=== PATIENT | male | born 1935 | race Caucasian/White ===

== ENCOUNTER → 2016-11-03 | Outpatient (CLI) | payer BC ==
[~2016-11-03] MED LIST: ACET-1256 PO; ALLO300T2 PO; ASPI81TA82 PO; COLC0.6T54 PO; METFTAB2 PO; METO25TA56 PO; MULT-506 PO; NITR0.4S UT; OMEP20TA PO; SIMV40TA4 PO; TELM80TA PO
[2016-11-03 10:12] LABS: ALT/SGPT 28 U/L (12-78); AST/SGOT 18 U/L (15-37)
== END | disposition home or self-care (01) ==
LOC: C.LAB1850 08:28
PROVIDERS: ATTEND Physician Assistant
DX: E78.5 Hyperlipidemia, unspecified (principal)

== ENCOUNTER → 2017-04-28 | Outpatient (CLI) | payer BC ==
[2017-04-28 12:26] LABS: CHOLESTEROL/HDL RATIO 1.8
== END | disposition home or self-care (01) ==
LOC: C.LAB1850 10:16
PROVIDERS: ATTEND Physician Assistant
DX: E78.5 Hyperlipidemia, unspecified (principal)

== ENCOUNTER → 2017-05-25 | Outpatient (CLI) | payer BC ==
[2017-05-25 14:39] LABS: BASO % 0.5 %; BASO ABS # 0.04 K/uL (0-0.2); COMPLETE YES; EOS % 2.8 %; IG% 0.2 %; LYMPH % 23.3 %; LYMPH ABS # 1.97 K/uL (1.2-3.4); MEAN CELL VOLUME 96.2 fL (80-100); MEAN CORPUSCULAR HEMOGLOBIN 32.2 pg (25-34); MEAN CORPUSCULAR HGB CONC 33.4 g/dl (32-36); MEAN PLATELET VOLUME 11.4 fL (7.4-10.4); MONO % 7.7 %; NEUT % 65.5 %; PLATELET COUNT 220 K/uL (130-400); RED BLOOD COUNT 3.95 M/uL (4.7-6.1); WHITE BLOOD COUNT 8.47 K/uL (4.8-10.8)
[2017-05-25 14:42] LABS: URINE APPEARANCE CLEAR (CLEAR); URINE BILIRUBIN NEG (NEG); URINE COLOR YELLOW; URINE EPITHELIAL CELL AUTO 0-5 /lpf (0-5); URINE NITRITE NEG (NEG); URINE PH 5.5 (4.5-7.5); URINE SPECIFIC GRAVITY 1.016 (1.000-1.030); UROBILINOGEN NEG (NEG)
[2017-05-25 14:43] LABS: MANUAL MICROSCOPIC REQUIRED? NO; REVIEW REQ? NO
[2017-05-25 14:49] LABS: BLOOD UREA NITROGEN 51 mg/dl (7-18); BUN/CREATININE RATIO 27.8 (10-20); CALCIUM 9.2 mg/dl (8.5-10.1); CARBON DIOXIDE 28 mmol/L (21-32); CHLORIDE 104 mmol/L (98-107); CREATININE 1.82 mg/dl (0.60-1.40); GLUCOSE 137 mg/dl (70-99); POTASSIUM 5.1 mmol/L (3.5-5.1); SODIUM 138 mmol/L (136-145)
[2017-05-25 14:59] LABS: CREATININE, URINE 78.2 mg/dl; URINE PROTIEN/CREAT RATIO 1.4 (0-0.2); URINE TOTAL PROTEIN 110.2 mg/dl (0-11.9)
== END | disposition home or self-care (01) ==
LOC: C.LAB1850 13:19
PROVIDERS: ATTEND Internal Medicine Nephrology
DX: N18.3 Chronic kidney disease, stage 3 (moderate) (principal); R80.9 Proteinuria, unspecified

== ENCOUNTER → 2017-11-22 | Outpatient (CLI) | payer OTHER ==
[2017-11-22 16:40] LABS: HEMATOCRIT 38.2 % (42-52); MEAN CELL VOLUME 97.7 fL (80-100); MEAN CORPUSCULAR HEMOGLOBIN 33.2 pg (25-34); MEAN PLATELET VOLUME 11.3 fL (7.4-10.4); PLATELET COUNT 206 K/uL (130-400); RED CELL DISTRIBUTION WIDTH CV 14.1 % (11.5-14.5); RED CELL DISTRIBUTION WIDTH SD 49.8 fL (36.4-46.3); WHITE BLOOD COUNT 6.53 K/uL (4.8-10.8)
[2017-11-22 16:58] LABS: ALBUMIN 3.5 gm/dl (3.4-5.0); BLOOD UREA NITROGEN 47 mg/dl (7-18); CALCIUM 9.4 mg/dl (8.5-10.1); CARBON DIOXIDE 26 mmol/L (21-32); CREATININE 1.91 mg/dl (0.60-1.40); GLUCOSE 192 mg/dl (70-99); PHOSPHORUS 2.8 mg/dl (2.5-4.9); POTASSIUM 4.9 mmol/L (3.5-5.1); SODIUM 137 mmol/L (136-145)
== END | disposition home or self-care (01) ==
LOC: C.LAB1850 15:41
PROVIDERS: ATTEND Internal Medicine Nephrology
DX: I12.9 Hypertensive chronic kidney disease with stage 1 through stage 4 chronic kidney disease, or unspecified chronic kidney disease (principal); E11.9 Type 2 diabetes mellitus without complications; R80.9 Proteinuria, unspecified; N18.3 Chronic kidney disease, stage 3 (moderate)

== ENCOUNTER → 2017-11-25 | Outpatient (CLI) | payer OTHER | END | disposition home or self-care (01) | LOC: C.LAB1850 09:36 | PROVIDERS: ATTEND Internal Medicine Nephrology | DX: I12.9 Hypertensive chronic kidney disease with stage 1 through stage 4 chronic kidney disease, or unspecified chronic kidney disease (principal); E11.9 Type 2 diabetes mellitus without complications; R80.9 Proteinuria, unspecified; N18.3 Chronic kidney disease, stage 3 (moderate) ==

== ENCOUNTER 2018-12-12 06:32 | Inpatient (IN) ==
--- NOTE | 2018-11-23 15:04 | PAT Medication Instructions ---
Medication Instructions Date of Service November 23, 2018 Home Medications allopurinol 300 mg PO QAM amlodipine 10 mg PO QAM aspirin [Aspir-81] 81 mg PO QAM atorvastatin 40 mg PO QPM furosemide 20 mg PO QAM glipizide 5 mg PO QAM metformin 500 mg PO BID metoprolol tartrate 25 mg PO BID rofsgygs-mjv-DY-lycopen-lutein 1 tab PO DAILY omeprazole 20 mg PO QPM nitroglycerin [Nitrostat] 1 dose SUBLINGUAL UD PRN Continue as directed nitroglycerin [Nitrostat] 1 dose SUBLINGUAL UD PRN (if needed) STOP taking 2 weeks before surgery (or as soon as possible if surgery is within 2 weeks) Centrum Silver jtcfcjhu-dos-ZK-lycopen-lutein 1 tab PO DAILY DO NOT take the morning of surgery furosemide 20 mg PO QAM glipizide 5 mg PO QAM metformin 500 mg PO BID Take morning of surgery With a small sip of water, OTHERWISE NOTHING TO EAT OR DRINK AFTER MIDNIGHT: allopurinol 300 mg PO QAM amlodipine 10 mg PO QAM aspirin [Aspir-81] 81 mg PO QAM metoprolol tartrate 25 mg PO BID Take evening before surgery atorvastatin 40 mg PO QPM metformin 500 mg PO BID metoprolol tartrate 25 mg PO BID omeprazole 20 mg PO QPM Other Notes If you have any questions please call us at [phone] or [phone] or [phone] or [phone]
--- NOTE | 2018-11-24 10:36 | Anesthesiology Consultation ---
Date of Service November 24, 2018 Assessment & Plan (1) Encounter for pre-operative examination: - Cardio: 10/16/18: DSE ordered for preoperative evaluation (done 11/06/18 and reviewed by cardio). "Patient is an acceptable cardiac risk to undergo surgery." Per patient, to continue ASA perioperatively per surgeon. - PCP: 12/03/18: elevated potassium 5.5 on preop labs 11/24/18. Per PCP, "I do not see the potassium being an issue with his upcoming surgery, although it should be monitored daily while he is in the hospital." Surgeon aware of recommendations. Repeat potassium done 11/29/18 by children's attendant was WNL. "He is an acceptable candidate for the proposed procedure." - Check BSG AM DOS Chart Review Chart Review: Acceptable Risk for Surgery and Patient seen in Pre Admission Testing Teaching & Discussion Pre-Anesthesia Teaching/Discussion Notes: Instructed NPO after midnight before surgery,except medications with 15 cc of water. Medication instructions provided according to the PAT guidelines. History Surgery Operation Date: 12/12/18 12:30 Proposed Procedures p Left Total Knee Replacement - Sawyer Gonzalez MD Height/Weight Height: 6 ft Weight: 104.3 kg Allergies Allergy/AdvReac Type Severity Reaction Status Date / Time codeine Allergy Unknown NAUSEA, Verified 11/22/18 14:01 FACIAL SWELLING Medications Home Medications Medication Instructions Recorded Confirmed Last Taken allopurinol 300 mg PO QAM 09/16/18 11/22/18 Unknown amlodipine 10 mg PO QAM 09/16/18 11/22/18 Unknown aspirin [Aspir-81] 81 mg PO QAM 09/16/18 11/22/18 Unknown atorvastatin 40 mg PO QPM 09/16/18 11/22/18 Unknown furosemide 20 mg PO QAM 09/16/18 11/22/18 Unknown glipizide 5 mg PO QAM 09/16/18 11/22/18 Unknown metformin 500 mg PO BID 09/16/18 11/22/18 Unknown metoprolol tartrate 25 mg PO BID 09/16/18 11/22/18 Unknown ruakpugq-smr-MD-lycopen-lutein 1 tab PO DAILY 09/16/18 11/22/18 Unknown [Centrum Silver] omeprazole 20 mg PO QPM 09/16/18 11/22/18 Unknown nitroglycerin [Nitrostat] 1 dose SUBLINGUAL UD PRN 11/22/18 11/22/18 Unknown Past Medical History Medical History Anemia CHRONIC Arthritis CAD (coronary artery disease) MARIO TO YESSICA (2009) CKD (chronic kidney disease) STAGE III (BASELINE CREATININE 1.7-1.9 PER CHART REVIEW); FOLLOWS WITH NEPHRO Diabetes mellitus, type 2 NIDDM GERD (gastroesophageal reflux disease) CONTROLLED Gout Hearing deficit BILATERAL AIDES Hyperlipidemia Hypertension Past Family History Family History Uncle Family hx of colon cancer Past Surgical History Surgical History History of cardiac cath S/P MARIO TO YESSICA (2009) History of colonoscopy History of endoscopic sinus surgery History of open reduction and internal fixation (ORIF) procedure RIGHT TIBIA History of tonsillectomy Hx of LASIK Past Anesthesia History No Hx of Anesthesia Complications and No Family Hx of Anesthesia Complications History of PONV No Motion Sickness Screening History of Motion Sickness: No Social History Smoking Status: Former smoker Do You Dip or Chew Tobacco: No Smoking End Date: QUIT 1967 Hx Alcohol Use: Yes Alcohol type: wine alcohol intake frequency: 0-2 drinks per day (1 DRINK/DAY) Hx Substance Use: No substance use type: does not use Exercise / Class Metabolic Activity III < 4 Walking/Shop/Light housework (USES CANE/WALKER PRN) Review of Systems Patient denies chest pain, shortness of breath, cough, wheezing, palpitations. Physical Exam Vital Signs VITALS BP 109/67 P 63 TEMP 98.5 SP02 95%RA RESP 18 PHYSICAL Mildly decreased cervical extension Full TMJ range of motion. TMD 3 finger breaths Mallampati Score 2 Dentition: intact, several crowns, temporary post on upper right side tooth (no further dental work planned until after surgery) Lungs: clear throughout to auscultation Cardiac: regular rate and rhythm, no murmurs noted Spine: normal Carotid arteries: negative bruit Extremities: no edema Testing Electrocardiogram Date: 11/24/18 SB with first degree AVB at 56bpm. Possible RVH. Chest X-Ray Date: 11/24/18 Mild cardiomegaly. Platelike atelectasis right base. Stress Test Date: 11/06/18 Type: DSE Negative DSE/stress EKG for ischemia at 94% MPHR. Moderate cLVH. Grade I DD. Mild LAD. No significant valvular disease. Laboratory Results 11/24/18 11:08 11/24/18 11:08 Blood Type A Positive 11/24/18 11:08 Antibody Screen NEGATIVE 11/24/18 11:08 PT 9.8 Seconds (9.0-12.0) 11/24/18 11:08 INR 1.0 (0.9-1.1) 11/24/18 11:08 APTT 26.9 Seconds (21.0-31.0) 11/24/18 11:08 09/04/18 HGBA1C 6.4% 11/29/18 (updated labs*) WBC 8.26 H/H 11.8/35.4 PLT 233 SODIUM 136 POTASSIUM 4.6 (normalized*) CHLORIDE 103 CO2 28 BUN 35 CREATININE 1.76 (GFR 35.2) GLUCOSE 154
--- NOTE | 2018-11-24 11:34 | XRay Report ---
XR chest Pre-admission PA/Lat CLINICAL HISTORY: pat preoperative evaluation COMPARISON STUDY: 02/26/2013 FINDINGS: Mild stable cardiomegaly. Minimal right basilar atelectasis. Lungs otherwise appear clear. IMPRESSION: Mild cardiomegaly. Platelike atelectasis right base. The above report was generated using voice recognition software. It may contain grammatical, syntax or spelling errors. Electronically signed by: Devyn Cheney M.D. 11/24/2018 11:33 AM
[2018-11-24 12:17] LABS: Basophils # (auto) 0.02 K/uL (0-0.2); Basophils % (auto) 0.3 %; Eosinophils # (auto) 0.15 K/uL (0-0.5); Eosinophils % (auto) 1.9 %; Hematocrit (blood only) 33.8 % (42-52); Hemoglobin 11.4 g/dL (14.0-18.0); Immature Granulocytes # (auto) 0.01 K/uL (0.00-0.02); Immature Granulocytes % (auto) 0.1 %; Lymphocytes # (auto) 1.77 K/uL (1.2-3.4); Lymphocytes % (auto) 22.3 %; Mean Corpuscular Hgb Conc 33.7 g/dL (32-36); Mean Corpuscular Volume 95.8 fL (80-100); Mean Platelet Volume 11.9 fL (7.4-10.4); Monocytes # (auto) 0.75 K/uL (0.11-0.59); Monocytes % (auto) 9.5 %; Neutrophils # (auto) 5.23 K/uL (1.4-6.5); Neutrophils % (auto) 65.9 %; Platelet Count 209 K/uL (130-400); RDW Standard Deviation 48.1 fL (36.4-46.3); Red Blood Count 3.53 M/uL (4.7-6.1); White Blood Count 7.93 K/uL (4.8-10.8)
[2018-11-24 12:26] LABS: Calcium 9.3 mg/dl (8.5-10.1); Creatinine Clr Calc Pharmacy 36.8 ml/min; Est GFR (African American) 36.5; Est GFR (Non-African American) 31.5; Potassium 5.5 mmol/L (3.5-5.1)
[2018-11-24 12:29] LABS: Partial Thromboplastin Time 26.9 Seconds (21.0-31.0); Prothrombin Time 9.8 Seconds (9.0-12.0)
--- NOTE | 2018-12-06 13:33 | History and Physical Report ---
DATE OF ADMISSION: 12/12/2018 CHIEF COMPLAINT: Left knee pain and discomfort. HISTORY OF PRESENT ILLNESS: This is an 83-year-old gentleman who presents for surgical treatment of his left knee. He has got a long history of left knee problems that have gradually gotten worse over the past several years. He describes global pain in his knee. The more he walks, the more it hurts. He uses a cane to get around due to the pain in his knee. He has nighttime discomfort. He cannot walk more than a couple of blocks due to the pain. He has had injection which provided him temporary relief only. He is having more and more difficulty maintaining any degree of lifestyle and he would like to have his left knee fixed. PAST MEDICAL HISTORY: 1. Coronary artery disease, status post stent placement by Dr. Lowery with a recent negative dobutamine stress test. 2. Diabetes x2 years. 3. Hypertension. 4. Unspecified kidney disease, followed by Dr. Murphy. 5. Mild obesity. PAST SURGICAL HISTORY: Previous surgeries include: 1. Cardiac stent placement. 2. Right knee ORIF. ALLERGIES: CODEINE. He apparently had some facial swelling with this. This was from dental work, so it may have been related to the dental surgery and not the medicine. CURRENT MEDICINES: Include: 1. Metoprolol. 2. Amlodipine. 3. Metformin. 4. Allopurinol. 5. Glipizide. 6. Aspirin. 7. Atorvastatin. 8. Omeprazole. 9. Centrum Silver. 10. Methylprednisolone. SOCIAL HISTORY: An 83-year-old gentleman. He does not smoke. Several drinks per week. FAMILY HISTORY: Noncontributory. REVIEW OF SYSTEMS: Significant for some underlying cardiac disease, status post stent placement. Denies any current chest pain or shortness of breath. No history of DVT or PE. He does have some underlying kidney disease followed by Dr. Murphy. PHYSICAL EXAMINATION: GENERAL: Reveals a pleasant elderly male. He looks to be in reasonably good health. HEENT: Benign. NECK: Supple. No lymphadenopathy. LUNGS: Clear to auscultation. HEART: Regular rate and rhythm. ABDOMEN: Soft, nontender, nondistended. EXTREMITIES: Grossly neurovascularly intact except as follows: Examination of left knee reveals patient walks with the use of a cane. He has got varus alignment to his left knee. He has a varus thrust with weightbearing. He is tender over the medial joint line. Range of motion about 10 degrees short of full extension and 120 degrees of flexion. There is no instability. No pain with hip motion. X-RAYS: X-rays of the left knee reviewed. Shows advanced left knee DJD. He has got complete loss of his medial joint space. He has got tibial femoral subluxation. He has got subchondral sclerosis. He does have some lateral compartment disease as well. ASSESSMENT: An 83-year-old gentleman with advanced left knee degenerative joint disease. He has failed conservative treatment and would like to have his left knee replaced. PLAN: We will plan on taking him to the operating room and do a left total knee replacement. The risks and benefits of this procedure were explained to the patient including but not limited to DVT, PE, , infection, neurological injury, vascular injury, bleeding problem, pain, limited range of motion, stiffness, failure to relieve symptoms, incomplete relief of symptoms, need for further surgery in future, fracture, leg length inequality, nerve palsy, etc. The patient understands and desires to proceed. Informed consent was obtained. The patient was seen by his wool spotter, Dr. Lowery and had a dobutamine stress test which was negative. He does have some underlying kidney disease, so we have to be careful with NSAIDs postoperatively. He knows to hold his metformin the morning of surgery and take the metoprolol and omeprazole. He is planning to be discharged to home using [facility] home health program.
[~2018-12-12 06:32] MED LIST changes: -ACET-1256 PO; +ACETAMINOPHEN 500 MG TAB PO SCH; -ALLO300T2 PO; -ASPI81TA82 PO; +BUPIVACAINE 0.5 % 5 MG/1 ML PF 10ML VIAL ONE; +BUPIVACAINE LIPOSOME/PF 266 MG, BUPIVACAINE/EPINEPHRINE 50 ML, SODIUM CHLORIDE 0.9% 30 ... INFIL SCH; +CEFAZOLIN 2000MG 2,000 MG/15 ML SYR IV SCH; -COLC0.6T54 PO; +FAMOTIDINE 20 MG TAB PO SCH; +GABAPENTIN 300 MG PO SCH; +LR 500ML BOLUS, THEN 15ML/HR IV SCH; +LR 60ML/HR IV SCH; -METFTAB2 PO; -METO25TA56 PO; +METOCLOPRAMIDE HCL 10 MG TABLET PO SCH; -MULT-506 PO; -NITR0.4S UT; -OMEP20TA PO; +ROPIVACAINE 0.5% 5 MG/ML 30 ML VIAL ONE; -SIMV40TA4 PO; -TELM80TA PO; +TRANEXAMIC ACID 1,000 MG **IV Intra-op IV SCH
[2018-12-12] MEDS ORDERED: MIDAZOLAM HCL 1 MG/ML 2ML VIAL ONE (06:36)
[2018-12-12] MEDS ORDERED: fentaNYL citrate 100 MCG/2 ML VIAL ONE (06:36)
--- NOTE | 2018-12-12 06:52 | History & Physical Bridge Note ---
Date of Service December 12, 2018 History & Physical Bridge Note I have examined the patient, reviewed the History & Physical and in the interval since the performance of the History & Physical I have noted the following changes of clinical significance: no changes noted
[2018-12-12] MEDS ORDERED: ePHEDrine sulfate 50 MG/ML AMP IV PRN (08:41)
[2018-12-12] MEDS ORDERED: PHENYLEPHRINE 100MCG/ML 5ML SYR IV PRN (08:41)
[2018-12-12] MEDS ORDERED: HYDROmorphone INJ 1 MG/ML SYRINGE IV PRN (08:41)
[2018-12-12] MEDS ORDERED: ONDANSETRON INJ 2 MG/ML 2 ML VIAL IV PRN ×2 (08:41→12:02)
[2018-12-12] MEDS ORDERED: ATROPINE SULFATE 0.1 MG/ML 10ML SYR IV PRN (08:41)
[2018-12-12] MEDS ORDERED: BUPIVACAINE 0.25% 30 ML VIAL ONE (08:45)
[2018-12-12] MEDS ORDERED: BACITRACIN INJ 50,000 UNIT VIAL ONE (08:45)
[2018-12-12] MEDS ORDERED: EPINEPHrine INJ 1 MG/ML AMP ONE (08:45)
[2018-12-12] MEDS ORDERED: BUPIVACAINE LIPOSOME 1.3% 266 MG/20 ML VIAL ONE (08:45)
[2018-12-12] MEDS ORDERED: SODIUM CHLORIDE 0.9% PF 50 ML VIAL ONE (08:45)
[2018-12-12] MEDS ORDERED: LIDOCAINE HCL 2% 2 ML VIAL/AMP(20MG/ML) INFIL ONE (09:40)
[2018-12-12] MEDS ORDERED: ONDANSETRON INJ 2 MG/ML 2 ML VIAL ONE (09:40)
[2018-12-12] MEDS ORDERED: ePHEDrine sulfate 50 MG/ML SYR ONE (09:40)
[2018-12-12] MEDS ORDERED: PROPOFOL IV EMULSION 10 MG/ML 20 ML VIAL IV ONE (09:40)
--- NOTE | 2018-12-12 10:43 | Post Operative Brief Note ---
Immediate Post Op Note v1 Date of Surgery December 12, 2018 Pre & Post Diagnosis Operation Date: 12/12/18 08:50 Pre-Op Diagnosis: Left Knee Advanced Degenerative Joint Disease Post-Op Diagnosis: Left Knee Advanced Degenerative Joint Disease Procedure Operation Date: 12/12/18 08:50 Actual Procedures p Left Total Knee Arthroplasty(Left) - Sawyer Gonzalez MD Surgeon Sawyer Gonzalez MD Collections Officer Maria D, PAC Estimated Blood Loss 50 Findings Consistent with Post-Op Diagnosis Fluids 800 cc Specimens Left Knee Drains Sevilla Catheter (A 16 Citizen [place] sevilla catheter was inserted by GALINDO French, without difficulty, clear yellow urine obtained, output to be monitored by Anesthesia.) Anesthesia Type Spinal MAC Complications none Disposition Accompanied Patient To Recovery: No Disposition: Recovery Room
--- NOTE | 2018-12-12 11:23 | XRay Report ---
XR knee LT 2V routine CLINICAL HISTORY: Surgical Post Op arthroplasty COMPARISON: None. DISCUSSION: Anatomic alignment post total left knee arthroplasty. Good contact between prosthetic and underlying bone. Expected soft tissue postoperative change. IMPRESSION: Anatomic alignment post total left knee arthroplasty. The above report was generated using voice recognition software. It may contain grammatical, syntax or spelling errors. Electronically signed by: Devyn Cheney M.D. 12/12/2018 11:21 AM
--- NOTE | 2018-12-12 11:49 | Anesthesiology Progress Note ---
Date of Service December 12, 2018 Anesthesia Post Procedure Vital Signs Vital Signs: Temp Pulse Pulse Resp BP Pulse Ox 12/12/18 11:20 37.4 C 64 18 116/55 L 97 12/12/18 11:10 65 19 120/62 100 12/12/18 11:00 62 19 112/56 L 100 12/12/18 10:50 37.3 C 70 17 112/62 98 12/12/18 07:07 37 C 64 18 140/73 95 Transfer of Care Handoff Completed per policy Notes Mental Status: alert / awake / arousable Patient Amnestic to Procedure: Yes Nausea / Vomiting: adequately controlled Pain: adequately controlled Airway Patency, RR, SpO2: stable & adequate BP & HR: stable & adequate Hydration State: stable & adequate Anesthetic Complications: no major complications apparent
[2018-12-12] MEDS ORDERED: GLUCOSE 40% GEL 15 GM TUBE PO PRN (12:02)
[2018-12-12] MEDS ORDERED: METOCLOPRAMIDE HCL INJ 5 MG/ML 2 ML VIAL IV PRN (12:02)
[2018-12-12] MEDS ORDERED: NO NSAIDS SCH (12:02)
[2018-12-12] MEDS ORDERED: NITROGLYCERIN SL 0.4 MG/TAB TAB SL PRN (12:02)
[2018-12-12] MEDS ORDERED: CARBOHYDRATES FOR HYPOGLYCEMIA PO PRN (12:02)
[2018-12-12] MEDS ORDERED: DEXTROSE 50% 50 ML SYRINGE IV PRN (12:02)
[2018-12-12] MEDS ORDERED: BISACODYL 10 MG SUPP PR PRN (12:02)
[2018-12-12] MEDS ORDERED: GLUCAGON FOR INJ 1 MG VIAL SQ PRN (12:02)
[2018-12-12] MEDS ORDERED: MAGNESIUM HYDROXIDE SUSP 30 ML UDC PO PRN (12:02)
[2018-12-12] MEDS ORDERED: GLUCOSE 10 TABS/TUBE PO PRN (12:02)
[2018-12-12] MEDS ORDERED: ALUMINUM/MAGNESIUM SUSP 30 ML UDC PO PRN (12:02)
[2018-12-12] MEDS ORDERED: NALOXONE HCL 0.4 MG/1 ML VIAL/CARP IV PRN (12:02)
--- NOTE | 2018-12-12 12:19 | Pharmacy Report ---
Glycemic Control Consultation - Date of Service December 12, 2018 - Scope Scope: Glycemic Pharmacist consulted by Dr Leonila Gonzalez on 12/12 for glycemic control and to write orders per [facility] inpatient glycemic control protocol - Objective Weight: 104.099 kg Accuchecks BSG (last 24hrs): 12/12/18 12/12/18 12/12/18 07:09 10:54 11:47 POC Glucose 134 H 122 H 126 H - Recent Pertinent Medications Outpatient Anti-diabetic Regimen: * Glipizide ER 5 mg qAM * Metformin ER 500 mg BID * A1c = 5.6 % - per patient, was done recently Risk Factors for Insulin Resistance: * Recent Surgery: POD 0 s/p L TKA * Diet - Assessment & Plan Assessment & Plan: ASSESSMENT: * 83 y/o male admitted s/p TKA. He has a history of type 2 diabetes, managed with 2 oral agents as an outpatient. He has lost ~20 lbs in preparation for surgery and reports a recent A1c of < 6%. Since he does not have any steroids on board and BSGs are well within range, will initiate Novolog only for now. I'm concerned that adding on basal may be too much in the setting of a new normal A1c and SCr increased a little today. PLAN FOR INPATIENT GLYCEMIC CONTROL: * Holding outpatient oral diabetes medications * Basal insulin - hold off for now, re-evaluate tomorrow * Bolus insulin * NovoLog per scale ACHS or Q6hrs while NPO * Goal Range: Low 110 mg/dL - High 150 mg/dL * Correction Factor: 25 mg/dL/unit * Nutritional / Prandial insulin per carb ratio of 1 unit per 9 grams CHO consumed Discharge Recommendations: * If A1c is truly near normal, this is well below goal for patient's age. He does not check his BSGs at home so I wonder if he has any lows and doesn't realize it? * Consider stopping glipizide on discharge - especially in the setting of elderly patient Thank you.
[2018-12-12] MEDS ORDERED: PHARMACY GLYCEMIC MGMT CONSULT PRN (12:29)
[2018-12-12] MEDS: SODIUM CHLORIDE 0.9% 1000ML 1,000 ML IV SCH ×2 (13:07→22:36)
[2018-12-12] MEDS: INSULIN ASPART 100 UNITS/ML 3 ML PEN SC SCH ×3 (13:10→20:51)
[2018-12-12] MEDS: ACETAMINOPHEN 500 MG TAB PO SCH ×2 (14:01→21:36)
--- NOTE | 2018-12-12 15:39 | Progress Note ---
DATE: 12/12/2018 SUBJECTIVE: An 83-year-old gentleman postop from a left knee replacement. He is doing pretty well. Really not having much pain. Just a little bit of tightness in the back of his knee. No chest pain or shortness of breath. Not feeling dizzy or lightheaded. OBJECTIVE: VITAL SIGNS: Temperature 36.9. Vital signs stable. GENERAL: Physical examination shows a pleasant elderly male. He is sitting up in his bedside chair, looks pretty comfortable. LUNGS: Clear to auscultation. HEART: Regular rate and rhythm. ABDOMEN: Soft, nontender, nondistended. EXTREMITIES: Grossly neurovascularly intact except as follows: Examination of the left lower extremity reveals the leg to be well aligned. Dressing is clean, dry, and intact. He can dorsiflex and plantarflex his foot appropriately. He is neurologically intact. X-RAYS: X-rays of the left knee from recovery room reviewed. It shows a cemented posterior stabilized total knee arthroplasty. Components are in good position. No signs of problems. ASSESSMENT: An 83-year-old gentleman postop from a left knee replacement, doing pretty well. Pain is controlled. He is neurologically intact. PLAN: 1. DVT prophylaxis including thigh-high TEDs, SCDs, and aspirin twice a day. 2. PT/OT. Weight bear as tolerated. Left total knee protocol. 3. Pain control, doing okay with current pain regimen. There is a QUESTIONABLE ALLERGY TO CODEINE. We will be given him using Dilaudid along with maybe some low-dose Toradol. 4. IV antibiotics x24 hours. 5. Disposition. He is planning to be discharged to home with some home health once adequately recovered.
[2018-12-12] MEDS ORDERED: TRANEXAMIC ACID 1,000 MG in 0.9 % SODIUM CHLORIDE 100 ML IV SCH (17:00)
[2018-12-12] MEDS: HYDROmorphone HCL 2 MG TAB PO PRN (17:25)
[2018-12-12] MEDS: FERROUS GLUCONATE 324 MG TAB PO SCH (17:26)
[2018-12-12] MEDS: ASCORBIC ACID 500 MG TAB PO SCH (17:26)
[2018-12-12] MEDS: HYDROmorphone INJ 0.5 MG/0.5 ML SYR IV PRN (20:42)
[2018-12-12] MEDS: DOCUSATE SODIUM 100 MG CAP PO SCH (20:48)
[2018-12-12] MEDS: METOPROLOL TARTRATE 25 MG TAB PO SCH (20:49)
[2018-12-12] MEDS: ASPIRIN 81 MG ECTAB PO SCH (20:49)
[2018-12-12] MEDS: SENNA 8.6 MG TAB PO SCH (20:49)
[2018-12-12] MEDS: ATORVASTATIN 40 MG TAB PO SCH (20:49)
[2018-12-12] MEDS: CEFAZOLIN 2000MG 2,000 MG/15 ML SYR IV SCH (20:50)
[2018-12-12] MEDS: PANTOprazole 40 MG TAB PO SCH (20:50)
[2018-12-13] MEDS: HYDROmorphone INJ 0.5 MG/0.5 ML SYR IV PRN ×3 (01:02→19:02)
--- NOTE | 2018-12-13 01:23 | Operative Report ---
DATE OF OPERATION: 12/12/2018 SURGEON: Sawyer Gonzalez MD CENTRAL OFFICE INSPECTOR: GALINDO Wiseman PREOPERATIVE DIAGNOSIS: Left knee degenerative joint disease. POSTOPERATIVE DIAGNOSIS: Left knee degenerative joint disease. PROCEDURE PERFORMED: Left cemented posterior stabilized total knee arthroplasty. COMPLICATIONS: None. ESTIMATED BLOOD LOSS: 50 mL. FLUID REPLACEMENT: 800 mL. TOURNIQUET TIME: 57 minutes at 300 mmHg. ANESTHESIA: Spinal with adductor canal block. DRAINS: None. SPECIMENS: Left knee sent for pathology. OPERATIVE INDICATIONS: The patient is an 83-year-old very active gentleman who has had a long history of left knee pain and discomfort. He describes it has gotten worse over time. It became less responsive to conservative care. He elected to proceed with a left total knee arthroplasty. OPERATIVE FINDINGS: Operative findings were advanced left knee DJD. Extensive grade 4 [id number] disease of the medial femoral condyle and medial tibial plateau. He had some spotty grade 4 changes in the lateral femoral condyle and pretty extensive grade 4 changes in the patellofemoral joint. He has a fixed varus deformity to his knee and a 10-degree flexion contracture. OPERATIVE IMPLANTS: Operative implants consisted of: 1. A Biomet Vanguard size 67.5 left posterior stabilized femoral component. 2. A Biomet size 75 tibial tray. 3. A 10 mm posterior stabilized polyethylene insert. 4. A 31 x 8 all poly patella. OPERATIVE PROCEDURE: The patient was taken to the operating room, identified, and placed in the operating table in the supine position. All contact areas were appropriately padded. IV antibiotics were provided by anesthesia team. A spinal anesthetic and adductor canal block had been provided in the holding area. Jerome catheter was placed in sterile fashion. A left thigh tourniquet was then placed and left lower extremity was then prepped and draped in the usual sterile fashion. The left leg was elevated and exsanguinated with Esmarch and tourniquet was placed at 300 mmHg. An anterior approach to the left knee was then performed through a longitudinal incision centered over the patella. Sharp dissection was carried through the subcutaneous tissues down to the level of the extensor mechanism. A medial parapatellar arthrotomy incision was made. Some subperiosteal dissection was carried out medially. The fat pad was resected from beneath the patellar tendon. The lateral patellofemoral ligament was released. The patella was everted and the knee was flexed. The osteophytes were taken off the distal femur. The ACL and PCL were then released from the distal femur and the tibia subluxated anteriorly. The external tibial alignment jig was then placed in the anterior face of the tibia and adjusted 16 mm medially. A proximal tibial cut was made to remove about a millimeter of bone from the most deficient aspect of the medial tibial plateau. Some osteophytes were taken off medial and posteromedially. Tibia was sized to a size 75. Attention was then drawn to the femur. The distal femur was entered with a sharp drill bit. The intramedullary canal was suctioned. A left 6-degree valgus cutting guide was placed. Distal femoral cutting block was pinned in place. Distal femoral cut was made to take an additional 3 mm of bone off the distal femur. Femur was then sized to a size 67.5. We did downsize this slightly. The AP cutting block was pinned parallel to the epicondylar axis, which was 5 degrees of external rotation. The anterior cut, anterior chamfer, posterior cut, posterior chamfer cuts were made. Box cutting guide was placed and adjusted slightly lateral and the box cut was made. The knee was flexed. The remnants of the medial and lateral menisci were excised. The osteophytes were taken off the posterior aspect of the femur. A trial femoral component was placed. Tibial tray was pinned in maximum external rotation and drill and stem punch were used to create a defect in the proximal tibia for the tibial tray. The knee was then trialed and the 10 mm insert fit most appropriately. Attention was then drawn to the patella. The patella was cleaned of all soft tissues. Patella thickness measured 23 mm in thickness, it was cut down to 14. It was sized to a size 31 patella. Lug holes were drilled for a 31 patella. Lateral osteophytes were removed. Patella button was placed. Knee was taken through range of motion and patella tracked nicely with no thumbs test. Attention was then drawn toward placement of permanent components. All trial components were removed. Bone plug was placed in the distal femur to limit blood loss. A double batch of Palacos G cement was mixed. A Biomet Vanguard size 67.5 left posterior stabilized femoral component, a Biomet size 75 tibial tray, a 10 mm posterior stabilized polyethylene insert, and a 31 x 8 all poly patella were then cemented in place. The knee was brought out into full extension until cement hardened. A final cement check was then performed. Pericapsular tissues were injected with a total of 100 mL of combination of 20 mL Exparel, 30 mL of normal saline, 50 mL of 0.25% Marcaine with epinephrine. The patient did receive 1 gram of tranexamic acid. The tourniquet was then let down for a final tourniquet time of 57 minutes. Hemostasis was assured using electrocautery. Extensor mechanism was then closed with a combination of #1 PDS suture and #1 Vicryl suture in [id number] fashion. Extensor mechanism was checked and found to be intact. The subcutaneous tissues were then closed with #2 Dexon suture in a buried interrupted fashion. The skin was closed with skin erickson. Leg was then cleaned, dried and a sterile dressing of Xeroform, 4 x 4's, sterile cast padding and Marcos bandage were applied. The patient was then transferred to the recovery room in stable condition. The patient tolerated the procedure well with no complications. All needle and sponge counts were correct at the end of the operation. I attest to the content of the Intraoperative Record and any orders documented therein. Any exception s are noted below.
[2018-12-13] MEDS: ACETAMINOPHEN 500 MG TAB PO SCH ×3 (06:06→21:00)
[2018-12-13] MEDS: CEFAZOLIN 2000MG 2,000 MG/15 ML SYR IV SCH (06:06)
[2018-12-13 06:11] LABS: Hematocrit (blood only) 30.6 % (42-52); Hemoglobin 10.2 g/dL (14.0-18.0); Mean Corpuscular Hgb Conc 33.3 g/dL (32-36); Mean Corpuscular Volume 95.6 fL (80-100); Mean Platelet Volume 10.8 fL (7.4-10.4); Platelet Count 190 K/uL (130-400); RDW Coefficient of Variation 14.5 % (11.5-14.5); White Blood Count 8.07 K/uL (4.8-10.8)
[2018-12-13 06:57] LABS: BUN Creatinine Ratio 23.8 (10-20); Calcium 8.5 mg/dl (8.5-10.1); Creatinine Clr Calc Pharmacy 45.6 ml/min; Est GFR (Non-African American) 41.4; Potassium 4.3 mmol/L (3.5-5.1)
[2018-12-13] MEDS: HYDROmorphone HCL 2 MG TAB PO PRN (08:32)
[2018-12-13] MEDS: ASCORBIC ACID 500 MG TAB PO SCH ×2 (08:33→18:05)
[2018-12-13] MEDS: FERROUS GLUCONATE 324 MG TAB PO SCH ×2 (08:33→18:05)
[2018-12-13] MEDS: ALLOPURINOL 300 MG TAB PO SCH (08:33)
[2018-12-13] MEDS: AMLODIPINE BESYLATE 5 MG TAB PO SCH (08:34)
[2018-12-13] MEDS: METOPROLOL TARTRATE 25 MG TAB PO SCH ×2 (08:34→20:30)
[2018-12-13] MEDS: DOCUSATE SODIUM 100 MG CAP PO SCH ×2 (08:34→20:30)
[2018-12-13] MEDS: FUROSEMIDE 20 MG TAB PO SCH (08:34)
[2018-12-13] MEDS: TAMSULOSIN HCL 0.4 MG CAP PO PRN (08:35)
[2018-12-13] MEDS: MULTIVITAMIN TAB PO SCH (08:35)
[2018-12-13] MEDS: ASPIRIN 81 MG ECTAB PO SCH ×2 (08:35→20:30)
[2018-12-13] MEDS: INSULIN ASPART 100 UNITS/ML 3 ML PEN SC SCH ×4 (08:36→20:32)
[2018-12-13] MEDS ORDERED: LANTUS PER UNIT CHARGE SQ ONE (09:00)
[2018-12-13] MEDS ORDERED: NON-FORMULARY MEDICATION (Glipizide 5 MG) PO SCH (09:00)
[2018-12-13] MEDS ORDERED: NON-FORMULARY MEDICATION (Multivit-Min-Fa-Lycopen-Lutein [Centrum Silver] 1 TAB) PO SCH (09:00)
--- NOTE | 2018-12-13 09:24 | Progress Note ---
DATE: 12/13/2018 SUBJECTIVE: An 83-year-old gentleman postop day 1 from a left knee replacement. He is doing pretty good. Had a little bit more pain last night. He is doing okay with the pain pills. No chest pain or shortness of breath. Not feeling dizzy or lightheaded. OBJECTIVE: VITAL SIGNS: Temperature 37.2. Vital signs stable. GENERAL: Physical examination shows a pleasant elderly male. He is sitting up in bed, looks reasonably comfortable. EXTREMITIES: Examination of the left leg reveals the dressing to be clean, dry, and intact. He can dorsiflex and plantarflex his foot appropriately. He is neurologically intact. LABORATORY DATA: Hemoglobin 10.2. Hematocrit 30.6. Electrolytes are stable. Creatinine just a little bit elevated at 1.53. He has got some chronic renal dysfunction. This is pretty stable for him. It is actually a little bit lower than his preoperative labs. ASSESSMENT: An 83-year-old gentleman postop day 1 from left knee replacement, doing pretty well. Pain has been reasonably well controlled. He is neurologically intact. PLAN: 1. DVT prophylaxis including thigh-high TEDs, SCDs, and aspirin twice a day. 2. PT/OT. Weight bear as tolerated. Left total knee protocol. 3. Pain control, doing pretty well with current pain regimen. We may need to adjust his meds a little bit to get a little bit better pain control. 4. Disposition. He is planning to be discharged to home with some home health once adequately recovered.
--- NOTE | 2018-12-13 09:46 | Anesthesiology Progress Note ---
Date of Service December 13, 2018 Anesthesia Post Procedure Vital Signs Vital Signs: Temp Pulse Pulse Pulse Resp BP BP 12/13/18 07:01 37.2 C 80 20 149/72 H 12/13/18 02:49 37.2 C 81 16 150/73 H 12/12/18 22:49 37.2 C 78 17 143/68 H 12/12/18 20:16 36.6 C 91 H 17 144/79 H 12/12/18 18:50 36.5 C 68 17 155/78 H 12/12/18 14:47 36.9 C 68 19 121/66 12/12/18 13:32 36.6 C 62 20 146/65 H 12/12/18 12:42 36.8 C 83 20 159/68 H 12/12/18 12:10 36.8 C 66 20 123/64 12/12/18 11:45 36.8 C 60 16 115/68 12/12/18 11:20 37.4 C 64 18 116/55 L 12/12/18 11:10 65 19 120/62 12/12/18 11:00 62 19 112/56 L 12/12/18 10:50 37.3 C 70 17 112/62 Pulse Ox 12/13/18 07:01 90 12/13/18 02:49 91 12/12/18 22:49 95 12/12/18 20:16 95 12/12/18 18:50 93 12/12/18 14:47 92 12/12/18 13:32 96 12/12/18 12:42 91 12/12/18 12:10 91 12/12/18 11:45 95 12/12/18 11:20 97 12/12/18 11:10 100 12/12/18 11:00 100 12/12/18 10:50 98 Pain Intensity Left Knee: Pain Intensity: 5 Notes Mental Status: alert / awake / arousable and participated in evaluation Patient Amnestic to Procedure: Yes Nausea / Vomiting: adequately controlled Pain: adequately controlled Airway Patency, RR, SpO2: stable & adequate BP & HR: stable & adequate Hydration State: stable & adequate Neuraxial Anesthesia: was administered and sensory block resolved Anesthetic Complications: no major complications apparent and Pt Satisfied with anesthetic care
--- NOTE | 2018-12-13 13:51 | Pharmacy Report ---
Glycemic Control Progress Note - Date of Service December 13, 2018 - Scope Glycemic Pharmacist consulted for glycemic control to write orders per [facility] inpatient glycemic control protocol. - Objective Accuchecks BSG(last 24 hours):: 12/12/18 12/12/18 12/13/18 17:24 20:15 05:43 Glucose 158 H POC Glucose 129 H 138 H 12/13/18 12/13/18 12/13/18 07:56 10:02 11:40 Glucose POC Glucose 164 H 145 H 123 H - Recent Pertinent Medications The patient is currently receiving: * Basal insulin: Lantus -- units every -- hours * Correctional Insulin: Novolog Correction per scale ACHS Goal Range: Low 110 mg/dL - High 150 mg/dL Correction Factor: 25 mg/dL/unit * Prandial insulin: Per carb ratio of 1 unit per 9 grams CHO consumed - Outpatient Anti-Diabetic Meds metformin 500 mg BID glipizide ER 5 mg daily - Assessment & Plan ASSESSMENT: * See progress note from 12/12/18 for more background info, in short: * Pt receiving SQ basal bolus insulin regimen for hyperglycemia secondary to baseline DM (outpatient regimen on hold) and POD 1 for L TKA. * Patient is currently receiving an average of 9 units of insulin per day * -- units of basal insulin * 9 units of prandial/correctional insulin * BSGs ranging 126 - 138 mg/dl over the past 24hrs * Changes needed to insulin regimen: * AM Fasting BSG = 164 mg/dl. This is above goal range for patient based on inpatient targets and co-morbidities. Give 15 units (0.15 units/kg) x 1. Ex pect that this is just since the patient is post-operative. With surgery ideally want blood sugars under 150 mg/dL post-surgery to prevent infection. * Post-prandial BSGs trended downwards. Loosen to between weight-based stress of 2 and 1. Patient concerned with receiving insulin as he does not take this at home. Will attempt for goal of around 150 mg/dL. * Total daily dose = ~20 units. * Resume metformin tomorrow if patient tolerating oral intake. Kidney function as resumed to normal but patient did not eat lunch today so will defer to tomorrow. PLAN FOR INPATIENT GLYCEMIC CONTROL: * Lantus 15 units SQ x 1 * LOOSENING correction factor to 35 mg/dl/unit * LOOSENING carb ratio to 1 unit per 12 grams CHO consumed * Continuing goal range of Low 110 mg/dL - High 140 mg/dL RECOMMENDATIONS FOR DISCHARGE: * Per patient his HbA1C is 5.6%. This is excellent if not too tight control in an 83 y/o. * Recommend discontinuing glipizide as the patient has renal insufficiency. Sulfonylureas are not the safest agents in the elderly with kidney dysfunction. * Can continue metformin and recommend increasing dose to 1 gm PO BID when glipizide d/c'ed. * Please note that the plan above was derived based on current level of insulin resistance and hospital stress. These recommendations are appropriate for inpatient admission only. Plan of care upon discharge will need to be reassessed to avoid potential outpatient hypo/hyperglycemia. Thank you.
[2018-12-13] MEDS: PANTOprazole 40 MG TAB PO SCH (20:30)
[2018-12-13] MEDS: SENNA 8.6 MG TAB PO SCH (20:30)
[2018-12-13] MEDS: ATORVASTATIN 40 MG TAB PO SCH (20:30)
[2018-12-14] MEDS: ACETAMINOPHEN 500 MG TAB PO SCH ×3 (05:20→21:19)
--- NOTE | 2018-12-14 07:56 | Progress Note ---
DATE: 12/14/2018 SUBJECTIVE: Mr. Gates is an 83-year-old gentleman who is postop day 2 from left total knee replacement. A bit more difficulty yesterday as far as getting up, he said, and out of bed with his left leg, he had some dizziness, he felt related to his pain medicine. He also had some difficulty with urination, the Jerome catheter replaced. No chest pain or shortness of breath. PHYSICAL EXAMINATION: GENERAL: He is alert, oriented, no distress. EXTREMITIES: His dressing is clean, dry and intact in the left knee. Neurovascularly intact, able to dorsiflex, plantarflex appropriately. ASSESSMENT: Postoperative day 2 from left total knee replacement. PLAN: 1. Continue DVT prophylaxis with ELEAZAR stockings, SCDs, and aspirin b.i.d. 2. Continue PT, OT weightbear as tolerated, left total knee protocol. 3. Continue current pain control. 4. He is looking into discharge possibly to a rehab facility now, so social work nurse will look into that further.
[2018-12-14] MEDS ORDERED: LANTUS PER UNIT CHARGE SQ ONE (08:45)
[2018-12-14] MEDS: ASPIRIN 81 MG ECTAB PO SCH ×2 (08:49→21:19)
[2018-12-14] MEDS: MULTIVITAMIN TAB PO SCH (08:49)
[2018-12-14] MEDS: DOCUSATE SODIUM 100 MG CAP PO SCH ×2 (08:49→21:19)
[2018-12-14] MEDS: FERROUS GLUCONATE 324 MG TAB PO SCH ×2 (08:49→17:56)
[2018-12-14] MEDS: METOPROLOL TARTRATE 25 MG TAB PO SCH ×2 (08:49→21:19)
[2018-12-14] MEDS: AMLODIPINE BESYLATE 5 MG TAB PO SCH (08:49)
[2018-12-14] MEDS: ALLOPURINOL 300 MG TAB PO SCH (08:49)
[2018-12-14] MEDS: FUROSEMIDE 20 MG TAB PO SCH (08:49)
[2018-12-14] MEDS: ASCORBIC ACID 500 MG TAB PO SCH ×2 (08:49→17:56)
[2018-12-14] MEDS: INSULIN ASPART 100 UNITS/ML 3 ML PEN SC SCH ×4 (08:53→21:56)
[2018-12-14] MEDS: HYDROmorphone HCL 2 MG TAB PO PRN ×3 (11:55→22:31)
--- NOTE | 2018-12-14 14:31 | Pharmacy Report ---
Pharmacy Glycemic Short Note 2 - Date of Service December 14, 2018 - Glycemic Short BSG Results (Last 24 hours): 12/13/18 12/13/18 12/14/18 17:25 20:25 08:05 POC Glucose 155 H 184 H 150 H 12/14/18 11:50 POC Glucose 175 H OUTPATIENT ANTIDIABETIC REGIMEN: * Glipizide ER 5 mg QAM * Metformin 500 mg BID ASSESSMENT: * 83 y/o M Type 2 Diabetic currently post op L TKA (POD 2). * Pt is maintained on oral antidiabetic agents as an outpatient * Oral agents are not recommended for inpatient use d/t drug interactions, changing PO intake, and difficulty titrating for acute hyper/hypoglycemia. ADA recommends re-initiating outpatient oral agents 1-2 days prior to discharge if/when appropriate if they were held on admission. * Oral anti-diabetic home meds currently on hold until creatinine is stable. Will check creatinine tomorrow and resume metformin if good. * Patient received total of 26 units of insulin yesterday; 15 units of which was basal Lantus. * Fasting BSG = 150 today and lunch BSG = 175; Novolog CF and CR was tightened with lunch today. Aim for BSGs around 150 for post-op wound healing. PLAN FOR INPATIENT GLYCEMIC CONTROL: * Hold outpatient oral diabetes medications * Basal insulin: continued * Lantus 15 units SQ x 1 today AM * Bolus insulin: increased * NovoLog per scale ACHS or Q6hrs while NPO * Goal Range: Low 110 mg/dL - High 140 mg/dL * Correction Factor: 30 mg/dL/unit * Nutritional / Prandial insulin per carb ratio of 1 unit per 10 grams CHO consumed RECOMMENDATIONS FOR DISCHARGE: * Per patient his HbA1C is 5.6%. This is excellent if not too tight control in an 83 y/o. * Recommend discontinuing glipizide as the patient has renal insufficiency. Sulfonylureas are not the safest agents in the elderly with kidney dysfunction. * Can continue metformin and recommend increasing dose to 1 gm PO BID when glipizide d/c'ed.
[2018-12-14] MEDS: ATORVASTATIN 40 MG TAB PO SCH (21:19)
[2018-12-14] MEDS: SENNA 8.6 MG TAB PO SCH (21:19)
[2018-12-14] MEDS: PANTOprazole 40 MG TAB PO SCH (21:20)
[2018-12-15] MEDS: ACETAMINOPHEN 500 MG TAB PO SCH ×3 (05:50→21:03)
[2018-12-15 06:26] LABS: Creatinine Clr Calc Pharmacy 39.4 ml/min; Est GFR (African American) 40.3; Est GFR (Non-African American) 34.7
--- NOTE | 2018-12-15 08:32 | Progress Note ---
DATE: 12/15/2018 SUBJECTIVE: An 83-year-old gentleman postop day 3 from a left total knee replacement. He is doing better this morning. Still having some pain, but seems to be getting better daily. No chest pain or shortness of breath. Not feeling dizzy or lightheaded. OBJECTIVE: VITAL SIGNS: Temperature 37.4. Vital signs stable. GENERAL: Physical examination shows a pleasant elderly male. He is sitting up in his bedside chair and shaving this morning. EXTREMITIES: Examination of the left leg reveals the dressing to be clean, dry and intact. Calf is soft and supple. He can dorsiflex and plantarflex his foot appropriately. He is neurologically intact. ASSESSMENT: An 83-year-old gentleman postop day 3 from a left knee replacement, doing reasonably well. Pain seems to be getting better. PLAN: 1. DVT prophylaxis including thigh-high TEDs, SCDs, and aspirin twice a day. 2. PT/OT. Weight bear as tolerated. Left total knee protocol. 3. Pain control, doing pretty well with current pain regimen. Pain seems to be improving. 4. Disposition: He is hoping to be discharged to rehab or snf facility. Pending approval.
[2018-12-15] MEDS: ASPIRIN 81 MG ECTAB PO SCH ×2 (08:51→21:04)
[2018-12-15] MEDS: ASCORBIC ACID 500 MG TAB PO SCH ×2 (08:51→17:43)
[2018-12-15] MEDS: FUROSEMIDE 20 MG TAB PO SCH (08:51)
[2018-12-15] MEDS: AMLODIPINE BESYLATE 5 MG TAB PO SCH (08:52)
[2018-12-15] MEDS: METOPROLOL TARTRATE 25 MG TAB PO SCH ×2 (08:52→21:04)
[2018-12-15] MEDS: ALLOPURINOL 300 MG TAB PO SCH (08:52)
[2018-12-15] MEDS: FERROUS GLUCONATE 324 MG TAB PO SCH ×2 (08:52→17:43)
[2018-12-15] MEDS: DOCUSATE SODIUM 100 MG CAP PO SCH ×2 (08:52→21:03)
[2018-12-15] MEDS: MULTIVITAMIN TAB PO SCH (08:52)
[2018-12-15] MEDS: INSULIN ASPART 100 UNITS/ML 3 ML PEN SC SCH ×4 (08:55→21:02)
[2018-12-15] MEDS: METFORMIN HCL ER 500 MG TABCR PO SCH ×2 (08:58→17:43)
[2018-12-15] MEDS: HYDROmorphone HCL 2 MG TAB PO PRN ×3 (08:59→21:29)
--- NOTE | 2018-12-15 10:07 | Pharmacy Report ---
Pharmacy Glycemic Short Note 2 - Date of Service December 15, 2018 - Glycemic Short BSG Results (Last 24 hours): 12/14/18 12/14/18 12/14/18 11:50 17:14 20:58 POC Glucose 175 H 177 H 136 H 12/15/18 08:02 POC Glucose 146 H OUTPATIENT ANTIDIABETIC REGIMEN: * Glipizide ER 5 mg QAM * Metformin ER 500 mg BID ASSESSMENT: 12/15 * Mr. Gates received 24 units of insulin yesterday (15 of this being basal) * Patient will most likely be discharged to rehab today so will resume metformin in anticipation of no further insulin to be on board * SCr is up a little today but this is baseline for the patient (GFR = 34). Metformin okay to be continued in GFR range of 30-45 but should not be started as a brand new med in a patient with this renal function. 12/14 * 83 y/o M Type 2 Diabetic currently post op L TKA (POD 2). * Pt is maintained on oral antidiabetic agents as an outpatient * Oral agents are not recommended for inpatient use d/t drug interactions, changing PO intake, and difficulty titrating for acute hyper/hypoglycemia. ADA recommends re-initiating outpatient oral agents 1-2 days prior to discharge if/when appropriate if they were held on admission. * Oral anti-diabetic home meds currently on hold until creatinine is stable. Will check creatinine tomorrow and resume metformin if good. * Patient received total of 26 units of insulin yesterday; 15 units of which was basal Lantus. * Fasting BSG = 150 today and lunch BSG = 175; Novolog CF and CR was tightened with lunch today. Aim for BSGs around 150 for post-op wound healing. PLAN FOR INPATIENT GLYCEMIC CONTROL: * Resume outpatient dose of metformin - GFR acceptable and near baseline * Basal insulin: no further basal since patient to be discharged and metformin being resumed * Bolus insulin: no change * NovoLog per scale ACHS or Q6hrs while NPO * Goal Range: Low 110 mg/dL - High 150 mg/dL * Correction Factor: 30 mg/dL/unit * Nutritional / Prandial insulin per carb ratio of 1 unit per 10 grams CHO consumed RECOMMENDATIONS FOR DISCHARGE: * Per patient his HbA1C is 5.6%. This is excellent if not too tight control in an 83 y/o. * Recommend discontinuing glipizide as the patient has renal insufficiency. Sulfonylureas are not the safest agents in the elderly with kidney dysfunction. * Can continue metformin and recommend increasing dose to 1 gm PO BID when glipizide d/c'ed but only if renal function would remain stable
[2018-12-15] MEDS: SENNA 8.6 MG TAB PO SCH (21:03)
[2018-12-15] MEDS: PANTOprazole 40 MG TAB PO SCH (21:04)
[2018-12-15] MEDS: ATORVASTATIN 40 MG TAB PO SCH (21:04)
[2018-12-16] MEDS: ACETAMINOPHEN 500 MG TAB PO SCH ×3 (05:32→21:04)
[2018-12-16] MEDS: FERROUS GLUCONATE 324 MG TAB PO SCH ×2 (07:42→18:26)
[2018-12-16] MEDS: ASCORBIC ACID 500 MG TAB PO SCH ×2 (07:42→18:26)
[2018-12-16] MEDS: METFORMIN HCL ER 500 MG TABCR PO SCH ×2 (07:42→18:25)
--- NOTE | 2018-12-16 08:04 | Progress Note ---
DATE: 12/16/2018 SUBJECTIVE: An 83-year-old gentleman postop day 4 from a left knee replacement. He is doing okay. Pain seems to be getting a little bit better daily. Still waiting for placement. No chest pain or shortness of breath. Not feeling dizzy or lightheaded. OBJECTIVE: VITAL SIGNS: Temperature 36.7. Vital signs stable. GENERAL: Physical examination shows a pleasant elderly male. He is sitting up in bed, looks pretty comfortable. EXTREMITIES: Examination of the left leg reveals the dressing to be clean, dry and intact. There is some bruising around the incision site. Small fracture blisters. Calf is soft and supple. He is neurologically intact. ASSESSMENT: An 83-year-old gentleman postop day 4 from a left knee replacement, doing okay. Pain seems to be getting a little bit better. Really just waiting for placement. PLAN: 1. DVT prophylaxis including thigh-high TEDs, SCDs, and aspirin twice a day. 2. PT/OT. Weight bear as tolerated. Left total knee protocol. 3. Pain control, doing pretty well with current pain regimen. 4. Disposition: Waiting for placement. The patient is medically okay for discharge once placement has been obtained.
[2018-12-16] MEDS: METOPROLOL TARTRATE 25 MG TAB PO SCH ×2 (08:05→21:03)
[2018-12-16] MEDS: DOCUSATE SODIUM 100 MG CAP PO SCH ×2 (08:05→21:03)
[2018-12-16] MEDS: ALLOPURINOL 300 MG TAB PO SCH (08:05)
[2018-12-16] MEDS: MULTIVITAMIN TAB PO SCH (08:05)
[2018-12-16] MEDS: AMLODIPINE BESYLATE 5 MG TAB PO SCH (08:05)
[2018-12-16] MEDS: FUROSEMIDE 20 MG TAB PO SCH (08:06)
[2018-12-16] MEDS: ASPIRIN 81 MG ECTAB PO SCH ×2 (08:06→21:02)
[2018-12-16] MEDS: INSULIN ASPART 100 UNITS/ML 3 ML PEN SC SCH ×4 (09:37→21:04)
[2018-12-16] MEDS: HYDROmorphone HCL 2 MG TAB PO PRN ×3 (10:11→21:02)
[2018-12-16] MEDS: TAMSULOSIN HCL 0.4 MG CAP PO PRN (13:40)
[2018-12-16] MEDS: SENNA 8.6 MG TAB PO SCH (21:02)
[2018-12-16] MEDS: ATORVASTATIN 40 MG TAB PO SCH (21:03)
[2018-12-16] MEDS: PANTOprazole 40 MG TAB PO SCH (21:04)
[2018-12-17] MEDS: HYDROmorphone HCL 2 MG TAB PO PRN ×4 (00:58→21:11)
[2018-12-17] MEDS: ACETAMINOPHEN 500 MG TAB PO SCH ×3 (06:02→21:06)
--- NOTE | 2018-12-17 08:47 | Progress Note ---
DATE: 12/17/2018 SUBJECTIVE: An 83-year-old gentleman now postop day 5 from a left knee replacement. He continues to make progress and get better daily. His pain is a little bit better. No chest pain or shortness of breath. Seems to be immobilized and a little bit better. OBJECTIVE: VITAL SIGNS: Temperature 37.4. Vital signs stable. GENERAL: Physical examination reveals a pleasant elderly male. He is lying in bed, looks quite comfortable. EXTREMITIES: Examination of left leg reveals the leg to be well aligned. Incision is clean, dry and intact. No significant drainage. Calf is soft and supple. NEUROLOGIC: He is neurologically intact. ASSESSMENT: An 83-year-old gentleman postop day 5 from a left knee replacement, doing reasonably well. He has had some voiding issues and had they had to straight cath him last evening. His pain is improving. We are really just waiting for placement. PLAN: 1. DVT prophylaxis including thigh-high TEDs, SCDs, and aspirin twice a day. 2. PT/OT. Weight bear as tolerated. Left total knee protocol. 3. Pain control, doing well with current pain regimen. 4. Urinary retention. We will straight cath him as needed. We are going to try and avoid placing a Jerome if at all possible. 5. Disposition: The patient is medically stable for transfer to a rehab or [facility] facility. We are awaiting placement.
[2018-12-17] MEDS: INSULIN ASPART 100 UNITS/ML 3 ML PEN SC SCH ×4 (08:59→21:12)
[2018-12-17] MEDS: METFORMIN HCL ER 500 MG TABCR PO SCH ×2 (09:10→17:44)
[2018-12-17] MEDS: ASCORBIC ACID 500 MG TAB PO SCH ×2 (09:11→17:44)
[2018-12-17] MEDS: DOCUSATE SODIUM 100 MG CAP PO SCH ×2 (09:11→21:01)
[2018-12-17] MEDS: ALLOPURINOL 300 MG TAB PO SCH (09:12)
[2018-12-17] MEDS: FUROSEMIDE 20 MG TAB PO SCH (09:12)
[2018-12-17] MEDS: FERROUS GLUCONATE 324 MG TAB PO SCH ×2 (09:12→17:44)
[2018-12-17] MEDS: ASPIRIN 81 MG ECTAB PO SCH ×2 (09:12→21:01)
[2018-12-17] MEDS: METOPROLOL TARTRATE 25 MG TAB PO SCH ×2 (09:13→21:02)
[2018-12-17] MEDS: AMLODIPINE BESYLATE 5 MG TAB PO SCH (09:13)
[2018-12-17] MEDS: MULTIVITAMIN TAB PO SCH (09:13)
[2018-12-17] MEDS: TAMSULOSIN HCL 0.4 MG CAP PO PRN (09:28)
--- NOTE | 2018-12-17 14:36 | Pharmacy Report ---
Pharmacy Glycemic Short Note 2 - Date of Service December 17, 2018 - Glycemic Short BSG Results (Last 24 hours): 12/16/18 12/16/18 12/17/18 17:09 20:59 08:24 POC Glucose 188 H 151 H 144 H 12/17/18 11:55 POC Glucose 140 H OUTPATIENT ANTIDIABETIC REGIMEN: * Glipizide ER 5 mg QAM * Metformin ER 500 mg BID ASSESSMENT: * Vik received a total of 15 units of insulin yesterday (all Novolog, no basal) with adequate glycemic control * Fasting BSG is at goal. No need for basal insulin at this time. * Post prandial BSGs are just slightly above goal therefore I will tighten Novolog carb ratio. PLAN FOR INPATIENT GLYCEMIC CONTROL: * Metformin 500 mg PO BID with meals * Basal insulin: none * Bolus insulin: - tighten carb coverage * NovoLog per scale ACHS or Q6hrs while NPO * Goal Range: Low 110 mg/dL - High 150 mg/dL * Correction Factor: 30 mg/dL/unit * Nutritional / Prandial insulin per carb ratio of 1 unit per 8 grams CHO consumed RECOMMENDATIONS FOR DISCHARGE: * Per patient his HbA1C is 5.6%. This is excellent if not too tight control in an 83 y/o. * Recommend discontinuing glipizide as the patient has renal insufficiency. Sulfonylureas are not the safest agents in the elderly with kidney dysfunction. * Can continue metformin and recommend increasing dose to 1 gm PO BID when glipizide d/c'ed but only if renal function would remain stable
[2018-12-17] MEDS: ATORVASTATIN 40 MG TAB PO SCH (21:02)
[2018-12-17] MEDS: SENNA 8.6 MG TAB PO SCH (21:02)
[2018-12-17] MEDS: PANTOprazole 40 MG TAB PO SCH (21:02)
[2018-12-18] MEDS: HYDROmorphone HCL 2 MG TAB PO PRN ×3 (02:54→17:53)
[2018-12-18] MEDS: ACETAMINOPHEN 500 MG TAB PO SCH ×2 (05:48→14:26)
--- NOTE | 2018-12-18 07:42 | Progress Note ---
DATE: 12/18/2018 SUBJECTIVE: An 83-year-old gentleman postop day 6 from a left total knee replacement. He is doing okay. Still have some voiding issues. Pain seems to be getting better. No chest pain or shortness of breath. Not feeling dizzy or lightheaded. OBJECTIVE: VITAL SIGNS: Temperature 37.0. Vital signs stable. GENERAL: Physical examination shows a pleasant elderly male. He is lying in bed, looks pretty comfortable. EXTREMITIES: Examination of the left leg reveals the incision to be clean, dry, and intact. He has got some bruising in his calf area. He can dorsiflex and plantarflex his foot appropriately. He is neurologically intact. ASSESSMENT: An 83-year-old gentleman postop day 6 from a left total knee replacement, doing okay medically and orthopedically. We are really just waiting for placement. He is having some bladder issues. Difficulty with urine retention. PLAN: 1. DVT prophylaxis including thigh-high TEDs, SCDs, and aspirin twice a day. 2. PT/OT. Weight bear as tolerated. Left total knee protocol. 3. Pain control, doing well on current pain medicines. Pain seems to be decreasing. We really need to decrease his pain meds. It may help his bladder function. 4. Urinary retention. He has had a couple straight catheterization. We will see how he does today. If not better, we may need a urology consult before discharge. 5. Disposition: [facility].
[2018-12-18] MEDS: FERROUS GLUCONATE 324 MG TAB PO SCH ×2 (08:35→16:46)
[2018-12-18] MEDS: METFORMIN HCL ER 500 MG TABCR PO SCH ×2 (08:36→16:46)
[2018-12-18] MEDS: DOCUSATE SODIUM 100 MG CAP PO SCH (08:36)
[2018-12-18] MEDS: ASCORBIC ACID 500 MG TAB PO SCH ×2 (08:36→16:46)
[2018-12-18] MEDS: ASPIRIN 81 MG ECTAB PO SCH (08:37)
[2018-12-18] MEDS: MULTIVITAMIN TAB PO SCH (08:37)
[2018-12-18] MEDS: METOPROLOL TARTRATE 25 MG TAB PO SCH (08:37)
[2018-12-18] MEDS: FUROSEMIDE 20 MG TAB PO SCH (08:37)
[2018-12-18] MEDS: ALLOPURINOL 300 MG TAB PO SCH (08:38)
[2018-12-18] MEDS: AMLODIPINE BESYLATE 5 MG TAB PO SCH (08:38)
[2018-12-18] MEDS: INSULIN ASPART 100 UNITS/ML 3 ML PEN SC SCH ×3 (08:44→17:55)
[2018-12-18] MEDS: TAMSULOSIN HCL 0.4 MG CAP PO PRN (10:56)
--- NOTE | 2018-12-20 14:48 | Discharge Summary ---
ADMITTING PHYSICIAN AND SURGEON: Dr. Sawyer Gonzalez. ADMITTING DIAGNOSIS: Left knee degenerative joint disease. SURGERY PERFORMED: Left total knee arthroplasty. SECONDARY DIAGNOSES: Coronary artery disease, diabetes, hypertension, unspecified kidney disease, mild obesity. CONSULTS: None obtained. HISTORY AND PHYSICAL EXAMINATION: Well documented in the patient's chart. HOSPITAL COURSE: The patient was admitted on 12/12/2018 and underwent total knee arthroplasty, tolerated the procedure well. There were no complications. He was transferred to the PACU postoperatively and later to the orthopedic floor for further care. He was given Ancef for antibiotic prophylaxis, ELEAZAR stockings, SCDs and aspirin for DVT prophylaxis. Hemoglobin, hematocrit and vital signs were monitored during his hospital stay and remained stable, did not require blood transfusions. There were no complications. He did have some urinary retention postoperatively. Did have the Jerome catheter replaced once and then was straight cathed several times as well. Postop day 6, he was tolerating a diabetic diet. Pain was controlled with oral pain medicine. He was participating in physical therapy. Postop day 6, he was transferred to a rehab facility, given printed discharge instructions including new prescriptions for extra strength Tylenol, aspirin, iron supplement and Dilaudid. Continue his home medications, continue physical therapy, weightbearing as tolerated, ELEAZAR stockings. Followup approximately 2 weeks postop, or sooner if there are any problems or concerns.
== END 2018-12-18 19:23 | DRG 470 ==
LOC: ASU 06:32 → 3E 10:48

== ENCOUNTER 2023-10-31 21:02 | Inpatient (IN) ==
--- NOTE | 2023-10-31 21:28 | Emergency Department Note ---
Impression & Plan Anemia, Near syncope, Complicated urinary tract infection, GI bleed ED Provider Note NAME: NAVYA BROWNING AGE: 87 SEX: M : 1935 ARRIVES VIA: Walk-In INFORMANT: Patient, ED PROVIDER(S): Librado Russell MD CHIEF COMPLAINT: Near syncope, bloody bowel movement MDM: Patient presented due to concern for near syncope in the setting of recent syncope today. IV was established and blood work was obtained. Patient did have CT of the abdomen pelvis that was performed. Patient has a white count of 19 with a hemoglobin of 10. Platelet count is unremarkable. Kidney function elevated at 3. Patient CT shows that the catheter is in place with some associated wall thickening concerning for UTI. Patient did receive Rocephin. I did speak with the on-call hospital service Dr. Gonzalez and the patient was admitted to the medicine service Discussion w/ other healthcare providers: Dr. Gonzalez inpatient medicine service Prior /Outside records reviewed: I reviewed a prior discharge summary from Dr. Carmona from June 03, 2023. The patient does have a known history of CHF nonsustained SVT syncope bradycardia CAD status post stent placement lower extremity edema CAD and CKD stage III. The patient patient presented due to concern for CHF that time. Differential diagnosis: Diverticulitis, AVM, coagulopathy, colitis, inflammatory bowel disease, malignancy, esophagitis, peptic ulcer disease, variceal bleed, gastritis, fissure, hemorrhoids, as well as other pathologies. Diagnostics, as interpreted by me: ECG: Sinus with first-degree block, rate of 67 prolonged DC wide QRS right bundle branch block pattern. Cardiac monitoring: An order was placed for continuous cardiac monitoring. The monitor shows a rate of 68 with sinus rhythm. Patient was placed on pulse oximetry Medical decision rules: None Imaging studies: I informally interpreted the patient's chest x-ray does not show obvious pneumonia or pneumothorax with formal report to follow. HPI: Patient presents due to concern for bloody bowel movement. The patient subsequently did have a syncopal event. Patient reportedly had presented earlier today with bradycardia and required atropine. The patient was subsequently discharged. Patient currently denies any chest pains or shortness of breath. Patient does complain of mid abdominal pain. The patient does have an indwelling Jerome catheter. Patient denies any fevers or chills. Patient had been straining a good deal on the commode during his prior syncopal event earlier today. Patient reportedly did not have a bowel movement at that time but when he presented to the emergency department did have a large volume output it was thought this was likely cause for syncope. Patient does feel lightheaded and dizzy. Patient reportedly had a bowel movement with a clot the size of his fist. PAST MEDICAL HISTORY: See Below PAST SURGICAL HISTORY: See Below SOCIAL HISTORY: See Below HOME MEDICATIONS: See Below ALLERGIES: See Below VITALS: See Below PHYSICAL EXAMINATION: GENERAL: NAD, non-toxic. EYE EXAM: Normal conjunctiva. PERRL, no anisocoria and EOM's grossly intact w/o pain. OROPHARYNX: Moist mucus membranes, grossly normal dentition. NECK: Trachea midline, no stridor. LUNGS: Clear to auscultation. Normal chest wall mechanics. HEART: NSR, no MRG. ABDOMEN: Abdomen soft, Left-sided abdominal pain, no masses, no rebound or guarding. BACK: No CVA TTP. SKIN: No rashes and no bruising. UPPER EXTREMITIES: Upper extremities are grossly normal. LOWER EXTREMITIES: Grossly normal, no edema. NEURO EXAM: A&O x3, cranial nerves II-XII grossly intact, normal speech, moves all 4 extremities. Past Med/Surg History Medical History Anemia normocytic anemia of chronic disease; stable Elevated TSH Elevated troponin Acute UTI (urinary tract infection) Pleural effusion, bilateral Pneumonia of both lower lobes Chest tightness Jerome catheter in place History of Holter monitoring due to recent syncopal episode on 04/24/23, admitted to [facility] Polyneuropathy Peyronie's disease Obesity UTI (urinary tract infection) Bradycardia hx of 1st degree AVB. pt had episode of HR in 30s in ambulance after vasovagal event for which he was given atropine; per cardio, rusty episode likely 2/2 vagal stimulation; outpt holter ordered Acute kidney injury Leukocytosis Syncope and collapse hx-recently admitted to [facility] following syncopal episode (04/24/23 - 04/27/23); dx likely vasovagal 2/2 volume depletion and BB. metoprolol was D/C Urinary retention 2/2 BPH and currently with Jerome in place MGUS (monoclonal gammopathy of unknown significance) Chronic kidney disease, stage 3 pt dx with acute on chronic kidney injury (pre-renal) during 04/2023 hospital admission; baseline creat noted to be 1.7-1.9; lasix was held during admission and resumed on discharge BPH (benign prostatic hyperplasia) currently with Jerome in place Dyslipidemia Hypertension Type 2 diabetes mellitus Arthritis CAD (coronary artery disease) MARIO TO RAMUS (2009) GERD (gastroesophageal reflux disease) CONTROLLED Gout Hearing deficit BILATERAL AIDES Hyperlipidemia Surgical History Hx of eye surgery laser surgery to remove "film" from eye following cataract sx. Hx of bilateral cataract extraction Status post total left knee replacement History of colonoscopy History of open reduction and internal fixation (ORIF) procedure RIGHT TIBIA History of tonsillectomy History of endoscopic sinus surgery History of cardiac cath S/P MARIO TO YESSICA (2009), [facility], x1 stent; f/u dr. lopez, [facility] Family History Uncle Family hx of colon cancer Social History Smoking Status: Former smoker Second Hand Exposure: No; Do You Dip or Chew Tobacco: No; Hx Alcohol Use: No Hx Substance Use: No Preferred Language: Pashto Communication Ability: Effective Visual Impairment: Limited Integration Project Manager Required: No Beliefs That Will Affect Care: None marital status: Current Living Situation: Spouse current occupational status: retired How many Children do You have: 7 Feels Safe at Home: Yes Diet: low salt caffeine: Yes (1-2 coffees daily) Do you think of yourself as: straight/heterosexual Gender Identity: Male Assistive Devices: Cane, Hearing Aid - Left and Walker Allergies Allergies Allergy/AdvReac Type Severity Reaction Status Date / Time codeine Allergy Intermediate FACIAL Verified 10/31/23 22:13 SWELLING, NAUSEA Home Meds Home Medications Medication Instructions Recorded Confirmed [id number] acid 0.4 1 tab PO QAM 09/16/18 10/31/23 mg-lycopene 300 mcg-lutein 250 mcg tablet (Centrum Silver) omeprazole 20 mg capsule,delayed 20 mg PO HS 09/16/18 10/31/23 release nitroglycerin 0.4 mg sublingual 0.4 mg sublingual Q5M PRN Chest 03/14/19 10/31/23 tablet (Nitrostat) Pain isosorbide mononitrate 30 mg 30 mg PO QAM 05/03/23 10/31/23 tablet,extended release 24 hr aspirin 81 mg tablet,delayed 81 mg PO DAILY 05/30/23 10/31/23 release semaglutide 0.25 mg or 0.5 mg (2 0.5 mg subcut WK 09/22/23 10/31/23 mg/3 mL) subcutaneous pen injector (Ozempic) atorvastatin 40 mg tablet 40 mg PO HS 10/31/23 10/31/23 Previous Rx's Medication Instructions Recorded amlodipine 5 mg tablet 5 mg PO DAILY #90 tabs 06/10/23 allopurinol 300 mg tablet 300 mg PO QAM #90 tabs 08/04/23 metoprolol succinate 25 mg 25 mg PO DAILY #90 tabs 08/16/23 tablet,extended release 24 hr furosemide 20 mg tablet 20 mg PO DAILY PRN edema #30 tabs 09/09/23 cefdinir 300 mg capsule 300 mg PO DAILY 6 days #6 caps 11/04/23 polyethylene glycol 3350 17 gram 17 g PO DAILY #0 ea 11/04/23 oral powder packet (Miralax) Results & Data (ED) Vital Signs Vital Signs - 24 hr 10/31/23 21:08 Temperature 36.9 C Temperature Source Temporal Artery Scan Pulse Rate 81 Pulse Rhythm Regular Pulse Strength Normal Respiratory Rate 20 Respiratory Effort / Characteristics Non-Labored Spontaneous Respiratory Depth Normal Blood Pressure 73/39 L Blood Pressure Mean 50 Pulse Oximetry 99 Oxygen Delivery Method Room Air Sepsis Recent Fever Within 48 Hours No Sepsis New/Unexplained Change in Mental Status N/A Sepsis Action Taken by Nursing No Action Required Home Medications Current Medication List: was personally reviewed by me Laboratory Data Attestation: I reviewed the patient's lab results. 11/04/23 06:01 11/04/23 06:01 Lab Results 10/31/23 Range/Units 21:37 WBC 19.12 H (4.8-10.8) K/ul RBC 3.28 L (4.70-6.10) M/uL Hgb 10.1 L (14.0-18.0) g/dl Hct 30.0 L (42.0-52.0) % MCV 91.5 (80.0-100.0) fL MCH 30.8 (25.0-34.0) pg MCHC 33.7 (32.0-36.0) g/dL RDW Std Deviation 51.8 H (36.4-46.3) fL RDW Coeff of Hernandez 15.6 H (11.5-14.5) % Plt Count 217 (130-400) K/uL MPV 11.2 (9.4-12.4) fL Immature Gran % (Auto) 0.4 % Neut % (Auto) 82.8 % Lymph % (Auto) 9.4 % [place] % (Auto) 6.8 % Eos % (Auto) 0.3 % Baso % (Auto) 0.3 % Neut # (Auto) 15.82 H (1.40-6.50) K/uL Lymph # (Auto) 1.80 (1.20-3.40) K/uL [place] # (Auto) 1.30 H (0.11-0.59) K/uL Eos # (Auto) 0.05 (0.00-0.50) K/uL Baso # (Auto) 0.05 (0.00-0.20) K/uL Immature Gran # (Auto) 0.08 (0.01-0.20) K/uL Peripher Smr Path Cons PT 10.2 (9.0-12.0) Seconds INR 0.9 (0.9-1.1) APTT 27 (21-31) Seconds PTT Ratio 1.0 Sodium 131 L (136-145) mmol/L Potassium 4.9 (3.5-5.1) mmol/L Chloride 102 (98-107) mmol/L Carbon Dioxide 19 L (21-32) mmol/L Anion Gap 10 (3-11) BUN 66 H (6-23) mg/dl Creatinine 3.02 H (0.6-1.4) mg/dl Est Cr Clr Drug Dosing Not Reportable Est GFR ( Amer) 20.5 ml/min Est GFR (Non-Af Amer) 17.7 ml/min BUN/Creatinine Ratio 21.9 H (10-20) Glucose 200 H (70-99(Fasting)) mg/dl Calcium 9.1 (8.6-10.3) mg/dl Magnesium 2.5 H (1.7-2.4) mg/dl Total Bilirubin 0.5 (0.2-1.0) mg/dl AST 20 (13-39) U/L ALT 14 (7-52) U/L Alkaline Phosphatase 106 H (34-104) U/L Troponin I High Sens 31.0 H (0-20) pg/ml Total Protein 6.6 (6.0-8.3) gm/dl Albumin 3.6 (3.4-5.0) gm/dl Globulin 3.0 (2.5-4.0) gm/dl Albumin/Globulin Ratio 1.2 (0.9-2) Blood Type A Positive Antibody Screen NEGATIVE Administered Medications Discontinued Medications Acetaminophen (Acetaminophen 325 Mg Tab) 650 mg PO Q4H PRN PRN Reason: Pain or Fever Stop: 12/01/23 01:29 Last Admin: 11/03/23 22:09 Dose: 650 mg Documented By: Admin: 11/02/23 19:41 Dose: 650 mg Documented By: [id number] Allopurinol (Allopurinol 100 Mg Tab) 200 mg PO QA LEONARDA Stop: 12/01/23 08:59 Last Admin: 11/04/23 08:22 Dose: 200 mg Documented By: Admin: 11/03/23 08:29 Dose: 200 mg Documented By: Admin: 11/02/23 08:27 Dose: 200 mg Documented By: Admin: 11/01/23 10:30 Dose: 200 mg Documented By: MILLIE Amlodipine Besylate (Amlodipine Besylate 5 Mg Tab) 5 mg PO DAILY LEONARDA Stop: 12/01/23 08:59 Last Admin: 11/01/23 09:27 Dose: Not Given Documented By: MILLIE Amlodipine Besylate (Amlodipine Besylate 5 Mg Tab) 5 mg PO QA LEONARDA Stop: 12/03/23 08:59 Last Admin: 11/04/23 08:22 Dose: 5 mg Documented By: Admin: 11/03/23 08:30 Dose: 5 mg Documented By: NASEEM Atorvastatin Calcium (Atorvastatin 40 Mg Tab) 40 mg PO LEONARDA Stop: 12/01/23 20:59 Last Admin: 11/03/23 20:32 Dose: 40 mg Documented By: Admin: 11/02/23 20:24 Dose: 40 mg Documented By: [id number] Admin: 11/01/23 20:40 Dose: 40 mg Documented By: CHANDRA Ceftriaxone Sodium (Ceftriaxone Sodium 2000mg/50ml D5w) Confirm Administered Dose 2,000 mg IV .STK-MED ONE Stop: 11/01/23 07:10 Last Admin: 11/01/23 07:20 Dose: Not Given Documented By: JERMAN Diclofenac Sodium (Diclofenac Sod 1% Gel 100 Gm Tube) 2 gm EXT QID LEONARDA; Protocol Stop: 12/02/23 20:59 Last Admin: 11/04/23 12:13 Dose: Not Given Documented By: Admin: 11/04/23 08:25 Dose: Not Given Documented By: Admin: 11/03/23 20:31 Dose: 2 gm Documented By: Admin: 11/03/23 17:48 Dose: 2 gm Documented By: Admin: 11/03/23 12:43 Dose: 2 gm Documented By: Admin: 11/03/23 08:30 Dose: 2 gm Documented By: Admin: 11/02/23 20:24 Dose: 2 gm Documented By: [id number] Ceftriaxone Sodium (Rocephin) 2,000 mg in 50 mls @ 100 mls/hr IV NOW STA Stop: 11/01/23 00:29 Last Admin: 11/01/23 01:27 Dose: Not Given Documented By: BEN Ceftriaxone Sodium 2,000 mg/ (Dextrose) 50 mls @ 100 mls/hr IV Q24H [facility]; Protocol Stop: 11/11/23 06:14 Last Infusion: 11/04/23 05:52 Dose: Infused Documented By: Admin: 11/04/23 05:22 Dose: 100 mls/hr Documented By: Infusion: 11/03/23 06:53 Dose: Infused Documented By: [id number] Admin: 11/03/23 06:12 Dose: 100 mls/hr Documented By: [id number] Infusion: 11/02/23 06:40 Dose: Infused Documented By: Admin: 11/02/23 06:11 Dose: 100 mls/hr Documented By: Infusion: 11/01/23 07:49 Dose: Infused Documented By: Admin: 11/01/23 07:19 Dose: 100 mls/hr Documented By: JERMAN Lactated Ringer's (Lr) 1,000 mls @ 125 mls/hr IV .Q8H [facility] Stop: 11/01/23 17:18 Last Infusion: 11/01/23 18:45 Dose: Infused Documented By: Admin: 11/01/23 10:29 Dose: 125 mls/hr Documented By: MILLIE Lactated Ringer's (Lr) 1,000 mls @ 80 mls/hr IV .[id number] [facility] Stop: 11/03/23 06:59 Last Infusion: 11/03/23 06:20 Dose: Infused Documented By: [id number] Admin: 11/02/23 18:39 Dose: 80 mls/hr Documented By: NASEEM Insulin Aspart (Insulin Aspart Per Unit Charge) 0 units SC ACHS [facility] Stop: 12/01/23 16:29 Last Admin: 11/04/23 12:54 Dose: 6 units Documented By: LORRAINE Co-signed By: SON Admin: 11/04/23 08:25 Dose: Not Given Documented By: Admin: 11/03/23 20:38 Dose: 1 units Documented By: ALIYAH Co-signed By: ROMMEL Admin: 11/03/23 17:46 Dose: 3 units Documented By: NASEEM Co-signed By: YUDI Admin: 11/03/23 12:32 Dose: 4 units Documented By: NASEEM Co-signed By: YUDI Admin: 11/03/23 08:29 Dose: 3 units Documented By: NASEEM Co-signed By: MEL Admin: 11/02/23 21:32 Dose: 2 units Documented By: [id number] Co-signed By: ROMMEL Admin: 11/02/23 17:42 Dose: 2 units Documented By: NASEEM Co-signed By: MEL Admin: 11/02/23 13:02 Dose: 4 units Documented By: NASEEM Co-signed By: YUDI Admin: 11/02/23 08:37 Dose: 4 units Documented By: NASEEM Co-signed By: YUDI Admin: 11/01/23 20:41 Dose: 2 units Documented By: CHANDRA Co-signed By: HARRY Admin: 11/01/23 17:24 Dose: 2 units Documented By: MILLIE Co-signed By: YUDI Insulin Glargine (Lantus Per Unit Charge) 9 units SQ BID [facility] Stop: 12/01/23 20:59 Last Admin: 11/04/23 08:27 Dose: 9 units Documented By: LORRAINE Co-signed By: USMAN Admin: 11/03/23 20:38 Dose: 9 units Documented By: ALIYAH Co-signed By: ROMMEL Admin: 11/03/23 08:28 Dose: 9 units Documented By: NASEEM Co-signed By: MEL Admin: 11/02/23 21:33 Dose: 9 units Documented By: [id number] Co-signed By: ROMMEL Admin: 11/02/23 08:37 Dose: 9 units Documented By: NASEEM Co-signed By: YUDI Admin: 11/01/23 20:41 Dose: 9 units Documented By: CHANDRA Co-signed By: HARRY Isosorbide Mononitrate (Isosorbide [place] Extended Rel 30 Mg Tabcr) [facility] Stop: 12/01/23 08:59 Last Admin: 11/01/23 09:27 Dose: Not Given Documented By: MILLIE Isosorbide Mononitrate (Isosorbide [place] Extended Rel 30 Mg Tabcr) 30 mg PO [facility] Stop: 12/03/23 08:59 Last Admin: 11/04/23 08:22 Dose: 30 mg Documented By: Admin: 11/03/23 08:30 Dose: 30 mg Documented By: NASEEM Metoprolol Succinate (Metoprolol Succ 25mg Ext Rel Tab) 25 mg PO DAILY [facility] Stop: 12/01/23 08:59 Last Admin: 11/01/23 09:27 Dose: Not Given Documented By: MILLIE Ondansetron HCl (Ondansetron Inj 2 Mg/Ml 2 Ml Vial) 4 mg IV Q6H PRN PRN Reason: Nausea And Vomiting Stop: 12/01/23 01:29 Last Admin: 11/01/23 14:08 Dose: 4 mg Documented By: MILLIE Pantoprazole Sodium (Pantoprazole 40 Mg Tab) 40 mg PO DAILY [facility] Stop: 12/01/23 08:59 Last Admin: 11/04/23 08:21 Dose: 40 mg Documented By: Admin: 11/03/23 08:30 Dose: 40 mg Documented By: Admin: 11/02/23 08:27 Dose: 40 mg Documented By: Admin: 11/01/23 10:30 Dose: 40 mg Documented By: MILLIE Polyethylene Glycol (Polyethylene (Miralax) 17 Gm Pack) 17 gm PO DAILY [facility] Stop: 12/01/23 08:59 Last Admin: 11/01/23 09:27 Dose: Not Given Documented By: MILLIE Polyethylene Glycol (Polyethylene (Miralax) 17 Gm Pack) 17 gm PO BID LEONARDA Stop: 12/01/23 20:59 Last Admin: 11/04/23 08:23 Dose: Not Given Documented By: Admin: 11/03/23 20:31 Dose: 17 gm Documented By: Admin: 11/03/23 08:30 Dose: 17 gm Documented By: Admin: 11/02/23 20:24 Dose: 17 gm Documented By: [id number] Admin: 11/02/23 08:27 Dose: 17 gm Documented By: Admin: 11/01/23 20:42 Dose: Not Given Documented By: CHANDRA Imaging Data Radiologist's Impression: Abdomen/Pelvis CT 10/31/23 22:15 Exam(s): CT ABDOMEN + PELVIS Without Contrast EXAM: CT Abdomen and Pelvis Without Intravenous Contrast CLINICAL HISTORY: Reason for exam: upper ab pain, rectl bleeding, syncope. TECHNIQUE: Axial computed tomography images of the abdomen and pelvis without intravenous contrast. CTDI is 27.35 mGy and DLP is 1389.03 mGy-cm. Automated exposure control was utilized for the study. A dose lowering technique was utilized adhering to the principles of ALARA. COMPARISON: No relevant prior studies available. FINDINGS: Lung bases: Unremarkable. No mass. No consolidation. ABDOMEN: Liver: Unremarkable. No focal hepatic lesion. Gallbladder and bile ducts: Unremarkable. No calcified stones. No ductal dilation. Pancreas: Unremarkable. No ductal dilation. Spleen: Unremarkable. No splenomegaly. Adrenals: Unremarkable. No mass. Kidneys and ureters: No hydronephrosis or nephrolithiasis. Left renal cyst measures 2.2 cm. Stomach and bowel: Unremarkable. No obstruction. No mucosal thickening. PELVIS: Appendix: No findings to suggest acute appendicitis. Bladder: Jerome catheter terminates in the urinary bladder, with wall thickening of the urinary bladder, concerning for UTI. Urinalysis recommended. No stones. Reproductive: Unremarkable as visualized. ABDOMEN and PELVIS: Intraperitoneal space: Unremarkable. No free air. No significant fluid collection. Bones/joints: Degenerative changes of the spine. No acute fracture. No dislocation. Grade 1 anterolisthesis of L5 on S1 measures 9 mm. Soft tissues: Small fat-containing bilateral inguinal hernias. Vasculature: Atherosclerotic changes of the aorta. No abdominal aortic aneurysm. Lymph nodes: Unremarkable. No enlarged lymph nodes. IMPRESSION: Jerome catheter terminates in the urinary bladder, with wall thickening of the urinary bladder, concerning for UTI. Urinalysis recommended. Grade 1 anterolisthesis of L5 on S1 measures 9 mm. Electronically signed by: Jaya Borges MD 10/31/23 23:55 PM Discharge Plan Visit Data Chief Complaint: Rectal Bleed Stated Complaint: RECTAL BLEEDING ED Provider: Librado Russell Discharge Problem: Anemia, Near syncope, Complicated urinary tract infection, GI bleed Patient Disposition: Admitted As Inpatient Discharge Instructions Interventions: ED Discharge Assessment Last Done: 11/01/23 07:44 Discharge Problem: Anemia Qualifiers: Anemia type: unspecified type Qualified Code(s): D64.9 - Anemia, unspecified GI bleed Qualifiers: GI bleed type/associated pathology: unspecified gastrointestinal hemorrhage type Qualified Code(s): K92.2 - Gastrointestinal hemorrhage, unspecified
[2023-10-31 21:52] LABS: Hemoglobin 10.1 g/dl (14.0-18.0); Mean Corpuscular Hemoglobin 30.8 pg (25.0-34.0); Mean Corpuscular Hgb Conc 33.7 g/dL (32.0-36.0); Mean Corpuscular Volume 91.5 fL (80.0-100.0); Mean Platelet Volume 11.2 fL (9.4-12.4); Platelet Count 217 K/uL (130-400); RDW Coefficient of Variation 15.6 % (11.5-14.5); RDW Standard Deviation 51.8 fL (36.4-46.3); Red Blood Count 3.28 M/uL (4.70-6.10); White Blood Count 19.12 K/ul (4.8-10.8)
[2023-10-31 22:11] LABS: Alanine Aminotransferase 14 U/L (7-52); Albumin Globulin Ratio 1.2 (0.9-2); Albumin Level 3.6 gm/dl (3.4-5.0); Alkaline Phosphatase 106 U/L (34-104); Anion Gap 10 (3-11); Aspartate Aminotransferase 20 U/L (13-39); BUN Creatinine Ratio 21.9 (10-20); Bilirubin,Total 0.5 mg/dl (0.2-1.0); Blood Urea Nitrogen 66 mg/dl (6-23); Calcium 9.1 mg/dl (8.6-10.3); Carbon Dioxide 19 mmol/L (21-32); Chloride 102 mmol/L (98-107); Est GFR (African American) 20.5 ml/min; Est GFR (Non-African American) 17.7 ml/min; Glucose 200 mg/dl (70-99(Fasting)); Potassium 4.9 mmol/L (3.5-5.1); Sodium 131 mmol/L (136-145); Total Protein 6.6 gm/dl (6.0-8.3)
[2023-10-31 22:20] LABS: INR 0.9 (0.9-1.1); Partial Thromboplastin Time 27 Seconds (21-31); Prothrombin Time 10.2 Seconds (9.0-12.0)
--- NOTE | 2023-10-31 23:56 | CT Scan Report ---
Exam(s): CT ABDOMEN + PELVIS Without Contrast EXAM: CT Abdomen and Pelvis Without Intravenous Contrast CLINICAL HISTORY: Reason for exam: upper ab pain, rectl bleeding, syncope. TECHNIQUE: Axial computed tomography images of the abdomen and pelvis without intravenous contrast. CTDI is 27.35 mGy and DLP is 1389.03 mGy-cm. Automated exposure control was utilized for the study. A dose lowering technique was utilized adhering to the principles of ALARA. COMPARISON: No relevant prior studies available. FINDINGS: Lung bases: Unremarkable. No mass. No consolidation. ABDOMEN: Liver: Unremarkable. No focal hepatic lesion. Gallbladder and bile ducts: Unremarkable. No calcified stones. No ductal dilation. Pancreas: Unremarkable. No ductal dilation. Spleen: Unremarkable. No splenomegaly. Adrenals: Unremarkable. No mass. Kidneys and ureters: No hydronephrosis or nephrolithiasis. Left renal cyst measures 2.2 cm. Stomach and bowel: Unremarkable. No obstruction. No mucosal thickening. PELVIS: Appendix: No findings to suggest acute appendicitis. Bladder: Jerome catheter terminates in the urinary bladder, with wall thickening of the urinary bladder, concerning for UTI. Urinalysis recommended. No stones. Reproductive: Unremarkable as visualized. ABDOMEN and PELVIS: Intraperitoneal space: Unremarkable. No free air. No significant fluid collection. Bones/joints: Degenerative changes of the spine. No acute fracture. No dislocation. Grade 1 anterolisthesis of L5 on S1 measures 9 mm. Soft tissues: Small fat-containing bilateral inguinal hernias. Vasculature: Atherosclerotic changes of the aorta. No abdominal aortic aneurysm. Lymph nodes: Unremarkable. No enlarged lymph nodes. IMPRESSION: Jerome catheter terminates in the urinary bladder, with wall thickening of the urinary bladder, concerning for UTI. Urinalysis recommended. Grade 1 anterolisthesis of L5 on S1 measures 9 mm. Electronically signed by: Jaya Borges MD 10/31/23 23:55 PM
--- NOTE | 2023-11-01 01:04 | History & Physical Report ---
Date of Service November 01, 2023 Assessment & Plan (1) Syncope: Plan: Patient with ongoing episodes of dizziness, near-syncope. Possible dehydration, acute GIB contributing -Telemetry monitoring -Check orthostatic vital signs (2) GIB (gastrointestinal bleeding): Plan: Patient reports passing a large blood clot this afternoon after straining. Possible hemorrhoid, diverticular bleed, AVM? No prior GIB. Colonoscopy 10 years ago with many polyps which were removed -Maintain two PIVs -Trend CBC, transfuse for ongoing bleed, symptomatic anemia or Hgb < 8 -Consider inpatient GI consult if bleeding continues -Should have GI followup for Colonoscopy (3) Leukocytosis: Plan: WBC=19.12 with neutrophil predominance as well as elevated monocytes. Patient denies fever, chills, sweats, malaise. He denies cough, SOB, urinary symptoms. He does have an indwelling Jerome catheter which was last changed on 10/18/23 (16 Coude tip catheter). CXR from earlier ER visit with no infiltrate. CT of the abdomen with bladder wall thickening. -Check blood cultures x 2 sets -Check urine culture -Will hold off on antibiotics for now -Check peripheral blood smear for cellular atypia -Repeat CBC in AM (4) CKD (chronic kidney disease): Plan: Patient has had progression of renal disease. BUN now 66, Cr=3.02 -Awaiting UA results -Avoid nephrotoxic agents -Renal dosing where needed -Repeat chemistry in AM (5) CAD (coronary artery disease): Plan: Chronic. Patient denies chest pain -Trend troponin -Continue Metoprolol 25mg po daily -Continue Atorvastatin 40mg po qHS History of Present Illness Chief Complaint: syncope Primary Care Provider: DO Vik Negron Kody is an 87yo male presenting with syncope. Patient has been in his usual state of health. Today he developed some pain and cramping in his lower abdomen. He was straining a good deal on the commode and had a syncopal event. He was seen in the ER with these complaints. He had a very large BM in the ER followed by a smaller one and felt somewhat better there fore was sent home. Patient ate a little bit when he returned home. He continued to have abdominal pain throughout the day. He was sitting on the commode and passed a large blood clot "the size of my fist" per his . He was dizzy and had multiple episodes of light-headedness and near-syncope throughout the day which prompted them to return to the ER. Patient with indwelling Jerome - reports decreased output today. His urine was dark almost brown in color prior to arrival and has since cleared up with IVF. In the ER patient is afebrile HD stable, NAD Allergies Allergy/AdvReac Type Severity Reaction Status Date / Time codeine Allergy Intermediate FACIAL Verified 10/31/23 22:13 SWELLING, NAUSEA Home Medications Medication Instructions Recorded Confirmed Type ocgqsknv-leb-fjytj acid 0.4 1 tab PO QAM 09/16/18 10/31/23 History mg-lycopene 300 mcg-lutein 250 mcg tablet (Centrum Silver) omeprazole 20 mg capsule,delayed 20 mg PO HS 09/16/18 10/31/23 History release nitroglycerin 0.4 mg sublingual 0.4 mg sublingual Q5M PRN Chest 03/14/19 10/31/23 History tablet (Nitrostat) Pain isosorbide mononitrate 30 mg 30 mg PO QAM 05/03/23 10/31/23 History tablet,extended release 24 hr aspirin 81 mg tablet,delayed 81 mg PO DAILY 05/30/23 10/31/23 History release amlodipine 5 mg tablet 5 mg PO DAILY #90 tabs 06/10/23 10/31/23 Rx allopurinol 300 mg tablet 300 mg PO QAM #90 tabs 08/04/23 10/31/23 Rx metoprolol succinate 25 mg 25 mg PO DAILY #90 tabs 08/16/23 10/31/23 Rx tablet,extended release 24 hr furosemide 20 mg tablet 20 mg PO DAILY PRN edema #30 tabs 09/09/23 10/31/23 Rx semaglutide 0.25 mg or 0.5 mg (2 0.5 mg subcut WK 09/22/23 10/31/23 History mg/3 mL) subcutaneous pen injector (Ozempic) atorvastatin 40 mg tablet 40 mg PO HS 10/31/23 10/31/23 History Past Med/Surg History Medical History Elevated TSH Elevated troponin Acute UTI (urinary tract infection) Pleural effusion, bilateral Pneumonia of both lower lobes Chest tightness Jerome catheter in place History of Holter monitoring due to recent syncopal episode on 04/24/23, admitted to [facility] Polyneuropathy Peyronie's disease Obesity UTI (urinary tract infection) Bradycardia hx of 1st degree AVB. pt had episode of HR in 30s in ambulance after vasovagal event for which he was given atropine; per cardio, rusty episode likely 2/2 vagal stimulation; outpt holter ordered Acute kidney injury Leukocytosis Syncope and collapse hx-recently admitted to [facility] following syncopal episode (04/24/23 - 04/27/23); dx likely vasovagal 2/2 volume depletion and BB. metoprolol was D/C Urinary retention 2/2 BPH and currently with Jerome in place MGUS (monoclonal gammopathy of unknown significance) Chronic kidney disease, stage 3 pt dx with acute on chronic kidney injury (pre-renal) during 04/2023 hospital admission; baseline creat noted to be 1.7-1.9; lasix was held during admission and resumed on discharge BPH (benign prostatic hyperplasia) currently with Jerome in place Dyslipidemia Hypertension Type 2 diabetes mellitus Anemia normocytic anemia of chronic disease; stable Arthritis CAD (coronary artery disease) MARIO TO YESSICA (2009) GERD (gastroesophageal reflux disease) CONTROLLED Gout Hearing deficit BILATERAL AIDES Hyperlipidemia Surgical History Hx of eye surgery laser surgery to remove "film" from eye following cataract sx. Hx of bilateral cataract extraction Status post total left knee replacement History of colonoscopy History of open reduction and internal fixation (ORIF) procedure RIGHT TIBIA History of tonsillectomy History of endoscopic sinus surgery History of cardiac cath S/P MARIO TO YESSICA (2009), [facility], x1 stent; f/u dr. lopez, [facility] [place] Family History Uncle Family hx of colon cancer Social History Smoking Status: Former smoker Second Hand Exposure: No; Do You Dip or Chew Tobacco: No; Hx Alcohol Use: No Hx Substance Use: No Preferred Language: Occitan Communication Ability: Effective Visual Impairment: Limited Civil Attorney Required: No Beliefs That Will Affect Care: None marital status: Current Living Situation: Spouse current occupational status: retired How many Children do You have: 7 Feels Safe at Home: Yes Diet: low salt caffeine: Yes (1-2 coffees daily) Do you think of yourself as: straight/heterosexual Gender Identity: Male Assistive Devices: Cane and Hearing Aid - Left Review of Systems Review of Systems: All systems reviewed & are unremarkable except as noted in HPI & below Physical Exam Physical Exam: General: patient resting comfortably, NAD, non-toxic in appearance, AA&O x 4 Skin: warm, dry, intact, no rashes or lesions HEENT: NC/AT, PERRL, EOMI, anicteric sclera, conjunctiva without injection, external ear normal to inspection and nontender, nares patent, moist mucus membranes, dentition intact, no oropharyngeal lesions, neck supple, trachea midline, no LAD, no thyromegaly, no JVD Heart: +S1/S2, regular, no m/r/g Lungs: equal air entry bilaterally, no rales/rhonchi/wheezes Abd: +BS, soft, ND, tender in upper abdomen L > R, no masses/organomegaly/ascites Jerome catheter in place with leg bag present, clear yellow urine in bag Ext: warm, 2+ pulses in UE/LE bilaterally, no clubbing/cyanosis or edema Neuro: nonfocal, patient AA&O x 4, speech intact, no facial droop, moving all extremities on command with equal strength 5/5 Results & Data Results & Data Vital Signs (Past 12 Hours) Vital Signs Temp Pulse Pulse Resp BP BP Pulse Ox 11/01/23 00:00 82 13 168/85 H 94 10/31/23 23:23 83 14 183/80 H 96 10/31/23 23:00 85 16 94 10/31/23 21:50 78 10/31/23 21:35 83 20 171/84 H 95 10/31/23 21:08 36.9 C 81 20 73/39 L 99 O2 Del Method 11/01/23 00:00 Room Air 10/31/23 23:23 Room Air 10/31/23 23:00 Room Air 10/31/23 21:50 10/31/23 21:35 Room Air 10/31/23 21:08 Room Air Laboratory Results Laboratory Results WBC 19.12 K/ul (4.8-10.8) H 10/31/23 21:37 RBC 3.28 M/uL (4.70-6.10) L 10/31/23 21:37 Hgb 10.1 g/dl (14.0-18.0) L 10/31/23 21:37 Hct 30.0 % (42.0-52.0) L 10/31/23 21:37 MCV 91.5 fL (80.0-100.0) 10/31/23 21: MCH 30.8 pg (25.0-34.0) 10/31/23 21: MCHC 33.7 g/dL (32.0-36.0) 10/31/23 21:37 RDW Std Deviation 51.8 fL (36.4-46.3) H 10/31/23 21: RDW Coeff of Hernandez 15.6 % (11.5-14.5) H 10/31/23 21:37 Plt Count 217 K/uL (130-400) 10/31/23 21: MPV 11.2 fL (9.4-12.4) 10/31/23 21:37 Immature Gran % (Auto) 0.4 % 10/31/23 21:37 Neut % (Auto) 82.8 % 10/31/23 21:37 Lymph % (Auto) 9.4 % 10/31/23 21:37 Fergus % (Auto) 6.8 % 10/31/23 21:37 Eos % (Auto) 0.3 % 10/31/23 21:37 Baso % (Auto) 0.3 % 10/31/23 21:37 Neut # (Auto) 15.82 K/uL (1.40-6.50) H 10/31/23 21:37 Lymph # (Auto) 1.80 K/uL (1.20-3.40) 10/31/23 21:37 Fergus # (Auto) 1.30 K/uL (0.11-0.59) H 10/31/23 21:37 Eos # (Auto) 0.05 K/uL (0.00-0.50) 10/31/23 21:37 Baso # (Auto) 0.05 K/uL (0.00-0.20) 10/31/23 21:37 Immature Gran # (Auto) 0.08 K/uL (0.01-0.20) 10/31/23 21:37 PT 10.2 Seconds (9.0-12.0) 10/31/23 21:37 INR 0.9 (0.9-1.1) 10/31/23 21:37 APTT 27 Seconds (21-31) 10/31/23 21:37 PTT Ratio 1.0 10/31/23 21:37 Sodium 131 mmol/L (136-145) L 10/31/23 21:37 Potassium 4.9 mmol/L (3.5-5.1) 10/31/23 21:37 Chloride 102 mmol/L (98-107) 10/31/23 21:37 Carbon Dioxide 19 mmol/L (21-32) L 10/31/23 21:37 Anion Gap 10 (3-11) 10/31/23 21:37 BUN 66 mg/dl (6-23) H 10/31/23 21:37 Creatinine 3.02 mg/dl (0.6-1.4) H 10/31/23 21:37 Est Cr Clr Drug Dosing Not Reportable 10/31/23 21:37 Est GFR ( Amer) 20.5 ml/min 10/31/23 21:37 Est GFR (Non-Af Amer) 17.7 ml/min 10/31/23 21:37 BUN/Creatinine Ratio 21.9 (10-20) H 10/31/23 21:37 Glucose 200 mg/dl (70-99(Fasting)) H 10/31/23 21:37 Calcium 9.1 mg/dl (8.6-10.3) 10/31/23 21:37 Magnesium 2.5 mg/dl (1.7-2.4) H 10/31/23 21:37 Total Bilirubin 0.5 mg/dl (0.2-1.0) 10/31/23 21:37 AST 20 U/L (13-39) 10/31/23 21:37 ALT 14 U/L (7-52) 10/31/23 21:37 Alkaline Phosphatase 106 U/L (34-104) H 10/31/23 21:37 Troponin I High Sens 31.0 pg/ml (0-20) H 10/31/23 21:37 Total Protein 6.6 gm/dl (6.0-8.3) 10/31/23 21:37 Albumin 3.6 gm/dl (3.4-5.0) 10/31/23 21:37 Globulin 3.0 gm/dl (2.5-4.0) 10/31/23 21:37 Albumin/Globulin Ratio 1.2 (0.9-2) 10/31/23 21:37 Blood Type A Positive 10/31/23 21:37 Antibody Screen NEGATIVE 10/31/23 21:37 Impressions Abdomen/Pelvis CT 10/31/23 22:15 Exam(s): CT ABDOMEN + PELVIS Without Contrast EXAM: CT Abdomen and Pelvis Without Intravenous Contrast CLINICAL HISTORY: Reason for exam: upper ab pain, rectl bleeding, syncope. TECHNIQUE: Axial computed tomography images of the abdomen and pelvis without intravenous contrast. CTDI is 27.35 mGy and DLP is 1389.03 mGy-cm. Automated exposure control was utilized for the study. A dose lowering technique was utilized adhering to the principles of ALARA. COMPARISON: No relevant prior studies available. FINDINGS: Lung bases: Unremarkable. No mass. No consolidation. ABDOMEN: Liver: Unremarkable. No focal hepatic lesion. Gallbladder and bile ducts: Unremarkable. No calcified stones. No ductal dilation. Pancreas: Unremarkable. No ductal dilation. Spleen: Unremarkable. No splenomegaly. Adrenals: Unremarkable. No mass. Kidneys and ureters: No hydronephrosis or nephrolithiasis. Left renal cyst measures 2.2 cm. Stomach and bowel: Unremarkable. No obstruction. No mucosal thickening. PELVIS: Appendix: No findings to suggest acute appendicitis. Bladder: Jerome catheter terminates in the urinary bladder, with wall thickening of the urinary bladder, concerning for UTI. Urinalysis recommended. No stones. Reproductive: Unremarkable as visualized. ABDOMEN and PELVIS: Intraperitoneal space: Unremarkable. No free air. No significant fluid collection. Bones/joints: Degenerative changes of the spine. No acute fracture. No dislocation. Grade 1 anterolisthesis of L5 on S1 measures 9 mm. Soft tissues: Small fat-containing bilateral inguinal hernias. Vasculature: Atherosclerotic changes of the aorta. No abdominal aortic aneurysm. Lymph nodes: Unremarkable. No enlarged lymph nodes. IMPRESSION: Jerome catheter terminates in the urinary bladder, with wall thickening of the urinary bladder, concerning for UTI. Urinalysis recommended. Grade 1 anterolisthesis of L5 on S1 measures 9 mm. Electronically signed by: Jaya Borges MD 10/31/23 23:55 PM ECG Additional Comments: EKG with SR at 67bpm, 1st degree AV block with AQ=138, CGN=119, SKm=705, RBBB, similar to prior study from June 01, 2023 PG Care Time/CCT Total # of Minutes Spent Total Time Spent with Patient: Total time spent is greater than 50% in coordination of care (as documented) at patient's floor/unit and/or counseling patient: Coding Level of Care Code 20735 INT INP/OBS CARE 3/75MIN Diagnoses Syncope R55 GIB (gastrointestinal bleeding) K92.2 Leukocytosis D72.829 CKD (chronic kidney disease) N18.9 CAD (coronary artery disease) I25.10
[2023-11-01] MEDS: cefTRIAXone SODIUM 2,000 MG/50 ML BAG IV STA (01:27)
[2023-11-01 02:01] LABS: Basophils # (auto) 0.05 K/uL (0.00-0.20); Basophils % (auto) 0.3 %; Eosinophils # (auto) 0.05 K/uL (0.00-0.50); Eosinophils % (auto) 0.3 %; Immature Granulocytes # (auto) 0.08 K/uL (0.01-0.20); Immature Granulocytes % (auto) 0.4 %; Lymphocytes % (auto) 9.4 %; Monocytes % (auto) 6.8 %; Neutrophils # (auto) 15.82 K/uL (1.40-6.50); Neutrophils % (auto) 82.8 %
[2023-11-01 02:05] LABS: Magnesium 2.5 mg/dl (1.7-2.4)
[2023-11-01 02:59] LABS: Appearance Urine Cloudy (Clear); Bacteria Urine Automated 4+ (Negative); Bilirubin Urine Negative (Negative); Blood Urine 3+ (Negative); Color Urine Orange; Epithelial Cell Urine Auto 0-5 /lpf (0-5); Glucose Urine UA 1+ (Negative); Ketones Urine Negative (Negative); Leukocyte Esterase Urine 3+ (Negative); Nitrite Urine Positive (Negative); RBC Urine Automated 0-4 /hpf (0-4); Specific Gravity Urine 1.012 (1.000-1.030); Urobilinogen Urine Negative (Negative); WBC Urine Automated >30 /hpf (0-5); pH Urine >= 9.0 (4.5-7.5)
[2023-11-01 03:02] LABS: Protein Urine 3+ (Negative)
[2023-11-01 04:04] LABS: Basophils # (auto) 0.04 K/uL (0.00-0.20); Basophils % (auto) 0.2 %; Eosinophils # (auto) 0.03 K/uL (0.00-0.50); Eosinophils % (auto) 0.2 %; Hematocrit (blood only) 30.2 % (42.0-52.0); Hemoglobin 10.1 g/dl (14.0-18.0); Immature Granulocytes # (auto) 0.09 K/uL (0.01-0.20); Immature Granulocytes % (auto) 0.6 %; Lymphocytes % (auto) 6.9 %; Mean Corpuscular Hemoglobin 30.2 pg (25.0-34.0); Mean Corpuscular Hgb Conc 33.4 g/dL (32.0-36.0); Mean Corpuscular Volume 90.4 fL (80.0-100.0); Mean Platelet Volume 11.2 fL (9.4-12.4); Monocytes # (auto) 0.99 K/uL (0.11-0.59); Monocytes % (auto) 6.2 %; Neutrophils # (auto) 13.78 K/uL (1.40-6.50); Neutrophils % (auto) 85.9 %; Platelet Count 204 K/uL (130-400); RDW Coefficient of Variation 15.7 % (11.5-14.5); RDW Standard Deviation 51.8 fL (36.4-46.3); Red Blood Count 3.34 M/uL (4.70-6.10); White Blood Count 16.03 K/ul (4.8-10.8)
[2023-11-01 04:14] LABS: BUN Creatinine Ratio 21.9 (10-20); Calcium 8.9 mg/dl (8.6-10.3); Creatinine Clr Calc Pharmacy 22.4 ml/min; Est GFR (African American) 22.7 ml/min; Est GFR (Non-African American) 19.6 ml/min; Potassium 4.7 mmol/L (3.5-5.1)
[2023-11-01 04:20] LABS: Troponin I High Sensitivity 31.4 pg/ml (0-20)
[2023-11-01] MEDS: cefTRIAXone SODIUM 2,000 MG in DEXTROSE 5 % MINI-B 50 ML IV SCH (07:19)
[2023-11-01] MEDS: cefTRIAXone SODIUM 2000MG/50ML D5W IV ONE (07:20)
[2023-11-01] MEDS: POLYETHYLENE (MIRALAX) 17 GM PACK PO SCH ×2 (09:27→20:42)
[2023-11-01] MEDS: ISOSORBIDE MONO EXTENDED REL 30 MG TABCR PO SCH (09:27)
[2023-11-01] MEDS: METOPROLOL SUCC 25MG EXT REL TAB PO SCH (09:27)
[2023-11-01] MEDS: amLODIPine BESYLATE 5 MG TAB PO SCH (09:27)
[2023-11-01 10:06] LABS: Hematocrit (blood only) 30.4 % (42.0-52.0); Hemoglobin 10.2 g/dl (14.0-18.0); Mean Corpuscular Hemoglobin 30.4 pg (25.0-34.0); Mean Corpuscular Hgb Conc 33.6 g/dL (32.0-36.0); Mean Corpuscular Volume 90.7 fL (80.0-100.0); Mean Platelet Volume 11.6 fL (9.4-12.4); Platelet Count 208 K/uL (130-400); RDW Coefficient of Variation 15.6 % (11.5-14.5); RDW Standard Deviation 51.7 fL (36.4-46.3); Red Blood Count 3.35 M/uL (4.70-6.10); White Blood Count 20.33 K/ul (4.8-10.8)
[2023-11-01] MEDS: LACTATED RINGER'S 1,000 ML IV SCH (10:29)
[2023-11-01] MEDS: allopurinoL 100 MG TAB PO SCH (10:30)
[2023-11-01] MEDS: PANTOprazole 40 MG TAB PO SCH (10:30)
[2023-11-01] MEDS ORDERED: DEXTROSE 50% 50 ML SYRINGE IV PRN (12:02)
[2023-11-01] MEDS ORDERED: GLUCOSE 40% GEL 15 GM TUBE PO PRN (12:02)
[2023-11-01] MEDS ORDERED: GLUCOSE 10 TAB/TUBE PO PRN (12:02)
[2023-11-01] MEDS ORDERED: CARBOHYDRATES FOR HYPOGLYCEMIA PO PRN (12:02)
[2023-11-01] MEDS ORDERED: GLUCAGON FOR INJ 1 MG VIAL SQ PRN (12:02)
--- NOTE | 2023-11-01 12:55 | Gastrointestinal Consultation ---
Date of Consultation November 01, 2023 Assessment & Plan (1) GIB (gastrointestinal bleeding): Plan Patient is a 87-year-old male admitted after passing bright red blood per rectum with passage of a large hard bowel movement with associated syncope. Differential diagnoses include: Hemorrhoids versus fissure versus diverticular bleed versus other. No mass seen on CT. At this time, he remains hemodynamically stable. Upon discussion with the and patient, he would like to avoid an invasive GI workup at this time given his generalized weakness and difficulty tolerating the bowel preparation at this time. Therefore, recommend supportive measures continue to trend H&H. If significant drop in H&H or persistent overt bleeding, could consider inpatient colonoscopy. Otherwise, patient would prefer to defer any invasive testing to an outpatient setting if clinically indicated. Thank you for allowing us to participate in the care of this patient. If you have any questions or concerns, please do not hesitate to contact us. Supervising Physician Co-Signing Physician Notes Agree with EDINSON Charlton as above Abd: Soft, NT, ND, +BS Continue current therapy and supportive care H/H stable BM with brown formed stool Tolerating PO intake. History of Present Illness Reason for Consultation: LGIB Requesting Physician: Dr. Gonzalez Attending Physician: Augie Galarza DO History of Present Illness Patient is a 87-year-old male with a history of chronic kidney disease, CHF, coronary artery disease status post stent placement 2009 and history of colon polyps admitted with syncope and bright red rectal bleeding after straining to have a bowel movement. The patient states he suffers with chronic constipation and was having a bowel movement every 3 days until recently starting smooth moves tea and is now having a bowel movement approximately every other day. States initial bowel movement was very large and hard and associated with passage of a blood clot. Upon arrival at the ER, he did pass another bloody bowel movement at approximately 530 this morning. No rectal bleeding since that time. He endorses mild bilateral lower quadrant abdominal pain. H&H has remained stable most recent hemoglobin 10.2. No anticoagulant use at home but he does take a low-dose aspirin. CTAP performed was unremarkable. Last colonoscopy was performed in 2009 per patient report. He did have removal of colon polyps at that time. No surveillance colonoscopy was performed at that time. Allergies Allergy/AdvReac Type Severity Reaction Status Date / Time codeine Allergy Intermediate FACIAL Verified 10/31/23 22:13 SWELLING, NAUSEA Home Medications Medication Instructions Recorded Confirmed Type bnzejvvu-grf-jqlyh acid 0.4 1 tab PO QAM 09/16/18 10/31/23 History mg-lycopene 300 mcg-lutein 250 mcg tablet (Centrum Silver) omeprazole 20 mg capsule,delayed 20 mg PO HS 09/16/18 10/31/23 History release nitroglycerin 0.4 mg sublingual 0.4 mg sublingual Q5M PRN Chest 03/14/19 10/31/23 History tablet (Nitrostat) Pain isosorbide mononitrate 30 mg 30 mg PO QAM 05/03/23 10/31/23 History tablet,extended release 24 hr aspirin 81 mg tablet,delayed 81 mg PO DAILY 05/30/23 10/31/23 History release amlodipine 5 mg tablet 5 mg PO DAILY #90 tabs 06/10/23 10/31/23 Rx allopurinol 300 mg tablet 300 mg PO QAM #90 tabs 08/04/23 10/31/23 Rx metoprolol succinate 25 mg 25 mg PO DAILY #90 tabs 08/16/23 10/31/23 Rx tablet,extended release 24 hr furosemide 20 mg tablet 20 mg PO DAILY PRN edema #30 tabs 09/09/23 10/31/23 Rx semaglutide 0.25 mg or 0.5 mg (2 0.5 mg subcut WK 09/22/23 10/31/23 History mg/3 mL) subcutaneous pen injector (Ozempic) atorvastatin 40 mg tablet 40 mg PO HS 10/31/23 10/31/23 History Patient History Medical History (Updated 11/02/23 @ 08:04 by Jero Mcgarry) Anemia normocytic anemia of chronic disease; stable Elevated TSH Elevated troponin Acute UTI (urinary tract infection) Pleural effusion, bilateral Pneumonia of both lower lobes Chest tightness Jerome catheter in place History of Holter monitoring due to recent syncopal episode on 04/24/23, admitted to [facility] Polyneuropathy Peyronie's disease Obesity UTI (urinary tract infection) Bradycardia hx of 1st degree AVB. pt had episode of HR in 30s in ambulance after vasovagal event for which he was given atropine; per cardio, rusty episode likely 2/2 vagal stimulation; outpt holter ordered Acute kidney injury Leukocytosis Syncope and collapse hx-recently admitted to [facility] following syncopal episode (04/24/23 - 04/27/23); dx likely vasovagal 2/2 volume depletion and BB. metoprolol was D/C Urinary retention 2/2 BPH and currently with Jerome in place MGUS (monoclonal gammopathy of unknown significance) Chronic kidney disease, stage 3 pt dx with acute on chronic kidney injury (pre-renal) during 04/2023 hospital admission; baseline creat noted to be 1.7-1.9; lasix was held during admission and resumed on discharge BPH (benign prostatic hyperplasia) currently with Jerome in place Dyslipidemia Hypertension Type 2 diabetes mellitus Arthritis CAD (coronary artery disease) MARIO TO YESSICA (2009) GERD (gastroesophageal reflux disease) CONTROLLED Gout Hearing deficit BILATERAL AIDES Hyperlipidemia Surgical History Hx of eye surgery laser surgery to remove "film" from eye following cataract sx. Hx of bilateral cataract extraction Status post total left knee replacement History of colonoscopy History of open reduction and internal fixation (ORIF) procedure RIGHT TIBIA History of tonsillectomy History of endoscopic sinus surgery History of cardiac cath S/P MARIO TO YESSICA (2009), [facility], x1 stent; f/u dr. lopez, [facility] [place] Family History Uncle Family hx of colon cancer Social History Smoking Status: Former smoker Second Hand Exposure: No; Do You Dip or Chew Tobacco: No; Hx Alcohol Use: No Hx Substance Use: No Preferred Language: [place] Communication Ability: Effective Visual Impairment: Limited Director Appointment Required: No Beliefs That Will Affect Care: None marital status: Current Living Situation: Spouse current occupational status: retired How many Children do You have: 7 Feels Safe at Home: Yes Diet: low salt caffeine: Yes (1-2 coffees daily) Do you think of yourself as: straight/heterosexual Gender Identity: Male Assistive Devices: Cane, Hearing Aid - Left and Walker Review of Systems Constitutional: + fatigue and + weakness Gastrointestinal: as per Subjective / HPI Physical Exam Constitutional: WD/WN, vitals as above Respiratory: normal respiratory effort, lungs clear to auscultation Cardiovascular: Rate/Rhythm: regular rate and regular rhythm Gastrointestinal (Abdomen): Inspection/Auscultation: normal bowel sounds Percussion/Palpation: abdomen soft; abdomen nontender, no guarding and abdomen not rigid Psychiatric: A+Ox3, euthymic affect Results & Data Vital Signs (Past 12 Hours) Vital Signs Temp Pulse Pulse Resp BP BP Pulse Ox 11/01/23 11:30 36.6 C 93 H 18 141/73 H 98 11/01/23 07:00 130/61 11/01/23 07:00 72 95 11/01/23 06:00 89 17 93 11/01/23 06:00 149/80 H 11/01/23 05:30 80 17 94 11/01/23 05:00 80 19 94 11/01/23 05:00 140/68 11/01/23 04:33 69 20 11/01/23 04:33 137/78 11/01/23 04:30 57 L 20 94 11/01/23 04:00 63 20 93 11/01/23 03:33 11/01/23 03:30 66 18 93 11/01/23 03:00 84 15 92 11/01/23 02:44 83 18 147/75 H 92 11/01/23 02:33 147/75 H 11/01/23 02:33 83 18 94 11/01/23 02:30 84 20 11/01/23 02:00 78 17 11/01/23 01:58 85 11/01/23 01:00 175/86 H 11/01/23 01:00 84 14 94 O2 Del Method 11/01/23 11:30 Room Air 11/01/23 07:00 11/01/23 07:00 11/01/23 06:00 11/01/23 06:00 11/01/23 05:30 11/01/23 05:00 11/01/23 05:00 11/01/23 04:33 11/01/23 04:33 11/01/23 04:30 11/01/23 04:00 11/01/23 03:33 Room Air 11/01/23 03:30 11/01/23 03:00 11/01/23 02:44 Room Air 11/01/23 02:33 11/01/23 02:33 11/01/23 02:30 11/01/23 02:00 11/01/23 01:58 11/01/23 01:00 11/01/23 01:00 Diagnostic Findings Laboratory Results WBC 20.33 K/ul (4.8-10.8) H 11/01/23 09:29 RBC 3.35 M/uL (4.70-6.10) L 11/01/23 09:29 Hgb 10.2 g/dl (14.0-18.0) L 11/01/23 09:29 Hct 30.4 % (42.0-52.0) L 11/01/23 09:29 MCV 90.7 fL (80.0-100.0) 11/01/23 09: MCH 30.4 pg (25.0-34.0) 11/01/23 09: MCHC 33.6 g/dL (32.0-36.0) 11/01/23 09:29 RDW Std Deviation 51.7 fL (36.4-46.3) H 11/01/23 09:29 RDW Coeff of Hernandez 15.6 % (11.5-14.5) H 11/01/23 09:29 Plt Count 208 K/uL (130-400) 11/01/23 09:29 MPV 11.6 fL (9.4-12.4) 11/01/23 09:29 Immature Gran % (Auto) 0.6 % 11/01/23 03:38 Neut % (Auto) 85.9 % 11/01/23 03:38 Lymph % (Auto) 6.9 % 11/01/23 03:38 Ward % (Auto) 6.2 % 11/01/23 03:38 Eos % (Auto) 0.2 % 11/01/23 03:38 Baso % (Auto) 0.2 % 11/01/23 03:38 Neut # (Auto) 13.78 K/uL (1.40-6.50) H 11/01/23 03:38 Lymph # (Auto) 1.10 K/uL (1.20-3.40) L 11/01/23 03:38 Ward # (Auto) 0.99 K/uL (0.11-0.59) H 11/01/23 03:38 Eos # (Auto) 0.03 K/uL (0.00-0.50) 11/01/23 03:38 Baso # (Auto) 0.04 K/uL (0.00-0.20) 11/01/23 03:38 Immature Gran # (Auto) 0.09 K/uL (0.01-0.20) 11/01/23 03:38 Peripher Smr Path Cons 10/31/23 21:37 PT 10.2 Seconds (9.0-12.0) 10/31/23 21:37 INR 0.9 (0.9-1.1) 10/31/23 21:37 APTT 27 Seconds (21-31) 10/31/23 21:37 PTT Ratio 1.0 10/31/23 21:37 Sodium 134 mmol/L (136-145) L 11/01/23 03:38 Potassium 4.7 mmol/L (3.5-5.1) 11/01/23 03:38 Chloride 106 mmol/L (98-107) 11/01/23 03:38 Carbon Dioxide 20 mmol/L (21-32) L 11/01/23 03:38 Anion Gap 8 (3-11) 11/01/23 03:38 BUN 61 mg/dl (6-23) H 11/01/23 03:38 Creatinine 2.78 mg/dl (0.6-1.4) H 11/01/23 03:38 Est Cr Clr Drug Dosing 22.4 ml/min 11/01/23 03:38 Est GFR ( Amer) 22.7 ml/min 11/01/23 03:38 Est GFR (Non-Af Amer) 19.6 ml/min 11/01/23 03:38 BUN/Creatinine Ratio 21.9 (10-20) H 11/01/23 03:38 Glucose 186 mg/dl (70-99(Fasting)) H 11/01/23 03:38 POC Glucose 183 mg/dl (70-99) H 11/01/23 11:59 Calcium 8.9 mg/dl (8.6-10.3) 11/01/23 03:38 Magnesium 2.5 mg/dl (1.7-2.4) H 10/31/23 21:37 Total Bilirubin 0.5 mg/dl (0.2-1.0) 10/31/23 21:37 AST 20 U/L (13-39) 10/31/23 21:37 ALT 14 U/L (7-52) 10/31/23 21:37 Alkaline Phosphatase 106 U/L (34-104) H 10/31/23 21:37 Total Creatine Kinase 103 U/L (30-223) 11/01/23 09:29 Troponin I High Sens 31.4 pg/ml (0-20) H 11/01/23 03:38 Total Protein 6.6 gm/dl (6.0-8.3) 10/31/23 21:37 Albumin 3.6 gm/dl (3.4-5.0) 10/31/23 21:37 Globulin 3.0 gm/dl (2.5-4.0) 10/31/23 21:37 Albumin/Globulin Ratio 1.2 (0.9-2) 10/31/23 21:37 Urine Color [place] 11/01/23 02:40 Urine Appearance Cloudy (Clear) A 11/01/23 02:40 Urine pH >= 9.0 (4.5-7.5) H 11/01/23 02:40 Ur Specific [place] 1.012 (1.000-1.030) 11/01/23 02:40 Urine Protein 3+ (Negative) H 11/01/23 02:40 Urine Glucose (UA) 1+ (Negative) H 11/01/23 02:40 Urine Ketones Negative (Negative) 11/01/23 02:40 Urine Blood 3+ (Negative) H 11/01/23 02:40 Urine Nitrite Positive (Negative) A 11/01/23 02:40 Urine Bilirubin Negative (Negative) 11/01/23 02:40 Urine Urobilinogen Negative (Negative) 11/01/23 02:40 Ur Leukocyte Esterase 3+ (Negative) H 11/01/23 02:40 Urine WBC (Auto) >30 /hpf (0-5) H 11/01/23 02:40 Urine RBC (Auto) 0-4 /hpf (0-4) 11/01/23 02:40 U Hyaline Cast (Auto) 1-5 /lpf (0-5) 11/01/23 02:40 U Epithel Cells (Auto) 0-5 /lpf (0-5) 11/01/23 02:40 Urine Bacteria (Auto) 4+ (Negative) H 11/01/23 02:40 Blood Type A Positive 10/31/23 21:37 Antibody Screen NEGATIVE 10/31/23 21:37 Impressions Abdomen/Pelvis CT 10/31/23 22:15 Exam(s): CT ABDOMEN + PELVIS Without Contrast EXAM: CT Abdomen and Pelvis Without Intravenous Contrast CLINICAL HISTORY: Reason for exam: upper ab pain, rectl bleeding, syncope. TECHNIQUE: Axial computed tomography images of the abdomen and pelvis without intravenous contrast. CTDI is 27.35 mGy and DLP is 1389.03 mGy-cm. Automated exposure control was utilized for the study. A dose lowering technique was utilized adhering to the principles of ALARA. COMPARISON: No relevant prior studies available. FINDINGS: Lung bases: Unremarkable. No mass. No consolidation. ABDOMEN: Liver: Unremarkable. No focal hepatic lesion. Gallbladder and bile ducts: Unremarkable. No calcified stones. No ductal dilation. Pancreas: Unremarkable. No ductal dilation. Spleen: Unremarkable. No splenomegaly. Adrenals: Unremarkable. No mass. Kidneys and ureters: No hydronephrosis or nephrolithiasis. Left renal cyst measures 2.2 cm. Stomach and bowel: Unremarkable. No obstruction. No mucosal thickening. PELVIS: Appendix: No findings to suggest acute appendicitis. Bladder: Jerome catheter terminates in the urinary bladder, with wall thickening of the urinary bladder, concerning for UTI. Urinalysis recommended. No stones. Reproductive: Unremarkable as visualized. ABDOMEN and PELVIS: Intraperitoneal space: Unremarkable. No free air. No significant fluid collection. Bones/joints: Degenerative changes of the spine. No acute fracture. No dislocation. Grade 1 anterolisthesis of L5 on S1 measures 9 mm. Soft tissues: Small fat-containing bilateral inguinal hernias. Vasculature: Atherosclerotic changes of the aorta. No abdominal aortic aneurysm. Lymph nodes: Unremarkable. No enlarged lymph nodes. IMPRESSION: Jerome catheter terminates in the urinary bladder, with wall thickening of the urinary bladder, concerning for UTI. Urinalysis recommended. Grade 1 anterolisthesis of L5 on S1 measures 9 mm. Electronically signed by: Jaya Borges MD 10/31/23 23:55 PM PG Care Time/CCT Total # of Minutes Spent Total Time Spent with Patient: Total time spent is greater than 50% in coordination of care (as documented) at patient's floor/unit and/or counseling patient: Coding Level of Care Code 23252 INT INP/OBS CARE Diagnoses GIB (gastrointestinal bleeding) K92.2
--- NOTE | 2023-11-01 13:05 | Electrocardiogram Report ---
Test Reason : Blood Pressure : / mmHG Vent. Rate : 087 BPM Atrial Rate : 087 BPM P-R Int : 284 ms QRS Dur : 168 ms QT Int : 404 ms P-R-T Axes : 003 098 -32 degrees QTc Int : 486 ms Sinus rhythm with 1st degree A-V block Right bundle branch block T wave abnormality, consider inferolateral ischemia Abnormal ECG When compared with ECG of 31-OCT-2023 13:24, No significant change was found Confirmed by Kevin Gonzalez ([id number]) on 11/01/2023 1:04:55 PM Referred By: REFERRED SELF Confirmed By:Kevin Gonzalez
--- NOTE | 2023-11-01 13:09 | Electrocardiogram Report ---
Test Reason : Blood Pressure : / mmHG Vent. Rate : 061 BPM Atrial Rate : 061 BPM P-R Int : 296 ms QRS Dur : 162 ms QT Int : 424 ms P-R-T Axes : 000 083 -15 degrees QTc Int : 426 ms Sinus rhythm with marked sinus arrhythmia with 1st degree A-V block Right bundle branch block T wave abnormality, consider inferolateral ischemia Abnormal ECG When compared with ECG of 01-NOV-2023 01:19, (unconfirmed) QT has shortened Confirmed by Kevin Gonzalez ([id number]) on 11/01/2023 1:08:25 PM Referred By: REFERRED SELF Confirmed By:Kevin Gonzalez
--- NOTE | 2023-11-01 13:50 | Hospitalist Progress Note ---
Date of Service November 01, 2023 Assessment & Plan (1) Leukocytosis: (2) Syncope: (3) GIB (gastrointestinal bleeding): (4) Constipation: (5) Anemia: (6) CKD (chronic kidney disease): (7) CAD (coronary artery disease): Plan Vik is an 87 y/o male patient with a H/o DM2, CAD s/p stent placement, CHF, HDL, HTN, NSVT, b/l Carotid a. Stenosis, Stage 4 CKD (3g protein excretion/day), Peripheral Edema, BPH, Obesity, Peyronie's Disease, 1st degree AV Block, MGUS, Anemia (ACD), Arthritis, GERD, Gout, Hearing Deficit (b/l aids), Former Smoker, Polyneuropathy who presents for rectal bleeding and syncope in the setting of chronic constipation. (1) Leukocytosis * UA positive for UTI * CT (+) for bladder wall thickening * H/o Coude Catheter use * Leukocytosis w/ neutrophilic predominance * urine/blood Cx results pending * Cont IV Ceftriaxone * CBC q6 hours (2) Syncope * Multiple recent episodes of dizziness, near syncope, and syncope * Patient has been stable on Metoprolol, Amlodipine * Address infection and chronic constipation to resolve syncope (3) GI Bleed * Patient currently hemodynamically stable -Informed consent obtained for transfusion if indicated -Transfuse for Hgb <7 * Patient h/o constipation is concerning for ruptured internal hemorrhoid * Ddx includes Ruptured Internal Hemorrhoids, Diverticular Bleed, AVM * CT unremarkable for bowel thickening, edema, and obstruction * Patient reports passage of clot yesterday after straining * Hold Anticoagulants/Antiplatelets * GI consulted, no inpatient interventions anticipated at this time (4) Constipation * H/o apparently poorly managed chronic constipation * Patient uses Smooth Move Tea at home w/ BMs q2-3 days * Recommend Miralax to reduce Valsalva/straining associated with syncope (5) Anemia * H/o ACD * Recent h/o lower GI bleed * Has not passed any more bloody BMs today * Continue to trend Hgb/Hct and follow clinically (6) CKD * Avoid nephrotoxic dyes/agents * Renal dosing PRN * Repeat chemistries QD (7) CAD * Mildly elevated Troponins on Admission to ED, cont to trend * Continue Metoprolol * Continue Atorvastatin Full Code Admission and Anticipated Discharge Date Admission Date: November 01, 2023 Supervising Physician Co-Signing Physician Notes I personally examined the patient and verified all ellington points of history and exam, discussed case, and agree with decision making with Regi MUSTAFA and Dr Roblero feeling weak. No further bleeding that he has noticed. Ongoing lower abdominal/suprapubic painfeels consistent with prior urinary tract infections. Chronic constipation. Vitals noted, in general he is awake and alert fatigued but no distress. HEENT normocephalic atraumatic mucous membranes moist. Breathing unlabored no accessory muscle use good effort. Skin shows no rashes no pallor or icterus. Abdomen has some degree of tenderness present no guarding or rebound. Syncope/urinary tract infection with sepsis present on admission/dehydrationceftriaxone, IV fluids, bowel regimen, will need to change Jerome catheter prior to cessation of antibiotics. PT/OT eval and treat. Subjective Overnight he has felt about the same, he still has a stomach ache and chills. Still feels weak, states he is usually able to get up and walk around on his own, but doesn't feel that he can currently do anai. Episode of gross hematochezia followed by syncope this morning @ 0630, code purple called. Able to tolerate PO fluid intake. He endorses some mild SOB, Nausea, Chills, Suprapubic Abdominal Pain. He denies Fever, Chest pain, Palpitations, Headache, Changes in vision, LE swelling or tenderness Review of Systems Review of Systems: Negative excepting HPI Physical Exam Physical Exam: GEN: AAO x4, Ill-appearing elderly male patient with chills HEENT: NC/AT, PERRLA, EOM grossly intact, Good Conjugate Gaze, Nares Patent, MMM NECK: Supple, No LAD, No Thyromegaly, Normal ROM RESP: CTAB (& percussion), No Wheezing, Rales, or Rhonchi. Normal Respiratory Effort CV: Irregular Rhythm, Regular Rate, Discreet S1/S2, Carotid pulses +2, Radial pulses +2 ABD: Distended, Suprapubic Tenderness, no Hepatosplenomegaly, no Ascites, no CVA tenderness EXT: Normal Tone & ROM, Strength 5/5 b/l, Sensation Intact, Cap Refill <2s, Pulses (radial, posterior tibial, dorsalis pedis) 2+ b/l, No Edema, No cyanosis NEURO: CN II-XII Grossly Intact, Sensation diminished in LE but equal b/l DERM: Skin Intact, No Rashes, No Lesions, No Erythema Results & Data Results & Data Vital Signs (Past 12 Hours) Vital Signs Temp Pulse Pulse Resp BP BP Pulse Ox 11/01/23 11:30 36.6 C 93 H 18 141/73 H 98 11/01/23 07:00 130/61 11/01/23 07:00 72 95 11/01/23 06:00 89 17 93 11/01/23 06:00 149/80 H 11/01/23 05:30 80 17 94 11/01/23 05:00 80 19 94 11/01/23 05:00 140/68 11/01/23 04:33 69 20 11/01/23 04:33 137/78 11/01/23 04:30 57 L 20 94 11/01/23 04:00 63 20 93 11/01/23 03:33 11/01/23 03:30 66 18 93 11/01/23 03:00 84 15 92 11/01/23 02:44 83 18 147/75 H 92 11/01/23 02:33 147/75 H 11/01/23 02:33 83 18 94 11/01/23 02:30 84 20 11/01/23 02:00 78 17 11/01/23 01:58 85 O2 Del Method 11/01/23 11:30 Room Air 11/01/23 07:00 11/01/23 07:00 11/01/23 06:00 11/01/23 06:00 11/01/23 05:30 11/01/23 05:00 11/01/23 05:00 11/01/23 04:33 11/01/23 04:33 11/01/23 04:30 11/01/23 04:00 11/01/23 03:33 Room Air 11/01/23 03:30 11/01/23 03:00 11/01/23 02:44 Room Air 11/01/23 02:33 11/01/23 02:33 11/01/23 02:30 11/01/23 02:00 11/01/23 01:58 Laboratory Results 11/01/23 11/01/23 11/01/23 11:59 09:29 08:24 WBC 20.33 H RBC 3.35 L Hgb 10.2 L Hct 30.4 L MCV 90.7 MCH 30.4 MCHC 33.6 RDW Std Deviation 51.7 H RDW Coeff of Hernandez 15.6 H Plt Count 208 MPV 11.6 Immature Gran % (Auto) Neut % (Auto) Lymph % (Auto) [place] % (Auto) Eos % (Auto) Baso % (Auto) Neut # (Auto) Lymph # (Auto) [place] # (Auto) Eos # (Auto) Baso # (Auto) Immature Gran # (Auto) Peripher Smr Path Cons PT INR APTT PTT Ratio Sodium Potassium Chloride Carbon Dioxide Anion Gap BUN Creatinine Est Cr Clr Drug Dosing Est GFR ( Amer) Est GFR (Non-Af Amer) BUN/Creatinine Ratio Glucose POC Glucose 183 H 176 H Calcium Magnesium Total Bilirubin AST ALT Alkaline Phosphatase Total Creatine Kinase 103 Troponin I High Sens Total Protein Albumin Globulin Albumin/Globulin Ratio Urine Color Urine Appearance Urine pH Ur Specific [place] Urine Protein Urine Glucose (UA) Urine Ketones Urine Blood Urine Nitrite Urine Bilirubin Urine Urobilinogen Ur Leukocyte Esterase Urine WBC (Auto) Urine RBC (Auto) U Hyaline Cast (Auto) U Epithel Cells (Auto) Urine Bacteria (Auto) Blood Type Antibody Screen 11/01/23 11/01/23 10/31/23 03:38 02:40 21:37 WBC 16.03 H 19.12 H RBC 3.34 L 3.28 L Hgb 10.1 L 10.1 L Hct 30.2 L 30.0 L MCV 90.4 91.5 MCH 30.2 30.8 MCHC 33.4 33.7 RDW Std Deviation 51.8 H 51.8 H RDW Coeff of Hernandez 15.7 H 15.6 H Plt Count 204 217 MPV 11.2 11.2 Immature Gran % (Auto) 0.6 0.4 Neut % (Auto) 85.9 82.8 Lymph % (Auto) 6.9 9.4 [place] % (Auto) 6.2 6.8 Eos % (Auto) 0.2 0.3 Baso % (Auto) 0.2 0.3 Neut # (Auto) 13.78 H 15.82 H Lymph # (Auto) 1.10 L 1.80 [place] # (Auto) 0.99 H 1.30 H Eos # (Auto) 0.03 0.05 Baso # (Auto) 0.04 0.05 Immature Gran # (Auto) 0.09 0.08 Peripher Smr Path Cons PT 10.2 INR 0.9 APTT 27 PTT Ratio 1.0 Sodium 134 L 131 L Potassium 4.7 4.9 Chloride 106 102 Carbon Dioxide 20 L 19 L Anion Gap 8 10 BUN 61 H 66 H Creatinine 2.78 H 3.02 H Est Cr Clr Drug Dosing 22.4 Not Reportable Est GFR ( Amer) 22.7 20.5 Est GFR (Non-Af Amer) 19.6 17.7 BUN/Creatinine Ratio 21.9 H 21.9 H Glucose 186 H 200 H POC Glucose Calcium 8.9 9.1 Magnesium 2.5 H Total Bilirubin 0.5 AST 20 ALT 14 Alkaline Phosphatase 106 H Total Creatine Kinase Troponin I High Sens 31.4 H 31.0 H Total Protein 6.6 Albumin 3.6 Globulin 3.0 Albumin/Globulin Ratio 1.2 Urine Color [place] Urine Appearance Cloudy A Urine pH >= 9.0 H Ur Specific [place] 1.012 Urine Protein 3+ H Urine Glucose (UA) 1+ H Urine Ketones Negative Urine Blood 3+ H Urine Nitrite Positive A Urine Bilirubin Negative Urine Urobilinogen Negative Ur Leukocyte Esterase 3+ H Urine WBC (Auto) >30 H Urine RBC (Auto) 0-4 U Hyaline Cast (Auto) 1-5 U Epithel Cells (Auto) 0-5 Urine Bacteria (Auto) 4+ H Blood Type A Positive Antibody Screen NEGATIVE Medications Administered Current Inpatient Medications Acetaminophen (Acetaminophen 325 Mg Tab) 650 mg PO Q4H PRN PRN Reason: Pain or Fever Stop: 12/01/23 01:29 Allopurinol (Allopurinol 100 Mg Tab) 200 mg PO QAM LEONARDA Stop: 12/01/23 08:59 Last Admin: 11/01/23 10:30 Dose: 200 mg Atorvastatin Calcium (Atorvastatin 40 Mg Tab) 40 mg PO HS LEONARDA Stop: 12/01/23 20:59 Dextrose (Dextrose 50% 50 Ml Syringe) 25 - 50 ml IV UD PRN; Protocol PRN Reason: Hypoglycemia Protocol Stop: 12/01/23 12:01 Glucagon (Glucagon For Inj 1 Mg Vial) 1 mg SQ UD PRN; Protocol PRN Reason: Hypoglycemia Protocol Stop: 12/01/23 12:01 Glucose (Glucose 10 Tab/Tube) 4 - 8 tab PO UD PRN; Protocol PRN Reason: Hypoglycemia Treatment Stop: 12/01/23 12:01 Glucose (Glucose 40% Gel 15 Gm Tube) 15 - 30 gm PO UD PRN; Protocol PRN Reason: Hypoglycemia Protocol Stop: 12/01/23 12:01 Ceftriaxone Sodium 2,000 mg/ (Dextrose) 50 mls @ 100 mls/hr IV Q24H LEONARDA; Protocol Stop: 11/11/23 06:14 Last Infusion: 11/01/23 07:49 Dose: Infused Lactated Ringer's (Lr) 1,000 mls @ 125 mls/hr IV .Q8H LEONARDA Stop: 11/01/23 17:18 Last Admin: 11/01/23 10:29 Dose: 125 mls/hr Insulin Aspart (Insulin Aspart Per Unit Charge) 0 units SC ACHS LEONARDA Stop: 12/01/23 16:29 Insulin Glargine (Lantus Per Unit Charge) 9 units SQ BID LEONARDA Stop: 12/01/23 20:59 Miscellaneous (Carbohydrates For Hypoglycemia ) 15 - 30 gm PO UD PRN PRN Reason: Hypoglycemia Protocol Stop: 12/01/23 12:01 Ondansetron HCl (Ondansetron Inj 2 Mg/Ml 2 Ml Vial) 4 mg IV Q6H PRN PRN Reason: Nausea And Vomiting Stop: 12/01/23 01:29 Pantoprazole Sodium (Pantoprazole 40 Mg Tab) 40 mg PO DAILY [facility] Stop: 12/01/23 08:59 Last Admin: 11/01/23 10:30 Dose: 40 mg Resident Activity Tracking Resident Involvement: Resident Care Provided Care Provided: Adult Hospital Medicine (5) Anemia Anemia type: due to chronic kidney disease Chronic kidney disease stage: st age 3 (moderate) Chronic kidney disease stage 3 subtype: stage 3a (GFR 45-59) Qualified Code(s): N18.31 - Chronic kidney disease, stage 3a; D63.1 - Anemia in chronic kidney disease
[2023-11-01] MEDS: ONDANSETRON INJ 2 MG/ML 2 ML VIAL IV PRN (14:08)
[2023-11-01] MEDS: INSULIN ASPART PER UNIT CHARGE SC SCH (17:24)
--- NOTE | 2023-11-01 19:25 | Billing Data ---
Date of Service November 01, 2023 Coding Level of Care Code 75827 SUB INP/OBS CARE MIN
[2023-11-01] MEDS: ATORVASTATIN 40 MG TAB PO SCH (20:40)
[2023-11-01] MEDS: LANTUS PER UNIT CHARGE SQ SCH (20:41)
[2023-11-02 04:52] LABS: BUN Creatinine Ratio 20.3 (10-20); Calcium 8.4 mg/dl (8.6-10.3); Creatinine Clr Calc Pharmacy 21.5 ml/min; Est GFR (African American) 21.6 ml/min; Est GFR (Non-African American) 18.6 ml/min; Magnesium 2.1 mg/dl (1.7-2.4); Phosphorus 3.5 mg/dl (2.5-4.9); Potassium 4.5 mmol/L (3.5-5.1)
[2023-11-02 05:38] LABS: Basophils # (auto) 0.04 K/uL (0.00-0.20); Basophils % (auto) 0.2 %; Eosinophils # (auto) 0.04 K/uL (0.00-0.50); Eosinophils % (auto) 0.2 %; Hematocrit (blood only) 26.8 % (42.0-52.0); Immature Granulocytes # (auto) 0.17 K/uL (0.01-0.20); Immature Granulocytes % (auto) 0.9 %; Lymphocytes # (auto) 1.22 K/uL (1.20-3.40); Lymphocytes % (auto) 6.4 %; Mean Corpuscular Hemoglobin 31.4 pg (25.0-34.0); Mean Corpuscular Hgb Conc 33.6 g/dL (32.0-36.0); Mean Corpuscular Volume 93.4 fL (80.0-100.0); Mean Platelet Volume 12.1 fL (9.4-12.4); Monocytes # (auto) 1.63 K/uL (0.11-0.59); Monocytes % (auto) 8.5 %; Neutrophils # (auto) 15.98 K/uL (1.40-6.50); Neutrophils % (auto) 83.8 %; Platelet Count 180 K/uL (130-400); RDW Coefficient of Variation 15.9 % (11.5-14.5); RDW Standard Deviation 53.5 fL (36.4-46.3); Red Blood Count 2.87 M/uL (4.70-6.10); White Blood Count 19.08 K/ul (4.8-10.8)
[2023-11-02 07:38] LABS: Estimated Average Glucose 183 mg/dl
--- NOTE | 2023-11-02 08:06 | Hospitalist Progress Note ---
Date of Service November 02, 2023 Assessment & Plan (1) Leukocytosis: (2) Syncope: (3) GIB (gastrointestinal bleeding): (4) Constipation: (5) Anemia: (6) Hyponatremia: (7) CKD (chronic kidney disease): (8) CAD (coronary artery disease): Plan Vik is an 87 y/o male patient with a H/o DM2, CAD s/p stent placement, CHF, HDL, HTN, NSVT, b/l Carotid a. Stenosis, Stage 4 CKD (3g protein excretion/day), Peripheral Edema, BPH, Obesity, Peyronie's Disease, 1st degree AV Block, MGUS, Anemia (ACD), Arthritis, GERD, Gout, Hearing Deficit (b/l aids), Former Smoker, Polyneuropathy who presents for rectal bleeding and syncope in the setting of chronic constipation. (1) Leukocytosis * UA positive for UTI * CT (+) for bladder wall thickening * H/o Coude Catheter use * Leukocytosis w/ neutrophilic predominance persists largely unchanged * Blood Cx (-) for growth * urine Cx: growing gram negative bacilli. Await sensitivities * Decreased Suprapubic tenderness today O/E * Cont IV Ceftriaxone while awaiting culture sensitivities (2) Syncope * Multiple recent episodes of dizziness, near syncope, and syncope * Patient has been stable on Metoprolol, Amlodipine * Address infection and chronic constipation to prevent further syncope (3) GIB * Patient currently hemodynamically stable * Patient h/o constipation is concerning for ruptured internal hemorrhoid * Ddx includes Ruptured Internal Hemorrhoids, Diverticular Bleed, AVM * CT unremarkable for bowel thickening, edema, and obstruction * Patient reports passage of clot yesterday after straining * Hold Anticoagulants/Antiplatelets (4) Constipation * H/o apparently poorly managed chronic constipation * Patient uses Smooth Move Tea at home w/ BMs q2-3 days * Recommend Miralax to reduce Valsalva/straining associated with syncope * Start Miralax 17g PO BID (5) Anemia * H/o ACD * Recent h/o lower GI bleed * Has not passed any more bloody BMs today * Hgb at 9.0 today, continue to follow clinically (6) Hyponatremia * Na today of 131, down from 134 yesterday * Probable this is dilution from rehydration * Replete and cont to trend (7) CKD * Avoid nephrotoxic dyes/agents * Renal dosing PRN * Repeat chemistries QD (8) CAD * Mildly elevated Troponins on Admission to ED, cont to trend * Continue Atorvastatin Hold Anticoagulation Full Code Admission and Anticipated Discharge Date Admission Date: November 01, 2023 Supervising Physician Co-Signing Physician Notes I personally examined the patient and verified all ellington points of history and exam, discussed case, and agree with decision making with Dr Roblero and Regi Mcgarry MS2 feeling better, knee hurts some, still a little lightheaded when standing. still some belly pain. vitals noted nad heent nc at mmm breathing unlabored no accessory muscles good effort skin no rashes no pallor or icterus syncope - dehydration, vagal post straining, acute blood loss anemia from most likely hemorrhoids - doing better, still a little lightheaded, additional 1L fluids knee pain - nonspecific - examines most as mild DJD flare - voltaren gel ckD4 - continue to follow UTI - w sepsis POA - ceftriaxone pendign full sensitivities. clinically much i mproved mild demand ischemia - no significant impact from this. Subjective AAOx4 today @ 0750, in no acute distress. No further bleeding that he's noticed. Able to sleep through the night, He's subjectively feeling much better than yesterday, feels that he's able to get up and walk around. Abdominal/suprapubic pain has subsided from a 6-7/10 yesterday to a 3/10 today. He notes some continued abdominal pain, especially RUQ pain that he describes as "gassy." He was able to eat last night: Asparagus, potatoes, 1-2 bites of ham, 2 tomatoes, and cucumber. No BMs last night, urine changed from brown to more yellow honey-colored/normal-looking. Declined Miralax yesterday, states he will take some today to try for a BMPO fluid intake was ~500 mL water overnight, mucous membranes moist. No labored breathing, normal respiratory effort. No scleral pallor, No LE edema. Is hoping to get up and walk around today and maybe do PT. He denies Fevers/chills, Dizziness, Vision changes, Chest pain, Palpitations, SOB, N/V, LE tenderness Review of Systems Review of Systems: ROS negative excepting HPI Physical Exam Physical Exam: GEN: AAO x4, Well-appearing Male in NAD HEENT: NC/AT, PERRLA, EOM grossly intact, Good Conjugate Gaze, Nares Patent, MMM NECK: Supple, No LAD, Normal ROM RESP: CTAB, No WRR, Normal Respiratory Effort CV: Irregular Rhythm, Regular Rate, Discreet S1/S2, Carotid pulses +2, Radial pulses +2 ABD: Distended, Mild Suprapubic Tenderness, Mild RUQ Tenderness, no Hepatosplenomegaly, no Ascites, no CVA tenderness EXT: Normal Tone & ROM, Strength 5/5 b/l, Sensation Intact, Cap Refill <2s, Pulses, No Edema, No cyanosis NEURO: CN II-XII Grossly Intact, Sensation diminished in LE but equal b/l DERM: Skin Intact, No Rashes, No Lesions, No Erythema Results & Data Results & Data Vital Signs (Past 12 Hours) Vital Signs Temp Pulse Pulse Resp BP Pulse Ox O2 Del Method 11/02/23 03:48 36.8 C 80 18 114/65 91 Room Air 11/01/23 23:52 36.9 C 94 H 18 127/72 91 Room Air 11/01/23 23:00 79 11/01/23 20:00 Room Air Laboratory Results 11/02/23 11/01/23 11/01/23 03:43 20:30 16:56 WBC 19.08 H RBC 2.87 L Hgb 9.0 L Hct 26.8 L MCV 93.4 MCH 31.4 MCHC 33.6 RDW Std Deviation 53.5 H RDW Coeff of Hernandez 15.9 H Plt Count 180 MPV 12.1 Immature Gran % (Auto) 0.9 Neut % (Auto) 83.8 Lymph % (Auto) 6.4 [place] % (Auto) 8.5 Eos % (Auto) 0.2 Baso % (Auto) 0.2 Neut # (Auto) 15.98 H Lymph # (Auto) 1.22 [place] # (Auto) 1.63 H Eos # (Auto) 0.04 Baso # (Auto) 0.04 Immature Gran # (Auto) 0.17 Peripher Smr Path Cons Sodium 131 L Potassium 4.5 Chloride 104 Carbon Dioxide 19 L Anion Gap 8 BUN 59 H Creatinine 2.90 H Est Cr Clr Drug Dosing 21.5 Est GFR ( Amer) 21.6 Est GFR (Non-Af Amer) 18.6 BUN/Creatinine Ratio 20.3 H Glucose 160 H POC Glucose 199 H 204 H Estimat Average Glucose 183 Hemoglobin A1c 8.0 H Calcium 8.4 L Phosphorus 3.5 Magnesium 2.1 Total Creatine Kinase 11/01/23 11/01/23 11/01/23 11:59 09:29 08:24 WBC 20.33 H RBC 3.35 L Hgb 10.2 L Hct 30.4 L MCV 90.7 MCH 30.4 MCHC 33.6 RDW Std Deviation 51.7 H RDW Coeff of Hernandez 15.6 H Plt Count 208 MPV 11.6 Immature Gran % (Auto) Neut % (Auto) Lymph % (Auto) [place] % (Auto) Eos % (Auto) Baso % (Auto) Neut # (Auto) Lymph # (Auto) [place] # (Auto) Eos # (Auto) Baso # (Auto) Immature Gran # (Auto) Peripher Smr Path Cons Sodium Potassium Chloride Carbon Dioxide Anion Gap BUN Creatinine Est Cr Clr Drug Dosing Est GFR ( Amer) Est GFR (Non-Af Amer) BUN/Creatinine Ratio Glucose POC Glucose 183 H 176 H Estimat Average Glucose Hemoglobin A1c Calcium Phosphorus Magnesium Total Creatine Kinase 103 10/31/23 21:37 WBC RBC Hgb Hct MCV MCH MCHC RDW Std Deviation RDW Coeff of Hernandez Plt Count MPV Immature Gran % (Auto) Neut % (Auto) Lymph % (Auto) [place] % (Auto) Eos % (Auto) Baso % (Auto) Neut # (Auto) Lymph # (Auto) [place] # (Auto) Eos # (Auto) Baso # (Auto) Immature Gran # (Auto) Peripher Smr Path Cons Sodium Potassium Chloride Carbon Dioxide Anion Gap BUN Creatinine Est Cr Clr Drug Dosing Est GFR ( Amer) Est GFR (Non-Af Amer) BUN/Creatinine Ratio Glucose POC Glucose Estimat Average Glucose Hemoglobin A1c Calcium Phosphorus Magnesium Total Creatine Kinase Medications Administered Current Inpatient Medications Acetaminophen (Acetaminophen 325 Mg Tab) 650 mg PO Q4H PRN PRN Reason: Pain or Fever Stop: 12/01/23 01:29 Allopurinol (Allopurinol 100 Mg Tab) 200 mg PO QAM LEONARDA Stop: 12/01/23 08:59 Last Admin: 11/01/23 10:30 Dose: 200 mg Atorvastatin Calcium (Atorvastatin 40 Mg Tab) 40 mg PO HS LEONARDA Stop: 12/01/23 20:59 Last Admin: 11/01/23 20:40 Dose: 40 mg Dextrose (Dextrose 50% 50 Ml Syringe) 25 - 50 ml IV UD PRN; Protocol PRN Reason: Hypoglycemia Protocol Stop: 12/01/23 12:01 Glucagon (Glucagon For Inj 1 Mg Vial) 1 mg SQ UD PRN; Protocol PRN Reason: Hypoglycemia Protocol Stop: 12/01/23 12:01 Glucose (Glucose 10 Tab/Tube) 4 - 8 tab PO UD PRN; Protocol PRN Reason: Hypoglycemia Treatment Stop: 12/01/23 12:01 Glucose (Glucose 40% Gel 15 Gm Tube) 15 - 30 gm PO UD PRN; Protocol PRN Reason: Hypoglycemia Protocol Stop: 12/01/23 12:01 Ceftriaxone Sodium 2,000 mg/ (Dextrose) 50 mls @ 100 mls/hr IV Q24H LEONARDA; Protocol Stop: 11/11/23 06:14 Last Infusion: 11/02/23 06:40 Dose: Infused Insulin Aspart (Insulin Aspart Per Unit Charge) 0 units SC ACHS LEONARDA Stop: 12/01/23 16:29 Last Admin: 11/01/23 20:41 Dose: 2 units Insulin Glargine (Lantus Per Unit Charge) 9 units SQ BID LEONARDA Stop: 12/01/23 20:59 Last Admin: 11/01/23 20:41 Dose: 9 units Miscellaneous (Carbohydrates For Hypoglycemia ) 15 - 30 gm PO UD PRN PRN Reason: Hypoglycemia Protocol Stop: 12/01/23 12:01 Ondansetron HCl (Ondansetron Inj 2 Mg/Ml 2 Ml Vial) 4 mg IV Q6H PRN PRN Reason: Nausea And Vomiting Stop: 12/01/23 01:29 Last Admin: 11/01/23 14:08 Dose: 4 mg Pantoprazole Sodium (Pantoprazole 40 Mg Tab) 40 mg PO DAILY [facility] Stop: 12/01/23 08:59 Last Admin: 11/01/23 10:30 Dose: 40 mg Polyethylene Glycol (Polyethylene (Miralax) 17 Gm Pack) 17 gm PO BID [facility] Stop: 12/01/23 20:59 Last Admin: 11/01/23 20:42 Dose: Not Given ECG Additional Comments: Telemetry notes continued sinus arrhythmia w/ 1st degree AV block, RI interval = 278, some PACs. Resident Activity Tracking Resident Involvement: Resident Care Provided Care Provided: Adult Hospital Medicine (5) Anemia Anemia type: due to chronic kidney disease Chronic kidney disease stage: stage 3 (moderate) Chronic kidney disease stage 3 subtype: stage 3a (GFR 45-59) Qualified Code(s): N18.31 - Chronic kidney disease, stage 3a; D63.1 - Anemia in chronic kidney disease
--- NOTE | 2023-11-02 11:27 | Gastroenterology Progress Note ---
Date of Service November 02, 2023 Assessment & Plan (1) GIB (gastrointestinal bleeding): Plan Patient is a 87-year-old male admitted after passing bright red blood per rectum with passage of a large hard bowel movement with associated syncope. Differential diagnoses include: Hemorrhoids versus fissure versus diverticular bleed versus other. No mass seen on CT. Patient is without any further rectal bleeding. Will sign off at this time. Please do not hesitate to contact us if n eeded. Admission and Anticipated Discharge Date Admission Date: November 01, 2023 Subjective Patient reports no further rectal bleeding. Denies any abdominal pain. H&H 9.0/26.8, possibly related to dilutional state. Review of Systems Constitutional: + fatigue Gastrointestinal: as per Subjective / HPI Physical Exam Constitutional: WD/WN, vitals as above Gastrointestinal (Abdomen): Inspection/Auscultation: normal bowel sounds and + significant pannus Percussion/Palpation: abdomen soft; abdomen nontender, no guarding and abdomen not rigid Results & Data Results & Data Vital Signs (Past 12 Hours) Vital Signs Temp Pulse Resp BP BP Pulse Ox O2 Del Method 11/02/23 11:22 37.2 C 81 20 156/69 H 95 Room Air 11/02/23 08:05 36.9 C 88 20 114/68 93 Room Air 11/02/23 03:48 36.8 C 80 18 114/65 91 Room Air 11/01/23 23:52 36.9 C 94 H 18 127/72 91 Room Air PG Care Time/CCT Total # of Minutes Spent Total Time Spent with Patient: Total time spent is greater than 50% in coordination of care (as documented) at patient's floor/unit and/or counseling patient: Coding Level of Care Code 84642 SUB INP/OBS CARE 3/50MIN Diagnoses GIB (gastrointestinal bleeding) K92.2
--- NOTE | 2023-11-02 18:20 | Billing Data ---
Date of Service November 02, 2023 Coding Level of Care Code 63232 SUB INP/OBS CARE MIN
--- NOTE | 2023-11-02 18:21 | Billing Data ---
Date of Service November 02, 2023 Coding Level of Care Code 02617 SUB INP/OBS CARE MIN
[2023-11-02] MEDS: LACTATED RINGER'S 1,000 ML IV SCH (18:39)
[2023-11-02] MEDS: ACETAMINOPHEN 325 MG TAB PO PRN (19:41)
[2023-11-02] MEDS: DICLOFENAC SOD 1% GEL 100 GM TUBE EXT SCH (20:24)
[2023-11-03 06:31] LABS: Phosphorus 3.7 mg/dl (2.5-4.9)
[2023-11-03 06:34] LABS: Basophils # (auto) 0.04 K/uL (0.00-0.20); Basophils % (auto) 0.2 %; Eosinophils # (auto) 0.21 K/uL (0.00-0.50); Eosinophils % (auto) 1.3 %; Hematocrit (blood only) 25.3 % (42.0-52.0); Hemoglobin 8.5 g/dl (14.0-18.0); Immature Granulocytes % (auto) 0.6 %; Lymphocytes # (auto) 1.36 K/uL (1.20-3.40); Lymphocytes % (auto) 8.2 %; Mean Corpuscular Hemoglobin 30.6 pg (25.0-34.0); Mean Corpuscular Hgb Conc 33.6 g/dL (32.0-36.0); Mean Platelet Volume 11.7 fL (9.4-12.4); Monocytes # (auto) 1.64 K/uL (0.11-0.59); Monocytes % (auto) 9.9 %; Neutrophils # (auto) 13.14 K/uL (1.40-6.50); Neutrophils % (auto) 79.8 %; Platelet Count 167 K/uL (130-400); RDW Coefficient of Variation 15.7 % (11.5-14.5); RDW Standard Deviation 52.2 fL (36.4-46.3); Red Blood Count 2.78 M/uL (4.70-6.10); White Blood Count 16.49 K/ul (4.8-10.8)
[2023-11-03] MEDS: ISOSORBIDE MONO EXTENDED REL 30 MG TABCR PO SCH (08:30)
[2023-11-03] MEDS: amLODIPine BESYLATE 5 MG TAB PO SCH (08:30)
--- NOTE | 2023-11-03 16:07 | Hospitalist Progress Note ---
Date of Service November 03, 2023 Assessment & Plan (1) Leukocytosis: (2) Syncope: (3) GIB (gastrointestinal bleeding): (4) Constipation: (5) Anemia: (6) Hyponatremia: (7) CKD (chronic kidney disease): (8) CAD (coronary artery disease): Plan Vik is an 87 y/o male patient with a H/o DM2, CAD s/p stent placement, CHF, HDL, HTN, NSVT, b/l Carotid a. Stenosis, Stage 4 CKD (3g protein excretion/day), Peripheral Edema, BPH, Obesity, Peyronie's Disease, 1st degree AV Block, MGUS, Anemia (ACD), Arthritis, GERD, Gout, Hearing Deficit (b/l aids), Former Smoker, Polyneuropathy who presents for rectal bleeding and syncope in the setting of chronic constipation. (1) LeukocytosisUTI with sepsis present on admission, improving, but still awaiting sensitivities * UA positive for UTI * CT (+) for bladder wall thickening * H/o Coude Catheter use * Leukocytosis w/ neutrophilic predominance persists largely unchanged * Blood Cx (-) for growth * urine Cx: growing gram negative bacilli. Await sensitivities * Decreased Suprapubic tenderness today O/E * Cont IV Ceftriaxone while awaiting culture sensitivities (2) Syncopeprobably a mix of septic physiology, dehydration, and vagal from constipation * Multiple recent episodes of dizziness, near syncope, and syncope * Patient has been stable on Metoprolol, Amlodipine * Address infection and chronic constipation to prevent further syncope (3) GIBmild acute blood loss anemia now stable, no unstable hemodynamics, almost certainly hemorrhoidal * Patient currently hemodynamically stable * Patient h/o constipation is concerning for ruptured internal hemorrhoid * Ddx includes Ruptured Internal Hemorrhoids, Diverticular Bleed, AVM * CT unremarkable for bowel thickening, edema, and obstruction * Patient reports passage of clot yesterday after straining * Hold Anticoagulants/Antiplatelets (4) Constipation as above/related to aboveMiraLAX * H/o apparently poorly managed chronic constipation * Patient uses Smooth Move Tea at home w/ BMs q2-3 days * Recommend Miralax to reduce Valsalva/straining associated with syncope * Start Miralax 17g PO BID (5) Anemia * H/o ACD * Recent h/o lower GI bleed * Has not passed any more bloody BMs today * Hgb at 9.0 today, continue to follow clinically (6) Hyponatremia * Na today of 131, down from 134 yesterday * Probable this is dilution from rehydration * Replete and cont to trend (7) CKD * Avoid nephrotoxic dyes/agents * Renal dosing PRN * Repeat chemistries QD (8) CAD * Mildly elevated Troponins on Admission to ED, cont to trend * Continue Atorvastatin Hold Anticoagulation Full Code Admission and Anticipated Discharge Date Admission Date: November 01, 2023 Supervising Physician Co-Signing Physician Notes syncope - dehydration, vagal post straining, acute blood loss anemia from most likely hemorrhoids - doing better, still a little lightheaded, additional 1L fluids knee pain - nonspecific - examines most as mild DJD flare - voltaren gel ckD4 - continue to follow UTI - w sepsis POA - ceftriaxone pending full sensitivities. clinically much improved mild demand ischemia - no significant impact from this. Subjective feels good overall. Belly pain improving. Has not had catheter changed yet. Walking around well and feels safe and steady on his feet. Still waiting on final urine culture results. Lab was contacted they are having to rerun sensitivities with concern on ESBL. Review of Systems Review of Systems: All systems reviewed & are unremarkable except as noted in HPI & below Physical Exam Physical Exam: General he is awake and alert pleasant no distress. HEENT normocephalic atraumatic mucous membranes moist. Breathing unlabored no accessory muscle use good effort. Skin shows no rashes no pallor or icterus. Neuro without focal deficits Results & Data Results & Data Vital Signs (Past 12 Hours) Vital Signs Temp Pulse Resp BP Pulse Ox O2 Del Method 11/03/23 15:52 98.1 F 87 17 130/67 95 Room Air 11/03/23 11:30 98.1 F 78 18 111/65 98 Room Air 11/03/23 08:12 98.1 F 75 20 162/73 H 92 Room Air PG Care Time/CCT Total # of Minutes Spent Total Time Spent with Patient: Total time spent is greater than 50% in coordination of care (as documented) at patient's floor/unit and/or counseling patient: Coding Level of Care Code 09466 SUB INP/OBS CARE 3/50MIN Diagnoses Leukocytosis D72.829 Syncope R55 GIB (gastrointestinal bleeding) K92.2 Constipation K59.00 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
[2023-11-04 06:51] LABS: Basophils # (auto) 0.06 K/uL (0.00-0.20); Basophils % (auto) 0.4 %; Eosinophils # (auto) 0.38 K/uL (0.00-0.50); Eosinophils % (auto) 2.8 %; Hematocrit (blood only) 24.1 % (42.0-52.0); Hemoglobin 8.1 g/dl (14.0-18.0); Immature Granulocytes % (auto) 0.7 %; Lymphocytes # (auto) 1.53 K/uL (1.20-3.40); Lymphocytes % (auto) 11.3 %; Mean Corpuscular Hemoglobin 30.9 pg (25.0-34.0); Mean Corpuscular Hgb Conc 33.6 g/dL (32.0-36.0); Mean Platelet Volume 11.6 fL (9.4-12.4); Monocytes % (auto) 10.3 %; Neutrophils # (auto) 10.06 K/uL (1.40-6.50); Neutrophils % (auto) 74.5 %; Platelet Count 182 K/uL (130-400); RDW Coefficient of Variation 15.9 % (11.5-14.5); RDW Standard Deviation 53.3 fL (36.4-46.3); Red Blood Count 2.62 M/uL (4.70-6.10); White Blood Count 13.53 K/ul (4.8-10.8)
[2023-11-04 07:10] LABS: BUN Creatinine Ratio 17.7 (10-20); Calcium 8.5 mg/dl (8.6-10.3); Creatinine Clr Calc Pharmacy 18.7 ml/min; Est GFR (African American) 17.8 ml/min; Est GFR (Non-African American) 15.4 ml/min; Potassium 4.4 mmol/L (3.5-5.1)
--- NOTE | 2023-11-04 07:25 | Hospitalist Progress Note ---
Date of Service November 04, 2023 Assessment & Plan (1) Leukocytosis: (2) Syncope: (3) GIB (gastrointestinal bleeding): (4) Constipation: (5) Anemia: (6) Hyponatremia: (7) CKD (chronic kidney disease): (8) CAD (coronary artery disease): Plan Vik is an 87 y/o male patient with a H/o DM2, CAD s/p stent placement, CHF, HDL, HTN, NSVT, b/l Carotid a. Stenosis, Stage 4 CKD (3g protein excretion/day), Peripheral Edema, BPH, Obesity, Peyronie's Disease, 1st degree AV Block, MGUS, Anemia (ACD), Arthritis, GERD, Gout, Hearing Deficit (b/l aids), Former Smoker, Polyneuropathy who presents for rectal bleeding and syncope in the setting of chronic constipation. (1) Leukocytosis * UA positive for UTI * CT (+) for bladder wall thickening * H/o Coude Catheter use * Leukocytosis w/ neutrophilic predominance persists largely unchanged * Blood Cx (-) for growth * urine Cx: growing gram negative bacilli. Await sensitivities * Decreased Suprapubic tenderness today O/E * Cont IV Ceftriaxone while awaiting culture sensitivities (2) Syncope * Multiple recent episodes of dizziness, near syncope, and syncope * Patient has been stable on Metoprolol, Amlodipine * Address infection and chronic constipation to prevent further syncope (3) GIB * Patient currently hemodynamically stable * Patient h/o constipation is concerning for ruptured internal hemorrhoid * Ddx includes Ruptured Internal Hemorrhoids, Diverticular Bleed, AVM * CT unremarkable for bowel thickening, edema, and obstruction * Patient reports passage of clot yesterday after straining * Hold Anticoagulants/Antiplatelets (4) Constipation * H/o apparently poorly managed chronic constipation * Patient uses Smooth Move Tea at home w/ BMs q2-3 days * Recommend Miralax to reduce Valsalva/straining associated with syncope * Start Miralax 17g PO BID (5) Anemia * H/o ACD * Recent h/o lower GI bleed * Has not passed any more bloody BMs today * Hgb at 9.0 today, continue to follow clinically (6) Hyponatremia * Na today of 131, down from 134 yesterday * Probable this is dilution from rehydration * Replete and cont to trend (7) CKD * Avoid nephrotoxic dyes/agents * Renal dosing PRN * Repeat chemistries QD (8) CAD * Mildly elevated Troponins on Admission to ED, cont to trend * Continue Atorvastatin Hold Anticoagulation Full Code Admission and Anticipated Discharge Date Admission Date: November 01, 2023 Review of Systems Review of Systems: As per HPI. Results & Data Results & Data Vital Signs (Past 12 Hours) Vital Signs Temp Pulse Pulse Resp BP Pulse Ox O2 Del Method 11/04/23 04:00 36.4 C L 74 16 116/68 91 Room Air 11/03/23 22:44 74 11/03/23 22:23 36.5 C 94 H 18 127/67 91 Room Air 11/03/23 19:54 36.8 C 94 H 16 100/61 94 Room Air (5) Anemia Anemia type: due to chronic kidney disease Chronic kidney disease stage: stage 3 (moderate) Chronic kidney disease stage 3 subtype: stage 3a (GFR 45-59) Qualified Code(s): N18.31 - Chronic kidney disease, stage 3a; D63.1 - Anemia in chronic kidney disease
--- NOTE | 2023-11-04 13:46 | Discharge Summary ---
Date of Service November 04, 2023 Admission HPI Per Admitting Provider Vik Gates is an 87yo male presenting with syncope. Patient has been in his usual state of health. Today he developed some pain and cramping in his lower abdomen. He was straining a good deal on the commode and had a syncopal event. He was seen in the ER with these complaints. He had a very large BM in the ER followed by a smaller one and felt somewhat better therefore was sent home. Patient ate a little bit when he returned home. He continued to have abdominal pain throughout the day. He was sitting on the commode and passed a large blood clot "the size of my fist" per his . He was dizzy and had multiple episodes of light-headedness and near-syncope throughout the day which prompted them to return to the ER. Patient with indwelling Jerome - reports decreased output today. His urine was dark almost brown in color prior to arrival and has since cleared up with IVF. In the ER patient is afebrile HD stable, NAD Admission Exam Per Admitting Provider General: patient resting comfortably, NAD, non-toxic in appearance, AA&O x 4 Skin: warm, dry, intact, no rashes or lesions HEENT: NC/AT, PERRL, EOMI, anicteric sclera, conjunctiva without injection, external ear normal to inspection and nontender, nares patent, moist mucus membranes, dentition intact, no oropharyngeal lesions, neck supple, trachea midline, no LAD, no thyromegaly, no JVD Heart: +S1/S2, regular, no m/r/g Lungs: equal air entry bilaterally, no rales/rhonchi/wheezes Abd: +BS, soft, ND, tender in upper abdomen L > R, no masses/organo megaly/ascites Jerome catheter in place with leg bag present, clear yellow urine in bag Ext: warm, 2+ pulses in UE/LE bilaterally, no clubbing/cyanosis or edema Neuro: nonfocal, patient AA&O x 4, speech intact, no facial droop, moving all extremities on command with equal strength 5/5 Principal Diagnosis Constipation, Lower GI bleed, UTI Discharge Exam Constitutional WD/WN, vitals as above Eyes PERRL, conjunctivae normal, anicteric sclerae Respiratory normal respiratory effort, lungs clear to auscultation Cardiovascular RRR, no murmur, no edema Gastrointestinal (Abdomen) BS+, mildly tender to palpation across upper abdomen, no rebound or guarding. Psychiatric A+Ox3, euthymic affect Discharge Data Allergies Allergy/AdvReac Type Severity Reaction Status Date / Time codeine Allergy Intermediate FACIAL Verified 10/31/23 22:13 SWELLING, NAUSEA Consultations 11/01/23 00:00 ED Decision to Admit Stat 11/01/23 09:19 Consult Gastroenterology Routine Ordered Studies 10/31/23 22:15 CT abd pelvis wo con Stat IMPRESSION: Jerome catheter terminates in the urinary bladder, with wall thickening of the urinary bladder, concerning for UTI. Urinalysis recommended. Grade 1 anterolisthesis of L5 on S1 measures 9 mm. Hospital Course (1) Leukocytosis: (2) Syncope: (3) GIB (gastrointestinal bleeding): (4) Constipation: (5) Anemia: (6) Hyponatremia: (7) CKD (chronic kidney disease): Toshia Chery is an 87 y/o male patient with a H/o DM2, CAD s/p stent placement, CHF, HDL, HTN, NSVT, b/l Carotid a. Stenosis, Stage 4 CKD (3g protein excretion/day), Peripheral Edema, BPH, Obesity, Peyronie's Disease, 1st degree AV Block, MGUS, Anemia (ACD), Arthritis, GERD, Gout, Hearing Deficit (b/l aids), Former Smoker, Polyneuropathy who presents for rectal bleeding and syncope in the setting of chronic constipation as well as leukocytosis in setting of UTI. Leukocytosis * UA positive for UTI * CT (+) for bladder wall thickening * H/o Coude Catheter use * Leukocytosis w/ neutrophilic predominance trending down with antibiotic treatment of UTI * Blood Cx (-) for growth * urine Cx: grew Proteus mirabilis only resistant to quinolones. * Had been on IV Ceftriaxone while inpatient with improvement. * Catheter replaced after sensitivities came back. * Switched to cefdinir 300mg daily (renally dosed) for 6 more days (10 days total) on discharge Syncope * Multiple recent episodes of dizziness, near syncope, and syncope * Patient has been stable on Metoprolol, Amlodipine while inpatient. * Multifactorial in setting of constipation, anemia, infection. * Addressing infection as above as well as constipation with Miralax as below. GIB * Patient currently hemodynamically stable * Patient h/o constipation is concerning for ruptured internal hemorrhoid * Ddx includes Ruptured Internal Hemorrhoids, Diverticular Bleed, AVM * CT unremarkable for bowel thickening, edema, and obstruction * Had stopping of bleeding during stay, minor recurrence with BM with frequent BM on Miralax. * Holding Aspirin until November 06 due to minimal blood on BM. Could resume at home if no further bloody BM. Constipation * H/o apparently poorly managed chronic constipation * Patient uses Smooth Move Tea at home w/ BMs q2-3 days * Recommend Miralax to reduce Valsalva/straining associated with syncope * Patient had 3-4 episodes of loose stools on Miralax BID, can lower down to 1-2 caps per day outpatient. Anemia * H/o ACD * Recent h/o lower GI bleed * Has not passed any more bloody BMs today * Hgb stable 8.1-8.5 on discharge. CKD * Creatinine 3.39, CrClr 18.7 on discharge, not a huge jump from values over inpatient stay however would still trend with BMP on Tuesday. * Slight bump may be due to 3-4 BM overnight. Total Time Total Time Spent Total Time Spent (In Minutes): Please see attending attestation. Discharge Plan Discharge Items Patient Disposition: Home - Home Health Services Reason For Visit: SYNCOPE,LGIB Discharge Diagnosis: LGIB, UTI Activity: Per Instructions section Non-emergency contact: Primary Care Provider Call non-emergency contact if: you have any medication questions and your symptoms worsen Follow-up/Referrals: Umberto Bassett, [Primary Care Provider] - (Please schedule hospital discharge follow up appointment within 1-2 weeks) Diet: Regular Ambulatory Orders: Basic Metabolic Panel (Routine) Timeframe: 3 Days Location: Determined by Patient Ordered By: Ghassan Coates Attending Provider Instructions: You came to the hospital due to passing out. You were found to have evidence for a gastrointestinal bleed as well as constipation. We made sure your hemoglobin stayed stable and that your gastrointestinal bleeding stopped. We gave you Miralax for the constipation as well. You were also found to have an elevated white blood cell count and subsequently a urinary tract infection. We gave you IV antibiotics to help with this and your white blood cell level came down accordingly. We will continue you on an antibiotic for another 6 days for a total of 10 days (you received 4 days of antibiotics while in the hospital). Please continue to hold your aspirin until Tuesday. You may restart on Tuesday if you do not have any more blood in your bowel movements. Please continue to take Miralax to help prevent constipation. Please take 1-2 caps of Miralax per day. Please get your blood drawn for checking your kidney function and electrolytes on Tuesday. An order will be printed out for you to take to the lab. We will give you an antibiotic called cefdinir to take daily for 6 more days to treat the urinary tract infection. Please follow up with your primary care physician within the next 7-14 days. Pending Studies at Discharge: No Stand-Alone Forms: My [facility] [employer] Smoking Cessation Medications and DC Order Prescriptions: New polyethylene glycol 3350 [Miralax] 17 gram Powder In Packet 17 g PO DAILY Qty: 0 0RF cefdinir 300 mg capsule 300 mg PO DAILY 6 Days Qty: 6 0RF Continued allopurinol 300 mg tablet 300 mg PO QAM Qty: 90 3RF furosemide 20 mg tablet 20 mg PO DAILY PRN (Reason: edema) Qty: 30 1RF metoprolol succinate 25 mg tablet extended release 24 hr 25 mg PO DAILY Qty: 90 3RF Ozempic 0.25 mg or 0.5 mg (2 mg/3 mL) pen injector 0.5 mg subcut WK Rx Instructions: [place] amlodipine 5 mg tablet 5 mg PO DAILY Qty: 90 3RF omeprazole 20 mg Capsule,Delayed Release(Dr/Ec) 20 mg PO HS Centrum Silver 0.4-300-250 mg-mcg-mcg Tablet 1 tab PO QAM nitroglycerin [Nitrostat] 0.4 mg tablet, sublingual 0.4 mg sublingual Q5M PRN (Reason: Chest Pain) Patient Comments: DISSOLVE ONE TABLET UNDER THE TONGUE EVERY 5 MINUTES FOR UP TO 3 DOSES NEEDED FOR CHEST PAIN. isosorbide mononitrate 30 mg tablet extended release 24 hr 30 mg PO QAM atorvastatin 40 mg tablet 40 mg PO HS Held aspirin 81 mg Tablet,Delayed Release (Dr/Ec) 81 mg PO DAILY Hold Instructions: Resume on 11/07/23. Resume Tuesday if no more blood per rectum. Discharge Orders: Discharge Order (Routine); Ordered 11/04/23 Ordered By: Ghassan Arreguin/Other Patient Handouts: Managing Type 2 Diabetes Admission Data Admit Date/Time: 11/01/23 01:03 Attending Provider: Augie Galarza Admit Provider: Jemima Gonzalez Primary Care Provider: Umberto Bassett Other Providers: Jemima Gonzalez; Christopher Castle Other Interventions: Discharge Summary Assessment (RN) Last Done: 11/04/23 12:46 Supervising Physician Co-Signing Physician Notes I personally examined the patient and verified all ellington points of history and exam, discussed case, and agree with decision making with Dr Chang Feeling good. Had several bowel movements with no lightheadedness. A mild degree of bleeding, but nothing that has him concerned, he has still been able to be upright and feeling good. Overall would very much like to go home. Vitals noted, in general he is awake and alert pleasant no distress. HEENT normocephalic atraumatic mucous membranes moist. Breathing unlabored no accessory muscle use good effort. Labs and diagnostics noted. syncope - dehydration, vagal post straining, acute blood loss anemia from most likely hemorrhoids - doing better, safe/stable for home, he can d/w PCP re ?utility of scope vs watchful waiting. bowel regiment to protect against future constipation / pressure on hemorrhoids knee pain - nonspecific - examines most as mild DJD flare - voltaren gel utilized while here ckD4 - continue to follow as an outpatient, his creatinine did bump a little bit today, although it really only affects about a 3 mill per minute change in estimated GFR, given that is not anything nephrotoxic and he has been getting volume repleteI suspect its either baseline "wobble" or possibly related to a little bit of volume loss from his bowel movements. That said, he feels good, he is not lightheaded, his urine has remained much more clearoverall it appears much safer to send him home with outpatient labs and to keep him in the hospital environment risking iatrogenic cyst and deconditioning. P.o. fluid intake, basic metabolic panel early next week. UTI - w sepsis POA - ceftriaxone was given pending full sensitivities. now safe for home on cefdinir. catheter changed today. clinically much improved mild demand ischemia - no significant impact from this. Resident Activity Tracking Resident Involvement: Resident Care Provided Care Provided: Adult Hospital Medicine
--- NOTE | 2023-11-04 15:52 | Billing Data ---
Date of Service November 04, 2023 Coding Level of Care Code 10608 IN/OBS DISCH 30 MIN/LESS
== END 2023-11-04 16:40 | disposition home or self-care (01) | DRG 872 ==
LOC: ED 21:02 → EDINP 11-01 01:03 → SUATTDRO 11-01 01:03 → 4W 11-01 07:44
DX: I13.0 Hypertensive heart and chronic kidney disease with heart failure and stage 1 through stage 4 chronic kidney disease, or unspecified chronic kidney disease; N39.0 Urinary tract infection, site not specified; Z79.82 Long term (current) use of aspirin; D62 Acute posthemorrhagic anemia; N18.4 Chronic kidney disease, stage 4 (severe); A41.9 Sepsis, unspecified organism; K64.8 Other hemorrhoids; Z79.899 Other long term (current) drug therapy; I24.89 Other forms of acute ischemic heart disease; I44.0 Atrioventricular block, first degree; Z88.5 Allergy status to narcotic agent; K62.5 Hemorrhage of anus and rectum; E87.1 Hypo-osmolality and hyponatremia; Z87.891 Personal history of nicotine dependence

== ENCOUNTER 2023-12-19 15:26 | Observation (INO) ==
[2023-12-19 17:04] LABS: Basophils # (auto) 0.06 K/uL (0.00-0.20); Basophils % (auto) 0.6 %; Eosinophils # (auto) 0.38 K/uL (0.00-0.50); Eosinophils % (auto) 3.9 %; Hematocrit (blood only) 33.5 % (42.0-52.0); Hemoglobin 11.2 g/dl (14.0-18.0); Immature Granulocytes # (auto) 0.03 K/uL (0.01-0.20); Immature Granulocytes % (auto) 0.3 %; Lymphocytes # (auto) 1.87 K/uL (1.20-3.40); Mean Corpuscular Hemoglobin 30.8 pg (25.0-34.0); Mean Corpuscular Hgb Conc 33.4 g/dL (32.0-36.0); Mean Platelet Volume 12.2 fL (9.4-12.4); Monocytes # (auto) 0.81 K/uL (0.11-0.59); Monocytes % (auto) 8.2 %; Neutrophils # (auto) 6.68 K/uL (1.40-6.50); Platelet Count 244 K/uL (130-400); RDW Coefficient of Variation 14.6 % (11.5-14.5); RDW Standard Deviation 48.7 fL (36.4-46.3); Red Blood Count 3.64 M/uL (4.70-6.10); White Blood Count 9.83 K/ul (4.8-10.8)
[2023-12-19 17:13] LABS: Albumin Globulin Ratio 1.1 (0.9-2); Albumin Level 3.9 gm/dl (3.4-5.0); BUN Creatinine Ratio 24.3 (10-20); Bilirubin,Total 0.3 mg/dl (0.2-1.0); Calcium 9.4 mg/dl (8.6-10.3); Creatinine Clr Calc Pharmacy 18.4 ml/min; Est GFR (African American) 20.1 ml/min; Est GFR (Non-African American) 17.4 ml/min; Globulin 3.6 gm/dl (2.5-4.0); Magnesium 2.3 mg/dl (1.7-2.4); Phosphorus 4.4 mg/dl (2.5-4.9); Potassium 5.5 mmol/L (3.5-5.1); Total Protein 7.5 gm/dl (6.0-8.3)
--- NOTE | 2023-12-19 17:28 | Emergency Department Note ---
Impression & Plan Acute hyperkalemia, CKD (chronic kidney disease) ED Provider Note HISTORY OF PRESENT ILLNESS: Patient is an 88-year-old male presenting with hyperkalemia and worsening creatinine. Patient reports that he had a follow-up with his primary care provider today and had laboratory workup obtained that showed his potassium was elevated and his creatinine is getting worse. He has a history of CKD. He has a Jerome catheter in place and reports he is still making good amounts of urine. He denies any chest pain or shortness of breath. Denies any lightheadedness or dizziness. Denies any fevers. He was instructed to present to the emergency department due to concern for possible need for dialysis. ROS: as above PHYSICAL EXAM: Constitutional: Patient appears in no acute distress. HENT: Head: Normocephalic and atraumatic. Eyes: EOMI, PERRL Mouth/Throat: Mucous membranes moist. Neck: Trachea midline. Neck supple. Cardiovascular: RRR, No murmurs, rubs or gallops. Intact distal pulses. Pulmonary/Chest: No respiratory distress. Breath sounds clear and equal bilaterally. No wheezes or rales. Abdominal: Abdomen soft, no tenderness, rebound or guarding. Jerome catheter in place with a leg bag on the right leg. Musculoskeletal: No edema, tenderness or deformity noted. Skin: Warm and dry. No rash, erythema, pallor or cyanosis Psychiatric: Appropriate mood and affect for situation. Neurological: Alert and keenly responsive. CN II-XII grossly intact, moving all extremities equally and fully. MDM: - Vitals signs showed hypertension. - History obtained via patient. History as above. - Chronic conditions affecting care: CKD; anemia; CHF; CAD - Differential diagnoses include, but are not limited to: obstructive uropathy; dehydration; electrolyte abnormality; dysrhythmia; UTI - Order placed for continuous cardiac monitoring. At this time, monitor showed rate of 60 bpm with normal sinus rhythm, per my interpretation. - External medical records reviewed. Nursing urology office visit note dated 12/15/2023 was reviewed. Patient was seen in their clinic for a catheter exchange. - EKG interpreted by myself showed normal sinus rhythm. Rate 74 bpm. QT 428. No acute ischemic changes. Noted to have a right bundle branch block which has been seen on previous EKGs. - Laboratory workup interpreted by myself showed normal WBC; anemia (Hgb 11.2); hyperkalemia (K 5.5); CKD (Cr 3.05) - VBG shows acidosis (pH 7.26) - Patient given 10 units IV insulin, 50 cc dextrose and 1g IV calcium for hyperkalemia. - Discussion was had with heel caser about patient's case and need for admission - Hospitalist consulted for admission - Patient admitted to [facility] for further evaluation and management. ASSESSMENT AND PLAN: Diagnosis: Acute hyperkalemia; CKD Plan: Admit Past Med/Surg History Problem List (Updated 12/19/23 @ 20:23 by Lidia Mireles MD) CKD (chronic kidney disease) (Acute) Acute hyperkalemia (Acute) Low blood pressure GI bleed (Acute) Complicated urinary tract infection (Acute) Near syncope (Acute) Hyponatremia (Acute) Anemia (Acute) normocytic anemia of chronic disease; stable Constipation (Acute) GIB (gastrointestinal bleeding) Stage 4 chronic kidney disease Antiplatelet or antithrombotic long-term use Elevated TSH Bilateral carotid artery disease Chronic kidney disease Venous insufficiency of both lower extremities Peripheral edema (Acute) PRITCHARD (dyspnea on exertion) (Acute) CHF (congestive heart failure) (Acute) Stenosis of right internal carotid artery Nonsustained supraventricular tachycardia Urinary retention 2/2 BPH and currently with Jerome in place Proteinuria (Acute) History of coronary artery stent placement (Acute 2009) MARIO Ramus Intermedius Former smoker (Acute) 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, right First degree AV block Fatigue Acute hip pain Tearing of muscle Back pain Edema PRITCHARD (dyspnea on exertion) Vitamin D deficiency Hydronephrosis, left CAD (coronary artery disease) MARIO TO RAMUS (2009) Chronic kidney disease, stage 3 (Chronic) pt dx with acute on chronic kidney injury (pre-renal) during 04/2023 hospital admission; baseline creat noted to be 1.7-1.9; lasix was held during admission and resumed on discharge Medical History Anemia Elevated TSH Elevated troponin Acute UTI (urinary tract infection) Pleural effusion, bilateral Pneumonia of both lower lobes Chest tightness Jerome catheter in place History of Holter monitoring Polyneuropathy Peyronie's disease Obesity UTI (urinary tract infection) Bradycardia Acute kidney injury Leukocytosis Syncope and collapse Urinary retention MGUS (monoclonal gammopathy of unknown significance) Chronic kidney disease, stage 3 BPH (benign prostatic hyperplasia) Dyslipidemia Hypertension Type 2 diabetes mellitus Arthritis CAD (coronary artery disease) GERD (gastroesophageal reflux disease) Gout Hearing deficit Hyperlipidemia Surgical History Hx of eye surgery Hx of bilateral cataract extraction Status post total left knee replacement History of colonoscopy History of open reduction and internal fixation (ORIF) procedure History of tonsillectomy History of endoscopic sinus surgery History of cardiac cath Family History Uncle Family hx of colon cancer Social History Smoking Status: Unknown if ever smoked Second Hand Exposure: No; Do You Dip or Chew Tobacco: No; Hx Alcohol Use: No Hx Substance Use: No Preferred Language: Sami Communication Ability: Effective Visual Impairment: Limited Civil Draftsman Required: No Beliefs That Will Affect Care: None marital status: Current Living Situation: Spouse current occupational status: retired How many Children do You have: 7 Feels Safe at Home: Yes Diet: low salt caffeine: Yes (1-2 coffees daily) Do you think of yourself as: straight/heterosexual Gender Identity: Male Assistive Devices: Cane, Hearing Aid - Left and Walker Allergies Allergies Allergy/AdvReac Type Severity Reaction Status Date / Time codeine Allergy Intermediate FACIAL Verified 12/19/23 18:52 SWELLING, NAUSEA Home Meds Home Medications Medication Instructions Recorded Confirmed [id number] acid 0.4 1 tab PO QAM 09/16/18 12/19/23 mg-lycopene 300 mcg-lutein 250 mcg tablet (Centrum Silver) omeprazole 20 mg capsule,delayed 20 mg PO HS 09/16/18 12/19/23 release nitroglycerin 0.4 mg sublingual 0.4 mg sublingual Q5M PRN Chest 03/14/19 12/19/23 tablet (Nitrostat) Pain aspirin 81 mg tablet,delayed 81 mg PO DAILY 05/30/23 12/19/23 release semaglutide 0.25 mg or 0.5 mg (2 0.5 mg subcut WK 09/22/23 12/19/23 mg/3 mL) subcutaneous pen injector (Ozempic) atorvastatin 40 mg tablet 40 mg PO HS 10/31/23 12/19/23 Previous Rx's Medication Instructions Recorded allopurinol 300 mg tablet 300 mg PO QAM #90 tabs 08/04/23 metoprolol succinate 25 mg 25 mg PO DAILY #90 tabs 08/16/23 tablet,extended release 24 hr furosemide 20 mg tablet 20 mg PO DAILY PRN edema #30 tabs 09/09/23 polyethylene glycol 3350 17 gram 17 g PO DAILY #0 ea 11/04/23 oral powder packet (Miralax) Results & Data (ED) Vital Signs Vital Signs - 24 hr 12/19/23 15:29 12/19/23 16:58 12/19/23 17:41 Temperature 36.7 C Temperature Source Temporal Artery Scan Pulse Rate 86 70 Pulse Rate [Right Finger] 68 Respiratory Rate 19 12 Respiratory Effort / Characteristics Non-Labored Spontaneous Non-Labored Respiratory Depth Normal Normal Blood Pressure 137/69 Blood Pressure [Right Arm] 170/83 H Blood Pressure Mean 91 Blood Pressure Mean [Right Arm] 112 Pulse Oximetry 98 97 Oxygen Delivery Method Room Air Room Air Sepsis Recent Fever Within 48 Hours No Sepsis New/Unexplained Change in Mental Status N/A Sepsis Action Taken by Nursing No Action Required 12/19/23 20:00 Temperature Temperature Source Pulse Rate Pulse Rate [Right Finger] 67 Respiratory Rate 17 Respiratory Effort / Characteristics Respiratory Depth Normal Blood Pressure Blood Pressure [Right Arm] 165/84 H Blood Pressure Mean Blood Pressure Mean [Right Arm] 111 Pulse Oximetry 97 Oxygen Delivery Method Room Air Sepsis Recent Fever Within 48 Hours Sepsis New/Unexplained Change in Mental Status Sepsis Action Taken by Nursing Laboratory Data 12/19/23 16:12 12/19/23 16:12 Lab Results 12/19/23 12/19/23 12/19/23 Range/Units 16:12 17:36 18:08 WBC 9.83 (4.8-10.8) K/ul RBC 3.64 L (4.70-6.10) M/uL Hgb 11.2 L (14.0-18.0) g/dl Hct 33.5 L (42.0-52.0) % MCV 92.0 (80.0-100.0) fL MCH 30.8 (25.0-34.0) pg MCHC 33.4 (32.0-36.0) g/dL RDW Std Deviation 48.7 H (36.4-46.3) fL RDW Coeff of Hernandez 14.6 H (11.5-14.5) % Plt Count 244 (130-400) K/uL MPV 12.2 (9.4-12.4) fL Immature Gran % (Auto) 0.3 % Neut % (Auto) 68.0 % Lymph % (Auto) 19.0 % Leon % (Auto) 8.2 % Eos % (Auto) 3.9 % Baso % (Auto) 0.6 % Neut # (Auto) 6.68 H (1.40-6.50) K/uL Lymph # (Auto) 1.87 (1.20-3.40) K/uL Leon # (Auto) 0.81 H (0.11-0.59) K/uL Eos # (Auto) 0.38 (0.00-0.50) K/uL Baso # (Auto) 0.06 (0.00-0.20) K/uL Immature Gran # (Auto) 0.03 (0.01-0.20) K/uL VBG pH 7.28 L (7.36-7.41) VBG pCO2 49 (38-50) mmHg VBG pO2 33 mmHg VBG HCO3 23 mmol/L VBG O2 Saturation < 60.0 % VBG Base Excess -4.1 mEq/L Sodium 134 L (136-145) mmol/L Potassium 5.5 H (3.5-5.1) mmol/L Chloride 103 (98-107) mmol/L Carbon Dioxide 20 L (21-32) mmol/L Anion Gap 11 (3-11) BUN 74 H (6-23) mg/dl Creatinine 3.05 H (0.6-1.4) mg/dl Est Cr Clr Drug Dosing 18.4 ml/min Est GFR ( Amer) 20.1 ml/min Est GFR (Non-Af Amer) 17.4 ml/min BUN/Creatinine Ratio 24.3 H (10-20) Glucose 154 H (70-99(Fasting)) mg/dl POC Glucose 208 H (70-99) mg/dl Calcium 9.4 (8.6-10.3) mg/dl Phosphorus 4.4 (2.5-4.9) mg/dl Magnesium 2.3 (1.7-2.4) mg/dl Total Bilirubin 0.3 (0.2-1.0) mg/dl AST 23 (13-39) U/L ALT 12 (7-52) U/L Alkaline Phosphatase 91 (34-104) U/L Total Protein 7.5 (6.0-8.3) gm/dl Albumin 3.9 (3.4-5.0) gm/dl Globulin 3.6 (2.5-4.0) gm/dl Albumin/Globulin Ratio 1.1 (0.9-2) Administered Medications Discontinued Medications Dextrose (Dextrose 50% 50 Ml Syringe) 50 ml IV NOW STA Stop: 12/19/23 17:26 Last Admin: 12/19/23 17:48 Dose: 50 ml Documented By: ALLAN Calcium Gluconate () 1,000 mg in 60 mls @ 240 mls/hr IV NOW STA Stop: 12/19/23 17:39 Last Infusion: 12/19/23 18:01 Dose: Infused Documented By: Admin: 12/19/23 17:46 Dose: 240 mls/hr Documented By: ALLAN Insulin Human Regular 10 units (/ Syringe) 9.9 mls @ 3 mls/sec IV ONE STA Stop: 12/19/23 17:26 Last Admin: 12/19/23 17:46 Dose: 3 mls/sec Documented By: ALLAN Co-signed By: GRETCHEN Insulin Human Regular (Novolin-R Insulin Per Unit Charge) Confirm Administered Dose 1 units .ROUTE .STK-MED ONE Stop: 12/19/23 17:44 Last Admin: 12/19/23 17:48 Dose: Not Given Documented By: ALLAN Discharge Plan Visit Data Chief Complaint: Referred by Doctor Stated Complaint: KIDNEYS ED Provider: Lidia Mireles Discharge Problem: Acute hyperkalemia, CKD (chronic kidney disease) Forms Stand Alone Forms: My [facility] All[facility]ade Prescriptions Prescriptions: No Action allopurinol 300 mg tablet 300 mg PO QAM Qty: 90 3RF furosemide 20 mg tablet 20 mg PO DAILY PRN (Reason: edema) Qty: 30 1RF metoprolol succinate 25 mg tablet extended release 24 hr 25 mg PO DAILY Qty: 90 3RF Ozempic 0.25 mg or 0.5 mg (2 mg/3 mL) pen injector 0.5 mg subcut WK Rx Instructions: SATURDAYS omeprazole 20 mg Capsule,Delayed Release(Dr/Ec) 20 mg PO HS Centrum Silver 0.4-300-250 mg-mcg-mcg Tablet 1 tab PO QAM nitroglycerin [Nitrostat] 0.4 mg tablet, sublingual 0.4 mg sublingual Q5M PRN (Reason: Chest Pain) Patient Comments: DISSOLVE ONE TABLET UNDER THE TONGUE EVERY 5 MINUTES FOR UP TO 3 DOSES NEEDED FOR CHEST PAIN. aspirin 81 mg Tablet,Delayed Release (Dr/Ec) 81 mg PO DAILY Hold Instructions: Resume on 11/07/23. Resume Tuesday if no more blood per rectum. atorvastatin 40 mg tablet 40 mg PO HS polyethylene glycol 3350 [Miralax] 17 gram Powder In Packet 17 g PO DAILY Qty: 0 0RF Referrals Referrals: Umberto Bassett, [Primary Care Provider] -
[2023-12-19] MEDS: INSULIN HUMAN REGULAR PER UNIT 10 UNITS in SYRINGE 9.9 ML IV STA (17:46)
[2023-12-19] MEDS: CALCIUM GLUCONATE 1,000 MG/60 ML BAG IV STA (17:46)
[2023-12-19] MEDS: DEXTROSE 50% 50 ML SYRINGE IV STA (17:48)
[2023-12-19] MEDS: NovoLIN-R INSULIN PER UNIT CHARGE ONE (17:48)
[2023-12-19 17:53] LABS: Base Excess VBG -4.1 mEq/L; HCO3 VBG 23 mmol/L; Oxygen Saturation VBG < 60.0 %; PCO2 VBG 49 mmHg (38-50); PO2 VBG 33 mmHg; pH VBG 7.28 (7.36-7.41)
--- NOTE | 2023-12-19 20:35 | History & Physical Report ---
"Date of Service December 19, 2023 Assessment & Plan (1) CKD (chronic kidney disease): (2) Acute hyperkalemia: (3) Anemia: (4) CAD (coronary artery disease): (5) First degree AV block: (6) CHF (congestive heart failure): Plan Hyperkalemia | CKD Stage G4/A3 -K of 5.5, Cr 3.05, eGFR 17.4 -S/P insulin/dextrose x1, calcium gluconate in ED -Etiology of hyperkalemia uncertain at this time- had recent course of amoxicillin and also recent changes with d/c amlodipine, Imdur however none of these should significantly impact potassium -Will repeat BMP q6h to monitor potassium, will monitor on telemetry and order daily EKG. Initial EKG without acute changes from prior studies. -VBG with pH 7.28, pCO2 49, HCO3 23 -LR @ 80 mL/hr x1 bag ordered, has history of CHF with last EF 60-65% (04/2023) will be cautious with fluid status and further IV hydration -Has chronic indwelling sevilla, UA shows protein and trace blood -Follows with Dr. Murphy/nephrology, if hyperkalemia fails to improve would consider consult Hypertension -Recent changes to antihypertensives include stopping Imdur and amlodipine -Continue home metoprolol succinate. Hypertensive to 200/100 in ED, gave one additional dose of home Toprol. Diabetes Mellitus, Type 2 -Hold home medications -Will add sliding scale insulin Admit to telemetry VTE Prophylaxis: Heparin Diet: low potassium, carb consistent Code Status: Full Code History of Present Illness Primary Care Provider: Umberto Bassett DO Vik Gates is a 88 year-old male with past medical history of CKD, CHF, CAD, anemia who presents to the ED for concern of abnormal labs. He states he was sent to ED from PCP due to hyperkalemia and elevated creatinine on outpatient labs. He states he has been feeling well, denies chest pain, dizziness/lightheadedness, shortness of breath, and has been eating and drinking well at home. He has been mindful of his diet- knows he eats half a banana with his breakfast, half an avocado with lunch and also eats mixed nuts daily but has not changed his diet significantly. He notes he has had recent medication changes with discontinuation of his amlodipine and isosorbide mononitrate in the past few weeks. He also notes that he completed a 10 day course of amoxicillin two days ago for a dental abscess which he states has since resolved. ED Course: -EKG -Dextrose/insulin x1, calcium gluconate Allergies Allergy/AdvReac Type Severity Reaction Status Date / Time codeine Allergy Intermediate FACIAL Verified 12/19/23 18:52 SWELLING, NAUSEA Home Medications Medication Instructions Recorded Confirmed Type zlnudwct-svz-lzdqs acid 0.4 1 tab PO QAM 09/16/18 12/19/23 History mg-lycopene 300 mcg-lutein 250 mcg tablet (Centrum Silver) omeprazole 20 mg capsule,delayed 20 mg PO HS 09/16/18 12/19/23 History release nitroglycerin 0.4 mg sublingual 0.4 mg sublingual Q5M PRN Chest 03/14/19 12/19/23 History tablet (Nitrostat) Pain aspirin 81 mg tablet,delayed 81 mg PO DAILY 05/30/23 12/19/23 History release allopurinol 300 mg tablet 300 mg PO QAM #90 tabs 08/04/23 12/19/23 Rx metoprolol succinate 25 mg 25 mg PO DAILY #90 tabs 08/16/23 12/19/23 Rx tablet,extended release 24 hr furosemide 20 mg tablet 20 mg PO DAILY PRN edema #30 tabs 09/09/23 12/19/23 Rx semaglutide 0.25 mg or 0.5 mg (2 0.5 mg subcut WK 09/22/23 12/19/23 History mg/3 mL) subcutaneous pen injector (Ozempic) atorvastatin 40 mg tablet 40 mg PO HS 10/31/23 12/19/23 History polyethylene glycol 3350 17 gram 17 g PO DAILY #0 ea 11/04/23 12/19/23 Rx oral powder packet (Miralax) Past Med/Surg History Problem List (Updated 12/19/23 @ 20:23 by Lidia Mireles MD) CKD (chronic kidney disease) (Acute) Acute hyperkalemia (Acute) Low blood pressure GI bleed (Acute) Complicated urinary tract infection (Acute) Near syncope (Acute) Hyponatremia (Acute) Anemia (Acute) normocytic anemia of chronic disease; stable Constipation (Acute) GIB (gastrointestinal bleeding) Stage 4 chronic kidney disease Antiplatelet or antithrombotic long-term use Elevated TSH Bilateral carotid artery disease Chronic kidney disease Venous insufficiency of both lower extremities Peripheral edema (Acute) PRITCHARD (dyspnea on exertion) (Acute) CHF (congestive heart failure) (Acute) Stenosis of right internal carotid artery Nonsustained supraventricular tachycardia Urinary retention 2/2 BPH and currently with Sevilla in place Proteinuria (Acute) History of coronary artery stent placement (Acute 2009) MARIO Ramus Intermedius Former smoker (Acute) 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, right First degree AV block Fatigue Acute hip pain Tearing of muscle Back pain Edema PRITCHARD (dyspnea on exertion) Vitamin D deficiency Hydronephrosis, left CAD (coronary artery disease) MARIO TO RAMUS (2009) Chronic kidney disease, stage 3 (Chronic) pt dx with acute on chronic kidney injury (pre-renal) during 04/2023 hospital admission; baseline creat noted to be 1.7-1.9; lasix was held during admission and resumed on discharge Medical History Anemia Elevated TSH Elevated troponin Acute UTI (urinary tract infection) Pleural effusion, bilateral Pneumonia of both lower lobes Chest tightness Sevilla catheter in place History of Holter monitoring Polyneuropathy Peyronie's disease Obesity UTI (urinary tract infection) Bradycardia Acute kidney injury Leukocytosis Syncope and collapse Urinary retention MGUS (monoclonal gammopathy of unknown significance) Chronic kidney disease, stage 3 BPH (benign prostatic hyperplasia) Dyslipidemia Hypertension Type 2 diabetes mellitus Arthritis CAD (coronary artery disease) GERD (gastroesophageal reflux disease) Gout Hearing deficit Hyperlipidemia Surgical History Hx of eye surgery Hx of bilateral cataract extraction Status post total left knee replacement History of colonoscopy History of open reduction and internal fixation (ORIF) procedure History of tonsillectomy History of endoscopic sinus surgery History of cardiac cath Family History Uncle Family hx of colon cancer Social History Smoking Status: Former smoker Second Hand Exposure: No; Do You Dip or Chew Tobacco: No; Hx Alcohol Use: No Hx Substance Use: No Preferred Language: Chinese Communication Ability: Effective Visual Impairment: Limited Irrigating Pump Operator Required: No Beliefs That Will Affect Care: None marital status: Current Living Situation: Spouse current occupational status: retired How many Children do You have: 7 Other Information That Helps Us Care for You: No Feels Safe at Home: Yes Safety Concerns: Feels Safe At This Time Diet: low salt caffeine: Yes (1-2 coffees daily) Do you think of yourself as: straight/heterosexual Gender Identity: Male Assistive Devices: Cane Review of Systems Review of Systems: As per above Physical Exam Constitutional: WD/WN, vitals as above Eyes: + anicteric sclerae; no conjunctival abn ormality ENMT: Ears: no external ear abnormality Nose: no external nose abnormality Moist mucous membranes Respiratory: normal respiratory effort, lungs clear to auscultation Cardiovascular: Rate/Rhythm: regular rate and regular rhythm Extremities: no edema Gastrointestinal (Abdomen): Inspection/Auscultation: abdomen not distended Percussion/Palpation: abdomen soft; abdomen nontender and no guarding Musculoskeletal: Moves all limbs independently Skin: no rashes, warm and dry Neurologic: no focal motor deficits Psychiatric: A+Ox3, euthymic affect Genitourinary: sevilla catheter in place Results & Data Results & Data Vital Signs (Past 12 Hours) Vital Signs Temp Pulse Pulse Resp BP BP Pulse Ox 12/19/23 20:00 67 17 165/84 H 97 12/19/23 17:41 70 12/19/23 16:58 68 12 170/83 H 97 12/19/23 15:29 36.7 C 86 19 137/69 98 O2 Del Method 12/19/23 20:00 Room Air 12/19/23 17:41 12/19/23 16:58 Room Air 12/19/23 15:29 Room Air Supervising Physician Co-Signing Physician Notes Attending addendum: I have physically seen this patient, have supervised the medical residents activities, and agree with the H&P unless as otherwise noted. Assessment and Plan: Hyperkalemia/CKD- No significant ectopy on monitor Potassium 5.5 on admission Creatinine 3.05, with base 3.06 Given the usual protocol calcium gluconate 1 g IV, D50 followed by 10 units of regular insulin IV Follow serial BMP and magnesium levels as noted LR x 80 mL/h for 1 L Follows outpatient with nephrology Dr. Murphy Diabetes mellitus- Hold semaglutide Placed on Accu-Cheks with NovoLog SSI Hypertension- Recently had outpatient Imdur and amlodipine discontinued Continue metoprolol succinate 25 mg p.o. every morning, with additional dose this evening Resident Activity Tracking Resident Involvement: Resident Care Provided Care Provided: Adult [facility] Medicine (3) Anemia Anemia type: unspecified type Qualified Code(s): D64.9 - Anemia, unspecified (6) CHF (congestive heart failure) Heart failure chronicity: chronic Heart failure type: diastolic Qualified Code(s): I50.32 - Chronic diastolic (congestive) heart failure"
[2023-12-19 21:05] LABS: Appearance Urine Clear (Clear); Bacteria Urine Automated None Seen (None Seen); Bilirubin Urine Negative (Negative); Blood Urine Trace (Negative); Cast Urine Automated 0-2 /lpf (0-2); Color Urine Yellow; Epithelial Cell Urine Auto 0-2 /hpf (0-2); Glucose Urine UA Negative (Negative); Ketones Urine Negative (Negative); Leukocyte Esterase Urine Negative (Negative); Nitrite Urine Negative (Negative); Protein Urine 2+ (Negative); RBC Urine Automated 0-2 /hpf (0-2); Specific Gravity Urine 1.007 (1.000-1.030); Urobilinogen Urine Negative (Negative); WBC Urine Automated 0-5 /hpf (0-5)
[2023-12-19] MEDS: METOPROLOL SUCC 25MG EXT REL TAB PO STA (22:51)
[2023-12-19] MEDS ORDERED: GLUCOSE 40% GEL 15 GM TUBE PO PRN (23:40)
[2023-12-19] MEDS ORDERED: ONDANSETRON INJ 2 MG/ML 2 ML VIAL IV PRN (23:40)
[2023-12-19] MEDS ORDERED: CARBOHYDRATES FOR HYPOGLYCEMIA PO PRN (23:40)
[2023-12-19] MEDS ORDERED: ACETAMINOPHEN 325 MG TAB PO PRN (23:40)
[2023-12-19] MEDS ORDERED: GLUCOSE 10 TAB/TUBE PO PRN (23:40)
[2023-12-19] MEDS ORDERED: GLUCAGON FOR INJ 1 MG VIAL SQ PRN (23:40)
[2023-12-19] MEDS ORDERED: DEXTROSE 50% 50 ML SYRINGE IV PRN (23:40)
[2023-12-20] MEDS: LACTATED RINGER'S 1,000 ML IV SCH (00:51)
[2023-12-20 05:07] LABS: Basophils # (auto) 0.06 K/uL (0.00-0.20); Basophils % (auto) 0.6 %; Eosinophils # (auto) 0.28 K/uL (0.00-0.50); Hematocrit (blood only) 28.1 % (42.0-52.0); Hemoglobin 9.5 g/dl (14.0-18.0); Immature Granulocytes # (auto) 0.04 K/uL (0.01-0.20); Immature Granulocytes % (auto) 0.4 %; Lymphocytes # (auto) 1.72 K/uL (1.20-3.40); Lymphocytes % (auto) 18.4 %; Mean Corpuscular Hemoglobin 30.7 pg (25.0-34.0); Mean Corpuscular Hgb Conc 33.8 g/dL (32.0-36.0); Mean Corpuscular Volume 90.9 fL (80.0-100.0); Mean Platelet Volume 11.5 fL (9.4-12.4); Monocytes # (auto) 0.85 K/uL (0.11-0.59); Monocytes % (auto) 9.1 %; Neutrophils # (auto) 6.38 K/uL (1.40-6.50); Neutrophils % (auto) 68.5 %; Platelet Count 210 K/uL (130-400); RDW Coefficient of Variation 14.6 % (11.5-14.5); RDW Standard Deviation 48.3 fL (36.4-46.3); Red Blood Count 3.09 M/uL (4.70-6.10); White Blood Count 9.33 K/ul (4.8-10.8)
[2023-12-20 05:25] LABS: Albumin Level 3.2 gm/dl (3.4-5.0); BUN Creatinine Ratio 25.5 (10-20); Creatinine Clr Calc Pharmacy 21.2 ml/min; Est GFR (African American) 21.1 ml/min; Est GFR (Non-African American) 18.2 ml/min; Magnesium 2.1 mg/dl (1.7-2.4); Phosphorus 4.5 mg/dl (2.5-4.9); Potassium 4.7 mmol/L (3.5-5.1)
[2023-12-20 06:46] LABS: Estimated Average Glucose 186 mg/dl; Hemoglobin A1C 8.1 % (4.5-5.6)
[2023-12-20] MEDS: METOPROLOL SUCC 25MG EXT REL TAB PO SCH (08:47)
[2023-12-20] MEDS: allopurinoL 300 MG TAB PO SCH (08:47)
[2023-12-20] MEDS: HEPARIN SOD 5,000 UNIT/0.5 ML VIAL SQ SCH (08:47)
[2023-12-20] MEDS: POLYETHYLENE (MIRALAX) 17 GM PACK PO PRN (08:52)
[2023-12-20] MEDS: INSULIN ASPART PER UNIT CHARGE SC SCH (08:52)
--- NOTE | 2023-12-20 09:07 | Electrocardiogram Report ---
Test Reason : Blood Pressure : / mmHG Vent. Rate : 074 BPM Atrial Rate : 074 BPM P-R Int : 270 ms QRS Dur : 162 ms QT Int : 428 ms P-R-T Axes : 063 105 -30 degrees QTc Int : 475 ms Sinus rhythm with 1st degree A-V block Right bundle branch block T wave abnormality, consider inferolateral ischemia Abnormal ECG When compared with ECG of 01-NOV-2023 06:41, No significant change was found Confirmed by Anup Shah ([id number]) on 12/20/2023 9:07:06 AM Referred By: Vik Murphy Confirmed By:Ramone Shah
--- OUTSIDE RECORDS SUMMARY | 2023-12-20 09:10 | External Medical Summary | Continuity of Care Document ---
Author Name Unknown Organization [facility] [address] [place] [phone] Care Team Providers Care Extension Course Counselor Name Role Phone Umberto Bassett Leonila Primary Care Physician [phone] [facility] [id number] Date(s): 12/14/23 - 12/14/23 [facility] [address] [facility] [address] [address] [place] [phone] Encounter Diagnosis Hyperkalemia(Discharge Diagnosis) - 12/14/23 Anemia(Discharge Diagnosis) - 12/14/23 Hyperkalemia(Final) - Anemia, unspecified(Final) - Discharge Disposition: Home or Self Care Attending Physician: DO Alvarez Allison B Allergies, Adverse Reactions, Alerts Substance Reaction Severity Status codeine Swelling Active Assessment and Plan Extracted from: Title:Hyperkalemia Author:MD Zaira, Adedoyieugene Date:12/14/23 1.Hyperkalemia Acute;uncomplicated;not at goal -Ordered repeat BMP stat. Appreciate results. -Instructed pt to present to the ER if K remains elevated/not downtrending. -If downtrending but not at goal, will order repeat BMP to trend x2 days. 2.Anemia Chronic;uncomplicated;not at goal -Likely due to CKD. 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 -No acute management indicated. Immunizations Given and Recorded Vaccine Date Status Refusal Reason RSV vaccine preF3, recombinant 06/23/23 Recorded SARS-CoV-2 (COVID-19) mRNA-vacc - [id number] 06/20/23 Recorded influenza virus vaccine, inactivated 05/17/22 Denilson rded influenza virus vaccine, inactivated 07/30/19 Give n influenza virus vaccine, inactivated 05/26/18 Give n influenza virus vaccine, inactivated 07/13/17 Give n influenza virus vaccine, inactivated 04/16/16 Give n influenza virus vaccine, inactivated 05/06/14 Give n influenza virus vaccine, inactivated 06/02/12 Give n zoster vaccine, inactivated 06/07/19 Given zoster vaccine, inactivated 04/05/19 Given pneumococcal 13-valent vaccine 04/16/16 Given zoster vaccine live 08/13/11 Given pneumococcal 23-valent vaccine 10/26/05 Recorded tetanus/diphtheria/pertuss, acel (Tdap) 10/26/05 R ecorded 1[facility] Start: 08/10/22 13:55:00 EST, 1 tab, PO, Daily, Disp# 30 tab, Refills: 11, Pharmacy: [id number] Start Date: 08/10/22 Status: Ordered aspirin 81 mg oral tablet Start: 10/30/12 9:52:00, 1 tab, PO, Daily Start Date: 10/30/12 Status: Ordered atorvastatin 40 mg oral tablet Start: 07/14/16 14:13:00, 1 tab, PO, Daily Start Date: 07/14/16 Status: Ordered metoprolol succinate 25 mg oral tablet, extended release Start: 07/11/23 14:41:00 EST, 1 tab, PO, Daily Start Date: 07/11/23 Status: Ordered multivitamin Start: 07/11/23 14:41:00 EST, 1 tab, PO, Daily Start Date: 07/11/23 Status: Ordered omeprazole 20 mg oral delayed release capsule Start: 08/09/23 16:12:00 EST, 1 cap, PO, Daily, Disp# 90 cap, Refills: 3, Pharmacy: [id number] Start Date: 08/09/23 Status: Ordered Ozempic (0.25 mg or 0.5 mg dose) 2 mg/3 mL subQ pen Start: 12/05/23 10:10:00 EDT, 0.5 mg, subQ, q7days, Disp# 3 mL, Refills: 3, Pharmacy: [id number] Start Date: 12/05/23 Stop Date: 01/04/24 Status: Ordered Tylenol Arthritis Caplet Start: 02/26/13 9:06:00, See Instructions, prn PO Start Date: 02/26/13 Status: Ordered Mental Status 12/14/23 Barriers to Learning one year None evide nt Mandatory Health Literacy Documentation Yes Health Literacy Communication Barriers N ever Primary Language Belarusian Problem List Condition Confirmation Course Effective Dates Status H ealth Status Informant Acid reflux Confirmed Active Actinic keratosis Confirmed Active Arthritis 1 Confirmed Active Basal cell carcinoma Confirmed Active Bilateral carotid artery stenosis Confirmed Active BPH Confirmed Active CAD Confirmed Active Colon polyps Confirmed Active GERD Confirmed Active Gout Confirmed Active High cholesterol Confirmed Active History of left knee replacement Confirmed Active HTN (hypertension) Confirmed Active HYPERTENSION Confirmed Active Keratosis Confirmed Active Knee pain 2 Confirmed Active NIDDM Confirmed Active Obesity Confirmed Active Osteoarthritis Confirmed Active Peyronie disease Confirmed Active Polyneuropathy Confirmed Active Colonic polyp Confirmed Active Prediabetes Confirmed Active ROSACEA Confirmed Active SCC (squamous cell carcinoma) Confirmed Active Stent 3 Confirmed Active Urinary tract infection in male Confirmed Active Weight disorder Confirmed Active 1knees 2right 3x1 Diagnosis Diagnosis Type Effective Dates Health Status Cl inical Service Informant Anemia Discharge Diagnosis 12/14/23 Non-Specified Hyperkalemia Discharge Diagnosis 12/14/23 Non-Specified Procedures Procedure Date Related Diagnosis Body Site Status Mohs micrographic surgery 09/13/23 Completed Shave biopsy and cauterization of skin 09/13/23 Completed Shave biopsy 07/07/23 Completed Shave biopsy 1 12/16/22 Completed Stress echocardiography usin g dobutamine 2 11/17/22 Completed Mohs micrographic surgery 10/20/22 Completed Shave biopsy 3 09/16/22 Completed Shave biopsy 4 09/16/22 Completed Mohs' micrographic surgery 07/28/21 Completed Shave biopsy and cauterizati on of skin 5 07/17/21 Completed X-Ray of Cervical Spine 2 or 3V 6 10/11/19 Completed Shave biopsy and cauterizati on of skin 7 06/13/19 Completed Loosening of total knee replacement 8 12/12/18 Completed Total knee replacement 9 12/2018 Completed Shave biopsy and cauterisati on of skin 10 09/15/18 Completed Shave biopsy and cauterizati on of skin 11 10/28/17 Completed Shave biopsy and cauterization of skin 07/14/17 Completed Shave biopsy and cauterization of skin 07/22/15 Completed Colonoscopy 12 06/10/14 Completed stent x1 01/2010 Completed ORIF - Open reduction and in ternal fixation of fracture 13 1995 Complete d Colonoscopy Completed colonoscopy-WNL in 1999 C ompleted Extraction of tooth needed Completed tibial fx repair Complete d Tonsillectomy and adenoidectomy Completed 11. right tragus 2. right forhead 2Negative for ischemia. 3right tragus ear 4left cheek 5right posterior ear 6No acute fracture or subluxation identified. 7mid parietal scalp 8Sawyer Gonzalez MD- left cemented posterior stabilized total knee arthroplasty 9Left knee 10Left occipital scalp 11with ED&C 12Dr Nino tubular adenomas removed; hyperplastic polyp removed 13right knee Results Laboratory List Name Date Basic Metabolic Panel (BASIC METAB PANEL ) 12/14/23 Complete Blood Count w Differential (CBC ,DIFFH) 12/14/23 Most recent to oldest [Reference Range]: 1 eGFR CKD-EPI [>60 mL/min/1.73 m2] 17 mL/ min/1.73 m2 1 *LOW* (12/14/23 11:36 AM) Estimated CrCl 18.48 mL/min (12/14/23 12:13 PM) MPV [9.0-12.2 fL] 11.5 fL (12/14/23 11:36 AM) Immature Gran% 0.1 % (12/14/23 11:36 AM) Neut% 70.6 % (12/14/23 11:36 AM) Lymph% 19.3 % (12/14/23 11:36 AM) [place]% 4.5 % (12/14/23 11:36 AM) Baso% 0.3 % (12/14/23 11:36 AM) Eos% 5.2 % (12/14/23 11:36 AM) Immat Gran, Abs [0-0.4 K/uL] 0.01 K/uL 2 (12/14/23 11:36 AM) Neut, Abs [2.0-7.7 K/uL] 6.42 K/uL (12/14/23 11:36 AM) Lymph, Abs [1.0-3.4 K/uL] 1.76 K/uL (12/14/23 11:36 AM) [place], Abs [0-1.0 K/uL] 0.41 K/uL (12/14/23 11:36 AM) Baso, Abs [0-0.1 K/uL] 0.03 K/uL (12/14/23 11:36 AM) Eos, Abs [0-0.5 K/uL] 0.47 K/uL (12/14/23 11:36 AM) Type of Diff: AUTO *Unknown* (12/14/23) RDW [11.5-14.2 %] 14.9 % *HI* (12/14/23:36 AM) Anion Gap [5-14 mmol/L] 10 mmol/L (12/14/23 11:36 AM) BUN [7-20 mg/dL] 65 mg/dL *HI* (12/14/23: AM) Ca [8.4-10.2 mg/dL] 9.4 mg/dL (12/14/23:36 AM) Cl- [96-107 mmol/L] 104 mmol/L (12/14/23:36 AM) HCO3 [22-30 mmol/L] 21 mmol/L *LOW* (12/14/23 11:36 AM) Cret [0.70-1.30 mg/dL] 3.38 mg/dL *HI* (12/14/23:36 AM) Glu [74-106 mg/dL] 211 mg/dL *HI* (12/14/23 11:36 AM) Hct [39-48 %] 30.1 % *LOW* (12/14/23:36 AM) Hgb [13.0-17.0 g/dL] 10.0 g/dL *LOW* (12/14/23:36 AM) K [3.5-5.1 mmol/L] 5.3 mmol/L *HI* (12/14/23 11:36 AM) MCH [28-33 pg] 30.6 pg (12/14/23:36 AM) MCHC [32-36 g/dL] 33.2 g/dL (12/14/23 11:36 AM) MCV [81-96 fL] 92.0 fL (12/14/23 11:36 AM) Na [137-145 mmol/L] 135 mmol/L *LOW* (12/14/23 11:36 AM) Plts [150-350 K/uL] 238 K/uL (12/14/23 11:36 AM) RBC [4.40-5.60 M/uL] 3.27 M/uL *LOW* (12/14/23 11:36 AM) WBC [4.0-10.4 K/uL] 9.10 K/uL (12/14/23 11:36 AM) 1Result Comment: Testing Performed By: Dept of Pathology [facility] [place], [address] [place] [address] 2Result Comment: Testing Performed By: Dept of Pathology [facility] [place], [address] [place] [address] Vital Signs Most recent to oldest [Reference Range]: 1 Heart Rate 90 bpm (12/14/23 10:50 AM) Blood Pressure 120/82mmHg (12/14/23 10:50 AM) Cuff Pulse Pressure 38 mmHg (12/14/23 10:50 AM) Social History Social History Type Response Tobacco 1 Smoking Status Never smoked cigaret lj Sex Male 1started smoking in 1948 and quit in 1967 FCM Outpt Note * MD Zaira, Dre: PERFORM DO Alvarez Allison B: MODIFY Event Display: [facility]CM Outpt Note Authored Date: Chief Complaint f/u - lab work/ kidneys History of Present Illness [id number] year-oldmanwho presents todayfor follow- upafter presenting two days ago. -Presented then with complaint of dizziness and dehydrated. -Vitals revealed hypotension of 72/56. Lab workup revealed K of 6 and Cr of 3.21. -Despite these results, patient refused to present to the emergency room. -Repeat labs were ordered but he insisted on presenting for follow-up before having labs drawn. -Today, he "feels great." According to his , who is with him, he ambulates without difficulty with his cane. -He denies fever, chills, dizziness, nausea, vomiting, abdominal discomfort. His homeblood pressureshave been much better, similar to today's recorded BP (120/82). -He confirms that he stopped taking his prescribed isosorbide mononitrate. Review of Systems See HPI. Physical Exam Vitals & Measurements HR:90(Monitored) BP:120/82 SpO2:98% General:no acute distress, speaking in full sentences Resp: good inspiratory effort, no labored breathing HEENT: conjunctivae appear clear, no audiblecongestion, no swelling noted face or lips Skin: skin appears dry, normal coloration, no rash visible on exposed skin areas Neuro: alertand oriented x3, no focal deficits appreciated Psych: euthymic affect, pleasantand interactive, logical thought process Assessment/Plan 1.Hyperkalemia Acute;uncomplicated;not at goal -Ordered repeat BMP stat. Appreciate results. -Instructed pt to present to the ER if K remains elevated/not downtrending. -If downtrending but not at goal, will order repeat BMP to trend x2 days. 2.Anemia Chronic;uncomplicated;not at goal -Likely due to CKD. 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 -No acute management indicated. Attestation Patient's case reviewed in detail with Dr. Meneses, agree with detail of history and physical as documented above. Plan reviewed in detail with providing resident physician. Agree with plan. Blood work today. Need to get records to her Cash Management Specialist and Embedded Software Developer. Warning signs discussed. Follow up in the office as scheduled with PCP in 2 weeks. Problem List/Past Medical History Ongoing Acid reflux Actinic keratosis Arthritis Basal cell carcinoma Bilateral carotid artery stenosis BPH CAD Colon polyps Colonic polyp GERD Gout High cholesterol History of left knee replacement HTN (hypertension) HYPERTENSION Keratosis Knee pain NIDDM Obesity Osteoarthritis Peyronie disease Polyneuropathy Prediabetes ROSACEA SCC (squamous cell carcinoma) Stent Urinary tract infection in male Weight disorder Procedure/Surgical History Shave biopsy and cauterization of skin| Service Date: 09/13/2023[facility] micrographic surgery| Service Date: 09/13/2023Shave biopsy| Service Date: 07/07/2023Shave biopsy| Service Date: 12/16/2022Stress echocardiography using dobutamine| Service Date: 11/17/2022[facility] micrographic surgery| Service Date: 10/20/2022Shave biopsy| Service Date: 09/16/2022Shave biopsy| Service Date: 09/16/2022[facility] micrographic surgery| Service Date: 07/28/2021have biopsy and cauterization ofskin| Service Date: 07/17/2021X-Ray of Cervical Spine 2 or 3V| Service Date: 10/11/2019Shave b iopsy and cauterization of skin| Service Date: 06/13/2019Loosening of total knee replacement| Service Date: 12/12/2018Total knee replacement| Service Date: 12/2018Shave biopsy and cauterisation of skin| Service Date: 09/15/2018Shave biopsy and cauterization of skin| Service Date: 018Shave biopsy and cauterization of skin| Service Date: 07/14/2017Shave biopsy and cauterization of skin| Service Date: 07/22/2015Colonoscopy| Service Date: 06/10/2014stent x1| Service Date: 01/2010ORIF - Open reduction and internal fixation of fracture| Service Date: 1995colonoscopy- WNL in 1999Tonsillectomy and adenoidectomytibial fx repairColonoscopyExtraction of tooth needed Medications acetaminophen(Tylenol Arthritis Caplet), See Instructions allopurinol(allopurinol 300 mg oral tablet), 300 mg= 1 tab, PO, Daily, 11 refills aspirin(aspirin 81 mg oral tablet), 81 mg= 1 tab, PO, Daily atorvastatin(atorvastatin 40 mg oral tablet), 40 mg= 1 tab, PO, Daily isosorbide mononitrate(isosorbide mononitrate 30 mg oral tablet, extended release), See Instructions metoprolol(metoprolol succinate 25 mg oral tablet, extended release), 25 mg= 1 tab, PO, Daily multivitamin, 1 tab, PO, Daily omeprazole(omeprazole 20 mg oral delayed release capsule), 1 cap, PO, Daily semaglutide(Ozempic (0.25 mg or 0.5 mg dose) 2 mg/3 mL subQ pen), 0.5 mg, subQ, q7days Allergies codeineSwelling Social History Smoking Status Never smoked cigarettes Substance Abuse - Denies Substance Abuse Tobacco - Comments: started smoking in 1948 and quit in 1967 Family History CAD (coronary artery disease).: Father. Cancer: Unknown. Heart attack: Father. Heart disease: Unknown. Liver cancer..: Mother. Health Status Family Member(s) Immunizations Vaccine Date Status RSV vaccine preF3, recombinant 06/23/2023 Recorded SARS-CoV-2 (COVID-19) mRNA-vacc - [id number] 06/20/2023 Recorded Comments : lucina influenza virus vaccine, inactivated 05/17/2022 Recorded influenza virus vaccine, inactivated 07/30/2019 Given zoster vaccine, inactivated 06/07/2019 Given zoster vaccine, inactivated 04/05/2019 Given influenza virus vaccine, inactivated 05/26/2018 Given influenza virus vaccine, inactivated 07/13/2017 Given influenza virus vaccine, inactivated 04/16/2016 Given pneumococcal 13-valent vaccine 04/16/2016 Given influenza virus vaccine, inactivated 05/06/2014 Given influenza virus vaccine, inactivated 06/02/2012 Given zoster vaccine live 08/13/2011 Given pneumococcal 23-valent vaccine 10/26/2005 Recorded tetanus/diphtheria/pertuss, acel (Tdap) 10/26/2005 Recorded Recommendations Health Maintenance Pending(in the next year) OverDue Medicare Annual Wellness Visit due03/28/20and every 1year Adult Influenza Vaccine due02/04/23and every 1year Due Adult COVID-19 Vaccination due12/14/23Unknown Frequency Adult Social Determinants of Health Screening due12/14/23Unknown Frequency Adult Tdap/Td Vaccine due12/14/23Unknown Frequency Falls Plan of Care due12/14/23Unknown Frequency Due In Future Diabetic Eye Exam not due until07/19/24and every 366day Diabetes Management A1c not due until08/10/24and every 366day Body Mass Index not due until11/11/24and every 366day Satisfied(in the past 1 year) Satisfied Body Mass Index on11/11/23.Satisfied by JAKOB Mitchell Paula Electronic Signature on File Electronically Reviewed/Signed by: Dre Meneses MD Author Signature Dt/Tm:12/14/2023 04:31 PM Resident Department of Family Medicine Electronically Reviewed/Signed by: DO Praneeth Henry Signature Dt/Tm: 12/14/2023 06:07 PM Department of Family Medicine AO Patient Care team information Care Team Personnel Name: DO Bassett Franklin J Position: Physician - Family Med Member Role: Primary Care Provider Address: Address: [facility] [address] Name: DO Clayton Kristen M Position: Physician - Family Med Member Role: Lifetime Relationship Address: Address: [address] [facility] [place] [address] [place] Name: GAY Tello Lynn Position: Physician House Repairer Exempt - Vasc Surg Member Role: Lifetime Relationship Address: Address: [address] [facility] [address] [place] [address] Care Team Related Persons Name: CATERINA FARRELL Address: home [address] [facility], [place] [phone] Name: CATERINA FARRELL Address: U Address: home [address] [facility], [place] [phone] Name: CATERINA GARCIA Address: home [address] [facility], [place] [phone]
[2023-12-20 10:51] LABS: Albumin Level 3.4 gm/dl (3.4-5.0); BUN Creatinine Ratio 25.5 (10-20); Creatinine Clr Calc Pharmacy 21.3 ml/min; Est GFR (African American) 21.1 ml/min; Est GFR (Non-African American) 18.2 ml/min; Phosphorus 4.8 mg/dl (2.5-4.9)
--- NOTE | 2023-12-20 12:01 | Electrocardiogram Report ---
Test Reason : Blood Pressure : / mmHG Vent. Rate : 062 BPM Atrial Rate : 062 BPM P-R Int : 320 ms QRS Dur : 174 ms QT Int : 426 ms P-R-T Axes : 018 086 -28 degrees QTc Int : 432 ms Sinus rhythm with 1st degree A-V block with Blocked Premature atrial complexes Right bundle branch block T wave abnormality, consider inferolateral ischemia Abnormal ECG When compared with ECG of 19-DEC-2023 15:49, Premature atrial complexes are now Present Confirmed by Anup Shah ([id number]) on 12/20/2023 12:00:48 PM Referred By: Vik Murphy Confirmed By:Ramone Shah
--- NOTE | 2023-12-20 12:48 | Discharge Summary ---
"Date of Service December 20, 2023 Admission HPI Per Admitting Provider Vik Gates is a 88 year-old male with past medical history of CKD, CHF, CAD, anemia who presents to the ED for concern of abnormal labs. He states he was sent to ED from PCP due to hyperkalemia and elevated creatinine on outpatient labs. He states he has been feeling well, denies chest pain, dizziness/lightheadedness, shortness of breath, and has been eating and drinking well at home. He has been mindful of his diet- knows he eats half a banana with his breakfast, half an avocado with lunch and also eats mixed nuts daily but has not changed his diet significantly. He notes he has had recent medication changes with discontinuation of his amlodipine and isosorbide mononitrate in the past few weeks. He also notes that he completed a 10 day course of amoxicillin two days ago for a dental abscess which he states has since resolved. ED Course: -EKG -Dextrose/insulin x1, calcium gluconate Principal Diagnosis hyperkalemia Discharge Exam The patient is awake, alert and oriented 3, well developed and well nourished, normocephalic and atraumatic, lying in bed and in no acute distress. HEENT--PERRL, EOMI, mucous membranes and oropharynx mildly dry Neck--supple. No JVD. No bruits. Thyroid normal, trachea midline, no adenopathy. Heart--normal S1 and S2. No murmurs, rubs or gallops. Lungs--clear bilaterally, no respiratory distress, no accessory muscle use. Abdomen--normal bowel sounds and soft. Extremities--no cyanosis or clubbing. No edema. Dermatologic--normal skin turgor, normal color, no abnormal lymph nodes, no rash. Neurologic--cranial nerves II through XII grossly intact. Rheumatologic--normal range of motion. Psychiatric--normal affect. Discharge Data Allergies Allergy/AdvReac Type Severity Reaction Status Date / Time codeine Allergy Intermediate FACIAL Verified 12/19/23 18:52 SWELLING, NAUSEA Consultations 12/19/23 20:13 ED Decision to Admit Stat Hospital Course (1) CKD (chronic kidney disease): (2) Acute hyperkalemia: (3) Anemia: (4) CAD (coronary artery disease): (5) First degree AV block: (6) CHF (congestive heart failure): Plan Hyperkalemia | CKD Stage G4/A3 Now resolved following insulin and destrose -Etiology of hyperkalemia could be CKD, followed by Dr Pierce -Will repeat BMP q6h to monitor potassium, will monitor on telemetry and order daily EKG. Initial EKG without acute changes from prior studies. -VBG with pH 7.28, pCO2 49, HCO3 23 -LR @ 80 mL/hr x1 bag ordered, has history of CHF with last EF 60-65% (04/2023) will be cautious with fluid status and further IV hydration -Has chronic indwelling sevilla, UA shows protein and trace blood -Follows with Dr. Murphy/nephrology, Hypertension -Recent changes to antihypertensives include stopping Imdur and amlodipine -Continue home metoprolol succinate. Hypertensive to 200/100 in ED, gave one additional dose of home Toprol. Diabetes Mellitus, Type 2 -Hold home medications -Will add sliding scale insulin Admit to telemetry VTE Prophylaxis: Heparin Diet: low potassium, carb consistent Code Status: Full Code Total Time Total Time Spent Total Time Spent (In Minutes): 35 Discharge Plan Discharge Items Patient Disposition: Home - Self-Care Reason For Visit: HYPERKALEMIA Discharge Diagnosis: Hyperkalemia Activity: Resume your previous activity Non-emergency contact: Primary Care Provider, Terrazzo Polisher and Commander Internal Affairs Call non-emergency contact if: you have any medication questions Follow-up/Referrals: Umberto Bassett, [Primary Care Provider] - (PLEASE CALL YOUR PRIMARY CARE PROVIDER TO SCHEDULE A HOSPITAL DISCHARGE FOLLOW-UP APPOINTMENT WITHIN 7-10 DAYS) Diet: Regular Ambulatory Orders: Basic Metabolic Panel (Routine) Timeframe: 2 Days Location: Determined by Patient Ordered By: eMlba Coates Attending Provider Instructions: please follow up with your regular Terrazzo Polisher and char puller. Monitor your blood pressure daily and send the numbers to your molder punch Pending Studies at Discharge: No Stand-Alone Forms: My [employer], Smoking Cessation Medications and DC Order Prescriptions: Continued allopurinol 300 mg tablet 300 mg PO QAM Qty: 90 3RF furosemide 20 mg tablet 20 mg PO DAILY PRN (Reason: edema) Qty: 30 1RF metoprolol succinate 25 mg tablet extended release 24 hr 25 mg PO DAILY Qty: 90 3RF Ozempic 0.25 mg or 0.5 mg (2 mg/3 mL) pen injector 0.5 mg subcut WK Rx Instructions: SATURDAYS omeprazole 20 mg Capsule,Delayed Release(Dr/Ec) 20 mg PO HS Centrum Silver 0.4-300-250 mg-mcg-mcg Tablet 1 tab PO QAM nitroglycerin [Nitrostat] 0.4 mg tablet, sublingual 0.4 mg sublingual Q5M PRN (Reason: Chest Pain) Patient Comments: DISSOLVE ONE TABLET UNDER THE TONGUE EVERY 5 MINUTES FOR UP TO 3 DOSES NEEDED FOR CHEST PAIN. aspirin 81 mg Tablet,Delayed Release (Dr/Ec) 81 mg PO DAILY Hold Instructions: Resume on 11/07/23. Resume Tuesday if no more blood per rectum. atorvastatin 40 mg tablet 40 mg PO HS polyethylene glycol 3350 [Miralax] 17 gram Powder In Packet 17 g PO DAILY Qty: 0 0RF Discharge Orders: Discharge Order (Routine); Ordered 12/20/23 Ordered By: Melba Arreguin/Other Patient Handouts: Managing Type 2 Diabetes Admission Data Admit Date/Time: 12/19/23 21:40 Attending Provider: Melba Avery Admit Provider: Fabienne Roblero Primary Care Provider: Umberto Bassett Other Providers: Declan Sutton Other Interventions: Discharge Summary Assessment (RN) Last Done: 12/20/23 10:36 Coding Level of Care Code 27822 INP/OBS DISCH >30 MIN Diagnoses CKD (chronic kidney disease) N18.9 Acute hyperkalemia E87.5 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
--- NOTE | 2023-12-20 19:31 | Billing Data ---
Date of Service December 20, 2023 Coding Level of Care Code 55625 INT INP/OBS CARE
[2023-12-20] MEDS ORDERED: ATORVASTATIN 40 MG TAB PO SCH (21:00)
[2023-12-20] MEDS ORDERED: PANTOprazole 40 MG TAB PO SCH (21:00)
== END 2023-12-20 11:05 | disposition home or self-care (01) ==
LOC: ED 15:26 → 2W 15:26 → SUATTDRO 21:40 → 2W 23:23

== ENCOUNTER 2024-04-04 13:40 | Inpatient (IN) ==
--- NOTE | 2024-04-04 14:01 | Emergency Department Note ---
Impression & Plan Syncope, Stage 4 chronic kidney disease, Acute hypotension, Chronic indwelling Sevilla catheter, Bilateral carotid artery disease ED Provider Note NAME: NAVYA BROWNING AGE: 88 SEX: M : 1935 ARRIVES VIA: Walk-In INFORMANT: Patient ED PROVIDER(S): Justin Anthony MD CHIEF COMPLAINT: Syncope, Code purple outpatient lab PLAN: Disposition: Admit MEDICAL DECISION MAKING: The patient is a pleasant 88-year-old gentleman with a past medical history of CKD, diastolic and right-sided heart failure, CAD, hypertension, hyperlipidemia, severe bilateral carotid artery disease who presents to the emergency department from outpatient lab following a code purple for syncope and hypotension in the setting of having blood work performed for elevated potassium and creatinine from his baseline on preoperative testing last week. The patient also reports that he was instructed to take 2 doses of Brilinta this afternoon and a third dose tonight in preparation for his scheduled TCAR procedure tomorrow. He adds that he had a minimal breakfast this morning and had otherwise nothing to eat or drink as they were expecting to go out to lunch as a family following his lab work. Along with this he reports that they had inadvertently went to the outpatient lab and reports having to walk a distance that is more than he typically can manage and he was outside in the heat. However they were redirected to have his lab drawn at the hospital due to the order being a STAT order. He then came to the hospital outpatient lab to do this and was starting to feel nauseated. This worsened as the patient had his labs drawn and the patient became hypotensive and unresponsive. A code purple was called and the patient was brought immediately to the emergency department. Patient denies any preceding chest pain or back pain. On arrival the patient is ill-appearing/nauseated, alert and oriented, nauseated with blood pressure in the 70s/40s, pulse in the 70s with O2 saturation 95% on room air with normal respiratory effort. As we were discussing his symptoms and recent history his symptoms rapidly improved and his nausea had resolved and his blood pressure changed from hypotensive to hypertensive in the 200s/100s and then gradually improving to the 160s/70s as IV fluid hydration was initiated. No focal neurologic deficits. Abdomen is benign. EKG without overt acute ischemia. CXR negative for acute cardiopulmonary process per my personal preliminary review/interpretation. WBC and platelets within normal limits. H/H similar to prior. Chemistry with bicarbonate of 20 and normal anion gap. Creatinine is 3.03 with BUN of 75, similar to recent values in the setting of CKD. Potassium has improved and is 4.6. Electrolytes otherwise unremarkable. LFTs unremarkable. Initial high- sensitivity troponin 39, mildly elevated nonspecific. Lipase is normal. UA obtained after catheter exchange and demonstrates WBCs however no bacteria and negative nitrites in the setting of chronic indwelling catheter. CT of the head was negative for acute abnormalities. Case was discussed with JADE Maier hospitalist, who will evaluate the patient for admission. Further management per admitting team. Triage Nursing notes reviewed and agree them. Prior/external medical records reviewed Vital Signs: reviewed Differential diagnosis: Vasovagal event, dehydration, infection, hypoglycemia, electrolyte abnormalities, cardiac sources, intracerebral event, pulmonary embolism, seizure, toxicologic, neurologic, as well as other pathologies. ER treatment provided: See below. Diagnostics interpreted by me: ECG: Sinus rhythm first-degree block, 73 bpm, right bundle branch block, no overt ST elevation or depression, QTc 471, QRS 162. Cardiac Monitoring: An order for continuous cardiac monitoring was placed and demonstrated Sinus rhythm first-degree block, 73 bpm, no ectopy. Laboratory studies: See below Imaging studies: See below Consultation(s): Case was discussed with ELIEZER Maier hospitalist, who will evaluate the patient for admission. HPI: The patient is a pleasant 88-year-old gentleman with a past medical history of CKD, diastolic and right-sided heart failure, CAD, hypertension, hyperlipidemia, severe bilateral carotid artery disease who presents to the emergency department from outpatient lab following a code purple for syncope and hypotension in the setting of having blood work performed for elevated potassium and creatinine from his baseline on preoperative testing last week. The patient also reports that he was instructed to take 2 doses of Brilinta this afternoon and a third dose tonight in preparation for his scheduled TCAR procedure tomorrow. He adds that he had a minimal breakfast this morning and had otherwise nothing to eat or drink as they were expecting to go out to lunch as a family following his lab work. Along with this he reports that they had inadvertently went to the outpatient lab and reports having to walk a distance that is more than he typically can manage and he was outside in the heat. However they were redirected to have his lab drawn at the hospital due to the order being a STAT order. He then came to the hospital outpatient lab to do this and was starting to feel nauseated. This worsened as the patient had his labs drawn and the patient became hypotensive and unresponsive. A code purple was called and the patient was brought immediately to the emergency department. Patient denies any preceding chest pain or back pain. ROS: See above HPI for pertinent positives & negatives. A total of 10 systems reviewed and were otherwise negative. VITALS:See Below PHYSICAL EXAMINATION: GENERAL: Awake, alert, ill-appearing, in no distress HENT: Normocephalic, atraumatic. Oropharynx with dry mucous membranes and otherwise unremarkable. EYES: Normal conjunctiva. Sclera non-icteric. EOMI. No nystamgus. PEARRL. NECK: Supple. No nuchal rigidity. FROM. No JVD. RESPIRATORY: Clear to auscultation. CARDIAC: Regular rate, normal rhythm. Extremities warm and well perfused. Pulses equal. ABDOMEN: Soft, non-distended. No tenderness to palpation. No rebound or guarding. No masses. : Chronic sevilla catheter. MUSCULOSKELETAL: Chest examination reveals no tenderness. The back is symmetrical on inspection without obvious abnormality. There is no CVA tenderness to palpation. No joint edema. LOWER EXTREMITIES: Calves are equal size bilaterally and non-tender. Scant BLE edema. No discoloration. NEURO: No sensory or motor deficits noted. CN II-XII grossly intact. Speech is fluent. 5/5 strength and SILT x 4 extremities. Intact finger to nose. SKIN: No rash or jaundice noted. Justin Anthony MD Past Med/Surg History Problem List (Updated 04/05/24 @ 22:12 by Justin Anthony MD) Chronic indwelling Sevilla catheter (Acute) Acute hypotension (Acute) Syncope (Acute) Encounter for pre-operative examination CKD (chronic kidney disease) (Acute) Acute hyperkalemia (Acute) 12/19/23 Low blood pressure 12/01/23 GI bleed (Acute) 11/06/23 Complicated urinary tract infection (Acute) 11/06/23 Near syncope (Acute) 11/06/23 Hyponatremia (Acute) 11/02/23 Constipation (Acute) GIB (gastrointestinal bleeding) Stage 4 chronic kidney disease (Acute) Antiplatelet or antithrombotic long-term use Bilateral carotid artery disease (Acute) Chronic kidney disease Venous insufficiency of both lower extremities Peripheral edema (Acute) 05/31/23 PRITCHARD (dyspnea on exertion) (Acute) 05/31/23 CHF (congestive heart failure) (Acute) Stenosis of right internal carotid artery Nonsustained supraventricular tachycardia Elevated TSH 04/25/23 Hydronephrosis, left Urinary retention 2/2 BPH and currently with Sevilla in place Vitamin D deficiency PRITCHARD (dyspnea on exertion) 11/10/22 Edema 11/10/22 Back pain Tearing of muscle Acute hip pain 05/26/21 Fatigue 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, 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 Chronic kidney disease, stage 3 (Chronic) pt dx with acute on chronic kidney injury (pre-renal) during 04/2023 hospital admission; baseline creat noted to be 1.7-1.9; lasix was held during admission and resumed on discharge Former smoker (Acute) History of coronary artery stent placement (Acute 2009) MARIO Ramus Intermedius Proteinuria (Acute) Anemia (Acute) normocytic anemia of chronic disease; stable CAD (coronary artery disease) MARIO TO RAMUS (2009) Medical History Bilateral carotid artery disease Venous insufficiency of both lower extremities Peripheral edema Hx of hypotension Hx of constipation History of GI bleed (10/2023) History of pneumonia (2021) Hx of pleural effusion Hx of gout Hx of chest pain Hx: UTI (urinary tract infection) has indwelling sevilla cath, changed every 3 weeks CKD (chronic kidney disease) stage 4, follows with Dr. Murphy Sevilla catheter in place has changed every [address] [facility] urology, recently noticed slight amount of blood in urine, will have changed prior to surgery History of Holter monitoring due to recent syncopal episode on 04/24/23, admitted to [facility] Polyneuropathy Peyronie's disease Obesity Bradycardia hx of 1st degree AVB. pt had episode of HR in 30s in ambulance after vasovagal event for which he was given atropine; per cardio, rusty episode likely 2/2 vagal stimulation Leukocytosis Syncope and collapse hx-admitted to [facility] following syncopal episode (04/24/23 - 04/27/23); dx likely vasovagal 2/2 volume depletion and BB. metoprolol was D/C MGUS (monoclonal gammopathy of unknown significance) BPH (benign prostatic hyperplasia) currently with Sevilla in place Dyslipidemia Hypertension Type 2 diabetes mellitus Arthritis GERD (gastroesophageal reflux disease) Hearing deficit bilateral aids Hyperlipidemia Surgical History Hx of heart artery stent (2009) S/P MARIO TO RAMUS (2009), [facility], x1 stent; f/u eliezer nunez Hx of cystoscopy Hx of tonsillectomy (1938) Hx of eye surgery laser surgery to remove "film" from eye following cataract sx. 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) History of colonoscopy History of open reduction and internal fixation (ORIF) procedure right tibial plateau - lateral fracture History of tonsillectomy History of endoscopic sinus surgery History of cardiac cath (2009) S/P MARIO TO RAMUS (2009), [facility], x1 stent; f/u eliezer nunez Family History Uncle Family hx of colon cancer Social History Smoking Status: Never smoker Tobacco Type: Cigarettes Second Hand Exposure: No; Do You Dip or Chew Tobacco: No; Hx Alcohol Use: No Hx Substance Use: No Preferred Language: Slovenian Communication Ability: Effective Visual Impairment: Limited Hearing Ability: Normal Senior Game Designer Required: No Beliefs That Will Affect Care: None marital status: Current Living Situation: Spouse current occupational status: retired How many Children do You have: 7 Other Information That Helps Us Care for You: No Feels Safe at Home: Yes Safety Concerns: Feels Safe At This Time Diet: low salt and other Diet Comment: low potassium diet conscious. restricted banana and avocado and nuts. caffeine: Yes (1-2 coffees daily) Physical Activity Frequency: Does not Exercise Seatbelt Use: always Do you think of yourself as: straight/heterosexual Gender Identity: Male Assistive Devices: Cane and Walker Allergies Allergies Allergy/AdvReac Type Severity Reaction Status Date / Time codeine Allergy Intermediate FACIAL Verified 04/04/24 16:03 SWELLING, NAUSEA Home Meds Home Medications Medication Instructions Recorded Confirmed [id number] acid 0.4 1 tab PO QAM 09/16/18 04/04/24 mg-lycopene 300 mcg-lutein 250 mcg tablet (Centrum Silver) omeprazole 20 mg capsule,delayed 20 mg PO HS 09/16/18 04/04/24 release nitroglycerin 0.4 mg sublingual 0.4 mg sublingual Q5M PRN Chest 03/14/19 04/04/24 tablet (Nitrostat) Pain aspirin 81 mg tablet,delayed 81 mg PO QAM 05/30/23 04/04/24 release semaglutide 0.25 mg or 0.5 mg (2 0.5 mg subcut WK 09/22/23 04/04/24 mg/3 mL) subcutaneous pen injector (Ozempic) atorvastatin 40 mg tablet 40 mg PO HS 10/31/23 04/04/24 metoprolol succinate 25 mg 25 mg PO QAM 04/02/24 04/04/24 tablet,extended release 24 hr polyethylene glycol 3350 17 gram 17 g PO QAM 04/02/24 04/04/24 oral powder packet (Miralax) clopidogrel 75 mg tablet 75 mg PO QAM 04/04/24 04/04/24 ticagrelor 90 mg tablet (Brilinta) 90 mg PO BID 04/04/24 04/04/24 Previous Rx's Medication Instructions Recorded allopurinol 300 mg tablet 300 mg PO QAM #90 tabs 08/04/23 furosemide 20 mg tablet 20 mg PO Q OTHER DAY edema #30 tabs 01/05/24 Results & Data (ED) Vital Signs Vital Signs - 24 hr 04/04/24 14:02 04/04/24 14:05 04/04/24 14:05 Temperature 36.8 C Temperature Source Skin Pulse Rate 75 Pulse Rate [Apical] 59 L Pulse Rate from SpO2 Sensor Respiratory Rate 16 18 Blood Pressure 78/46 L Blood Pressure [Left Arm] 88/64 L Blood Pressure Mean 56 Blood Pressure Mean [Left Arm] 72 Pulse Oximetry 95 95 99 Oxygen Delivery Method Room Air Room Air Room Air Sepsis Recent Fever Within 48 Hours No Sepsis New/Unexplained Change in Mental Status No Sepsis Action Taken by Nursing No Action Required 04/04/24 14:05 04/04/24 14:15 04/04/24 14:30 Temperature Temperature Source Pulse Rate Pulse Rate [Apical] 72 70 68 Pulse Rate from SpO2 Sensor Respiratory Rate 18 18 16 Blood Pressure Blood Pressure [Left Arm] 199/84 H 160/77 H 185/87 H Blood Pressure Mean Blood Pressure Mean [Left Arm] 122 104 119 Pulse Oximetry 94 97 96 Oxygen Delivery Method Room Air Room Air Room Air Sepsis Recent Fever Within 48 Hours Sepsis New/Unexplained Change in Mental Status Sepsis Action Taken by Nursing 04/04/24 14:45 04/04/24 15:00 04/04/24 15:00 Temperature Temperature Source Pulse Rate Pulse Rate [Apical] 76 Pulse Rate from SpO2 Sensor Respiratory Rate 18 Blood Pressure 187/93 H 187/93 H Blood Pressure [Left Arm] 181/82 H Blood Pressure Mean 144 144 Blood Pressure Mean [Left Arm] 115 Pulse Oximetry 96 Oxygen Delivery Method Room Air Sepsis Recent Fever Within 48 Hours Sepsis New/Unexplained Change in Mental Status Sepsis Action Taken by Nursing 04/04/24 15:00 04/04/24 15:09 04/04/24 15:12 Temperature Temperature Source Pulse Rate 76 81 80 Pulse Rate [Apical] Pulse Rate from SpO2 Sensor 76 79 Respiratory Rate 19 21 Blood Pressure Blood Pressure [Left Arm] Blood Pressure Mean Blood Pressure Mean [Left Arm] Pulse Oximetry 98 97 Oxygen Delivery Method Sepsis Recent Fever Within 48 Hours Sepsis New/Unexplained Change in Mental Status Sepsis Action Taken by Nursing 04/04/24 15:35 04/04/24 15:35 04/04/24 15:36 Temperature Temperature Source Pulse Rate 77 Pulse Rate [Apical] Pulse Rate from SpO2 Sensor 77 Respiratory Rate 16 Blood Pressure 185/97 H 185/97 H Blood Pressure [Left Arm] Blood Pressure Mean 153 153 Blood Pressure Mean [Left Arm] Pulse Oximetry 98 Oxygen Delivery Method Room Air Sepsis Recent Fever Within 48 Hours Sepsis New/Unexplained Change in Mental Status Sepsis Action Taken by Nursing Laboratory Data Attestation: I reviewed the patient's lab results. 04/05/24 06:46 04/05/24 06:46 Lab Results 04/04/24 04/04/24 04/04/24 Range/Units 13:40 13:42 14:21 WBC 10.16 (4.8-10.8) K/ul RBC 3.47 L (4.70-6.10) M/uL Hgb 10.2 L (14.0-18.0) g/dl POC Hgb 9.9 L (14.0-18.0) g/dl Hct 31.5 L (42.0-52.0) % POC Hct 29 L (42-52) % MCV 90.8 (80.0-100.0) fL MCH 29.4 (25.0-34.0) pg MCHC 32.4 (32.0-36.0) g/dL RDW Std Deviation 49.3 H (36.4-46.3) fL RDW Coeff of Hernandez 14.9 H (11.5-14.5) % Plt Count 238 (130-400) K/uL MPV 12.1 (9.4-12.4) fL Immature Gran % (Auto) 0.5 % Neut % (Auto) 62.9 % Lymph % (Auto) 24.2 % [place] % (Auto) 9.4 % Eos % (Auto) 2.5 % Baso % (Auto) 0.5 % Neut # (Auto) 6.40 (1.40-6.50) K/uL Lymph # (Auto) 2.46 (1.20-3.40) K/uL [place] # (Auto) 0.95 H (0.11-0.59) K/uL Eos # (Auto) 0.25 (0.00-0.50) K/uL Baso # (Auto) 0.05 (0.00-0.20) K/uL Immature Gran # (Auto) 0.05 (0.01-0.20) K/uL POC Sodium 137 (135-144) mmol/L Sodium 135 L (136-145) mmol/L POC Potassium 4.7 (3.3-5.0) mmol/L Potassium 4.6 (3.5-5.1) mmol/L POC Chloride 107 (101-112) mmol/L Chloride 105 (98-107) mmol/L Carbon Dioxide 20 L (21-32) mmol/L POC Total CO2 20 L (24-31) mmol/L Anion Gap 10 (3-11) POC Anion Gap 15.0 L (16-25) mmol/L POC BUN 73 H (7-18) mg/dl BUN 75 H (6-23) mg/dl Creatinine 3.03 H (0.6-1.4) mg/dl POC Creatinine 3.2 H (0.6-1.3) mg/dl Est Cr Clr Drug Dosing 20.8 ml/min Est GFR ( Amer) 20.3 ml/min Est GFR (Non-Af Amer) 17.5 ml/min BUN/Creatinine Ratio 24.8 H (10-20) Glucose 150 H (70-99(Fasting)) mg/dl POC Glucose (other) 143 H (70-99) mg/dl Calcium 9.4 (8.6-10.3) mg/dl POC Ioniz Calcium Sanam 1.23 (1.12-1.32) mmol/l Phosphorus 4.4 (2.5-4.9) mg/dl Magnesium 2.1 (1.7-2.4) mg/dl Total Bilirubin 0.4 (0.2-1.0) mg/dl Direct Bilirubin 0.1 (0-0.2) mg/dl AST 19 (13-39) U/L ALT 14 (7-52) U/L Alkaline Phosphatase 90 (34-104) U/L Troponin I High Sens 39.1 H (0-20) pg/ml Total Protein 7.2 (6.0-8.3) gm/dl Albumin 3.9 (3.4-5.0) gm/dl Globulin 3.3 (2.5-4.0) gm/dl Albumin/Globulin Ratio 1.2 (0.9-2) Lipase 64 (11-82) U/L Urine Color Urine Appearance (Clear) Urine pH (4.5-7.5) Ur Specific [place] (1.000-1.030) Urine Protein (Negative) Urine Glucose (UA) (Negative) Urine Ketones (Negative) Urine Blood (Negative) Urine Nitrite (Negative) Urine Bilirubin (Negative) Urine Urobilinogen (Negative) Ur Leukocyte Esterase (Negative) Urine WBC (Auto) (0-5) /hpf Urine RBC (Auto) (0-2) /hpf U Hyaline Cast (Auto) (0-2) /lpf U Epithel Cells (Auto) (0-2) /hpf Urine Bacteria (Auto) (None Seen) Adenovirus (PCR) Not Detected (NotDetected) B. pertussis DNA (PCR) Not Detected (NotDetected) B.parapertussis DNA PCR Not Detected (NotDetected) C. pneumoniae DNA (PCR) Not Detected (NotDetected) Coronavirus OC43 (PCR) Not Detected (NotDetected) Coronavirus HKU1 (PCR) Not Detected (NotDetected) Coronavirus 229E (PCR) Not Detected (NotDetected) SARS-CoV-2 (PCR) Not Detected (NotDetected) Coronavirus NL63 (PCR) Not Detected (NotDetected) Human Metapneumovir PCR Not Detected (NotDetected) Influenza Type A (PCR) Not Detected (NotDetected) Influenza Type B (PCR) Not Detected (NotDetected) M. pneumoniae (PCR) Not Detected (NotDetected) Parainfluenza 1 (PCR) Not Detected (NotDetected) Parainfluenza 2 (PCR) Not Detected (NotDetected) Parainfluenza 3 (PCR) Not Detected (NotDetected) Parainfluenza 4 (PCR) Not Detected (NotDetected) RSV (PCR) Not Detected (NotDetected) Entero/Rhino (PCR) Not Detected (NotDetected) 04/04/24 04/04/24 Range/Units 15:34 15:45 WBC (4.8-10.8) K/ul RBC (4.70-6.10) M/uL Hgb (14.0-18.0) g/dl POC Hgb (14.0-18.0) g/dl Hct (42.0-52.0) % POC Hct (42-52) % MCV (80.0-100.0) fL MCH (25.0-34.0) pg MCHC (32.0-36.0) g/dL RDW Std Deviation (36.4-46.3) fL RDW Coeff of Hernandez (11.5-14.5) % Plt Count (130-400) K/uL MPV (9.4-12.4) fL Immature Gran % (Auto) % Neut % (Auto) % Lymph % (Auto) % [place] % (Auto) % Eos % (Auto) % Baso % (Auto) % Neut # (Auto) (1.40-6.50) K/uL Lymph # (Auto) (1.20-3.40) K/uL [place] # (Auto) (0.11-0.59) K/uL Eos # (Auto) (0.00-0.50) K/uL Baso # (Auto) (0.00-0.20) K/uL Immature Gran # (Auto) (0.01-0.20) K/uL POC Sodium (135-144) mmol/L Sodium (136-145) mmol/L POC Potassium (3.3-5.0) mmol/L Potassium (3.5-5.1) mmol/L POC Chloride (101-112) mmol/L Chloride (98-107) mmol/L Carbon Dioxide (21-32) mmol/L POC Total CO2 (24-31) mmol/L Anion Gap (3-11) POC Anion Gap (16-25) mmol/L POC BUN (7-18) mg/dl BUN (6-23) mg/dl Creatinine (0.6-1.4) mg/dl POC Creatinine (0.6-1.3) mg/dl Est Cr Clr Drug Dosing ml/min Est GFR ( Amer) ml/min Est GFR (Non-Af Amer) ml/min BUN/Creatinine Ratio (10-20) Glucose (70-99(Fasting)) mg/dl POC Glucose (other) (70-99) mg/dl Calcium (8.6-10.3) mg/dl POC Ioniz Calcium Sanam (1.12-1.32) mmol/l Phosphorus (2.5-4.9) mg/dl Magnesium (1.7-2.4) mg/dl Total Bilirubin (0.2-1.0) mg/dl Direct Bilirubin (0-0.2) mg/dl AST (13-39) U/L ALT (7-52) U/L Alkaline Phosphatase (34-104) U/L Troponin I High Sens 34.0 H (0-20) pg/ml Total Protein (6.0-8.3) gm/dl Albumin (3.4-5.0) gm/dl Globulin (2.5-4.0) gm/dl Albumin/Globulin Ratio (0.9-2) Lipase (11-82) U/L Urine Color Yellow Urine Appearance Clear (Clear) Urine pH 7.0 (4.5-7.5) Ur Specific [place] 1.009 (1.000-1.030) Urine Protein 2+ H (Negative) Urine Glucose (UA) Trace H (Negative) Urine Ketones Negative (Negative) Urine Blood 2+ H (Negative) Urine Nitrite Negative (Negative) Urine Bilirubin Negative (Negative) Urine Urobilinogen Negative (Negative) Ur Leukocyte Esterase 2+ H (Negative) Urine WBC (Auto) 21-50 H (0-5) /hpf Urine RBC (Auto) >20 H (0-2) /hpf U Hyaline Cast (Auto) 3-5 H (0-2) /lpf U Epithel Cells (Auto) 0-2 (0-2) /hpf Urine Bacteria (Auto) None Seen (None Seen) Adenovirus (PCR) (NotDetected) B. pertussis DNA (PCR) (NotDetected) B.parapertussis DNA PCR (NotDetected) C. pneumoniae DNA (PCR) (NotDetected) Coronavirus OC43 (PCR) (NotDetected) Coronavirus HKU1 (PCR) (NotDetected) Coronavirus 229E (PCR) (NotDetected) SARS-CoV-2 (PCR) (NotDetected) Coronavirus NL63 (PCR) (NotDetected) Human Metapneumovir PCR (NotDetected) Influenza Type A (PCR) (NotDetected) Influenza Type B (PCR) (NotDetected) M. pneumoniae (PCR) (NotDetected) Parainfluenza 1 (PCR) (NotDetected) Parainfluenza 2 (PCR) (NotDetected) Parainfluenza 3 (PCR) (NotDetected) Parainfluenza 4 (PCR) (NotDetected) RSV (PCR) (NotDetected) Entero/Rhino (PCR) (NotDetected) Administered Medications Allopurinol (Allopurinol 300 Mg Tab) [facility] [place] Stop: 05/05/24 08:59 Last Admin: 04/05/24 09:49 Dose: 300 mg Documented By: RRR Aspirin (Aspirin 81 Mg Ectab) 81 [facility] [place] Stop: 05/05/24 08:59 Last Admin: 04/05/24 09:49 Dose: 81 mg Documented By: RRR Atorvastatin Calcium (Atorvastatin 40 Mg Tab) 40 mg PO [facility] Stop: 05/04/24 20:59 Last Admin: 04/05/24 20:36 Dose: 40 mg Documented By: Admin: 04/04/24 23:16 Dose: 40 mg Documented By: IDA Insulin Aspart (Insulin Aspart Per Unit Charge) 0 units SC ACHS [facility]; Protocol Stop: 05/04/24 17:44 Last Admin: 04/05/24 20:35 Dose: Not Given Documented By: ROSE MARY Admin: 04/05/24 18:29 Dose: 5 units Documented By: AILYN Co-signed By: PADMA Admin: 04/05/24 13:08 Dose: 10 units Documented By: AILYN Co-signed By: GIUSEPPE Admin: 04/05/24 10:05 Dose: 4 units Documented By: AILYN Co-signed By: GIUSEPPE Admin: 04/04/24 20:47 Dose: 3 units Documented By: ESTRELLA Co-signed By: JOHNNIE Admin: 04/04/24 20:22 Dose: Not Given Documented By: ESTRELLA Co-signed By: JOHNNIE Insulin Glargine (Lantus Per Unit Charge) 0 units SC TODAY@1700 [facility]; Protocol Stop: 05/05/24 16:59 Last Admin: 04/05/24 17:47 Dose: Not Given Documented By: AILYN Metoprolol Succinate (Metoprolol Succ 25mg Ext Rel Tab) [facility] [place] Stop: 05/05/24 08:59 Last Admin: 04/05/24 09:49 Dose: 25 mg Documented By: AILYN Multivitamins/Minerals (Cerovite Adv Formula Tab) 1 tab PO [facility] Stop: 05/05/24 08:59 Last Admin: 04/05/24 09:57 Dose: Not Given Documented By: AILYN Pantoprazole Sodium (Pantoprazole 40 Mg Tab) 40 mg PO [facility] Stop: 05/04/24 20:59 Last Admin: 04/05/24 20:37 Dose: 40 mg Documented By: Admin: 04/04/24 20:46 Dose: 40 mg Documented By: ESTRELLA Polyethylene Glycol (Polyethylene (Miralax) 17 Gm Pack) 17 gm [facility] [place] Stop: 05/05/24 08:59 Last Admin: 04/05/24 09:49 Dose: 17 gm Documented By: AILYN Ticagrelor (Ticagrelor 90 Mg Tab) 90 mg PO BID [facility] Stop: 05/04/24 20:59 Last Admin: 04/05/24 20:36 Dose: 90 mg Documented By: ROSE MARY Admin: 04/05/24 09:49 Dose: 90 mg Documented By: Admin: 04/04/24 20:46 Dose: 90 mg Documented By: EMB Discontinued Medications Furosemide (Furosemide 20 Mg Tab) 20 mg PO ONE ONE Stop: 04/05/24 14:34 Last Admin: 04/05/24 16:04 Dose: 20 mg Documented By: RRR Hydralazine HCl (Hydralazine 10 Mg Tab) 10 mg PO ONCE ONE Stop: 04/04/24 22:59 Last Admin: 04/04/24 23:16 Dose: 10 mg Documented By: IDA Sodium Chloride (Nss) 1,000 mls @ 999 mls/hr IV .Q1H1M ONE Stop: 04/04/24 15:01 Last Infusion: 04/04/24 15:38 Dose: Infused Documented By: Admin: 04/04/24 14:27 Dose: 999 mls/hr Documented By: DS Sodium Chloride (Nss) 500 mls @ 125 mls/hr IV .Q4H LEONARDA Stop: 04/05/24 18:44 Last Infusion: 04/05/24 20:05 Dose: Infused Documented By: Admin: 04/05/24 16:05 Dose: 125 mls/hr Documented By: RRR Nitroglycerin (Nitroglycerin 2% Ointment 30gm Tube) Confirm Administered Dose 18 inch EXT .STK-MED ONE Stop: 04/04/24 16:38 Last Admin: 04/04/24 17:50 Dose: 0.5 inch Documented By: RLB Ondansetron HCl (Ondansetron Inj 2 Mg/Ml 2 Ml Vial) Confirm Administered Dose 4 mg .ROUTE .STK-MED ONE Stop: 04/04/24 14:03 Last Admin: 04/04/24 14:10 Dose: 4 mg Documented By: TYREE Imaging Data Radiologist's Impression: Chest X-Ray 04/04/24 13:57 XR chest 1V portable HISTORY: syncope COMPARISON: Chest 10/31/2023. FINDINGS: No pneumothorax. No pleural effusions. Left basilar linear densities favor subsegmental atelectasis or scarring. This is similar to the prior study. No new focal lung consolidations to suggest pneumonia. No evidence for pulmonary edema. The heart remains enlarged. There are calcifications within the aortic knob. IMPRESSION: No significant change compared to the prior study. No acute process. Stable mild cardiomegaly. ACT 112: Negative or not required by law. Electronically signed by: Álvaro Rai M.D. 04/04/2024 3:[address] 04/04/24 14:[address] DOSE: 1100.35 mGy.cm HISTORY: syncope TECHNIQUE: Multiaxial CT images of the head were performed without the use of intravenous contrast. Automated exposure control was utilized for this study. A dose lowering technique was utilized adhering to the principles of ALARA. Comparison: Head CT 04/24/2023. Findings: The paranasal sinuses and mastoid air cells are clear. The calvarium and skull base are intact. There is no mass, hematoma, midline shift, acute infarct. White matter hypodensity is nonspecific but suggestive of microvascular ischemic change. The ventricles and sulci demonstrate mild age-related involutional changes. Impression: No significant change compared to the prior study. No acute intracranial abnormality. ACT 112: Negative or not required by law. Electronically signed by: Álvaro Rai M.D. 04/04/2024 3:34 PM Discharge Plan Visit Data Chief Complaint: Syncope Stated Complaint: SYNCOPE ED Provider: Justin Anthony Discharge Problem: Syncope, Stage 4 chronic kidney disease, Acute hypotension, Chronic indwelling Sevilla catheter, Bilateral carotid artery disease Patient Disposition: Admitted As Inpatient Discharge Instructions Interventions: ED Discharge Assessment Last Done: 04/04/24 22:04 Discharge Problem: Syncope Qualifiers: Syncope type: vasovagal syncope Qualified Code(s): R55 - Syncope and collapse Bilateral carotid artery disease Qualifiers: Carotid artery disease type: unspecified Qualified Code(s): I77.9 - Disorder of arteries and arterioles, unspecified
[2024-04-04] MEDS: ONDANSETRON INJ 2 MG/ML 2 ML VIAL ONE (14:10)
[2024-04-04 14:19] LABS: Basophils # (auto) 0.05 K/uL (0.00-0.20); Basophils % (auto) 0.5 %; Eosinophils # (auto) 0.25 K/uL (0.00-0.50); Eosinophils % (auto) 2.5 %; Hematocrit (blood only) 31.5 % (42.0-52.0); Hemoglobin 10.2 g/dl (14.0-18.0); Immature Granulocytes # (auto) 0.05 K/uL (0.01-0.20); Immature Granulocytes % (auto) 0.5 %; Lymphocytes # (auto) 2.46 K/uL (1.20-3.40); Lymphocytes % (auto) 24.2 %; Mean Corpuscular Hemoglobin 29.4 pg (25.0-34.0); Mean Corpuscular Hgb Conc 32.4 g/dL (32.0-36.0); Mean Corpuscular Volume 90.8 fL (80.0-100.0); Mean Platelet Volume 12.1 fL (9.4-12.4); Monocytes # (auto) 0.95 K/uL (0.11-0.59); Monocytes % (auto) 9.4 %; Neutrophils % (auto) 62.9 %; Platelet Count 238 K/uL (130-400); RDW Coefficient of Variation 14.9 % (11.5-14.5); RDW Standard Deviation 49.3 fL (36.4-46.3); Red Blood Count 3.47 M/uL (4.70-6.10); White Blood Count 10.16 K/ul (4.8-10.8)
[2024-04-04] MEDS: SODIUM CHLORIDE 0.9% 1,000 ML IV ONE (14:27)
[2024-04-04 14:28] LABS: Albumin Globulin Ratio 1.2 (0.9-2); Albumin Level 3.9 gm/dl (3.4-5.0); BUN Creatinine Ratio 24.8 (10-20); Bilirubin,Total 0.4 mg/dl (0.2-1.0); Calcium 9.4 mg/dl (8.6-10.3); Creatinine Clr Calc Pharmacy 20.8 ml/min; Est GFR (African American) 20.3 ml/min; Est GFR (Non-African American) 17.5 ml/min; Globulin 3.3 gm/dl (2.5-4.0); Magnesium 2.1 mg/dl (1.7-2.4); Phosphorus 4.4 mg/dl (2.5-4.9); Potassium 4.6 mmol/L (3.5-5.1); Total Protein 7.2 gm/dl (6.0-8.3)
[2024-04-04 14:33] LABS: iSTAT Creatinine 3.2 mg/dl (0.6-1.3); iSTAT Hemoglobin 9.9 g/dl (14.0-18.0); iSTAT Ionized Calcium 1.23 mmol/l (1.12-1.32); iSTAT Potassium 4.7 mmol/L (3.3-5.0)
[2024-04-04 14:35] LABS: Troponin I High Sensitivity 39.1 pg/ml (0-20)
[2024-04-04 15:00] LABS: Bilirubin Direct 0.1 mg/dl (0-0.2)
--- NOTE | 2024-04-04 15:14 | XRay Report ---
XR chest 1V portable HISTORY: syncope COMPARISON: Chest 10/31/2023. FINDINGS: No pneumothorax. No pleural effusions. Left basilar linear densities favor subsegmental ate lectasis or scarring. This is similar to the prior study. No new focal lung consolidations to suggest pneumonia. No evidence for pulmonary edema. The heart remains enlarged. There are calcifications wit hin the aortic knob. IMPRESSION: No significant change compared to the prior study. No acute process. Stable mild cardiomegaly. ACT 112: Negative or not required by law. Electronically signed by: Álvaro Rai M.D. 04/04/2024 3:13 PM
--- NOTE | 2024-04-04 15:35 | CT Scan Report ---
HEAD CT NONCONTRAST CT DOSE: 1100.35 mGy.cm HISTORY: syncope TECHNIQUE: Multiaxial CT images of the head were performed without the use of intravenous contrast. A utomated exposure control was utilized for this study. A dose lowering technique was utilized adheri ng to the principles of ALARA. Comparison: Head CT 04/24/2023. Findings: The paranasal sinuses and mastoid air cells are clear. The calvarium and skull base are int act. There is no mass, hematoma, midline shift, acute infarct. White matter hypodensity is nonspecifi c but suggestive of microvascular ischemic change. The ventricles and sulci demonstrate mild age-rela bruna involutional changes. Impression: No significant change compared to the prior study. No acute intracranial abnormality. ACT 112: Negative or not required by law. Electronically signed by: Álvaro Rai M.D. 04/04/2024 3:34 PM
[2024-04-04 15:49] LABS: Appearance Urine Clear (Clear); Bacteria Urine Automated None Seen (None Seen); Bilirubin Urine Negative (Negative); Blood Urine 2+ (Negative); Color Urine Yellow; Epithelial Cell Urine Auto 0-2 /hpf (0-2); Glucose Urine UA Trace (Negative); Ketones Urine Negative (Negative); Leukocyte Esterase Urine 2+ (Negative); Nitrite Urine Negative (Negative); Protein Urine 2+ (Negative); RBC Urine Automated >20 /hpf (0-2); Specific Gravity Urine 1.009 (1.000-1.030); Urobilinogen Urine Negative (Negative); WBC Urine Automated 21-50 /hpf (0-5)
[2024-04-04 16:06] LABS: Adenovirus PCR Not Detected (NotDetected); Bordetella parapertussis PCR Not Detected (NotDetected); Bordetella pertussis PCR Not Detected (NotDetected); Chlamydia pneumoniae PCR Not Detected (NotDetected); Coronavirus 229E PCR Not Detected (NotDetected); Coronavirus CoV-2 (COVID19)PCR Not Detected (NotDetected); Coronavirus HKU1 PCR Not Detected (NotDetected); Coronavirus NL63 PCR Not Detected (NotDetected); Coronavirus OC43PCR Not Detected (NotDetected); Human Metapneumovirus PCR Not Detected (NotDetected); Influenza A PCR Not Detected (NotDetected); Influenza B PCR Not Detected (NotDetected); Mycoplasma pneumoniae PCR Not Detected (NotDetected); Parainfluenza Virus 1 PCR Not Detected (NotDetected); Parainfluenza Virus 2 PCR Not Detected (NotDetected); Parainfluenza Virus 3 PCR Not Detected (NotDetected); Parainfluenza Virus 4 PCR Not Detected (NotDetected); Respiratory Syncytial VirusPCR Not Detected (NotDetected); Rhinovirus/Enterovirus PCR Not Detected (NotDetected)
--- NOTE | 2024-04-04 16:07 | History & Physical Report ---
Date of Service April 04, 2024 Assessment & Plan (1) Syncope: Plan: Syncope Occurred during his blood draw. Patient was briefly called as a CODE BLUE, reportedly did have a low blood pressure and weak pulse and was quickly responsive after being laid back without CPR consistent with vasovagal syncope Patient report he was nauseous after taking a loading dose of Brilinta today, had 1 episode of vomiting but currently does not have any nausea, vomiting and has had no diarrhea or constipation. No abdominal pain. Has felt dehydrated today due to his nausea, this was prior to walking multiple times outside in the heat prior to his blood draw High sensitive troponin 39.1, patient with baseline troponin elevation around 3133 with impaired clearance with CKD. Repeat troponin downtrending EKG: Right bundle branch block with repolarization abnormalities, appears similar to 12/20/2023 Suspect vasovagal with volume depletion. Low suspicion for cardiogenic or neurogenic Patient has been hypertensive, suspect this may be reactive due to volume contraction combined with bilateral carotid stenosis. Mucous membranes are dry. Will give additional fluids and recheck. He has had labile hypertension/hypotension in the past with syncopal events and would not uptitrate home medications unless necessary although he is at increased risk of stroke given his bilateral stenoses. Will rehydrate, recheck and treat to goal 180. LORNA/ARB limited by renal dysfunction. Amlodipine versus nitrate trial if needed. Discussed with nursing staff CAD Unstable angina in 2009, PCI with MARIO to proximal ramus at that time. Last DSE 12/2022 without evidence of ischemia at 94% max heart rate, EKG changes following stress secondary to baseline ST changes. No preceding angina previous 2 weeks Chronic minimal peripheral edema, generally well-controlled and thought to be due to venous insufficiency rather than acute CHF. Troponin with chronic minimal elevation with impaired renal function, initial troponin 39 and 2-hour repeat is downtrending at 34. EKG without acute ischemic changes,RBBB (2) CKD (chronic kidney disease): Plan: History of CKD Patient potassium 5.3, recheck normalized Low-salt, low potassium diet Baseline approximately 3, creatinine approximately 3 on admission Trend daily (3) Bilateral carotid artery disease: Plan: Bilateral carotid artery stenosis MRA 02/2024: High-grade stenosis at the origin of the internal carotid arteries bilaterally, patent vertebral arteries Following with [facility] vascular surgery Dr. Royal. Recommended left carotid first, TCAR approach. Discussed with vascular surgery. Recommended to continue Brilinta 90 mg twice daily. Plavix discontinued. Patient's TCAR is being rescheduled, he will not have his procedure 04/05. (4) Hx: UTI (urinary tract infection): Plan: UA contaminated appearing, chronically indwelling Sevilla. No bacteria or nitrites - No symptoms. Abx deferred - Follow WBC count and UCX Plan DVT prophylaxis: Patient took an additional dose of Plavix in 2 Brilinta this morning. Will hold on additional pharmacal prophylaxis until 04/05. SCDs Diet: Heart healthy Disposition: Medical telemetry for syncope CODE STATUS: Full code History of Present Illness Primary Care Provider: Umberto Bassett DO Vik Gates is an 88yo M with a past medical history of CKD, hyperkalemia, CAD, hypertension, NSVT, CHF presents after an episode of syncope while getting his blood drawn. Patient was getting his blood drawn at the hospital for evaluation of hyperkalemia. Vik is seen at the bedside with his daughter present. He reports 'this all began getting ready for a TCAR with Dr. Royal.' Had a platelet test sent down to [facility] and started taking plaavix for bilateral carotid stenosis. Recieved a call this morning that the plaavix was not effective based on his plt study, so was to be switched to Brilinta. Was to take 180mg this morning of Brilinta, then continue 90mg BID moving forward. Pt is trying to determine what he actually took this morning, thinks he may have taken 90mg of brilinta + plaavix 75mg this morning but is checking pill counts to make sure. He was getting ready for surgery and had an outpatient blood draw with elevated potassium, so presented to the lab today for a redraw to check his levels. He reports he went to the wrong lab, and was walking a lot more than normal and was very tired and 'not quite right' from walking much more than he normally would. Faint, but denies chest pain or chest pressure. While getting his blood drawn felt presyncopal, and was called as a CODE PURPLE. Pt was a CODE BLUE while in the outpatient lab; however on review he did not recieve CPR, was awake, and had a low BP with a weak pulse throughout. After being layed back he felt improved and was able to speak and carry a conversation. No pulselessness was reported/documented. Pt reprots prior to drawing blood from walking around a lot felt lightheaded and dizziness. Had [facility] to the [facility] for a STAT draw due to his potassium. Mosca lightheaded prior to his blood draw, but when his blood was being drawn felt much more lightheaded, dizzy, and with tunnel vision. He remembers looking at the blood draw, and then remembers everyone being around him all of a sudden. No chest pain or chest pressure at any point. No dyspnea or diaphoresis at any point. Had a few 'fainting spells' in the past which led to his carotid evaluation per pt. 1x in the shower, and 1x on the toilet. Medical History: Reviewed Medications: Reviewed Surgical History: Reviewed Family history: Reviewed Allergies: Reviewed Social History: No tobacco use, no ETOH use in the last year. Code Status: Full Allergies Allergy/AdvReac Type Severity Reaction Status Date / Time codeine Allergy Intermediate FACIAL Verified 04/04/24 16:03 SWELLING, NAUSEA Home Medications Medication Instructions Recorded Confirmed Type [id number] acid 0.4 1 tab PO QAM 09/16/18 04/04/24 History mg-lycopene 300 mcg-lutein 250 mcg tablet (Centrum Silver) omeprazole 20 mg capsule,delayed 20 mg PO HS 09/16/18 04/04/24 History release nitroglycerin 0.4 mg sublingual 0.4 mg sublingual Q5M PRN Chest 03/14/19 04/04/24 History tablet (Nitrostat) Pain aspirin 81 mg tablet,delayed 81 mg PO QAM 05/30/23 04/04/24 History release allopurinol 300 mg tablet 300 mg PO QAM #90 tabs 08/04/23 04/04/24 Rx semaglutide 0.25 mg or 0.5 mg (2 0.5 mg subcut WK 09/22/23 04/04/24 History mg/3 mL) subcutaneous pen injector (Ozempic) atorvastatin 40 mg tablet 40 mg PO HS 10/31/23 04/04/24 History furosemide 20 mg tablet 20 mg PO Q OTHER DAY edema #30 tabs 01/05/24 04/04/24 Rx metoprolol succinate 25 mg 25 mg PO QAM 04/02/24 04/04/24 History tablet,extended release 24 hr polyethylene glycol 3350 17 gram 17 g PO QAM 04/02/24 04/04/24 History oral powder packet (Miralax) clopidogrel 75 mg tablet 75 mg PO QAM 04/04/24 04/04/24 History ticagrelor 90 mg tablet (Brilinta) 90 mg PO BID 04/04/24 04/04/24 History Past Med/Surg History Problem List Encounter for pre-operative examination CKD (chronic kidney disease) (Acute) Acute hyperkalemia (Acute) 12/19/23 Low blood pressure 12/01/23 GI bleed (Acute) 11/06/23 Complicated urinary tract infection (Acute) 11/06/23 Near syncope (Acute) 11/06/23 Hyponatremia (Acute) 11/02/23 Constipation (Acute) GIB (gastrointestinal bleeding) Stage 4 chronic kidney disease Antiplatelet or antithrombotic long-term use Bilateral carotid artery disease Chronic kidney disease Venous insufficiency of both lower extremities Peripheral edema (Acute) 05/31/23 PRITCHARD (dyspnea on exertion) (Acute) 05/31/23 CHF (congestive heart failure) (Acute) Stenosis of right internal carotid artery Nonsustained supraventricular tachycardia Elevated TSH 04/25/23 Hydronephrosis, left Urinary retention 2/2 BPH and currently with Sevilla in place Vitamin D deficiency PRITCHARD (dyspnea on exertion) 11/10/22 Edema 11/10/22 Back pain Tearing of muscle Acute hip pain 05/26/21 Fatigue 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, 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 Chronic kidney disease, stage 3 (Chronic) pt dx with acute on chronic kidney injury (pre-renal) during 04/2023 hospital admission; baseline creat noted to be 1.7-1.9; lasix was held during admission and resumed on discharge Former smoker (Acute) History of coronary artery stent placement (Acute 2009) MARIO Ramus Intermedius Proteinuria (Acute) Anemia (Acute) normocytic anemia of chronic disease; stable CAD (coronary artery disease) MARIO TO RAMUS (2009) Medical History Arthritis Bilateral carotid artery disease BPH (benign prostatic hyperplasia) currently with Sevilla in place Bradycardia hx of 1st degree AVB. pt had episode of HR in 30s in ambulance after vasovagal event for which he was given atropine; per cardio, rusty episode likely 2/2 vagal stimulation CKD (chronic kidney disease) stage 4, follows with Dr. Murphy Dyslipidemia Sevilla catheter in place has changed every 3 weeks at [facility], recently noticed slight amount of blood in urine, will have changed prior to surgery GERD (gastroesophageal reflux disease) Hearing deficit bilateral aids History of GI bleed (10/2023) History of Holter monitoring due to recent syncopal episode on 04/24/23, admitted to [facility] History of pneumonia (2021) Hx of chest pain Hx of constipation Hx of gout Hx of hypotension Hx of pleural effusion Hx: UTI (urinary tract infection) has indwelling sevilla cath, changed every 3 weeks Hyperlipidemia Hypertension Leukocytosis MGUS (monoclonal gammopathy of unknown significance) Obesity Peripheral edema Peyronie's disease Polyneuropathy Syncope and collapse hx-admitted to [facility] following syncopal episode (04/24/23 - 04/27/23); dx likely vasovagal 2/2 volume depletion and BB. metoprolol was D/C Type 2 diabetes mellitus Venous insufficiency of both lower extremities Surgical History History of cardiac cath (2009) S/P MARIO TO RAMUS (2009), [facility], x1 stent; f/u dr. lopez, [facility] History of colonoscopy History of endoscopic sinus surgery History of open reduction and internal fixation (ORIF) procedure right tibial plateau - lateral fracture History of tonsillectomy Hx of bilateral cataract extraction Hx of cystoscopy Hx of eye surgery laser surgery to remove "film" from eye following cataract sx. Hx of heart artery stent (2009) S/P MARIO TO RAMUS (2009), [facility], x1 stent; f/u beatrice nunez Hx of tonsillectomy (1938) Status post total left knee replacement (12/12/18) Family History Uncle Family hx of colon cancer Social History Smoking Status: Unknown if ever smoked Tobacco Type: Cigarettes Second Hand Exposure: No; Do You Dip or Chew Tobacco: No; Hx Alcohol Use: No Hx Substance Use: No Preferred Language: Dominican Communication Ability: Effective Visual Impairment: Limited Hearing Ability: Normal Surfacing Machine Operator Required: No Beliefs That Will Affect Care: None marital status: Current Living Situation: Spouse current occupational status: retired How many Children do You have: 7 Feels Safe at Home: Yes Diet: low salt and other Diet Comment: low potassium diet conscious. restricted banana and avocado and nuts. caffeine: Yes (1-2 coffees daily) Physical Activity Frequency: Does not Exercise Seatbelt Use: always Do you think of yourself as: straight/heterosexual Gender Identity: Male Assistive Devices: Cane, Glasses and Hearing Aid - Bilateral Physical Exam Physical Exam: General: A&Ox3. NAD. Cooperative. HEENT: Atraumatic, normocephalic. +bilateral carotid bruits Pulm: CTAB A&P. -wheezes, -rales, -rhonchi. Symmetrical chest rise. No increased work of breathing. No respiratory distress. Cardiac: RRR, -mrg. Radial pulses intact and symmetrical. Abdominal: Nontender, nondistended, soft. BS present. Ext: trace ankle edema bilat Results & Data Results & Data Vital Signs (Past 12 Hours) Vital Signs Temp Pulse Pulse Resp BP BP Pulse Ox 04/04/24 15:36 77 16 98 04/04/24 15:35 185/97 H 04/04/24 15:35 185/97 H 04/04/24 15:12 80 04/04/24 15:09 81 21 97 04/04/24 15:00 76 19 98 04/04/24 15:00 187/93 H 04/04/24 15:00 187/93 H 04/04/24 14:45 76 18 181/82 H 96 04/04/24 14:30 68 16 185/87 H 96 04/04/24 14:15 70 18 160/77 H 97 04/04/24 14:05 72 18 199/84 H 94 04/04/24 14:05 99 04/04/24 14:05 36.8 C 75 18 78/46 L 95 04/04/24 14:02 59 L 16 88/64 L 95 O2 Del Method 04/04/24 15:36 Room Air 04/04/24 15:35 04/04/24 15:35 04/04/24 15:12 04/04/24 15:09 04/04/24 15:00 04/04/24 15:00 04/04/24 15:00 04/04/24 14:45 Room Air 04/04/24 14:30 Room Air 04/04/24 14:15 Room Air 04/04/24 14:05 Room Air 04/04/24 14:05 Room Air 04/04/24 14:05 Room Air 04/04/24 14:02 Room Air PG Care Time/CCT Total # of Minutes Spent Total Time Spent with Patient: Total time spent is greater than 50% in coordination of care (as documented) at patient's floor/unit and/or counseling patient: Coding Level of Care Code 47689 INT INP/OBS CARE 3MIN Diagnoses Syncope R55 CKD (chronic kidney disease) N18.9 Bilateral carotid artery disease I77.9 Hx: UTI (urinary tract infection) Z87.440
[2024-04-04] MEDS ORDERED: CARBOHYDRATES FOR HYPOGLYCEMIA PO PRN (16:55)
[2024-04-04] MEDS ORDERED: GLUCOSE 10 TAB/TUBE PO PRN (16:55)
[2024-04-04] MEDS ORDERED: GLUCOSE 40% GEL 15 GM TUBE PO PRN (16:55)
[2024-04-04] MEDS ORDERED: DEXTROSE 50% 50 ML SYRINGE IV PRN (16:55)
[2024-04-04] MEDS ORDERED: PHARMACY GLYCEMIC MGMT CONSULT PRN (16:55)
[2024-04-04] MEDS ORDERED: GLUCAGON FOR INJ 1 MG VIAL SQ PRN (16:55)
[2024-04-04] MEDS: NITROGLYCERIN 2% OINTMENT 30GM TUBE EXT ONE (17:50)
[2024-04-04] MEDS ORDERED: ACETAMINOPHEN 325 MG TAB PO PRN (18:07)
[2024-04-04] MEDS ORDERED: NITROGLYCERIN SL 0.4 MG/TAB TAB SL PRN (18:07)
[2024-04-04] MEDS: INSULIN ASPART PER UNIT CHARGE SC SCH (20:22)
[2024-04-04] MEDS: PANTOprazole 40 MG TAB PO SCH (20:46)
[2024-04-04] MEDS: TICAGRELOR 90 MG TAB PO SCH (20:46)
[2024-04-04] MEDS: hydrALAZINE 10 MG TAB PO ONE (23:16)
[2024-04-04] MEDS: ATORVASTATIN 40 MG TAB PO SCH (23:16)
[2024-04-05 07:20] LABS: Basophils # (auto) 0.04 K/uL (0.00-0.20); Basophils % (auto) 0.5 %; Eosinophils # (auto) 0.18 K/uL (0.00-0.50); Eosinophils % (auto) 2.1 %; Hemoglobin 8.6 g/dl (14.0-18.0); Immature Granulocytes # (auto) 0.03 K/uL (0.01-0.20); Immature Granulocytes % (auto) 0.3 %; Lymphocytes # (auto) 1.52 K/uL (1.20-3.40); Lymphocytes % (auto) 17.7 %; Mean Corpuscular Hgb Conc 33.1 g/dL (32.0-36.0); Mean Corpuscular Volume 90.6 fL (80.0-100.0); Monocytes # (auto) 0.79 K/uL (0.11-0.59); Monocytes % (auto) 9.2 %; Neutrophils # (auto) 6.05 K/uL (1.40-6.50); Neutrophils % (auto) 70.2 %; Platelet Count 189 K/uL (130-400); RDW Coefficient of Variation 14.8 % (11.5-14.5); RDW Standard Deviation 48.7 fL (36.4-46.3); Red Blood Count 2.87 M/uL (4.70-6.10); White Blood Count 8.61 K/ul (4.8-10.8)
--- NOTE | 2024-04-05 07:37 | Pharmacy Report ---
Pharmacy Glycemic Short Note 2 - Date of Service April 05, 2024 - Glycemic Short BSG Results (Last 24 hours): 04/04/24 04/04/24 04/04/24 13:40 14:21 20:31 Glucose 150 H POC Glucose 153 H POC Glucose (other) 143 H OUTPATIENT ANTIDIABETIC REGIMEN: * Ozempic 0.5mg SQ Weekly (last dose 03/31/24) * A1c 8.1% 12/20/23 ASSESSMENT: * 88yo M, PMH of CKD, hyperkalemia, CAD, hypertension, NSVT, CHF, T2DM, presents yesterday after an episode of syncope while getting his blood drawn at the hospital for evaluation of hyperkalemia. * Type 2 DM on Ozempic only at home, will hold Ozempic for admission and utilize SQ basal bolus insulin regimen which is the recommended regimen for inpatient glycemic control. * Will initiate weight based insulin dosing for insulin [place] patient and titrate based on BSG trends. PLAN FOR INPATIENT GLYCEMIC CONTROL: * Hold outpatient diabetes medication * Basal insulin * None at this time, Ozempic on board, may need if blood sugars trend up * Bolus insulin * NovoLog per scale ACHS or Q6hrs while NPO * Goal Range: Low 110 mg/dL - High 140 mg/dL * Correction Factor: 45 mg/dL/unit * Nutritional / Prandial insulin per carb ratio of 1 unit per 15 grams CHO consumed
[2024-04-05 07:54] LABS: BUN Creatinine Ratio 21.1 (10-20); Calcium 8.6 mg/dl (8.6-10.3); Creatinine Clr Calc Pharmacy 16.6 ml/min; Est GFR (African American) 17.8 ml/min; Est GFR (Non-African American) 15.4 ml/min; Potassium 5.3 mmol/L (3.5-5.1)
[2024-04-05] MEDS: METOPROLOL SUCC 25MG EXT REL TAB PO SCH (09:49)
[2024-04-05] MEDS: ASPIRIN 81 MG ECTAB PO SCH (09:49)
[2024-04-05] MEDS: allopurinoL 300 MG TAB PO SCH (09:49)
[2024-04-05] MEDS: CEROVITE ADV FORMULA TAB PO SCH (09:49)
[2024-04-05] MEDS: POLYETHYLENE (MIRALAX) 17 GM PACK PO SCH (09:49)
--- NOTE | 2024-04-05 14:38 | Hospitalist Progress Note ---
Date of Service April 05, 2024 Assessment & Plan (1) Syncope: Plan: Syncope Occurred during his blood draw. Patient was briefly called as a CODE BLUE, reportedly did have a low blood pressure and weak pulse and was quickly responsive after being laid back without CPR consistent with vasovagal syncope Patient report he was nauseous after taking a loading dose of Brilinta on the day of admission, had 1 episode of vomiting but currently does not have any nausea, vomiting and has had no diarrhea or constipation. No abdominal pain. Has felt dehydrated today due to his nausea, this was prior to walking multiple times outside in the heat prior to his blood draw High sensitive troponin 39.1 and a repeat was down to 34., patient with baseline troponin elevation around 3133 with impaired clearance with CKD. No ACS EKG: Right bundle branch block with repolarization abnormalities, appears similar to 12/20/2023 -Telemetry with sinus rhythm with first-degree AV block, otherwise no arrhythmias Suspect vasovagal syncope which she has a history of and also with orthostasis from volume depletion given low blood pressures during his code purple. Low suspicion for cardiogenic or neurogenic Giving 500 mL of normal saline today along with Lasix for hyperkalemia -Check orthostatics in the morning Continue to monitor on telemetry No indication for new echocardiogram as he has no murmur on examination and had a recent echocardiogram within the last year CAD Unstable angina in 2009, PCI with MARIO to proximal ramus at that time. Last DSE 12/2022 without evidence of ischemia at 94% max heart rate, EKG changes following stress secondary to baseline ST changes. No preceding angina previous 2 weeks Chronic minimal peripheral edema, generally well-controlled and thought to be due to venous insufficiency rather than acute CHF. Troponin with chronic minimal elevation with impaired renal function, initial troponin 39 and 2-hour repeat is downtrending at 34. EKG without acute ischemic changes,RBBB -Continue home Brilinta and aspirin, atorvastatin, low-dose metoprolol (2) CKD (chronic kidney disease): Plan: History of CKD here with acute kidney injury secondary to hypotension and mild ATN Making urine, creatinine up further today to 3.37 Patient potassium 5.3 prior to admission, recheck normalized but now back up to 5.3 -He does take Lasix every other day and did not take it since 2 days prior -Discussed with nephrology-give 500 mL of normal saline +20 mg p.o. Lasix to bring potassium down but to prevent dehydration Continue low-salt, low potassium diet Follow BMP in the morning (3) Bilateral carotid artery disease: Plan: Bilateral carotid artery stenosis MRA 02/2024: High-grade stenosis at the origin of the internal carotid arteries bilaterally, patent vertebral arteries Following with [facility] vascular surgery Dr. Royal. Recommended left carotid first, TCAR approach. Discussed with vascular surgery. Recommended to continue Brilinta 90 mg twice daily. 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 Patient's TCAR is being rescheduled, he will not have his procedure 04/05. -Reschedule procedure as an outpatient (4) Hx: UTI (urinary tract infection): Plan: UA contaminated appearing, chronically indwelling Jerome. No bacteria or nitrites -No fevers, no leukocytosis and patient understands that he does not need antibiotics Plan DVT prophylaxis: SCDs Disposition: Continued stay on medical telemetry, but hopeful for discharge tomorrow if potassium and creatinine improved CODE STATUS: Full code Admission and Anticipated Discharge Date Admission Date: April 04, 2024 Subjective Patient feels well, no lightheadedness with standing despite positive orthostatics. No chest pains or shortness of breath. He is disappointed to hear that he cannot go home today due to potassium and creatinine issues. I discussed his care with his primary front end alignment specialist, Dr. Murphy. Patient denies any urinary symptoms or fevers and was told not to be treated with antibiotics unless develops a fever or signs of infection otherwise Telemetry with sinus rhythm, first-degree AV block, IVCD, rates in the 60s to 70s, some PVCs Physical Exam Constitutional: WD/WN, vitals as above Respiratory: normal respiratory effort, lungs clear to auscultation Cardiovascular: RRR, no murmur, no edema Gastrointestinal (Abdomen): normal bowel sounds, soft, nontender, no hepatosplenomegaly Psychiatric: A+Ox3, euthymic affect Results & Data Results & Data Vital Signs (Past 12 Hours) Vital Signs Temp Pulse Pulse Resp BP Pulse Ox O2 Del Method 04/05/24 11:23 36.6 C 79 18 116/69 96 Room Air 04/05/24 08:00 68 04/05/24 07:56 36.6 C 73 20 182/79 H 94 Room Air 04/05/24 07:34 Room Air 04/05/24 03:15 36.5 C 72 18 154/73 H 95 Room Air Laboratory Results CBC, BMP, troponin reviewed PG Care Time/CCT Total # of Minutes Spent Total Time Spent with Patient: Total time spent is greater than 50% in coordination of care (as documented) at patient's floor/unit and/or counseling patient: Coding Level of Care Code 70820 SUB INP/OBS CARE 2/35MIN Diagnoses Syncope R55 CKD (chronic kidney disease) N18.9 Bilateral carotid artery disease I77.9 Hx: UTI (urinary tract infection) Z87.440
[2024-04-05] MEDS: FUROSEMIDE 20 MG TAB PO ONE (16:04)
[2024-04-05] MEDS: SODIUM CHLORIDE 0.9% 500 ML IV SCH (16:05)
[2024-04-05] MEDS: LANTUS PER UNIT CHARGE SC SCH (17:47)
--- NOTE | 2024-04-05 21:45 | Electrocardiogram Report ---
Test Reason : Blood Pressure : */* mmHG Vent. Rate : 73 BPM Atrial Rate : 73 BPM P-R Int : 292 ms QRS Dur : 162 ms QT Int : 428 ms P-R-T Axes : 57 94 -33 degrees QTcB Int : 471 ms Sinus rhythm with 1st degree A-V block Right bundle branch block T wave abnormality, consider inferolateral ischemia Abnormal ECG When compared with ECG of 20-Dec-2023 06:07, Premature atrial complexes are no longer Present Confirmed by Rickey Henson ([id number]) on 04/05/2024 9:44:30 PM Referred By: REFERRED SELF Confirmed By: Rickey Henson
[2024-04-06 07:32] LABS: Basophils # (auto) 0.04 K/uL (0.00-0.20); Basophils % (auto) 0.5 %; Eosinophils % (auto) 2.4 %; Hematocrit (blood only) 27.3 % (42.0-52.0); Immature Granulocytes # (auto) 0.03 K/uL (0.01-0.20); Immature Granulocytes % (auto) 0.4 %; Lymphocytes # (auto) 1.65 K/uL (1.20-3.40); Lymphocytes % (auto) 20.1 %; Mean Platelet Volume 11.6 fL (9.4-12.4); Monocytes # (auto) 0.62 K/uL (0.11-0.59); Monocytes % (auto) 7.6 %; Neutrophils # (auto) 5.65 K/uL (1.40-6.50); Platelet Count 189 K/uL (130-400); RDW Standard Deviation 49.9 fL (36.4-46.3); White Blood Count 8.19 K/ul (4.8-10.8)
[2024-04-06 07:51] LABS: BUN Creatinine Ratio 20.6 (10-20); Calcium 8.6 mg/dl (8.6-10.3); Creatinine Clr Calc Pharmacy 17.9 ml/min; Est GFR (African American) 17.1 ml/min; Est GFR (Non-African American) 14.8 ml/min; Potassium 4.9 mmol/L (3.5-5.1)
--- NOTE | 2024-04-06 08:40 | Pharmacy Report ---
Pharmacy Glycemic Short Note 2 - Date of Service April 06, 2024 - Glycemic Short BSG Results (Last 24 hours): 04/05/24 04/05/24 04/05/24 12:07 17:02 20:32 Glucose POC Glucose 241 H 92 123 H 04/06/24 04/06/24 07:11 08:19 Glucose 146 H POC Glucose 136 H OUTPATIENT ANTIDIABETIC REGIMEN: * Ozempic 0.5mg SQ Weekly (last dose 03/31/24) * A1c 8.1% 12/20/23 ASSESSMENT: 04/06/24: * Vik received 19 units of short acting insulin yesterday with BSGs mostly at goal. * Hyperglycemia with lunch yesterday. Breakfast Novolog coverage was administered about two hours prior to lunch BSG check, therefore not seeing full effect of insulin at that time. * Fasting BSG of 136 mg/dL this morning. Will continue to hold basal insulin. Will initiate if fasting BSG is 150 mg/dL or more. 04/05/24: * 88yo M, PMH of CKD, hyperkalemia, CAD, hypertension, NSVT, CHF, T2DM, presents yesterday after an episode of syncope while getting his blood drawn at the hospital for evaluation of hyperkalemia. * Type 2 DM on Ozempic only at home, will hold Ozempic for admission and utilize SQ basal bolus insulin regimen which is the recommended regimen for inpatient glycemic control. * Will initiate weight based insulin dosing for insulin [place] patient and titrate based on BSG trends. PLAN FOR INPATIENT GLYCEMIC CONTROL: * Hold outpatient diabetes medication * Basal insulin * None at this time, Ozempic on board, may need if blood sugars trend up * Bolus insulin * NovoLog per scale ACHS or Q6hrs while NPO * Goal Range: Low 110 mg/dL - High 140 mg/dL * Correction Factor: 35 mg/dL/unit * Nutritional / Prandial insulin per carb ratio of 1 unit per 7 grams CHO consumed
[2024-04-06] MEDS: SODIUM CHLORIDE 0.9% 500 ML IV SCH (10:09)
[2024-04-06 15:42] LABS: BUN Creatinine Ratio 20.3 (10-20); Calcium 8.6 mg/dl (8.6-10.3); Creatinine Clr Calc Pharmacy 17.8 ml/min; Est GFR (African American) 17.1 ml/min; Est GFR (Non-African American) 14.7 ml/min; Potassium 4.6 mmol/L (3.5-5.1)
--- NOTE | 2024-04-06 17:23 | Hospitalist Progress Note ---
Date of Service April 06, 2024 Assessment & Plan (1) Syncope: Plan: Occurred during his blood draw. Patient was briefly called as a CODE BLUE, reportedly did have a low blood pressure into the 70s systolic and weak pulse and was quickly responsive after being laid back without CPR consistent with vasovagal syncope Patient report he was nauseous after taking a loading dose of Brilinta on the day of admission, had 1 episode of vomiting but currently does not have any nausea, vomiting and has had no diarrhea or constipation. No abdominal pain. Has felt dehydrated today due to his nausea, this was prior to walking multiple times outside in the heat prior to his blood draw troponin 39.1 and a repeat was down to 34., patient with baseline troponin elevation around 3133 with impaired clearance with CKD. 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 He had poor p.o. intake and was sweating from being in the heat that day. Low suspicion for cardiogenic or neurogenic cause Received IV fluids and remains orthostatic but blood pressures dropped to the 120s systolic with standing with only minimal lightheadedness on 04/06, however he was able to ambulate around the halls twice Continue to check daily orthostatics Continue to monitor on telemetry No indication for new echocardiogram as he has no murmur on examination and had a recent echocardiogram within the last year (2) CKD (chronic kidney disease): Plan: History of CKD here with acute kidney injury secondary to hypotension and mild ATN Making urine, but creatinine up even further today to 3.5 and stable on repeat check in the afternoon after 500 mL further of normal saline Potassium 5.3 prior to admission, now normalized after IV fluids and one-time dose of p.o. Lasix Hopefully his renal function is stabilizing and will start to improve by tomorrow Continue to stay overnight and follow BMP in the morning (3) Bilateral carotid artery disease: Plan: Bilateral carotid artery stenosis-MRA 02/2024: High-grade stenosis at the origin of the internal carotid arteries bilaterally, patent vertebral arteries Following with [facility] vascular surgery Dr. Royal. Recommended left carotid first, TCAR approach. Admitting hospitalist discussed with vascular surgery. Recommended to continue Brilinta 90 mg twice daily. 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 Patient's TCAR is being rescheduled, he will not have his procedure 04/05. Reschedule procedure as an outpatient (4) Hx: UTI (urinary tract infection): Plan: UA contaminated appearing, chronically indwelling Jerome. No bacteria or nitrites. Urine culture growing the same Proteus that he typically grows and this is likely a colonizer given indwelling Jerome catheter No fevers, no leukocytosis and patient understands that he does not need antibiotics Plan CAD-with a history of unstable angina in 2009, PCI with MARIO to proximal ramus at that time. Last DSE 12/2022 without evidence of ischemia at 94% max heart rate, EKG changes following stress secondary to baseline ST changes He has chronic minimal peripheral edema, generally well-controlled and thought to be due to venous insufficiency rather than acute CHF. Troponin with chronic minimal elevation with impaired renal function, initial troponin 39 and 2-hour repeat is downtrending at 34. EKG without acute ischemic changes,RBBB Continue home Brilinta and aspirin, atorvastatin, low-dose metoprolol DVT prophylaxis: SCDs Disposition: Continued stay on medical telemetry, but hopeful for discharge tomorrow if renal function improves CODE STATUS: Full code Admission and Anticipated Discharge Date Admission Date: April 04, 2024 Subjective Patient felt a little lightheaded with his orthostatic vital signs today but otherwise feels well. He took 2 laps around the hallways today. He is struggling to move his bowels. He is eating and drinking, making urine. Telemetry with first-degree AV block, PVCs sinus rhythm, rates in the 60s to 70s Physical Exam Constitutional: WD/WN, vitals as above Respiratory: normal respiratory effort, lungs clear to auscultation Cardiovascular: RRR, no murmur, no edema Gastrointestinal (Abdomen): normal bowel sounds, soft, nontender, no hep atosplenomegaly Psychiatric: A+Ox3, euthymic affect Results & Data Results & Data Vital Signs (Past 12 Hours) Vital Signs Temp Pulse Pulse Resp BP Pulse Ox O2 Del Method 04/06/24 15:46 36.4 C L 75 18 185/93 H 98 Room Air 04/06/24 15:34 78 04/06/24 12:19 36.4 C L 74 18 167/84 H 95 Room Air 04/06/24 10:00 88 18 167/90 H 96 Room Air 04/06/24 08:24 36.4 C L 76 18 212/94 H 98 Room Air 04/06/24 08:00 Room Air 04/06/24 07:00 66 Laboratory Results CBC, BMP x 2 reviewed PG Care Time/CCT Total # of Minutes Spent Total Time Spent with Patient: Total time spent is greater than 50% in coordination of care (as documented) at patient's floor/unit and/or counseling patient: Coding Level of Care Code 11211 SUB INP/OBS CARE 2/35MIN Diagnoses Syncope R55 CKD (chronic kidney disease) N18.9 Bilateral carotid artery disease I77.9 Hx: UTI (urinary tract infection) Z87.440
[2024-04-06] MEDS: POLYETHYLENE (MIRALAX) 17 GM PACK PO SCH (18:30)
[2024-04-07 06:27] LABS: Basophils # (auto) 0.05 K/uL (0.00-0.20); Basophils % (auto) 0.5 %; Eosinophils # (auto) 0.31 K/uL (0.00-0.50); Eosinophils % (auto) 3.4 %; Hematocrit (blood only) 26.8 % (42.0-52.0); Hemoglobin 8.9 g/dl (14.0-18.0); Immature Granulocytes # (auto) 0.02 K/uL (0.01-0.20); Immature Granulocytes % (auto) 0.2 %; Lymphocytes # (auto) 1.67 K/uL (1.20-3.40); Lymphocytes % (auto) 18.1 %; Mean Corpuscular Hemoglobin 30.5 pg (25.0-34.0); Mean Corpuscular Hgb Conc 33.2 g/dL (32.0-36.0); Mean Corpuscular Volume 91.8 fL (80.0-100.0); Mean Platelet Volume 12.1 fL (9.4-12.4); Monocytes # (auto) 0.69 K/uL (0.11-0.59); Monocytes % (auto) 7.5 %; Neutrophils # (auto) 6.48 K/uL (1.40-6.50); Neutrophils % (auto) 70.3 %; Platelet Count 200 K/uL (130-400); RDW Coefficient of Variation 14.8 % (11.5-14.5); RDW Standard Deviation 49.1 fL (36.4-46.3); Red Blood Count 2.92 M/uL (4.70-6.10); White Blood Count 9.22 K/ul (4.8-10.8)
[2024-04-07 06:39] LABS: BUN Creatinine Ratio 21.2 (10-20); Calcium 8.7 mg/dl (8.6-10.3); Creatinine Clr Calc Pharmacy 17.5 ml/min; Est GFR (African American) 16.8 ml/min; Est GFR (Non-African American) 14.5 ml/min
[2024-04-07] MEDS: LANTUS PER UNIT CHARGE SC SCH (08:59)
[2024-04-07] MEDS ORDERED: STAT IV/IM STA (09:19)
[2024-04-07] MEDS: SODIUM ZIRCONIUM CYCLOSILICATE 10 GM PACKET PO SCH (10:07)
[2024-04-07] MEDS: SODIUM BICARBONATE 8.4% 150 MEQ in DEXTROSE 5% 1,000 ML IV SCH (10:07)
--- NOTE | 2024-04-07 14:13 | Hospitalist Progress Note ---
Date of Service April 07, 2024 Assessment & Plan (1) Syncope: Plan: Occurred during his blood draw. Patient was briefly called as a CODE BLUE, reportedly did have a low blood pressure into the 70s systolic and weak pulse and was quickly responsive after being laid back without CPR consistent with vasovagal syncope Patient report he was nauseous after taking a loading dose of Brilinta on the day of admission, had 1 episode of vomiting but currently does not have any nausea, vomiting and has had no diarrhea or constipation. No abdominal pain. Has felt dehydrated today due to his nausea, this was prior to walking multiple times outside in the heat prior to his blood draw troponin 39.1 and a repeat was down to 34., patient with baseline troponin elevation around 3133 with impaired clearance with CKD. 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 He had poor p.o. intake and was sweating from being in the heat that day. Low suspicion for cardiogenic or neurogenic cause Received IV fluids and remains orthostatic but blood pressures dropped to the 120s systolic with standing -now asymptomatic Continue to check daily orthostatics Continue to monitor on telemetry No indication for new echocardiogram as he has no murmur on examination and had a recent echocardiogram within the last year (2) CKD (chronic kidney disease): Plan: History of CKD here with acute kidney injury secondary to hypotension and mild ATN. With ongoing mild hyperkalemia and now developing worsening metabolic ac idosis Non-oliguric, but creatinine continues to be elevated baove baseline at 3.54 Hydrated with 500mL NS daily last 2 days--> today will give 500mL over 5 hours of naHCO3 isotonic IVFs to help with hyerkalemia and acidosis Start Lokelma daily Educated on low K+ diet Hopefully his renal function is stabilizing and will start to improve by tomorrow Continue to stay overnight and follow BMP in the morning (3) Bilateral carotid artery disease: Plan: Bilateral carotid artery stenosis-MRA 02/2024: High-grade stenosis at the origin of the internal carotid arteries bilaterally, patent vertebral arteries Following with [facility] vascular surgery Dr. Royal. Recommended left carotid first, TCAR approach. Admitting hospitalist discussed with vascular surgery. Recommended to continue Brilinta 90 mg twice daily. 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 Patient's TCAR is being rescheduled, he will not have his procedure 04/05. Reschedule procedure as an outpatient (4) Hx: UTI (urinary tract infection): Plan: UA contaminated appearing, chronically indwelling Jerome. No bacteria or nitrites. Urine culture growing the same Proteus that he typically grows and this is likely a colonizer given indwelling Jerome catheter No fevers, no leukocytosis and patient understands that he does not need antibiotics Plan CAD-with a history of unstable angina in 2009, PCI with MARIO to proximal ramus at that time. Last DSE 12/2022 without evidence of ischemia at 94% max heart rate, EKG changes following stress secondary to baseline ST changes He has chronic minimal peripheral edema, generally well-controlled and thought to be due to venous insufficiency rather than acute CHF. Holding home lasix Troponin with chronic minimal elevation with impaired renal function, initial troponin 39 and 2-hour repeat is downtrending at 34. EKG without acute ischemic changes,RBBB Continue home Brilinta and aspirin, atorvastatin, low-dose metoprolol DVT prophylaxis: SCDs Disposition: Continued stay on medical telemetry, but hopeful for discharge tomorrow if renal function improves. Discussed care with at bedside on 04/07 CODE STATUS: Full code Admission and Anticipated Discharge Date Admission Date: April 06, 2024 Subjective Pt feels well today, no complaints. No pain, no CP, no SOB, moved his bowels, is making plenty of urine. He ambulated several laps around the halls and denies lightheadedness. He is frustrated that his kidney function is not yet improving. Tele with 1st degree AVB, rates 70-80s Physical Exam Constitutional: WD/WN, vitals as above Respiratory: normal respiratory effort, lungs clear to auscultation Cardiovascular: Rate/Rhythm: regular rate and regular rhythm Extremities: + edema (trace edema legs bilat) Gastrointestinal (Abdomen): normal bowel sounds, soft, nontender, no hepatosplenomegaly Psychiatric: A+Ox3, euthymic affect Results & Data Results & Data Vital Signs (Past 12 Hours) Vital Signs Temp Pulse Pulse Resp BP Pulse Ox O2 Del Method 04/07/24 13:34 78 04/07/24 11:26 36.4 C L 84 16 149/50 H 94 Room Air 04/07/24 08:00 Room Air 04/07/24 07:41 36.6 C 70 16 181/78 H 95 Room Air 04/07/24 06:49 77 04/07/24 03:51 36.4 C L 78 20 146/75 H 95 Room Air Laboratory Results CBC, BMP reviewed PG Care Time/CCT Total # of Minutes Spent Total Time Spent with Patient: Total time spent is greater than 50% in coordination of care (as documented) at patient's floor/unit and/or counseling patient: Coding Level of Care Code 01035 SUB INP/OBS CARE 235MIN Diagnoses Syncope R55 CKD (chronic kidney disease) N18.9 Bilateral carotid artery disease I77.9 Hx: UTI (urinary tract infection) Z87.440
[2024-04-08 03:13] VITALS: O2SAT 94
[2024-04-08 07:37] LABS: BUN Creatinine Ratio 22.7 (10-20); Calcium 8.7 mg/dl (8.6-10.3); Creatinine Clr Calc Pharmacy 19.2 ml/min; Est GFR (African American) 18.6 ml/min; Potassium 4.6 mmol/L (3.5-5.1)
[2024-04-08 07:52] VITALS: BP 164/72; RESP 18; TEMP 98.1
[2024-04-08 11:02] VITALS: PULSE 86
--- NOTE | 2024-04-08 11:07 | Discharge Summary ---
Discharge Summary Date of Service April 08, 2024 Principal Dx & Hospital Course #1 = Principal Diagnosis (1) Syncope: Occurred during his blood draw. Patient was briefly called as a CODE BLUE, reportedly did have a low blood pressure into the 70s systolic and weak pulse and was quickly responsive after being laid back without CPR consistent with vasovagal syncope Patient report he was nauseous after taking a loading dose of Brilinta on the day of admission, had 1 episode of vomiting but currently does not have any nausea, vomiting and has had no diarrhea or constipation. No abdominal pain. Has felt dehydrated today due to his nausea, this was prior to walking multiple times outside in the heat prior to his blood draw troponin 39.1 and a repeat was down to 34., patient with baseline troponin elevation around 3133 with impaired clearance with CKD. 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 He had poor p.o. intake and was sweating from being in the heat that day. Low suspicion for cardiogenic or neurogenic cause Received IV fluids and orthostasis has now resolved, BPs normal to elevated, but do nt want to bring down his BP too much No indication for new echocardiogram as he has no murmur on examination and had a recent echocardiogram within the last year Advised to remain off lasix on a scheduled basis and only take for more significant leg swelling (2) CKD (chronic kidney disease): History of CKD here with acute kidney injury secondary to hypotension and mild ATN. 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 Royal. Recommended left carotid first, TCAR approach. Admitting hospitalist discussed with vascular surgery. Recommended to continue Brilinta 90 mg twice daily. 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 Patient's TCAR is being rescheduled, he will not have his procedure 04/05. Reschedule procedure as an outpatient (4) Hx: UTI (urinary tract infection): UA contaminated appearing, chronically indwelling Jerome. No bacteria or nitrites. Urine culture growing the same Proteus that he typically grows and this is likely a colonizer given indwelling Jerome catheter No fevers, no leukocytosis and patient understands that he does not need antibiotics Plan CAD-with a history of unstable angina in 2009, PCI with MARIO to proximal ramus at that time. Last DSE 12/2022 without evidence of ischemia at 94% max heart rate, EKG changes following stress secondary to baseline ST changes He has chronic minimal peripheral edema, generally well-controlled and thought to be due to venous insufficiency rather than acute CHF. Holding home lasix Troponin with chronic minimal elevation with impaired renal function, initial troponin 39 and 2-hour repeat is downtrending at 34. EKG without acute ischemic changes,RBBB Continue home Brilinta and aspirin, atorvastatin, low-dose metoprolol DVT prophylaxis: SCDs Disposition: dc to home CODE STATUS: Full code Notes For Next Care Provider Continue Lokelma x 7-10 days after discharge, hold lasix except prn leg swelling , and repeat BMP in 3 days with results to Nephrology and PCP as outpt Needs to reschedule TCAR w/ Vascular Surgery Medication Changes From Visit Added Lokelma Made lasix prn rather than scheduled every other day Admission HPI Per Admitting Provider Vik Gates is an 88yo M with a past medical history of CKD, hyperkalemia, CAD, hypertension, NSVT, CHF presents after an episode of syncope while getting his blood drawn. Patient was getting his blood drawn at the hospital for evaluation of hyperkalemia. Vik is seen at the bedside with his daughter present. He reports 'this all began getting ready for a TCAR with Dr. Royal.' Had a platelet test sent down to [facility] and started taking plaavix for bilateral carotid stenosis. Recieved a call this morning that the plaavix was not effective based on his plt study, so was to be switched to Brilinta. Was to take 180mg this morning of Brilinta, then continue 90mg BID moving forward. Pt is trying to determine what he actually took this morning, thinks he may have taken 90mg of brilinta + plaavix 75mg this morning but is checking pill counts to make sure. He was getting ready for surgery and had an outpatient blood draw with elevated potassium, so presented to the lab today for a redraw to check his levels. He reports he went to the wrong lab, and was walking a lot more than normal and was very tired and 'not quite right' from walking much more than he normally would. Faint, but denies chest pain or chest pressure. While getting his blood drawn felt presyncopal, and was called as a CODE PURPLE. Pt was a CODE BLUE while in the outpatient lab; however on review he did not recieve CPR, was awake, and had a low BP with a weak pulse throughout. After being layed back he felt improved and was able to speak and carry a conversation. No pulselessness was reported/documented. Pt reprots prior to drawing blood from walking around a lot felt lightheaded and dizziness. Had walked from the [facility] building to the [facility] for a STAT draw due to his potassium. Mcalister lightheaded prior to his blood draw, but when his blood was being drawn felt much more lightheaded, dizzy, and with tunnel vision. He remembers looking at the blood draw, and then remembers everyone being around him all of a sudden. No chest pain or chest pressure at any point. No dyspnea or diaphoresis at any point. Had a few 'fainting spells' in the past which led to his carotid evaluation per pt. 1x in the shower, and 1x on the toilet. Medical History: Reviewed Medications: Reviewed Surgical History: Reviewed Family history: Reviewed Allergies: Reviewed Social History: No tobacco use, no ETOH use in the last year. Code Status: Full Discharge Exam Constitutional WD/WN, vitals as above Respiratory normal respiratory effort, lungs clear to auscultation Cardiovascular RRR, no murmur, no edema Rate/Rhythm: regular rate and regular rhythm Extremities: + edema (trace edema legs bilat) Gastrointestinal (Abdomen) normal bowel sounds, soft, nontender, no hepatosplenomegaly Psychiatric A+Ox3, euthymic affect Discharge Plan Discharge Items Patient Disposition: Home - Self-Care Reason For Visit: SYNCOPE, JOYCELYN Discharge Diagnosis: Syncope Orthostatic hypotension Acute kidney injury Hyperkalemia Condition on Discharge: Good Activity: As commented below Lifting: Gradually increase as tolerated Bathing: No limitations Exercise/Sports: Gradually increase as tolerated Weightbearing: Full weightbearing Non-emergency contact: Primary Care Provider and Metalizing Machine Operator Call non-emergency contact if: you have any medication questions and your symptoms worsen Follow-up/Referrals: Vik Murphy MD [Physician] - (Follow up in 1-2 weeks as previously scheduled) Umberto Bassett DO [Primary Care Provider] - (Follow up within 1-2 weeks as already scheduled) Diet: Low Potassium (2gm) Ambulatory Orders: Basic Metabolic Panel (Routine) Timeframe: 3 Days Location: Determined by Patient Ordered By: Nydia Coates Attending Provider Instructions: You were admitted after passing out from low blood pressure and dehydration. This caused your kidney function to temporarily worsen, but this is improving. Because of your kidney disease, your potassium has been high and this is improved now with taking Lokelma and eating a low potassium diet. Please continue this on discharge. You should HOLD off on taking your lasix unless you start having more significant leg swelling. Please get blood work in 3-4 days to recheck your kidney function and Dr. Murphy can review these results with you. Pending Studies at Discharge: No Stand-Alone Forms: My [facility] [address] Medications and DC Order Prescriptions: New Lokelma 10 gram Powder In Packet 10 g PO DAILY@1100 Qty: 11 0RF Continued allopurinol 300 mg tablet 300 mg PO QAM Qty: 90 3RF Ozempic 0.25 mg or 0.5 mg (2 mg/3 mL) pen injector 0.5 mg subcut WK Rx Instructions: SATURDAYS omeprazole 20 mg Capsule,Delayed Release(Dr/Ec) 20 mg PO HS Centrum Silver 0.4-300-250 mg-mcg-mcg Tablet 1 tab PO QAM nitroglycerin [Nitrostat] 0.4 mg tablet, sublingual 0.4 mg sublingual Q5M PRN (Reason: Chest Pain) Patient Comments: DISSOLVE ONE TABLET UNDER THE TONGUE EVERY 5 MINUTES FOR UP TO 3 DOSES NEEDED FOR CHEST PAIN. aspirin 81 mg Tablet,Delayed Release (Dr/Ec) 81 mg PO QAM Hold Instructions: Resume on 11/07/23. Resume Tuesday if no more blood per rectum. polyethylene glycol 3350 [Miralax] 17 gram powder in packet 17 g PO QAM metoprolol succinate 25 mg tablet extended release 24 hr 25 mg PO QAM atorvastatin 40 mg tablet 40 mg PO HS Brilinta 90 mg Tablet 90 mg PO BID Rx Instructions: PER PT "TOOK 180 MG TODAY, 04/04/24, LOADING DOSE". THEN WILL CONTINUE AT 90 MG BID. Changed furosemide 20 mg tablet 20 mg PO DAILY PRN (Reason: leg swelling) Qty: 30 1RF Discontinued clopidogrel 75 mg tablet 75 mg PO QAM Rx Instructions: TO BE DISCONTINUES OF NOW 04/04/24. Discharge Orders: Discharge Order (Routine); Ordered 04/08/24 Ordered By: Nydia Anaya Admission Data Admit Date/Time: 04/06/24 17:22 Attending Provider: Nydia Anaya Admit Provider: Odilon Live Primary Care Provider: Umberto Bassett Other Providers: Odilon Live Other Interventions: Discharge Summary Assessment (RN) Last Done: 04/08/24 11:01 Hospital Stay Data Consultations 04/04/24 15:22 ED Decision to Admit Stat Diagnostic Imagining Performed 04/04/24 14:21 CT head/brain wo con Stat Pending Results Patient Have Any Pending Studies at Discharge: No Discharge Instructions Given to Patient (Per Discharging Provider) You were admitted after passing out from low blood pressure and dehydration. This caused your kidney function to temporarily worsen, but this is improving. Because of your kidney disease, your potassium has been high and this is improved now with taking Lokelma and eating a low potassium diet. Please continue this on discharge. You should HOLD off on taking your lasix unless you start having more significant leg swelling. Please get blood work in 3-4 days to recheck your kidney function and Dr. Murphy can review these results with you. Total Time Total Time Spent Total Time Spent (In Minutes): 45 min Coding Level of Care Code 88235 INP/OBS DISCH >30 MIN Diagnoses Syncope R55 CKD (chronic kidney disease) N18.9 Bilateral carotid artery disease I77.9 Hx: UTI (urinary tract infection) Z87.440
== END 2024-04-08 12:15 | disposition home or self-care (01) | DRG 640 ==
LOC: ED 13:40 → SUATTDRO 16:54 → INTOOBSV 16:54 → EDINP 16:54 → 2W 22:04

== ENCOUNTER 2024-06-05 06:07 | Inpatient (IN) ==
--- NOTE | 2024-04-02 10:24 | Communication Note ---
Date of Service: April 02, 2024 - Discussed that patient took Ozempic 03/31, he advised patient is acceptable to proceed-to anesthesiologist am DOS determination on if rapid induction or stomach ultrasound will be needed.
--- NOTE | 2024-04-02 10:58 | Anesthesiology Consultation ---
Date of Service April 02, 2024 Assessment & Plan (1) Encounter for pre-operative examination: Plan - patient acceptable to proceed pending repeat BMP DOS, will add signed cardiology office note if completed prior to surgery. - Discussed that patient took Ozempic 03/[address] Vogel, he advised patient is acceptable to proceed-to anesthesiologist am DOS determination on if rapid induction or stomach ultrasound will be needed. - check BSG and BMP STAT am DOS. - elevated creatinine and mild hyperkalemia discussed with Dr. Vogel who advised patient can proceed, to repeat BMP DOS. - Per associate pathologist on 04/02/24: No known infectious disease contacts, current infectious disease symptoms in past 10 days or COVID positive test result in the past 30 days. Chart Review Chart Review: Pending: Refer to Additional Notes / Consult section and Patient NOT seen in Pre Admission Testing History Surgery Operation Date: 04/05/24 13:05 Proposed Procedures p Left Transcarotid Artery Revascularization - Pasquale Royal MD Height/Weight Height: 5 ft 11.5 in Weight: 98.883 kg Allergies Allergy/AdvReac Type Severity Reaction Status Date / Time codeine Allergy Intermediate FACIAL Verified 04/02/24 10:15 SWELLING, NAUSEA Medications Home Medications Medication Instructions Recorded Confirmed Last Taken [id number] acid 0.4 1 tab PO QAM 09/16/18 04/02/24 12/19/23 mg-lycopene 300 mcg-lutein 250 mcg tablet (Centrum Silver) omeprazole 20 mg capsule,delayed 20 mg PO HS 09/16/18 04/02/24 12/18/23 release nitroglycerin 0.4 mg sublingual 0.4 mg sublingual Q5M PRN Chest 03/14/19 04/02/24 Unknown tablet (Nitrostat) Pain aspirin 81 mg tablet,delayed 81 mg PO QAM 05/30/23 04/02/24 12/19/23 release allopurinol 300 mg tablet 300 mg PO QAM #90 tabs 08/04/23 04/02/24 12/19/23 semaglutide 0.25 mg or 0.5 mg (2 0.5 mg subcut WK 09/22/23 04/02/24 03/31/24 mg/3 mL) subcutaneous pen injector (Ozempic) atorvastatin 40 mg tablet 40 mg PO HS 03/04/02/24 12/18/23 furosemide 20 mg tablet 20 mg PO Q OTHER DAY edema #30 tabs 01/05/24 04/02/24 Unknown metoprolol succinate 25 mg 25 mg PO QAM 04/02/24 04/02/24 Unknown tablet,extended release 24 hr polyethylene glycol 3350 17 gram 17 g PO QAM 04/02/24 04/02/24 Unknown oral powder packet (Miralax) Past Medical History Medical History Arthritis Bilateral carotid artery disease BPH (benign prostatic hyperplasia) currently with Sev[place] in place Bradycardia hx of 1st degree AVB. pt had episode of HR in 30s in ambulance after vasovagal event for which he was given atropine; per cardio, rusty episode likely 2/2 vagal stimulation CKD (chronic kidney disease) stage 4, follows with Dr. Murphy Dyslipidemia Sevilla catheter in place has changed every 3 weeks at [facility], recently noticed slight amount of blood in urine, will have changed prior to surgery GERD (gastroesophageal reflux disease) Hearing deficit bilateral aids History of GI bleed (10/2023) History of Holter monitoring due to recent syncopal episode on 04/24/23, admitted to [facility] History of pneumonia (2021) Hx of chest pain Hx of constipation Hx of gout Hx of hypotension Hx of pleural effusion Hx: UTI (urinary tract infection) has indwelling sevilla cath, changed every 3 weeks Hyperlipidemia Hypertension Leukocytosis MGUS (monoclonal gammopathy of unknown significance) Obesity Peripheral edema Peyronie's disease Polyneuropathy Syncope and collapse hx-admitted to [facility] following syncopal episode (04/24/23 - 04/27/23); dx likely vasovagal 2/2 volume depletion and BB. metoprolol was D/C Type 2 diabetes mellitus Venous insufficiency of both lower extremities Past Family History Family History Uncle Family hx of colon cancer Past Surgical History Surgical History History of cardiac cath (2009) S/P [facility] (2009), [facility], x1 stent; [place] [facility] [place] of [place]oscopy History of endoscopic sinus surgery History of open reduction and internal fixation (ORIF) procedure right tibial plateau - lateral fracture History of tonsillectomy Hx of bilateral cataract extraction Hx of cystoscopy Hx of eye surgery laser surgery to remove "film" from eye following cataract sx. Hx of heart artery stent (2009) S/P [facility] (2009), [facility], x1 stent; f/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) Social History Smoking Status: Former smoker Do You Dip or Chew Tobacco: No Smoking End Date: quit in 1966 Hx Alcohol Use: No Alcohol type: wine alcohol intake frequency: holidays/special occasions only Hx Substance Use: No substance use type: does not use Lab Results Anesthesia Preop Results Results Anesthesia Widget: WBC 10.13 K/ul (4.8-10.8) 03/28/24 Hgb 10.4 g/dl (14.0-18.0) L 03/28/24 Hct 31.9 % (42.0-52.0) L 03/28/24 Plt 232 K/uL (130-400) 03/28/24 Na 137 mmol/L (136-145) 03/28/24 K 5.3 mmol/L (3.5-5.1) H 03/28/24 Cl 105 mmol/L (98-107) 03/28/24 CO2 24 mmol/L (21-32) 03/28/24 BUN 80 mg/dl (6-23) H 03/28/24 Creat 3.19 mg/dl (0.6-1.4) H 03/28/24 Glucose Level 155 mg/dl (70-99(Fasting)) H 03/28/24 PT 10.3 Seconds (9.0-12.0) 03/28/24 PTT 26 Seconds (21-31) 03/28/24 INR 0.9 (0.9-1.1) 03/28/24 Blood Type A Positive 03/28/24 Antibody Screen NEGATIVE 03/28/24 Testing Electrocardiogram Date: 12/20/23 Sinus rhythm with 1st degree AV block with blocked PACs, rate 62 bpm RBBB T wave abnormality, consider inferolateral ischemia PACs are now present vs 12/19/23 EKG Chest X-Ray Date: 10/31/23 *1view* Cardiomegaly with no active disease in the chest. Echocardiogram Date: 04/26/23 EF 60-65% Normal LV wall motion Moderate cLVH Grade I diastolic dysfunction Mildly dilated RV No obvious valvular disease Stress Test Date: 12/20/22 Negative for ischemia MPHR 94% Other Testing Neck MRA 02/17/24 1. High-grade stenosis at the origin of the internal carotid arteries which is likely secondary to atherosclerosis. 2. Patent vertebral arteries. Abdomen pelvis CT 10/31/23 Sevilla catheter terminates in the urinary bladder, with wall thickening of the urinary bladder, concerning for UTI. Urinalysis recommended. Grade 1 anterolisthesis of L5 on S1 measures 9 mm. Cardiac event monitor 05/29/23 Sinus rhythm with rates 61-174 bpm, average 85 bpm Baseline first degree AV block. CO interval approximately 280 milliseconds. Baseline intraventricular conduction delay Occasional premature supraventricular ectopic beats, accounted for 3% of all beats. Rare supraventricular ectopic couplets Several episodes of non sustained supraventricular tachycardia of 3-8 beat duration. Fastest rate 174 bpm Rare premature ventricular ectopic beats. These accounted for 1% of all beats. Carotid doppler 05/19/23 > 70% stenosis right ICA > 50% left CCA/ICA bulb < 50% stenosis left ICA Chest CTA 04/24/23 1. Accounting for limitations with mild respiratory artifact, there is no evidence for pulmonary embolism. 2. Prominent cardiomegaly. No pericardial effusion. 3. Dependent basilar subsegmental presumed atelectasis involving both lungs. No lobar consolidation. No pleural effusion or pneumothorax.
[~2024-06-05 06:07] MED LIST changes: -ACETAMINOPHEN 500 MG TAB PO SCH; -BUPIVACAINE 0.5 % 5 MG/1 ML PF 10ML VIAL ONE; -BUPIVACAINE LIPOSOME/PF 266 MG, BUPIVACAINE/EPINEPHRINE 50 ML, SODIUM CHLORIDE 0.9% 30 ... INFIL SCH; +CEFAZOLIN 2,000 MG/15 ML SYR IV SCH; -CEFAZOLIN 2000MG 2,000 MG/15 ML SYR IV SCH; -FAMOTIDINE 20 MG TAB PO SCH; -GABAPENTIN 300 MG PO SCH; +LACTATED RINGER'S 1,000 ML BAG IV SCH; -LR 500ML BOLUS, THEN 15ML/HR IV SCH; -LR 60ML/HR IV SCH; -METOCLOPRAMIDE HCL 10 MG TABLET PO SCH; -ROPIVACAINE 0.5% 5 MG/ML 30 ML VIAL ONE; -TRANEXAMIC ACID 1,000 MG **IV Intra-op IV SCH
--- OUTSIDE RECORDS SUMMARY | 2024-06-05 06:53 | External Medical Summary | Continuity of Care Document ---
Author Name Unknown Organization [facility] [address] Address [address] [place], [place] [id number] Care Team Providers Care Precipitator Operator Name Role Phone Umberto Bassett Leonila Primary Care Physician [phone] Encounter [facility] [id number] Date(s): 05/16/24 - 05/16/24 [facility] [address], [address] [place] [address] [phone] Encounter Diagnosis Bilateral carotid artery stenosis(Discharge Diagnosis) - 05/16/24 Discharge Disposition: Home or Self Care Attending Physician: MD Royal Eugene J Allergies, Adverse Reactions, Alerts Substance Criticality Severity Reaction Reaction Severity Status codeine Swelling Active Assessment and Plan Extracted from: Title:Clinical Document Author:MD Daryl, Jazmyne bernal Date:05/16/24 VASCULAR SURGERY OUTPATIENT NOTE Name: NAVYA BROWNING Patient Number: [id number] : 1935 Date of Service: 05/16/2024 Chief Complaint: Carotid artery stenosis HPI: Mr. Browning is a pleasant 88 year old male with a PMH of HTH, CKD III, CAD, GERD. He was found to have bilateral carotid artery stenosis of >70% on the right and >80% on the left. He has been asymptomatic and denies amaurosis fugax, word finding problems, unilateral sensory or motor deficits, or other sighs or symptoms of TIA or Stroke. He is on Aspirin and Brilinta and has taken this daily. He is right hand dominate We had previously discussed performing a TCAR on the left for his high grade stenosis. Patient was agreeable to this. The procedure was delayed for hyperkalemia and hypotension. Patient has since followed with his volunteer services director for his CKD and his PCP for his blood pressure. These have been improved since his last visit. Current Home Meds: (Last Updated 05/16 11:16) acetaminophen (Tylenol Arthritis Caplet) prn PO allopurinol (allopurinol 300 mg oral tablet) 300 mg PO Daily aspirin (aspirin 81 mg oral tablet) 81 mg PO Daily atorvastatin (atorvastatin 40 mg oral tablet) 40 mg PO Daily furosemide (furosemide 20 mg oral tablet) 20 mg PO q48h prn as needed for swelling metoprolol (metoprolol succinate 25 mg oral tablet, extended release) 25 mg PO Daily multivitamin 1 tab PO Daily omeprazole (omeprazole 20 mg oral delayed release capsule) 1 cap PO Daily polyethylene glycol 3350 (MiraLax oral powder for reconstitution) 17 g PO Daily semaglutide (Ozempic (0.25 mg or 0.5 mg dose) 2 mg/3 mL subQ pen) 0.5 mg subQ q7days tetanus/diphth/pertuss (Tdap) adult/adol (tetanus/diphth/pertuss (Tdap) adult/adol 5 units-2.5 units-18.5 mcg/0.5 mL intramuscular suspension) 0.5 mL IM ONCE ticagrelor (Brilinta (ticagrelor) 90 mg oral tablet) 90 mg PO bid Allergies and Sensitivities: codeine(Swelling) Past Medical History: Problems: Bilateral carotid artery stenosis SCC (squamous cell carcinoma) Urinary tract infection in male Prediabetes History of left knee replacement Basal cell carcinoma Weight disorder Colonic polyp Keratosis Polyneuropathy Arthritis High cholesterol HTN (hypertension) CAD GERD ROSACEA Acid reflux HYPERTENSION Actinic keratosis Knee pain Colon polyps Peyronie disease Gout Stent Obesity Osteoarthritis BPH NIDDM OBJECTIVE Vitals: Last Updated 05/16/24 11:12 Date Temp BP Location Pulse RR SpO2 Pain 05/16/24 0 05/16/24 154/90 85 98 04/17/24 124/78 74 18 95 Vital Signs are the last 3 documented. No Orthostatic Data Available Height and Weight: Last Updated 11/11/23 09:21 Date BMI Wt(kg) Wt(lb) Method Ht(cm) (ft-in) Method 11/11/23 31.61 103 227 Standing Scale 180.5 5-11 Standing 08/10/23 31.09 101.3 223 Standing Scale 180.5 5-11 Standing 06/17/23 88.85 104.6 230 Standing Scale 108.5 3-6 Standing Heights and Weights are the last 3 documented. Physical Exam General: no acute distress, resting comfortably in bed HEENT:normocephalic,atraumatic Cardiovascular: regular rate Pulmonary: breathing comfortably on room air, equal chest rise bilaterally Abdomen: soft, nondistended Extremity:WWP, no deficit Neuro: CNII-CNXII intact, no focal deficits appreciated Skin: warm and well perfused, no rashes or jaundice appreciated 30 Day Labs: 04/25/24 1018 Enhanced Lab PDF Enhanced Lab PDF WBC UA-Quest 6-10 RBC UA-Quest NONE SEEN Squam Epi UA-Quest NONE SEEN Bacteria UA-Quest MANY Trip Phos Cryst UA-Quest MODERATE Amorph Sed UA-Quest MODERATE Hyaline Cast UA-Quest NONE SEEN 04/25/24 1016 Triglycerides-QST 268 H Chol/HDLC Ratio-QST 2.9 HDL Chol-QST 39 L LDL Chol-QST 44 Cholesterol-QST 115 Non HDL Chol-QST 76 eGFR-QST 20 L Glucose-Qst 168 H Na-Quest 133 L Cl-Quest 101 Creatinine-Quest 2.88 H BUN/Creat Ratio-Quest 26 H Ca-Quest 9.1 BUN-Quest 76 H K-Quest 5.2 CO2-Quest 21 TSH (QST) 8.22 H Vit D25 OH, IA-Quest 43 Enhanced Lab PDF Enhanced Lab PDF Imaging: Review of the patients MRA showed significant high grade stenosis of both the patients internal carotid arteries ASSESSMENT: _ PLAN: _ 1 ) Bilateral carotid artery stenosis, asymptomatic Mr. Browning is a pleasant 88 year old right hand dominate male with high grade stenosis of the bilateral carotid arteries. His stenosis is severe and meets criteria for intervention to prevent stroke. We discussed intervention including CEA and TCAR in detail. We went over the procedure, risks, and benefits of both procedures. Patient elected to go ahead with a TCAR approach. He is aware that this procedure requires contrast, and we will attempt to limit contrast use to less than 12cc. Patient is agreeable to go ahead with the procedure. He was given the opportunity to ask questions and they were answered in detail to his satisfaction. He will continue taking aspirin and brillinta daily. We will go ahead and schedule the procedure for a mutually acceptable time. I saw and evaluated the patient. Discussed with the resident and agree with the resident's findings and plan as documented in the resident's note. I have personally spent___15__ minutes performing tuwt-bb-ezrd and wsu-jcsu-ow-face activities on this date of service. Activities Include: _x_ review of the medical record _x_ obtaining a history _x_ physical exam/evaluation __ review labs __ review radiology reports _x_ counseling/educating patient/family/caregiver __ discussion/referral to other healthcare professional _x_ documenting care in the medical record __ independent interpretation of results __ communication of results to patient/family/caregiver __ coordination of care Immunizations Given and Recorded Vaccine Date Status Refusal Reason RSV vaccine preF3, recombinant 06/23/23 Recorded SARS-CoV-2 (COVID-19) mRNA-vacc - [id number] 06/20/23 Recorded SARS-CoV-2 mRNA (Pfizer 12+) bivalent 06/17/22 Rec orded influenza virus vaccine, inactivated 05/17/22 Denilson rded influenza virus vaccine, inactivated 05/08/20 Denilson rded influenza virus vaccine, inactivated 07/30/19 Give n influenza virus vaccine, inactivated 05/26/18 Give n influenza virus vaccine, inactivated 07/13/17 Give n influenza virus vaccine, inactivated 04/16/16 Give n influenza virus vaccine, inactivated 05/06/14 Give n influenza virus vaccine, inactivated 06/02/12 Give n SARS-CoV-2 mRNA (eassjywwttm-puch-pac) 11/18/21 Re corded SARS-CoV-2 (COVID-19) mRNA BNT-162b2 vax 04/29/21 Recorded SARS-CoV-2 (COVID-19) mRNA BNT-162b2 vax 10/09/20 Recorded SARS-CoV-2 (COVID-19) mRNA BNT-162b2 vax 09/18/20 Recorded zoster vaccine, inactivated 06/07/19 Given zoster vaccine, inactivated 04/05/19 Given pneumococcal 13-valent vaccine 04/16/16 Given zoster vaccine live 08/13/11 Given pneumococcal 23-valent vaccine 10/26/05 Recorded tetanus/diphtheria/pertuss, acel (Tdap) 10/26/05 R ecorded 1Result Comment: lucina Fontaine allopurinol 300 mg oral tablet Start: 08/10/22 1:55:00 PM EST, 1 tab, PO, Daily, Disp# 30 tab, Refills: 11, Pharmacy: [id number] Start Date: 08/10/22 Status: Ordered aspirin 81 mg oral tablet Start: 10/30/12 9:52:00 AM EDT, 1 tab, PO, Daily Start Date: 10/30/12 Status: Ordered atorvastatin 40 mg oral tablet Start: 07/14/16 2:13:00 PM EST, 1 tab, PO, Daily Start Date: 07/14/16 Status: Ordered Brilinta (ticagrelor) 90 mg oral tablet Start: 05/03/24 9:50:00 AM EDT, 1 tab, PO, bid, Disp# 180 tab, Refills: 0, Pharmacy: [facility]/pharmacy #[id number] Start Date: 05/03/24 Status: Ordered furosemide 20 mg oral tablet Start: 01/16/24 1:51:00 PM EDT, 1 tab, PO, q48h, prn as needed for swelling Start Date: 01/16/24 Status: Ordered metoprolol succinate 25 mg oral tablet, extended release Start: 07/11/23 2:41:00 PM EST, 1 tab, PO, Daily Start Date: 07/11/23 Status: Ordered MiraLax oral powder for reconstitution Start: 01/16/24 1:51:00 PM EDT, 17 g =, PO, Daily Start Date: 01/16/24 Status: Ordered multivitamin Start: 07/11/23 2:41:00 PM EST, 1 tab, PO, Daily Start Date: 07/11/23 Status: Ordered omeprazole 20 mg oral delayed release capsule Start: 08/09/23 4:12:00 PM EST, 1 cap, PO, Daily, Disp# 90 cap, Refills: 3, Pharmacy: [id number] Start Date: 08/09/23 Status: Ordered Ozempic (0.25 mg or 0.5 mg dose) 2 mg/3 mL subQ pen Start: 03/26/24 11:35:00 AM EDT, 0.5 mg, subQ, q7days, Disp# 3 mL, Refills: 3, Pharmacy: [id number] Start Date: 03/26/24 Stop Date: 04/25/24 Status: Ordered tetanus/diphth/pertuss (Tdap) adult/adol 5 units-2.5 units-18.5 mcg/0.5 mL intramuscular suspension Start: 04/17/24 3:26:00 PM EDT, 0.5 mL, IM, ONCE, Disp# 0.5 mL, Pharmacy: [id number] Start Date: 04/17/24 Status: Ordered Tylenol Arthritis Caplet Start: 02/26/13 9:06:00 AM EDT, See Instructions, prn PO Start Date: 02/26/13 Status: Ordered Mental Status 05/16/24 Barriers to Learning one year None evide nt Mandatory Health Literacy Documentation Yes Health Literacy Communication Barriers N ever Primary Language [place] Problem List Condition Confirmation Course Effective Dates [...] Dates Health Status Cl inical Service Informant Bilateral carotid artery stenosis Discharge Diagnosis 05/16/24 Procedures Procedure Date Related Diagnosis Body Site [...] adenomas removed; hyperplastic polyp removed 13right knee Vital Signs Most recent to oldest [Reference Range]: 1 Heart Rate 85 bpm (05/16/24 11:09 AM) Blood Pressure 154/90mmHg (05/16/24 11:09 AM) Social History Social History Type Response Tobacco 1 Smoking Status Never smoked cigaret lj Sex Male Sex Representation Male (finding) 1started smoking in 1948 and quit in 1967 Vascular surgery Outpatient Note * MD Genny, Pasquale J: MODIFY MD Genny, Pasquale Keen: MODIFY Event Display: Vascular Surgery Outpt Note Authored Date: VASCULAR SURGERY OUTPATIENT NOTE Name: NAVYA BROWNING Patient Number: [id number] : 1935 Date of Service: 05/16/2024 Chief Complaint: Carotid artery stenosis HPI: Mr. Browning is a pleasant 88 year old male with a PMH of HTH, CKD III, CAD, GERD. He was found to have bilateral carotid artery stenosis of >70% on the right and >80% on the left. He has been asymptomatic and denies amaurosis fugax, word finding problems, unilateral sensory or motor deficits, or other sighs or symptoms of TIA or Stroke. He is on Aspirin and Brilinta and has taken this daily.He is right hand dominate We had previously discussed performing a TCAR on the left for his high grade stenosis. Patient was agreeable to this. The procedure was delayed for hyperkalemia and hypotension. Patient has since followed with his volunteer services director for his CKD and his PCP for his blood pressure. These have been improvedsince his last visit. Current Home Meds: (Last Updated 05/16 11:16) acetaminophen (Tylenol Arthritis Caplet) prn PO allopurinol (allopurinol 300 mg oral tablet) 300 mg PO Daily aspirin (aspirin 81 mg oral tablet) 81 mg PO Daily atorvastatin (atorvastatin 40 mg oral tablet) 40 mg PO Daily furosemide (furosemide 20 mg oral tablet) 20 mg PO q48h prn as needed for swelling metoprolol (metoprolol succinate 25 mg oral tablet, extended release) 25 mg PO Daily multivitamin 1 tab PO Daily omeprazole (omeprazole 20 mg oral delayed release capsule) 1 cap PO Daily polyethylene glycol 3350 (MiraLax oral powder for reconstitution) 17 g PO Daily semaglutide (Ozempic (0.25 mg or 0.5 mg dose) 2 mg/3 mL subQ pen) 0.5 mg subQ q7days tetanus/diphth/pertuss (Tdap) adult/adol (tetanus/diphth/pertuss (Tdap) adult/adol 5 units-2.5 units-18.5 mcg/0.5 mL intramuscular suspension) 0.5 mL IM ONCE ticagrelor (Brilinta (ticagrelor) 90 mg oral tablet) 90 mg PO bid Allergies and Sensitivities: codeine(Swelling) Past Medical History: Problems: Bilateral carotid artery stenosis SCC (squamous cell carcinoma) Urinary tract infection in male Prediabetes History of left knee replacement Basal cell carcinoma Weight disorder Colonic polyp Keratosis Polyneuropathy Arthritis High cholesterol HTN (hypertension) CAD GERD ROSACEA Acid reflux HYPERTENSION Actinic keratosis Knee pain Colon polyps Peyronie disease Gout Stent Obesity Osteoarthritis BPH NIDDM OBJECTIVE Vitals: Last Updated 05/16/24 11:12 Date Temp BP Location Pulse RR SpO2 Pain 05/16/24 0 05/16/24 154/90 85 98 04/17/24 124/78 74 18 95 Vital Signs are the last 3 documented. No Orthostatic Data Available Height and Weight: Last Updated 11/11/23 09:21 Date BMI Wt(kg) Wt(lb) Method Ht(cm) (ft-in) Method 11/11/23 31.61 103 227 Standing Scale 180.5 5-11 Standing 08/10/23 31.09 101.3 223 Standing Scale 180.5 5-11 Standing 06/17/23 88.85 104.6 230 Standing Scale 108.5 3-6 Standing Heights and Weights are the last 3 documented. Physical Exam General: no acute distress, resting comfortably in bed HEENT:normocephalic,atraumatic Cardiovascular: regular rate Pulmonary: breathing comfortably on room air, equal chest rise bilaterally Abdomen: soft, nondistended Extremity:WWP, no deficit Neuro: CNII-CNXII intact, no focal deficits appreciated Skin: warm and well perfused, no rashes or jaundice appreciated 30 Day Labs: 04/25/24 1018 Enhanced Lab PDF Enhanced Lab PDF WBC UA-Quest 6-10 RBC UA-Quest NONE SEEN Squam Epi UA-Quest NONE SEEN Bacteria UA-Quest MANY Trip Phos Cryst UA-Quest MODERATE Amorph Sed UA-Quest MODERATE Hyaline Cast UA-Quest NONE SEEN 04/25/24 1016 Triglycerides-QST 268 H Chol/HDLC Ratio-QST 2.9 HDL Chol-QST 39 L LDL Chol-QST 44 Cholesterol-QST 115 Non HDL Chol-QST 76 eGFR-QST 20 L Glucose-Qst 168 H Na-Quest 133 L Cl-Quest 101 Creatinine-Quest 2.88 H BUN/Creat Ratio-Quest 26 H Ca-Quest 9.1 BUN-Quest 76 H K-Quest 5.2 CO2-Quest 21 TSH (QST) 8.22 H Vit D25 [place], IA-Quest 43 Enhanced Lab PDF Enhanced Lab PDF Imaging: Review of the patients MRA showed significant high grade stenosis of both the patients internal carotid arteries ASSESSMENT: _ PLAN: _ 1 ) Bilateral carotid artery stenosis, asymptomatic Mr. Browning is a pleasant 88 year old right hand dominate male with high grade stenosis of the bilateral carotid arteries. His stenosis is severe and meets criteria for intervention to prevent stroke.We discussed intervention including CEA and TCAR in detail. We went over the procedure, risks, and benefits of both procedures. Patient elected to go ahead with a TCAR approach. He is aware that thisprocedure requires contrast, and we will attempt to limit contrast use to less than 12cc. Patient is agreeable to go ahead with the procedure. He was given the opportunity to ask questions and they were answered in detail to his satisfaction. He will continue taking aspirin and brillinta daily. We will go ahead and schedule the procedure for a mutually acceptable time. I saw and evaluated the patient. Discussed with the resident and agree with the resident's findingsand plan as documented in the resident's note. I have personally spent___15__ minutes performing hztc-lt-zjik and ejp-bdwd-vh-face activities onthis date of service. Activities Include: _x_ review of the medical record _x_ obtaining a history _x_ physical exam/evaluation __ review labs __ review radiology reports _x_ counseling/educating patient/family/caregiver __ discussion/referral to other healthcare professional _x_ documenting care in the medical record __ independent interpretation of results __ communication of results to patient/family/caregiver __ coordination of care Electronic Signature on File CC: Umberto Bassett DO [facility] [place] [address] Electronically Reviewed/Signed by: Marcel Brito MD Author Signature Dt/Tm:05/16/2024 11:42 AM Resident Division of General Surgery Electronically Reviewed/Signed by: Pasquale Royal MD Cosigner Signature Dt/Tm: 05/16/2024 11:51 AM Marketing Co Op [facility] [place] [place] [address] Patient Care team information Care Team Personnel Name: MD Medrano Jonathan D Position: Physician - Family Med Member Role: Lifetime Relationship Address: [address] [place] [address] [place] Name: DO Bassett Franklin J Position: Physician - Family Med Member Role: Primary Care Provider Address: [address] [facility] [address] [place] [address] [place] Name: DO Clayton Kristen M Position: Physician - Family Med Member Role: Lifetime Relationship Address: [address] [facility] [address] [place] [address] [place] Name: GAY Tello Lynn Position: Physician Casino Host Exempt - Vasc Surg Member Role: Lifetime Relationship Address: [address] [facility] [address] [place] [address] [place] Care Team Related Persons Name: CATERINA FARRELL Name: CATERINA FARRELL Name: CATERINA GARCIA
--- OUTSIDE RECORDS SUMMARY | 2024-06-05 06:53 | External Medical Summary | Continuity of Care Document ---
Author Name Unknown Organization [place] [address] Address [address] [place], [place] [id number] Care Team Providers Care Product Handler Name Role Phone Umberto Bassett Primary Care Physician [phone] [id number]08/[facility] [address], [address] [place] [address] [phone] Discharge Disposition: Home or Self Care Attending Physician: GAY Tello Lynn Allergies, Adverse Reactions, Alerts Substance Criticality Severity Reaction Reaction Severity Status codeine Swelling Active Immunizations Given and Recorded Vaccine Date Status Refusal Reason RSV vaccine preF3, recombinant 06/23/23 Recorded SARS-CoV-2 (COVID-19) mRNA-vacc - [id number] 06/20/23 Recorded SARS-CoV-2 mRNA (Pfizer 12+) [...] vaccine, inactivated 06/02/12 Give n SARS-CoV-2 mRNA (lwwzervdmot-nqma-fix) 11/18/21 Re corded SARS-CoV-2 (COVID-19) mRNA BNT-162b2 vax 04/29/21 Recorded SARS-CoV-2 (COVID-19) mRNA BNT-162b2 vax 3/4/21 Recorded SARS-CoV-2 (COVID-19) mRNA BNT-162b2 vax 09/18/20 Recorded zoster vaccine, inactivated 06/07/19 Given zoster vaccine, inactivated 04/05/19 Given pneumococcal 13-valent vaccine 04/16/16 Given zoster vaccine live 08/13/11 Given pneumococcal 23-valent vaccine 10/26/05 Recorded tetanus/diphtheria/pertuss, acel (Tdap) 10/26/05 R ecorded 1Result Comment: lucina [facility] allopurinol 300 mg oral tablet Start: 08/10/22 1:55:00 PM EST, 1 tab, PO, Daily, Disp# 30 tab, Refills: 11, Pharmacy: [facility][id number] Start Date: 08/10/22 Status: [...] bid, Disp# 180 tab, Refills: 0, Pharmacy: [facility]/pharmacy #[id number] Start Date: 05/03/24 Status: Ordered furosemide 20 mg oral tablet Start: 01/16/24 1:51:00 PM EDT, 1 tab, PO, q48h Start Date: 01/16/24 Status: Ordered metoprolol succinate [...] Daily, Disp# 90 cap, Refills: 3, Pharmacy: [facility][id number] Start Date: 08/09/23 Status: Ordered Ozempic (0.25 mg or 0.5 mg dose) 2 mg/3 mL subQ pen Start: 03/26/24 11:35:00 AM EDT, 0.5 mg, subQ, q7days, Disp# 3 mL, Refills: 3, Pharmacy: [facility][id number] Start Date: 03/26/24 Stop Date: 04/25/24 Status: Ordered tetanus/diphth/pertuss (Tdap) adult/adol 5 units-2.5 units-18.5 mcg/0.5 mL intramuscular suspension Start: 04/17/24 3:26:00 PM EDT, 0.5 mL, IM, ONCE, Disp# 0.5 mL, Pharmacy: [facility][id number] Start Date: 04/17/24 Status: Ordered Tylenol Arthritis Caplet Start: 02/26/13 9:06:00 AM EDT, See Instructions, prn PO Start Date: 02/26/13 Status: Ordered Veltassa 8.4 g oral powder for reconstitution Start: 04/10/24 12:25:00 PM EDT Start Date: 04/10/24 Status: Ordered Problem List Condition Confirmation Course Effective Dates [...] Weight disorder Confirmed Active 1knees 2right 3x1 Procedures Procedure Date Related Diagnosis Body Site [...] removed; hyperplastic polyp removed 13right knee Results Radiology Reports * Exam Date Time Procedure Performing Provider Status 05/08/24 11:57 AM VL Carotid Duplex Bilateral Stanley Anderson; Final Notes: (VL Carotid Duplex Bilateral) Reason For Exam: lizy VL Carotid Duplex Bilateral [facility] FINAL REPORT Name: NAVYA BROWNING : 1935 Visit: [id number] Date: 08 May 2024 TYPE OF TEST: Cerebrovascular Duplex REASON FOR TEST Known carotid stenosis INTERPRETATION/FINDINGS Duplex imaging performed of the bilateral extracranial arteries: Technically difficult study/limited visualization due to significant acoustic shadowing from extensive calcified plaque in the bilateral carotid bulbs and proximal internal and external carotid arteries. 1. At least 70-79% stenosis in the right internal carotid artery; lumen visualization is limited due to significant ascoustic shadowing. 2. 80-99% stenosis in the left internal carotid artery with post-stenotic turbulence in the proximal internal and external carotid arteries. 3. >50% stenosis in the proximal right external carotid artery. 4. No significant stenosis in the left external carotid artery. 5. Antegrade flow in the bilateral vertebral arteries. 6. Normal flow in the bilateral proximal subclavian arteries. Plaque Morphology: 1. Complex, heavily calcified plaque in the bilateral distal common carotid, carotid bulb and proximal internal and external carotid arteries. Compared to the previous study performed 01/12/2024, there is no significant change. IMPRESSION/COMMENTS I have personally reviewed the data relevant to the interpretation of this study. TECHNOLOGIST: Tiki SCHOFIELD, [facility], T PHYSICIAN: Pasquale Royal M.D. Signed: 05/08/2024 11:58 AM Final Dictated by:MD Royal Eugene J Dictated DT/TM:05/08/2024 11:58 Signed by:MD Royal Eugene J Signed (Electronic Signature):05/08/2024 11:58 Transcribed by:GRANT Social History Social History Type Response Tobacco 1 Smoking Status Never smoked cigaret lj Sex Male Sex Representation Male (finding) 1started smoking in 1948 and quit in 1967 Patient Care team information Care Team Personnel Name: MD Medrano Jonathan D Position: Physician - Family Med Member Role: Lifetime Relationship Address: [facility] [place] [address] [place] Name: DO Bassett Franklin J Position: Physician - Family Med Member Role: Primary Care Provider Address: [address] [place] [address] [place] Name: DO Clayton Kristen M Position: Physician - Family Med Member Role: Lifetime Relationship Address: [address] [place] [address] [place] Name: GAY Tello Lynn Position: Physician Gut Cleaner Exempt - Vasc Surg Member Role: Lifetime Relationship Address: [address] [place] [address] [place] Care Team Related Persons Name: CATERINA FARRELL Name: CATERINA FARRELL Name: CATERINA GARCIA
[2024-06-05 06:56] LABS: BUN Creatinine Ratio 24.1 (10-20); Calcium 9.5 mg/dl (8.6-10.3); Creatinine Clr Calc Pharmacy 20.8 ml/min; Potassium 5.4 mmol/L (3.5-5.1)
[2024-06-05] MEDS: LACTATED RINGER'S 1,000 ML BAG IV SCH (07:02)
[2024-06-05] MEDS ORDERED: ALBUMIN HUMAN 5% 12.5 GM/250 ML VIAL IV ONE (07:13)
[2024-06-05] MEDS ORDERED: PHENYLEPHRINE HCL 25 MG/250 ML NSS IV ONE ×2 (07:23→10:47)
[2024-06-05] MEDS ORDERED: fentaNYL citrate PF 100 MCG/2 ML VIAL ONE (07:26)
[2024-06-05] MEDS ORDERED: ATROPINE SULFATE 0.1 MG/ML 10ML SYR IV PRN (07:32)
[2024-06-05] MEDS ORDERED: fentaNYL citrate PF 100 MCG/2 ML VIAL IV PRN (07:32)
[2024-06-05] MEDS ORDERED: ePHEDrine sulfate 50 MG/ML AMP IV PRN (07:32)
[2024-06-05] MEDS ORDERED: ONDANSETRON INJ 2 MG/ML 2 ML VIAL IV PRN ×2 (07:32→10:55)
--- NOTE | 2024-06-05 07:36 | History & Physical Report ---
Date of Service June 05, 2024 History of Present Illness Primary Care Provider: Umberto Bassett DO Name: NAVYA GATES Patient Number: [id number] : 1935 Date of Service: 05/16/2024 Chief Complaint: Carotid artery stenosis HPI: Mr. Gates is a pleasant 88 year old male with a PMH of HTH, CKD III, CAD, GERD. He was found to have bilateral carotid artery stenosis of >70% on the right and >80% on the left. He has been asymptomatic and denies amaurosis fugax, word finding problems, unilateral sensory or motor deficits, or other sighs or symptoms of TIA or Stroke. He is on Aspirin and Brilinta and has taken this daily. He is right hand dominate We had previously discussed performing a TCAR on the left for his high grade stenosis. Patient was agreeable to this. The procedure was delayed for hyperkalemia and hypotension. Patient has since followed with his trench pipe layer for his CKD and his PCP for his blood pressure. These have been improved since his last visit. Current Home Meds: (Last Updated 05/16 11:16) acetaminophen (Tylenol Arthritis Caplet) prn PO allopurinol (allopurinol 300 mg oral tablet) 300 mg PO Daily aspirin (aspirin 81 mg oral tablet) 81 mg PO Daily atorvastatin (atorvastatin 40 mg oral tablet) 40 mg PO Daily furosemide (furosemide 20 mg oral tablet) 20 mg PO q48h prn as needed for swelling metoprolol (metoprolol succinate 25 mg oral tablet, extended release) 25 mg PO Daily multivitamin 1 tab PO Daily omeprazole (omeprazole 20 mg oral delayed release capsule) 1 cap PO Daily polyethylene glycol 3350 (MiraLax oral powder for reconstitution) 17 g PO Daily semaglutide (Ozempic (0.25 mg or 0.5 mg dose) 2 mg/3 mL subQ pen) 0.5 mg subQ q7days tetanus/diphth/pertuss (Tdap) adult/adol (tetanus/diphth/pertuss (Tdap) adult/adol 5 units-2.5 units-18.5 mcg/0.5 mL intramuscular suspension) 0.5 mL IM ONCE ticagrelor (Brilinta (ticagrelor) 90 mg oral tablet) 90 mg PO bid Allergies and Sensitivities: codeine(Swelling) Past Medical History: Problems: Bilateral carotid artery stenosis SCC (squamous cell carcinoma) Urinary tract infection in male Prediabetes History of left knee replacement Basal cell carcinoma Weight disorder Colonic polyp Keratosis Polyneuropathy Arthritis High cholesterol HTN (hypertension) CAD GERD ROSACEA Acid reflux HYPERTENSION Actinic keratosis Knee pain Colon polyps Peyronie disease Gout Stent Obesity Osteoarthritis BPH NIDDM OBJECTIVE Vitals: Last Updated 05/16/24 11:12 Date Temp BP Location Pulse RR SpO2 Pain 05/16/24 0 05/16/24 154/90 85 98 04/17/24 124/78 74 18 95 Vital Signs are the last 3 documented. No Orthostatic Data Available Height and Weight: Last Updated 11/11/23 09:21 Date BMI Wt(kg) Wt(lb) Method Ht(cm) (ft-in) Method 11/11/23 31.61 103 227 Standing Scale 180.5 5-11 Standing 08/10/23 31.09 101.3 223 Standing Scale 180.5 5-11 Standing 06/17/23 88.85 104.6 230 Standing Scale 108.5 3-6 Standing Heights and Weights are the last 3 documented. Physical Exam General: no acute distress, resting comfortably in bed HEENT:normocephalic,atraumatic Cardiovascular: regular rate Pulmonary: breathing comfortably on room air, equal chest rise bilaterally Abdomen: soft, nondistended Extremity:WWP, no deficit Neuro: CNII-CNXII intact, no focal deficits appreciated Skin: warm and well perfused, no rashes or jaundice appreciated 30 Day Labs: 04/25/24 1018 Enhanced Lab PDF Enhanced Lab PDF WBC UA-Quest 6-10 RBC UA-Quest NONE SEEN Squam Epi UA-Quest NONE SEEN Bacteria UA-Quest MANY Trip Phos Cryst UA-Quest MODERATE Amorph Sed UA-Quest MODERATE Hyaline Cast UA-Quest NONE SEEN 04/25/24 1016 Triglycerides-QST 268 H Chol/HDLC Ratio-QST 2.9 HDL Chol-QST 39 L LDL Chol-QST 44 Cholesterol-QST 115 Non HDL Chol-QST 76 eGFR-QST 20 L Glucose-Qst 168 H Na-Quest 133 L Cl-Quest 101 Creatinine-Quest 2.88 H BUN/Creat Ratio-Quest 26 H Ca-Quest 9.1 BUN-Quest 76 H K-Quest 5.2 CO2-Quest 21 TSH (QST) 8.22 H Vit D25 OH, IA-Quest 43 Enhanced Lab PDF Enhanced Lab PDF Imaging: Review of the patients MRA showed significant high grade stenosis of both the patients internal carotid arteries ASSESSMENT: _ PLAN: _ 1 ) Bilateral carotid artery stenosis, asymptomatic Mr. Gates is a pleasant 88 year old right hand dominate male with high grade stenosis of the bilateral carotid arteries. His stenosis is severe and meets criteria for intervention to prevent stroke. We discussed intervention including CEA and TCAR in detail. We went over the procedure, risks, and benefits of both procedures. Patient elected to go ahead with a TCAR approach. He is aware that this procedure requires contrast, and we will attempt to limit contrast use to less than 12cc. Patient is agreeable to go ahead with the procedure. He was given the opportunity to ask questions and they were answered in detail to his satisfaction. He will continue taking aspirin and brillinta daily. We will go ahead and schedule the procedure for a mutually acceptable time. I saw and evaluated the patient. Discussed with the resident and agree with the resident's findings and plan as documented in the resident's note. I have personally spent___15__ minutes performing elcs-ji-gbyp and rym-nyvg-fk-face activities on this date of service. Activities Include: _x_ review of the medical record _x_ obtaining a history _x_ physical exam/evaluation __ review labs __ review radiology reports _x_ counseling/educating patient/family/caregiver __ discussion/referral to other healthcare professional _x_ documenting care in the medical record __ independent interpretation of results __ communication of results to patient/family/caregiver __ coordination of care Signature Line Electronic Signature on File CC: Umberto Bassett DO [address] [place] [address] Electronically Reviewed/Signed by: Marcel Brito MD Author Signature Dt/Tm:05/16/2024 11:42 AM Resident Division of General Surgery Electronically Reviewed/Signed by: Pasquale Royal MD Cosigner Signature Dt/Tm: 05/16/2024 11:51 AM Offline Editor Pablo Rea [facility] [place] [address], [address] [place] [address] PC Result Type: Vascular Surgery Outpt Note Date of Service: May 16, 2024 11:29 EDT Authorization Status: Final Author or Import Date: MD Daryl, Marcel on May 16, 2024 11:42 EDT Verified By: MD Genny, Pasquale Keen on May 16, 2024 11:51 EDT Encounter info: [id number], [place] [id number], Clinic, 05/16/2024 - 05/16/2024 Allergies Allergy/AdvReac Type Severity Reaction Status Date / Time codeine Allergy Intermediate Facial Verified 06/05/24 06:26 Swelling/Nausea Home Medications Medication Instructions Recorded Confirmed Type pxghyefc-old-rrwqe acid 0.4 1 tab PO QAM 09/16/18 06/05/24 History mg-lycopene 300 mcg-lutein 250 mcg tablet (Centrum Silver) omeprazole 20 mg capsule,delayed 20 mg PO HS 09/16/18 06/05/24 History release nitroglycerin 0.4 mg sublingual 0.4 mg sublingual Q5M PRN Chest 03/14/19 06/05/24 History tablet (Nitrostat) Pain aspirin 81 mg tablet,delayed 81 mg PO QAM 05/30/23 06/05/24 History release allopurinol 300 mg tablet 300 mg PO QAM #90 tabs 08/04/23 06/05/24 Rx semaglutide 0.25 mg or 0.5 mg (2 0.5 mg subcut WK 09/22/23 06/05/24 History mg/3 mL) subcutaneous pen injector (Ozempic) atorvastatin 40 mg tablet 40 mg PO HS 10/31/23 06/05/24 History metoprolol succinate 25 mg 25 mg PO QAM 04/02/24 06/05/24 History tablet,extended release 24 hr polyethylene glycol 3350 17 gram 17 g PO QAM 04/02/24 06/05/24 History oral powder packet (Miralax) ticagrelor 90 mg tablet (Brilinta) 90 mg PO BID 04/04/24 06/05/24 History furosemide 20 mg tablet 20 mg PO DAILY PRN leg swelling 04/08/24 06/05/24 Rx #30 tabs acetaminophen 500 mg tablet 1,000 mg PO Q6H PRN Pain 06/05/24 06/05/24 History Past Med/Surg History Problem List Chronic indwelling Sevilla catheter (Acute) Acute hyperkalemia (Acute) 12/19/23 Low blood pressure 12/01/23 GI bleed (Acute) 11/06/23 Complicated urinary tract infection (Acute) 11/06/23 Hyponatremia (Acute) 11/02/23 Constipation (Acute) GIB (gastrointestinal bleeding) Stage 4 chronic kidney disease (Acute) Antiplatelet or antithrombotic long-term use Bilateral carotid artery disease (Acute) Chronic kidney disease Venous insufficiency of both lower extremities Peripheral edema (Acute) 05/31/23 PRITCHARD (dyspnea on exertion) (Acute) 05/31/23 CHF (congestive heart failure) (Acute) Stenosis of right internal carotid artery Nonsustained supraventricular tachycardia Elevated TSH 04/25/23 Hydronephrosis, left Urinary retention 2/2 BPH and currently with Sevilla in place Vitamin D deficiency PRITCHARD (dyspnea on exertion) 11/10/22 Edema 11/10/22 Back pain Tearing of muscle Acute hip pain 05/26/21 Fatigue 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, 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 Chronic kidney disease, stage 3 (Chronic) pt dx with acute on chronic kidney injury (pre-renal) during 04/2023 hospital admission; baseline creat noted to be 1.7-1.9; lasix was held during admission and resumed on discharge Former smoker (Acute) History of coronary artery stent placement (Acute 2009) MARIO Ramus Intermedius Proteinuria (Acute) Anemia (Acute) normocytic anemia of chronic disease; stable CAD (coronary artery disease) MARIO TO RAMUS (2009) Medical History PRITCHARD (dyspnea on exertion) Constipation chronic - Miralax CHF (congestive heart failure) pt denies CAD (coronary artery disease) x1 stent Back pain Difficulty lying flat Antiplatelet or antithrombotic long-term use Brilinta Anemia Syncope most recently 04/04/24 in [facility] Lab - [facility] ER/Admission 04/04/24-04/08/24 Bilateral carotid artery disease Venous insufficiency of both lower extremities Peripheral edema hx "I took sodium out of my diet and have no swelling in my ankles/feet right now" Hx of hypotension Pt states, "This is more of a problem then ever high blood pressure" History of GI bleed (10/2023) Pt Unsure History of pneumonia (2021) Hx of pleural effusion (2021) Hx of gout "haven't had an attack in years" Hx of chest pain pt denies any chest pain at this time Hx: UTI (urinary tract infection) has indwelling sevilla cath, changed every 4 weeks CKD (chronic kidney disease) stage 4, follows with Dr. Murphy Sevilla catheter in place has changed every 4 weeks at [facility] urology, next change 06/07/24 History of Holter monitoring due to recent syncopal episode on 04/24/23, admitted to [facility] Polyneuropathy Peyronie's disease Obesity Bradycardia hx of 1st degree AVB. pt had episode of HR in 30s in ambulance after vasovagal event for which he was given atropine; per cardio, rusty episode likely 2/2 vagal stimulation Leukocytosis Syncope and collapse hx-admitted to [facility] following syncopal episode (04/24/23 - 04/27/23); dx likely vasovagal 2/2 volume depletion and BB. MGUS (monoclonal gammopathy of unknown significance) Dr Murphy Monitoring BPH (benign prostatic hyperplasia) currently with Sevilla in place Dyslipidemia Type 2 diabetes mellitus Ozempic Arthritis GERD (gastroesophageal reflux disease) Hearing deficit bilateral aids Hyperlipidemia Surgical History Hx of heart artery stent (2009) S/P MARIO TO RAMUS (2009), [facility], x1 stent; f/u dr. lopez, [place] Hx of cystoscopy Hx of tonsillectomy (1938) Hx of eye surgery laser surgery to remove "film" from eye following cataract sx. 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) History of colonoscopy History of open reduction and internal fixation (ORIF) procedure right tibial plateau - lateral fracture History of tonsillectomy History of endoscopic sinus surgery History of cardiac cath (2009) S/P MARIO TO RAMUS (2009), [facility], x1 stent; f/u dr. lopez, [place] Family History Uncle Family hx of colon cancer Social History Smoking Status: Former smoker Tobacco Type: Cigarettes Smoking End Date: 1965; Second Hand Exposure: No; Do You Dip or Chew Tobacco: No; Tobacco Cessation Education Requested by Patient: No Hx Alcohol Use: No Hx Substance Use: No Preferred Language: Setswana Communication Ability: Effective Visual Impairment: Limited Hearing Ability: Normal Time Buyer Required: No Beliefs That Will Affect Care: None marital status: Current Living Situation: Spouse current occupational status: retired How many Children do You have: 7 Other Information That Helps Us Care for You: No Feels Safe at Home: Yes Safety Concerns: Feels Safe At This Time Diet: low salt and other Diet Comment: low potassium diet conscious. restricted banana and avocado and nuts. caffeine: Yes (1-2 coffees daily) Physical Activity Frequency: Does not Exercise Seatbelt Use: always Do you think of yourself as: straight/heterosexual Gender Identity: Male Assistive Devices: Cane, Glasses, Hearing Aid - Bilateral, Stair Lift and Walker Results & Data Vital Signs (Past 12 Hours) Vital Signs Temp Pulse Resp BP BP Pulse Ox O2 Del Method 06/05/24 06:39 Room Air 06/05/24 06:39 36.6 C 80 18 166/69 H 138/81 99 Room Air
--- NOTE | 2024-06-05 07:37 | History & Physical Bridge Note ---
Date of Service June 05, 2024 History & Physical Bridge Note Pateint admitted for a left tcar. I have discussed the risks options and benefits of the procedure with the patient. The patient understands the risks options and benefits and agrees to the procedure. I have examined the patient, reviewed the History & Physical and in the interval since the performance of the History & Physical I have noted the following changes of clinical significance: no changes noted
[2024-06-05] MEDS ORDERED: ONDANSETRON INJ 2 MG/ML 2 ML VIAL ONE (07:38)
[2024-06-05] MEDS ORDERED: DEXAMETHASONE SOD INJ 4 MG/ML VIAL ONE (07:38)
[2024-06-05] MEDS ORDERED: ROCURONIUM BROMIDE 10 MG/ML 5 ML VIAL IV ONE (07:38)
[2024-06-05] MEDS ORDERED: ESMOLOL HCL INJ 10 MG/ML 10ML VIAL IV ONE (07:38)
[2024-06-05] MEDS ORDERED: LABETALOL HCL IV 5 MG/ML 20ML IV ONE (07:38)
[2024-06-05] MEDS ORDERED: PROPOFOL IV EMULSION 10 MG/ML 20 ML VIAL IV ONE (07:38)
[2024-06-05] MEDS ORDERED: LIDOCAINE 2% 2 ML VIAL/AMP(20MG/ML) INFIL ONE (07:38)
[2024-06-05] MEDS ORDERED: GLYCOPYRROLATE 0.2 MG/ML VIAL ONE (07:38)
[2024-06-05] MEDS: ceFAZolin 2000MG 2,000 MG/15 ML SYR IV SCH ×2 (08:06→16:57)
[2024-06-05] MEDS ORDERED: ceFAZolin 330 MG/ML 1 GM VIAL ONE (08:07)
[2024-06-05] MEDS ORDERED: HEPARIN SOD (PORCINE) 1000 UNIT/ML ONE (08:57)
[2024-06-05] MEDS ORDERED: PROTAMINE SULFATE 10 MG/ML 5 ML VIAL IV ONE (09:47)
[2024-06-05] MEDS: GELATIN SPONGE SZ 100 ONE (10:00)
[2024-06-05] MEDS: SURGICEL ABSORB HEMOSTAT 2IN X 14IN TOP ONE (10:00)
[2024-06-05] MEDS: THROMBIN FOR SOLN 20000 UNIT KIT ONE (10:00)
[2024-06-05] MEDS: VISIPAQUE IV PRN (10:01)
[2024-06-05] MEDS: ceFAZolin 330 MG/ML 1 GM VIAL ONE (10:01)
[2024-06-05] MEDS ORDERED: SUGAMMADEX SODIUM 200 MG/2 ML VIAL IV ONE (10:01)
--- NOTE | 2024-06-05 10:08 | Post Operative Brief Note ---
Immediate Post Op Note Date of Surgery June 05, 2024 Pre & Post Diagnosis Operation Date: 06/05/24 08:00 Pre-Op Diagnosis: Bilateral Carotid Artery Stenosis Post-Op Diagnosis: Bilateral Carotid Artery Stenosis I identified the patient and participated in the time-out.: Yes Procedure Operation Date: 06/05/24 08:00 Actual Procedures p Left Transcarotid Artery Revascularization(Left), Ultrasound left common femoral vein- Pasquale Royal MD Surgeon Pasquale Royal MD [employer] Distributor MD Samantha VanessaMinarchick,PAC Estimated Blood Loss 20 Findings Consistent with Post-Op Diagnosis Drains Jerome Catheter Anesthesia Type General Complications none Disposition Accompanied Patient To Recovery: No Disposition: Recovery Room
[2024-06-05] MEDS: BUPIVACAINE/EPINEPHRINE 0.5% MPF 1:200,000 30 ML VIAL ONE (10:12)
--- NOTE | 2024-06-05 10:18 | Operative Report ---
Post Operative Report Pre & Post Diagnosis Operation Date: 06/05/24 08:00 Pre-Op Diagnosis: Bilateral Carotid Artery Stenosis Post-Op Diagnosis: Bilateral Carotid Artery Stenosis I identified the patient and participated in the time-out.: Yes Procedure Operation Date: 06/05/24 08:00 Actual Procedures p Left Transcarotid Artery Revascularization(Left), Ultrasound left common femoral vein- Pasquale Royal MD Surgeon Pasquale Royal MD Extract Operator MD Kim Vanessa,PAC Estimated Blood Loss 20 Findings Consistent with Post-Op Diagnosis Severe stenosis of the L carotid artery improved following stent deployment Specimens None Anesthesia Type General Complications None Disposition Accompanied Patient To Recovery: Yes Indications Mr. Gates is a pleasant 88M with PMH of CKD and severe carotid artery stenosis, asymptomatic. His left ICA stenosis was greater than 80%. On MRI he met anatomic criteria for TCAR. After discussion of the risks vs benefits, patient elected to pursue transcarotid revascularization of his left carotid artery. Description of Procedure The patient was taken to the operating room and placed in supine position. After general anesthesia was accomplished the left-side of the neck and bilateral groin were prepped and draped in a sterile manner. A transverse 4cm incision was made on the left neck over the sternal and clavicular heads of the sternocleidomastoid muscle and below the omohyoid. Subcutaneous tissue and platysma were divided using electrocautery. Dissection using Metzenbaum scissors proceeded and the carotid sheath was identified medially. It was divided longitudinally. The internal jugular was retracted medially. The common carotid artery was identified with the Vagus nerve posterolateral. The common carotid artery was mobilized with Metzenbaum scissors and umbilical tape was placed around the artery. Once sufficient length, about 2cm of the common carotid were mobilized, a 5-0 Proline suture was used to place a U-Stitch in the anterior surface of the right common carotid artery 8000U of heparin was then given to obtain an ACT > 250. Attention was turned to the right common femoral vein. It was inadequate in size. The left femoral vein was visualized and appeared adequate. It was then accessed under ultrasound guidance using a micropuncture needle. This was exchanged for the Venous Return Sheath over the provided 0.035'' wire. Blood was aspirated from the flow line followed by flushing of the venous sheath with heparinized saline. The sheath was sutured in place to the patient's skin. A micropuncture needle was used to access the common carotid artery in the center of the U-stitch. The micropuncture wire was then advance 4cm into the common carotid artery and the micropuncture needle was removed. The micropuncture sheath was advanced 2-3cm into the common carotid artery and the wire and dilator were removed. Next a 0.035'' J guidewire was was inserted and placed just proximal to the right internal carotid artery lesion without engaging the lesion. The micropuncture sheath was exchanged over the guidewire and the Transcarotid Arterial Sheath was advanced to the 2.5cm marker in correct coaxial orientation and the J wire and dilator were removed. The Sheath was sutured to the patient and then flushed with heparinized saline. No air bubbles visualized during flushing The flow controller was connected to the Transcarotid arterial sheath. Arterial blood was allowed to passively fill the device completely to which it was then connected to the Venous return sheath. The flow controller was set to high. The common carotid artery proximal to the access point was then clamped with a Rommell and flow reversal was confirmed. A left carotid angiogram was then performed and the left internal carotid artery lesion was marked. HR and systolic blood pressures were adequate with HR of about 80 and blood pressure between 140 and 160 systolic. The lesion was then crossed using a 0.014'' guidewire. The lesion was then pre-dilated using a 5mm x 25mm balloon. This balloon was then exchanged and primary stenting was performed with the Transcarotid stent, appropriately sized (9-7 x 40mm). This was then extended into the proximal common carotid artery due to the length of the lesion with an 8mm x 10mm tapered stent. Post dilation was performed with a 5.5x25mm balloon to 14 ATMs. Completion carotid angiography demonstrated patent stent with <50% residual stenosis Antegrade flow was restored following release of the common carotid artery clamp. The arterial sheath was removed and U-Stitch tied. The femoral venous sheath was removed and pressure held for 5 min with adequate hemostasis. Adequate hemostasis was seen of the carotid artery. The wound was inspected and adequate hemostasis was obtained. It was then closed with a running 3-0 Vicryl suture for the platysmal layer and a 4-0 subcuticular Vicryl suture for the skin edges. Dermabond was used for dressing. Patient awoke from anesthesia without difficulties. Was neurovascularly intact, moving all extremities and following commands at case completion. The patient left the operating room in satisfactory condition and tolerated the procedure well A total of 35mGy, 7.3 min of fluoroscopy time, and 35cc of contrast were used during the procedure. Dr. Royal was present and scrubbed for the entire procedure. I attest to the content of the Intraoperative Record and any orders documented therein. Any exceptions are noted below. Supervising Physician Co-Signing Physician Notes Pasquale Royal MD
[2024-06-05] MEDS ORDERED: FUROSEMIDE 20 MG TAB PO PRN (10:55)
[2024-06-05] MEDS ORDERED: oxyCODONE/ACETAMINOPHEN 5mg/325mg TAB PO PRN (10:55)
[2024-06-05] MEDS ORDERED: NITROGLYCERIN SL 0.4 MG/TAB TAB SL PRN (10:55)
[2024-06-05] MEDS ORDERED: STAT IV Infusion **Titration per Protocol STA (10:55)
[2024-06-05] MEDS: PHENYLEPHRINE/NSS 25 MG/250 ML BAG IV PRN (11:00)
[2024-06-05] MEDS: LACTATED RINGER'S 1,000 ML IV SCH (11:45)
--- NOTE | 2024-06-05 13:07 | Anesthesiology Progress Note ---
Date of Service June 05, 2024 Anesthesia Post Procedure Vital Signs Vital Signs: Temp Pulse Pulse Pulse Resp BP BP 06/05/24 12:45 70 16 06/05/24 12:30 68 15 160/66 H 06/05/24 12:22 74 13 94/52 L 06/05/24 12:15 69 13 06/05/24 12:00 71 18 157/69 H 06/05/24 11:51 74 16 100/52 L 06/05/24 11:44 73 18 130/50 L 06/05/24 11:30 74 11 L 06/05/24 11:15 36.4 C L 72 20 06/05/24 11:05 73 12 06/05/24 10:55 77 16 06/05/24 10:45 84 18 06/05/24 10:35 36.3 C L 72 16 06/05/24 06:39 06/05/24 06:39 36.6 C 80 18 166/69 H BP BP Pulse Ox O2 Del Method O2 Flow Rate 06/05/24 12:45 99 Room Air 06/05/24 12:30 96 Room Air 06/05/24 12:22 96 Room Air 06/05/24 12:15 97 Room Air 06/05/24 12:00 98 Room Air 06/05/24 11:51 98 Room Air 06/05/24 11:44 100 Nasal Cannula 2 06/05/24 11:30 114/39 L 113/58 L 100 Nasal Cannula 2 06/05/24 11:15 159/54 H 158/71 H 100 Nasal Cannula 2 06/05/24 11:05 183/76 H 181/64 H 100 Nasal Cannula 2 06/05/24 10:55 77/43 L 73/29 L 99 Oxymask 4 06/05/24 10:45 158/71 H 141/53 H 100 Oxymask 4 06/05/24 10:35 151/53 H 139/70 100 Oxymask 6 06/05/24 06:39 Room Air 06/05/24 06:39 138/81 99 Room Air Transfer of Care Handoff Completed per policy Notes Mental Status: alert / awake / arousable Patient Amnestic to Procedure: Yes Nausea / Vomiting: adequately controlled Pain: adequately controlled Airway Patency, RR, SpO2: stable & adequate BP & HR: stable & adequate Hydration State: stable & adequate Anesthetic Complications: no major complications apparent and Pt Satisfied with anesthetic care
--- NOTE | 2024-06-05 14:02 | Critical Care Consultation ---
Date of Consultation June 05, 2024 Assessment & Plan (1) Bilateral carotid artery disease: (2) Chronic kidney disease: (3) CHF (congestive heart failure): Plan Impression: 88-year-old male with significant carotid stenosis identified on carotid ultrasound status post left TCAR today. He is on a small amount of Lemuel- Synephrine currently and doing reasonably well. Recommendations: 1. Status post TCAR: Continue neurovascular monitoring in the ICU for 24 hours per guidelines. 2. Hypotension: Continue Lemuel-Synephrine. Wean as tolerated. Parameters per vascular surgery. Hold metoprolol and Lasix for now. 3. Diabetes: Continue outpatient medications. Cover with insulin as needed. 4. Chronic kidney disease: Postoperative labs with acceptable BUN and creatinine. Potassium slightly high. Follow-up BMP. Will follow closely and involve nephrology should his renal indices change. History of Present Illness Attending Physician: Pasquale Royal MD History of Present Illness Asked by vascular surgery service to assist in post critical care management for this patient's status post TCAR on the left. History is obtained from review the electronic medical record as well as discussion with the patient. The patient is an 88-year-old male with a history of hypertension coronary disease. On his screening exam he was found to have bilateral carotid artery stenosis, 70% on the right and 80% on the left. He was seen in the outpatient setting in vascular surgery clinic and options including TCAR were discussed with him. He agreed to proceed and underwent left TCAR today. He return to the ICU postoperatively on a small amount of Lemuel-Synephrine. He is having no neck pain. No voice changes. No dysphagia. No neurological symptoms. He is devoid of any new neurological complaints currently. Allergies Allergy/AdvReac Type Severity Reaction Status Date / Time codeine Allergy Intermediate Facial Verified 06/05/24 06:26 Swelling/Nausea Home Medications Medication Instructions Recorded Confirmed Type qknmeync-rgd-phhxg acid 0.4 1 tab PO QAM 09/16/18 06/05/24 History mg-lycopene 300 mcg-lutein 250 mcg tablet (Centrum Silver) omeprazole 20 mg capsule,delayed 20 mg PO HS 09/16/18 06/05/24 History release nitroglycerin 0.4 mg sublingual 0.4 mg sublingual Q5M PRN Chest 03/14/19 06/05/24 History tablet (Nitrostat) Pain aspirin 81 mg tablet,delayed 81 mg PO QAM 05/30/23 06/05/24 History release allopurinol 300 mg tablet 300 mg PO QAM #90 tabs 08/04/23 06/05/24 Rx semaglutide 0.25 mg or 0.5 mg (2 0.5 mg subcut WK 09/22/23 06/05/24 History mg/3 mL) subcutaneous pen injector (Ozempic) atorvastatin 40 mg tablet 40 mg PO HS 10/31/23 06/05/24 History metoprolol succinate 25 mg 25 mg PO QAM 04/02/24 06/05/24 History tablet,extended release 24 hr polyethylene glycol 3350 17 gram 17 g PO QAM 04/02/24 06/05/24 History oral powder packet (Miralax) ticagrelor 90 mg tablet (Brilinta) 90 mg PO BID 04/04/24 06/05/24 History furosemide 20 mg tablet 20 mg PO DAILY PRN leg swelling 04/08/24 06/05/24 Rx #30 tabs acetaminophen 500 mg tablet 1,000 mg PO Q6H PRN Pain 06/05/24 06/05/24 History Patient History Medical History PRITCHARD (dyspnea on exertion) Constipation chronic - Miralax CHF (congestive heart failure) pt denies CAD (coronary artery disease) x1 stent Back pain Difficulty lying flat Antiplatelet or antithrombotic long-term use Brilinta Anemia Syncope most recently 04/04/24 in [facility] OP Lab - [facility] ER/Admission 04/04/24-04/08/24 Bilateral carotid artery disease Venous insufficiency of both lower extremities Peripheral edema hx "I took sodium out of my diet and have no swelling in my ankles/feet right now" Hx of hypotension Pt states, "This is more of a problem then ever high blood pressure" History of GI bleed (10/2023) Pt Unsure History of pneumonia (2021) Hx of pleural effusion (2021) Hx of gout "haven't had an attack in years" Hx of chest pain pt denies any chest pain at this time Hx: UTI (urinary tract infection) has indwelling sevilla cath, changed every 4 weeks CKD (chronic kidney disease) stage 4, follows with Dr. Murphy Sevilla catheter in place has changed every 4 weeks at [facility] urology, next change 06/07/24 History of Holter monitoring due to recent syncopal episode on 04/24/23, admitted to [facility] Polyneuropathy Peyronie's disease Obesity Bradycardia hx of 1st degree AVB. pt had episode of HR in 30s in ambulance after vasovagal event for which he was given atropine; per cardio, rusty episode likely 2/2 vagal stimulation Leukocytosis Syncope and collapse hx-admitted to [facility] following syncopal episode (04/24/23 - 04/27/23); dx likely vasovagal 2/2 volume depletion and BB. MGUS (monoclonal gammopathy of unknown significance) Dr Murphy Monitoring BPH (benign prostatic hyperplasia) currently with Sevilla in place Dyslipidemia Type 2 diabetes mellitus Ozempic Arthritis GERD (gastroesophageal reflux disease) Hearing deficit bilateral aids Hyperlipidemia Surgical History Hx of heart artery stent (2009) S/P MARIO TO RAMUS (2009), [facility], x1 stent; f/u beatrice nunez Hx of cystoscopy Hx of tonsillectomy (1938) Hx of eye surgery laser surgery to remove "film" from eye following cataract sx. 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) History of colonoscopy History of open reduction and internal fixation (ORIF) procedure right tibial plateau - lateral fracture History of tonsillectomy History of endoscopic sinus surgery History of cardiac cath (2009) S/P MARIO TO RAMUS (2009), [facility], x1 stent; f/u beatrice nunez Family History Uncle Family hx of colon cancer Social History Smoking Status: Former smoker Tobacco Type: Cigarettes Smoking End Date: 1965; Second Hand Exposure: No; Do You Dip or Chew Tobacco: No; Tobacco Cessation Education Requested by Patient: No Hx Alcohol Use: No Hx Substance Use: No Preferred Language: Hungarian Communication Ability: Effective Visual Impairment: Limited Hearing Ability: Normal 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 restricted banana and avocado and nuts. caffeine: Yes (1-2 coffees daily) Physical Activity Frequency: Does not Exercise Seatbelt Use: always Do you think of yourself as: straight/heterosexual Gender Identity: Male Assistive Devices: Cane, Glasses, Hearing Aid - Bilateral, Stair Lift and Walker Review of Systems Review of Systems: Please refer to admission H&P. No additions or deletions Physical Exam Constitutional: WD/WN, vitals as above Neck: trachea midline, no thyromegaly Respiratory: normal respiratory effort, lungs clear to auscultation Cardiovascular: RRR, no murmur, no edema Gastrointestinal (Abdomen): normal bowel sounds, soft, nontender, no hepatosplenomegaly Musculoskeletal: Extremities: extremities normal to inspection Skin: no rashes, warm and dry Neurologic: Nonfocal exam Lymphatic: no cervical lymphadenopathy Results & Data Results & Data Vital Signs (Past 12 Hours) Vital Signs Temp Pulse Pulse Pulse Resp BP BP 06/05/24 12:45 70 16 06/05/24 12:30 68 15 160/66 H 06/05/24 12:22 74 13 94/52 L 06/05/24 12:15 69 13 06/05/24 12:00 71 18 157/69 H 06/05/24 11:51 74 16 100/52 L 06/05/24 11:44 73 18 130/50 L 06/05/24 11:30 74 11 L 06/05/24 11:15 36.4 C L 72 20 06/05/24 11:05 73 12 06/05/24 10:55 77 16 06/05/24 10:45 84 18 06/05/24 10:35 36.3 C L 72 16 06/05/24 06:39 06/05/24 06:39 36.6 C 80 18 166/69 H BP BP Pulse Ox O2 Del Method O2 Flow Rate 06/05/24 12:45 99 Room Air 06/05/24 12:30 96 Room Air 06/05/24 12:22 96 Room Air 06/05/24 12:15 97 Room Air 06/05/24 12:00 98 Room Air 06/05/24 11:51 98 Room Air 06/05/24 11:44 100 Nasal Cannula 2 06/05/24 11:30 114/39 L 113/58 L 100 Nasal Cannula 2 06/05/24 11:15 159/54 H 158/71 H 100 Nasal Cannula 2 06/05/24 11:05 183/76 H 181/64 H 100 Nasal Cannula 2 06/05/24 10:55 77/43 L 73/29 L 99 Oxymask 4 06/05/24 10:45 158/71 H 141/53 H 100 Oxymask 4 06/05/24 10:35 151/53 H 139/70 100 Oxymask 6 06/05/24 06:39 Room Air 06/05/24 06:39 138/81 99 Room Air Critical Care Results & Data Vital Signs (Past 12 Hours) Vital Signs Temp Pulse Pulse Pulse Resp BP BP 06/05/24 12:45 70 16 06/05/24 12:30 68 15 160/66 H 06/05/24 12:22 74 13 94/52 L 06/05/24 12:15 69 13 06/05/24 12:00 71 18 157/69 H 06/05/24 11:51 74 16 100/52 L 06/05/24 11:44 73 18 130/50 L 06/05/24 11:30 74 11 L 06/05/24 11:15 36.4 C L 72 20 06/05/24 11:05 73 12 06/05/24 10:55 77 16 06/05/24 10:45 84 18 06/05/24 10:35 36.3 C L 72 16 06/05/24 06:39 06/05/24 06:39 36.6 C 80 18 166/69 H BP BP Pulse Ox O2 Del Method O2 Flow Rate 06/05/24 12:45 99 Room Air 06/05/24 12:30 96 Room Air 06/05/24 12:22 96 Room Air 06/05/24 12:15 97 Room Air 06/05/24 12:00 98 Room Air 06/05/24 11:51 98 Room Air 06/05/24 11:44 100 Nasal Cannula 2 06/05/24 11:30 114/39 L 113/58 L 100 Nasal Cannula 2 06/05/24 11:15 159/54 H 158/71 H 100 Nasal Cannula 2 06/05/24 11:05 183/76 H 181/64 H 100 Nasal Cannula 2 06/05/24 10:55 77/43 L 73/29 L 99 Oxymask 4 06/05/24 10:45 158/71 H 141/53 H 100 Oxymask 4 06/05/24 10:35 151/53 H 139/70 100 Oxymask 6 06/05/24 06:39 Room Air 06/05/24 06:39 138/81 99 Room Air Lab & Micro Results (Past 24 Hours) No Data to Display Na 139 mmol/L (136-145) 06/05/24 K 5.4 mmol/L (3.5-5.1) H 06/05/24 Cl 109 mmol/L (98-107) H 06/05/24 CO2 21 mmol/L (21-32) 06/05/24 Anion Gap 9 (3-11) 06/05/24 BUN 71 mg/dl (6-23) H 06/05/24 Creatinine 2.95 mg/dl (0.6-1.4) H 06/05/24 BUN/Creatinine Ratio 24.1 (10-20) H 06/05/24 Glu 168 mg/dl (70-99(Fasting)) H 06/05/24 Ca 9.5 mg/dl (8.6-10.3) 06/05/24 Calcium Level 9.5 mg/dl (8.6-10.3) 06/05/24 06:25 I & O Totals 24 Hours 06/04/24 06/05/24 06/06/24 06:59 06:59 06:59 Intake Total 1025.616 / 1025.616 Output Total 320 / 320 Balance 705.616 / 705.616 Cumulative 03/07/24 11:53 thru 06/05/24 12:25 Intake Total 1025.616 Output Total 320 Balance 705.616 RT Ventilator Mngmt (Last Documented) Ventilator Ordered Settings Respiratory Rate 16 06/05/24 12:45 Ventilator - PT Measurements Respiratory Rate 16 Coding Level of Care Code 39502 IN/OBS CONSULT LVL 3,45M Diagnoses Bilateral carotid artery disease I77.9 Carotid artery disease type: unspecified Chronic kidney disease N18.9 Chronic diastolic congestive heart failure I50.32 Heart failure chronicity: chronic Heart failure type: diastolic (1) Bilateral carotid artery disease Carotid artery disease type: unspecified Qualified Code(s): I77.9 - Disorder of arteries and arterioles, unspecified (3) CHF (congestive heart failure) Heart failure chronicity: chronic Heart failure type: diastolic Qualified Code(s): I50.32 - Chronic diastolic (congestive) heart failure
[2024-06-05] MEDS ORDERED: SODIUM CHLORIDE 0.9% 250 ML IV ONE (14:50)
[2024-06-05] MEDS: SODIUM CHLORIDE 0.9% 250 ML IV STA (15:02)
[2024-06-05 15:15] LABS: BUN Creatinine Ratio 24.6 (10-20); Calcium 8.5 mg/dl (8.6-10.3); Creatinine Clr Calc Pharmacy 21.7 ml/min; Potassium 5.5 mmol/L (3.5-5.1)
[2024-06-05] MEDS ORDERED: PHARMACY GLYCEMIC MGMT CONSULT PRN (16:29)
[2024-06-05] MEDS ORDERED: GLUCOSE 40% GEL 15 GM TUBE PO PRN (16:45)
[2024-06-05] MEDS ORDERED: DEXTROSE 50% 50 ML SYRINGE IV PRN (16:45)
[2024-06-05] MEDS ORDERED: GLUCAGON FOR INJ 1 MG VIAL SQ PRN (16:45)
[2024-06-05] MEDS ORDERED: GLUCOSE 10 TAB/TUBE PO PRN (16:45)
[2024-06-05] MEDS ORDERED: CARBOHYDRATES FOR HYPOGLYCEMIA PO PRN (16:45)
[2024-06-05] MEDS: INSULIN ASPART PER UNIT CHARGE SC SCH (16:54)
[2024-06-05] MEDS: MIDODRINE HCL 2.5 MG TAB PO SCH (16:57)
[2024-06-05] MEDS: ATORVASTATIN 40 MG TAB PO SCH (20:39)
[2024-06-05] MEDS: PANTOprazole 40 MG TAB PO SCH (20:39)
[2024-06-05] MEDS: TICAGRELOR 90 MG TAB PO SCH (20:39)
[2024-06-06] MEDS: INSULIN ASPART PER UNIT CHARGE SC SCH (00:08)
[2024-06-06] MEDS: ASPIRIN 81 MG ECTAB PO SCH (08:06)
[2024-06-06] MEDS: allopurinoL 300 MG TAB PO SCH (08:06)
[2024-06-06] MEDS: POLYETHYLENE (MIRALAX) 17 GM PACK PO SCH (08:13)
[2024-06-06 08:27] LABS: Estimated Average Glucose 171 mg/dl; Hemoglobin A1C 7.6 % (4.5-5.6)
[2024-06-06] MEDS: CEROVITE ADV FORMULA TAB PO SCH (08:35)
[2024-06-06 08:40] LABS: BUN Creatinine Ratio 23.2 (10-20); Calcium 8.5 mg/dl (8.6-10.3); Potassium 5.1 mmol/L (3.5-5.1)
--- NOTE | 2024-06-06 09:14 | Critical Care Progress Note ---
Date of Service June 06, 2024 Assessment & Plan (1) Bilateral carotid artery disease: (2) Chronic kidney disease: (3) CHF (congestive heart failure): Plan Impression: 88-year-old male with significant carotid stenosis identified on carotid ultrasound status post left TCAR yesterday. His Lemuel-Synephrine is weaning to off Recommendations: 1. Status post TCAR: Continue neurovascular monitoring 2. Hypotension: Continue Lemuel-Synephrine. Holding antihypertensives and cont inue midodrine. 3. Diabetes: Continue outpatient medications. Cover with insulin as needed. 4. Chronic kidney disease: Creatinine stable. Potassium slightly decreased. Disposition per vascular surgery. Critical care issues appear resolved. Will sign off. Admission and Anticipated Discharge Date Admission Date: June 05, 2024 Subjective Patient seen and examined. EMR reviewed. Discussed with critical care nurse and on multidisciplinary rounds. The patient is doing better this morning. He is Lemuel-Synephrine is weaning down. His potassium is been stable. Kidney functions also stable. Review of Systems Review of Systems: All systems reviewed & are unremarkable except as noted in Subjective Physical Exam Constitutional: WD/WN, vitals as above Neck: trachea midline, no thyromegaly Respiratory: normal respiratory effort, lungs clear to auscultation Cardiovascular: RRR, no murmur, no edema Gastrointestinal (Abdomen): normal bowel sounds, soft, nontender, no hepatosplenomegaly Musculoskeletal: Extremities: extremities normal to inspection Skin: no rashes, warm and dry Lymphatic: no cervical lymphadenopathy Results & Data Results & Data Vital Signs (Past 12 Hours) Vital Signs Temp Pulse Pulse Resp BP BP BP 06/06/24 08:00 06/06/24 08:00 65 06/06/24 08:00 65 06/06/24 08:00 06/06/24 07:00 36.8 C 82 20 134/52 L 139/61 06/06/24 06:03 59 L 15 06/06/24 06:01 165/59 H 06/06/24 06:00 71 15 06/06/24 05:45 59 L 17 06/06/24 05:27 69 16 06/06/24 05:06 58 L 16 06/06/24 04:48 57 L 23 06/06/24 04:30 148/60 H 06/06/24 04:30 148/60 H 06/06/24 04:24 58 L 25 H 06/06/24 04:15 58 L 18 06/06/24 04:03 59 L 16 06/06/24 04:00 153/56 H 06/06/24 04:00 153/56 H 06/06/24 04:00 61 169/54 H 06/06/24 04:00 36.8 C 06/06/24 03:48 60 19 06/06/24 03:45 80 23 06/06/24 03:36 60 18 06/06/24 03:30 129/52 L 06/06/24 03:30 129/52 L 06/06/24 03:30 129/52 L 06/06/24 03:06 78 16 06/06/24 03:00 134/55 L 06/06/24 02:57 61 18 06/06/24 02:51 59 L 17 06/06/24 02:30 131/58 L 06/06/24 02:30 59 L 16 06/06/24 02:15 59 L 17 06/06/24 02:09 58 L 16 06/06/24 02:00 142/56 H 06/06/24 01:54 61 19 06/06/24 01:45 60 15 06/06/24 01:32 171/71 H 06/06/24 01:30 60 21 06/06/24 01:15 59 L 18 06/06/24 01:01 80/47 L 06/06/24 01:00 15 06/06/24 00:45 60 18 06/06/24 00:39 61 18 06/06/24 00:30 139/49 L 06/06/24 00:30 139/49 L 06/06/24 00:30 139/49 L 06/06/24 00:27 59 L 115/43 L 06/06/24 00:24 59 L 15 06/06/24 00:15 60 14 06/06/24 00:12 66 22 06/06/24 00:00 158/68 H 06/06/24 00:00 158/68 H 06/06/24 00:00 158/68 H 06/06/24 00:00 36.5 C 06/06/24 00:00 60 83/34 L 06/06/24 00:00 64 06/05/24 23:51 74 22 06/05/24 23:36 61 20 06/05/24 23:30 157/57 H 06/05/24 23:30 157/57 H 06/05/24 23:27 60 17 06/05/24 23:15 60 17 06/05/24 23:00 151/74 H 06/05/24 23:00 151/74 H 06/05/24 23:00 60 18 06/05/24 22:48 59 L 16 06/05/24 22:30 135/55 L 06/05/24 22:30 135/55 L 06/05/24 22:30 135/55 L 06/05/24 22:30 60 18 06/05/24 22:15 60 17 06/05/24 22:00 58 L 17 06/05/24 22:00 129/54 L 06/05/24 22:00 129/54 L 06/05/24 22:00 129/54 L 06/05/24 21:51 59 L 17 06/05/24 21:33 60 18 06/05/24 21:30 128/57 L 06/05/24 21:30 128/57 L 06/05/24 21:27 60 15 Pulse Ox O2 Del Method 06/06/24 08:00 Room Air 06/06/24 08:00 06/06/24 08:00 06/06/24 08:00 Room Air 06/06/24 07:00 97 Room Air 06/06/24 06:03 95 06/06/24 06:01 06/06/24 06:00 95 06/06/24 05:45 94 06/06/24 05:27 95 06/06/24 05:06 96 06/06/24 04:48 95 06/06/24 04:30 06/06/24 04:30 06/06/24 04:24 95 06/06/24 04:15 95 06/06/24 04:03 96 06/06/24 04:00 06/06/24 04:00 06/06/24 04:00 06/06/24 04:00 06/06/24 03:48 95 06/06/24 03:45 95 06/06/24 03:36 95 06/06/24 03:30 06/06/24 03:30 06/06/24 03:30 06/06/24 03:06 97 06/06/24 03:00 06/06/24 02:57 96 06/06/24 02:51 96 06/06/24 02:30 06/06/24 02:30 96 06/06/24 02:15 95 06/06/24 02:09 95 06/06/24 02:00 06/06/24 01:54 95 06/06/24 01:45 96 06/06/24 01:32 06/06/24 01:30 96 06/06/24 01:15 96 06/06/24 01:01 06/06/24 01:00 96 06/06/24 00:45 96 06/06/24 00:39 97 06/06/24 00:30 06/06/24 00:30 06/06/24 00:30 06/06/24 00:27 06/06/24 00:24 95 06/06/24 00:15 95 06/06/24 00:12 95 06/06/24 00:00 06/06/24 00:00 06/06/24 00:00 06/06/24 00:00 06/06/24 00:00 06/06/24 00:00 06/05/24 23:51 96 06/05/24 23:36 96 06/05/24 23:30 06/05/24 23:30 06/05/24 23:27 97 06/05/24 23:15 96 06/05/24 23:00 06/05/24 23:00 06/05/24 23:00 96 06/05/24 22:48 96 06/05/24 22:30 06/05/24 22:30 06/05/24 22:30 06/05/24 22:30 97 06/05/24 22:15 96 06/05/24 22:00 96 06/05/24 22:00 06/05/24 22:00 06/05/24 22:00 06/05/24 21:51 96 06/05/24 21:33 96 06/05/24 21:30 06/05/24 21:30 06/05/24 21:27 97 Critical Care Results & Data Vital Signs (Past 12 Hours) Vital Signs Temp Pulse Pulse Resp BP BP BP 06/06/24 08:00 06/06/24 08:00 65 06/06/24 08:00 65 06/06/24 08:00 06/06/24 07:00 36.8 C 82 20 134/52 L 139/61 06/06/24 06:03 59 L 15 06/06/24 06:01 165/59 H 06/06/24 06:00 71 15 06/06/24 05:45 59 L 17 06/06/24 05:27 69 16 06/06/24 05:06 58 L 16 06/06/24 04:48 57 L 23 06/06/24 04:30 148/60 H 06/06/24 04:30 148/60 H 06/06/24 04:24 58 L 25 H 06/06/24 04:15 58 L 18 06/06/24 04:03 59 L 16 06/06/24 04:00 153/56 H 06/06/24 04:00 153/56 H 06/06/24 04:00 61 169/54 H 06/06/24 04:00 36.8 C 06/06/24 03:48 60 19 06/06/24 03:45 80 23 06/06/24 03:36 60 18 06/06/24 03:30 129/52 L 06/06/24 03:30 129/52 L 06/06/24 03:30 129/52 L 06/06/24 03:06 78 16 06/06/24 03:00 134/55 L 06/06/24 02:57 61 18 06/06/24 02:51 59 L 17 06/06/24 02:30 131/58 L 06/06/24 02:30 59 L 16 06/06/24 02:15 59 L 17 06/06/24 02:09 58 L 16 06/06/24 02:00 142/56 H 06/06/24 01:54 61 19 06/06/24 01:45 60 15 06/06/24 01:32 171/71 H 06/06/24 01:30 60 21 06/06/24 01:15 59 L 18 06/06/24 01:01 80/47 L 06/06/24 01:00 15 06/06/24 00:45 60 18 06/06/24 00:39 61 18 06/06/24 00:30 139/49 L 06/06/24 00:30 139/49 L 06/06/24 00:30 139/49 L 06/06/24 00:27 59 L 115/43 L 06/06/24 00:24 59 L 15 06/06/24 00:15 60 14 06/06/24 00:12 66 22 06/06/24 00:00 158/68 H 06/06/24 00:00 158/68 H 06/06/24 00:00 158/68 H 06/06/24 00:00 36.5 C 06/06/24 00:00 60 83/34 L 06/06/24 00:00 64 06/05/24 23:51 74 22 06/05/24 23:36 61 20 06/05/24 23:30 157/57 H 06/05/24 23:30 157/57 H 06/05/24 23:27 60 17 06/05/24 23:15 60 17 06/05/24 23:00 151/74 H 06/05/24 23:00 151/74 H 06/05/24 23:00 60 18 06/05/24 22:48 59 L 16 06/05/24 22:30 135/55 L 06/05/24 22:30 135/55 L 06/05/24 22:30 135/55 L 06/05/24 22:30 60 18 06/05/24 22:15 60 17 06/05/24 22:00 58 L 17 06/05/24 22:00 129/54 L 06/05/24 22:00 129/54 L 06/05/24 22:00 129/54 L 06/05/24 21:51 59 L 17 06/05/24 21:33 60 18 06/05/24 21:30 128/57 L 06/05/24 21:30 128/57 L 06/05/24 21:27 60 15 Pulse Ox O2 Del Method 06/06/24 08:00 Room Air 06/06/24 08:00 06/06/24 08:00 06/06/24 08:00 Room Air 06/06/24 07:00 97 Room Air 06/06/24 06:03 95 06/06/24 06:01 06/06/24 06:00 95 06/06/24 05:45 94 06/06/24 05:27 95 06/06/24 05:06 96 06/06/24 04:48 95 06/06/24 04:30 06/06/24 04:30 06/06/24 04:24 95 06/06/24 04:15 95 06/06/24 04:03 96 06/06/24 04:00 06/06/24 04:00 06/06/24 04:00 06/06/24 04:00 06/06/24 03:48 95 06/06/24 03:45 95 06/06/24 03:36 95 06/06/24 03:30 06/06/24 03:30 06/06/24 03:30 06/06/24 03:06 97 06/06/24 03:00 06/06/24 02:57 96 06/06/24 02:51 96 06/06/24 02:30 06/06/24 02:30 96 06/06/24 02:15 95 06/06/24 02:09 95 06/06/24 02:00 06/06/24 01:54 95 06/06/24 01:45 96 06/06/24 01:32 06/06/24 01:30 96 06/06/24 01:15 96 06/06/24 01:01 06/06/24 01:00 96 06/06/24 00:45 96 06/06/24 00:39 97 06/06/24 00:30 06/06/24 00:30 06/06/24 00:30 06/06/24 00:27 06/06/24 00:24 95 06/06/24 00:15 95 06/06/24 00:12 95 06/06/24 00:00 06/06/24 00:00 06/06/24 00:00 06/06/24 00:00 06/06/24 00:00 06/06/24 00:00 06/05/24 23:51 96 06/05/24 23:36 96 06/05/24 23:30 06/05/24 23:30 06/05/24 23:27 97 06/05/24 23:15 96 06/05/24 23:00 06/05/24 23:00 06/05/24 23:00 96 06/05/24 22:48 96 06/05/24 22:30 06/05/24 22:30 06/05/24 22:30 06/05/24 22:30 97 06/05/24 22:15 96 06/05/24 22:00 96 06/05/24 22:00 06/05/24 22:00 06/05/24 22:00 06/05/24 21:51 96 06/05/24 21:33 96 06/05/24 21:30 06/05/24 21:30 06/05/24 21:27 97 Lab & Micro Results (Past 24 Hours) No Data to Display Na 135 mmol/L (136-145) L 06/06/24 K 5.1 mmol/L (3.5-5.1) 06/06/24 Cl 107 mmol/L (98-107) 06/06/24 CO2 19 mmol/L (21-32) L 06/06/24 Anion Gap 9 (3-11) 06/06/24 BUN 70 mg/dl (6-23) H 06/06/24 Creatinine 3.02 mg/dl (0.6-1.4) H 06/06/24 BUN/Creatinine Ratio 23.2 (10-20) H 06/06/24 Glu 176 mg/dl (70-99(Fasting)) H 06/06/24 Ca 8.5 mg/dl (8.6-10.3) L 06/06/24 Calcium Level 8.5 mg/dl (8.6-10.3) L 06/06/24 08:06 I & O Totals 24 Hours 06/05/24 06/06/24 06/07/24 06:59 06:59 06:59 Intake Total 3307.582 / 3307.582 9.65 / 9.65 Output Total 975 / 975 Balance 2332.582 / 2332.582 9.65 / 9.65 Cumulative 03/07/24 11:53 thru 06/06/24 08:44 Intake Total 3317.232 Output Total 975 Balance 2342.232 RT Ventilator Mngmt (Last Documented) Ventilator Ordered Settings Respiratory Rate 20 06/06/24 07:00 Ventilator - PT Measurements Respiratory Rate 20 Coding Level of Care Code 35651 SUB INP/OBS CARE 2/35MIN Diagnoses Bilateral carotid artery disease I77.9 Carotid artery disease type: unspecified Chronic kidney disease N18.9 Chronic diastolic congestive heart failure I50.32 Heart failure chronicity: chronic Heart failure type: diastolic (1) Bilateral carotid artery disease Carotid artery disease type: unspecified Qualified Code(s): I77.9 - Disorder of arteries and arterioles, unspecified (3) CHF (congestive heart failure) Heart failure chronicity: chronic Heart failure type: diastolic Qualified Code(s): I50.32 - Chronic diastolic (congestive) heart failure
--- NOTE | 2024-06-06 09:44 | Surgery Progress Note ---
Date of Service June 06, 2024 Assessment & Plan (1) Bilateral carotid artery disease: Plan: Pt now POD #1 after L TCAR, doing well postop. Started on midodrine in addition to phenylephrine yesterday for hypotension. Possible d/c home tomorrow, if able to wean from phenylephrine and maintain BP. Continue to monitor. Admission and Anticipated Discharge Date Admission Date: June 05, 2024 Subjective 88 yo m POD #1 after uncomplicated L TCAR, seen in f/u today. Pt states feels generally well. Admits sore throat and mild L neck incisional pain. No other new complaints. Pt remains on phenylephrine in addition to midodrine to maintain BP. Review of Systems Review of Systems: All systems reviewed & are unremarkable except as noted in HPI & below Physical Exam Constitutional: WD/WN, vitals as above cooperative and comfortable; not in distress Neck: trachea midline L supraclavicular incision C/D/I, mild local ecchymosis/edema. No erythema Respiratory: normal respiratory effort, lungs clear to auscultation Auscultation: + diminished lung sounds Cardiovascular: Rate/Rhythm: regular rate and regular rhythm Vessels: femoral pulses present, posterior tibial pulses present, dorsalis pedis pulses present and radial pulses present; + abnormal peripheral pulses Extremities: normal capillary refill and + edema (mild) Gastrointestinal (Abdomen): Inspection/Auscultation: abdomen normal to inspection and normal bowel sounds Percussion/Palpation: abdomen soft; abdomen nontender Musculoskeletal: no cyanosis or clubbing, extremities motor strength 5/5 Skin: no rashes, warm and dry R groin/thigh with area of ecchymosis in location of small hematoma noted postop. No worse than yesterday. No active bleeding from puncture site. Excoriation in skin fold. L groin puncture site soft, no hematoma, no bleeding. Neurologic: moves all extremities and awake; no focal motor deficits and not confused Psychiatric: A+Ox3, euthymic affect Results & Data Vital Signs (Past 12 Hours) Vital Signs Temp Pulse Pulse Resp BP BP BP 06/06/24 08:00 06/06/24 08:00 65 06/06/24 08:00 65 06/06/24 08:00 06/06/24 07:00 36.8 C 82 20 134/52 L 139/61 06/06/24 06:03 59 L 15 06/06/24 06:01 165/59 H 06/06/24 06:00 71 15 06/06/24 05:45 59 L 17 06/06/24 05:27 69 16 06/06/24 05:06 58 L 16 06/06/24 04:48 57 L 23 06/06/24 04:30 148/60 H 06/06/24 04:30 148/60 H 06/06/24 04:24 58 L 25 H 06/06/24 04:15 58 L 18 06/06/24 04:03 59 L 16 06/06/24 04:00 153/56 H 06/06/24 04:00 153/56 H 06/06/24 04:00 61 169/54 H 06/06/24 04:00 36.8 C 06/06/24 03:48 60 19 06/06/24 03:45 80 23 06/06/24 03:36 60 18 06/06/24 03:30 129/52 L 06/06/24 03:30 129/52 L 06/06/24 03:30 129/52 L 06/06/24 03:06 78 16 06/06/24 03:00 134/55 L 06/06/24 02:57 61 18 06/06/24 02:51 59 L 17 06/06/24 02:30 131/58 L 06/06/24 02:30 59 L 16 06/06/24 02:15 59 L 17 06/06/24 02:09 58 L 16 06/06/24 02:00 142/56 H 06/06/24 01:54 61 19 06/06/24 01:45 60 15 06/06/24 01:32 171/71 H 06/06/24 01:30 60 21 06/06/24 01:15 59 L 18 06/06/24 01:01 80/47 L 06/06/24 01:00 15 06/06/24 00:45 60 18 06/06/24 00:39 61 18 06/06/24 00:30 139/49 L 06/06/24 00:30 139/49 L 06/06/24 00:30 139/49 L 06/06/24 00:27 59 L 115/43 L 06/06/24 00:24 59 L 15 06/06/24 00:15 60 14 06/06/24 00:12 66 22 06/06/24 00:00 158/68 H 06/06/24 00:00 158/68 H 06/06/24 00:00 158/68 H 06/06/24 00:00 36.5 C 06/06/24 00:00 60 83/34 L 06/06/24 00:00 64 06/05/24 23:51 74 22 06/05/24 23:36 61 20 06/05/24 23:30 157/57 H 06/05/24 23:30 157/57 H 06/05/24 23:27 60 17 06/05/24 23:15 60 17 06/05/24 23:00 151/74 H 06/05/24 23:00 151/74 H 06/05/24 23:00 60 18 06/05/24 22:48 59 L 16 06/05/24 22:30 135/55 L 06/05/24 22:30 135/55 L 06/05/24 22:30 135/55 L 06/05/24 22:30 60 18 06/05/24 22:15 60 17 06/05/24 22:00 58 L 17 06/05/24 22:00 129/54 L 06/05/24 22:00 129/54 L 06/05/24 22:00 129/54 L 06/05/24 21:51 59 L 17 Pulse Ox O2 Del Method 06/06/24 08:00 Room Air 06/06/24 08:00 06/06/24 08:00 06/06/24 08:00 Room Air 06/06/24 07:00 97 Room Air 06/06/24 06:03 95 06/06/24 06:01 06/06/24 06:00 95 06/06/24 05:45 94 06/06/24 05:27 95 06/06/24 05:06 96 06/06/24 04:48 95 06/06/24 04:30 06/06/24 04:30 06/06/24 04:24 95 06/06/24 04:15 95 06/06/24 04:03 96 06/06/24 04:00 06/06/24 04:00 06/06/24 04:00 06/06/24 04:00 06/06/24 03:48 95 06/06/24 03:45 95 06/06/24 03:36 95 06/06/24 03:30 06/06/24 03:30 06/06/24 03:30 06/06/24 03:06 97 06/06/24 03:00 06/06/24 02:57 96 06/06/24 02:51 96 06/06/24 02:30 06/06/24 02:30 96 06/06/24 02:15 95 06/06/24 02:09 95 06/06/24 02:00 06/06/24 01:54 95 06/06/24 01:45 96 06/06/24 01:32 06/06/24 01:30 96 06/06/24 01:15 96 06/06/24 01:01 06/06/24 01:00 96 06/06/24 00:45 96 06/06/24 00:39 97 06/06/24 00:30 06/06/24 00:30 06/06/24 00:30 06/06/24 00:27 06/06/24 00:24 95 06/06/24 00:15 95 06/06/24 00:12 95 06/06/24 00:00 06/06/24 00:00 06/06/24 00:00 06/06/24 00:00 06/06/24 00:00 06/06/24 00:00 06/05/24 23:51 96 06/05/24 23:36 96 06/05/24 23:30 06/05/24 23:30 06/05/24 23:27 97 06/05/24 23:15 96 06/05/24 23:00 06/05/24 23:00 06/05/24 23:00 96 06/05/24 22:48 96 06/05/24 22:30 06/05/24 22:30 06/05/24 22:30 06/05/24 22:30 97 06/05/24 22:15 96 06/05/24 22:00 96 06/05/24 22:00 06/05/24 22:00 06/05/24 22:00 06/05/24 21:51 96 (1) Bilateral carotid artery disease Carotid artery disease type: unspecified Qualified Code(s): I77.9 - Disorder of arteries and arterioles, unspecified
[2024-06-06] MEDS: METOPROLOL SUCC 25MG EXT REL TAB PO SCH (11:45)
--- NOTE | 2024-06-06 15:00 | Pharmacy Report ---
Pharmacy Glycemic Short Note 2 - Date of Service June 06, 2024 - Glycemic Short BSG Results (Last 24 hours): 06/05/24 06/05/24 06/05/24 14:46 16:17 20:33 Glucose 219 H POC Glucose 261 H 291 H 06/05/24 06/06/24 06/06/24 23:50 03:32 07:16 Glucose POC Glucose 235 H 204 H 184 H 06/06/24 06/06/24 08:06 11:44 Glucose 176 H POC Glucose 222 H OUTPATIENT ANTIDIABETIC REGIMEN: * Semaglutide 0.5mg weekly * A1c: 7.6% 06/06/24 ASSESSMENT: * Patient POD 1 after TCAR procedure * Patient likely experiencing some stress induced hyperglycemia potentially exacerbated by intra-op dexamethasone. Suspect BSG will down trend as effects of steroids wear off. Patient is ordered and tolerating a diet * Novolog CR tightened slightly today. Will monitor trend. PLAN FOR INPATIENT GLYCEMIC CONTROL: * Hold outpatient oral diabetes medications * Basal insulin * none at present * Bolus insulin * NovoLog per scale ACHS or Q6hrs while NPO * Goal Range: Low 110 mg/dL - High 140 mg/dL * Correction Factor: 30 mg/dL/unit * Nutritional / Prandial insulin per carb ratio of 1 unit per 9 grams CHO consumed
[2024-06-07 04:44] LABS: BUN Creatinine Ratio 24.5 (10-20); Calcium 8.3 mg/dl (8.6-10.3); Creatinine Clr Calc Pharmacy 19.7 ml/min; Potassium 4.8 mmol/L (3.5-5.1)
--- NOTE | 2024-06-07 14:46 | Surgery Progress Note ---
Date of Service June 07, 2024 Assessment & Plan (1) Bilateral carotid artery disease: Plan: Pt now POD #2 after L TCAR, doing well postop. Started on midodrine in addition to phenylephrine post op. Still drops pressure when out of bed. Will increase midodrine. In office right arm pressure higher than left. Admission and Anticipated Discharge Date Admission Date: June 05, 2024 Subjective Pateint without complaint. Still having some difficulty with BP when out of bed. He is asymptomatic from this. Denies any focal deficits. Physical Exam Constitutional: WD/WN, vitals as above Respiratory: normal respiratory effort; no respiratory distress Cardiovascular: Rate/Rhythm: regular rate and regular rhythm Gastrointestinal (Abdomen): Inspection/Auscultation: abdomen normal to inspection; abdomen not distended Percussion/Palpation: abdomen soft; abdomen nontender Skin: + incision (dry and clean) Neurologic: CN's II-XI intact bilaterally and moves all extremities Psychiatric: A+Ox3, euthymic affect Results & Data Vital Signs (Past 12 Hours) Vital Signs Temp Pulse Resp BP Pulse Ox O2 Del Method 06/07/24 13:12 70 16 06/07/24 13:00 120/50 L 06/07/24 12:54 94 H 19 06/07/24 12:30 64 15 06/07/24 12:00 67 23 06/07/24 12:00 111/53 L 06/07/24 12:00 72 06/07/24 11:30 70 17 06/07/24 11:06 65 23 06/07/24 11:00 122/47 L 06/07/24 11:00 122/47 L 06/07/24 11:00 122/47 L 06/07/24 10:54 63 18 06/07/24 10:30 64 16 06/07/24 10:12 72 21 06/07/24 10:03 110/49 L 06/07/24 10:01 79/39 L 06/07/24 09:58 88/40 L 06/07/24 09:58 88/40 L 06/07/24 09:51 66 19 06/07/24 09:45 66 24 96 06/07/24 09:33 65 14 96 06/07/24 09:21 67 19 96 06/07/24 09:01 125/49 L 06/07/24 09:01 125/49 L 06/07/24 09:00 71 17 99 06/07/24 08:45 68 15 99 06/07/24 08:36 66 16 98 06/07/24 08:06 66 18 96 06/07/24 08:00 Room Air 06/07/24 08:00 75 105/50 L 06/07/24 08:00 75 06/07/24 08:00 Room Air 06/07/24 07:30 66 22 94 06/07/24 07:06 59 L 15 96 06/07/24 07:01 129/51 L 06/07/24 07:00 37.0 C 20 97 Room Air 06/07/24 06:51 57 L 15 95 06/07/24 06:09 75 22 105/50 L 100 Room Air 06/07/24 05:00 60 15 126/56 L 95 Room Air 06/07/24 04:39 58 L 13 94 06/07/24 04:18 65 18 95 06/07/24 04:00 36.5 C 152/59 H 06/07/24 03:51 69 19 97 06/07/24 03:36 61 18 95 06/07/24 03:00 139/60 06/07/24 03:00 139/60 06/07/24 03:00 62 20 (1) Bilateral carotid artery disease Carotid artery disease type: unspecified Qualified Code(s): I77.9 - Disorder of arteries and arterioles, unspecified
[2024-06-07] MEDS: ACETAMINOPHEN 500 MG TAB PO PRN (15:05)
[2024-06-07] MEDS: MIDODRINE HCL 10 MG TAB PO SCH (16:42)
[2024-06-07 19:15] VITALS: TEMP 97.7
[2024-06-08 04:46] LABS: BUN Creatinine Ratio 25.7 (10-20); Calcium 8.5 mg/dl (8.6-10.3); Creatinine Clr Calc Pharmacy 19.4 ml/min; Potassium 4.9 mmol/L (3.5-5.1)
[2024-06-08 06:41] VITALS: O2SAT 98
[2024-06-08] MEDS: COUGH DROP (SUGAR FREE) LOZ 24 LOZ/1 BOX BUCCAL PRN (08:09)
[2024-06-08 09:05] VITALS: RESP 18
--- NOTE | 2024-06-08 09:14 | Pharmacy Report ---
Pharmacy Glycemic Short Note 2 - Date of Service June 08, 2024 - Glycemic Short BSG Results (Last 24 hours): 06/07/24 06/07/24 06/07/24 11:14 15:11 20:30 Glucose POC Glucose 194 H 168 H 116 H 06/08/24 06/08/24 04:06 07:25 Glucose 143 H POC Glucose 136 H OUTPATIENT ANTIDIABETIC REGIMEN: * Semaglutide 0.5mg weekly * A1c: 7.6% 06/06/24 ASSESSMENT: 06/08: * BSGs largely within goal the last 24h. Received 20 units of bolus insulin yesterday. * Tolerating diet, other stressors stable. * Continue Novolog ACHS/no change to parameters. 06/06: * Patient POD 1 after TCAR procedure * Patient likely experiencing some stress induced hyperglycemia potentially exacerbated by intra-op dexamethasone. Suspect BSG will down trend as effects of steroids wear off. Patient is ordered and tolerating a diet * Novolog CR tightened slightly today. Will monitor trend. PLAN FOR INPATIENT GLYCEMIC CONTROL: * Hold outpatient oral diabetes medications * Basal insulin * none at present * Bolus insulin * NovoLog per scale ACHS or Q6hrs while NPO * Goal Range: Low 110 mg/dL - High 140 mg/dL * Correction Factor: 30 mg/dL/unit * Nutritional / Prandial insulin per carb ratio of 1 unit per 9 grams CHO consumed
--- NOTE | 2024-06-08 09:46 | Surgery Progress Note ---
Date of Service June 08, 2024 Assessment & Plan (1) Bilateral carotid artery disease: Plan: Pt now POD #3 after L TCAR, doing well postop. Still with mild hypotension when OOB, remains on midodrine. Pt asymptomatic. SBP around 100mmHg. Discussed with liza Conklin for d/c home today on midodrine. Will continue to hold metoprolol until off midodrine. Admission and Anticipated Discharge Date Admission Date: June 05, 2024 Subjective 88 yo m POD #3 after L TCAR, seen in f/u today. Pt states feeling well. No new complaints. BP has been improved. Review of Systems Review of Systems: All systems reviewed & are unremarkable except as noted in HPI & below Physical Exam Constitutional: WD/WN, vitals as above cooperative and comfortable; not in distress Neck: trachea midline Respiratory: normal respiratory effort, lungs clear to auscultation Auscultation: + diminished lung sounds Cardiovascular: Rate/Rhythm: regular rate and regular rhythm Vessels: femoral pulses present, posterior tibial pulses present, dorsalis pedis pulses present and radial pulses present; + abnormal peripheral pulses Extremities: normal capillary refill and + edema (mild) Gastrointestinal (Abdomen): Inspection/Auscultation: abdomen normal to inspection and normal bowel sounds Percussion/Palpation: abdomen soft; abdomen nontender Musculoskeletal: no cyanosis or clubbing, extremities motor strength 5/5 Skin: no rashes, warm and dry Neurologic: moves all extremities and awake; no focal motor deficits and not confused Psychiatric: A+Ox3, euthymic affect Results & Data Vital Signs (Past 12 Hours) Vital Signs Temp Pulse Pulse Resp BP BP Pulse Ox 06/08/24 09:00 76 18 98 06/08/24 08:45 76 30 H 100 06/08/24 08:42 75 17 100 06/08/24 08:34 97/52 L 06/08/24 08:34 93/46 L 06/08/24 08:00 121/56 L 06/08/24 08:00 56 L 06/08/24 07:54 36.5 C 06/08/24 07:01 114/55 L 06/08/24 07:00 67 25 H 98 06/08/24 06:00 36.5 C 56 L 12 161/63 H 98 06/08/24 05:00 58 L 16 142/52 H 97 06/08/24 04:00 62 21 125/52 L 96 06/08/24 03:00 57 L 16 137/54 L 96 06/08/24 02:00 62 16 166/57 H 95 06/08/24 01:00 59 L 17 159/60 H 96 06/08/24 00:00 56 L 06/08/24 00:00 61 17 147/52 H 97 06/07/24 23:00 36.5 C 60 15 138/49 L 97 06/07/24 22:00 62 16 120/62 99 O2 Del Method 06/08/24 09:00 06/08/24 08:45 06/08/24 08:42 06/08/24 08:34 06/08/24 08:34 06/08/24 08:00 06/08/24 08:00 06/08/24 07:54 06/08/24 07:01 06/08/24 07:00 Room Air 06/08/24 06:00 Room Air 06/08/24 05:00 Room Air 06/08/24 04:00 Room Air 06/08/24 03:00 Room Air 06/08/24 02:00 Room Air 06/08/24 01:00 Room Air 06/08/24 00:00 06/08/24 00:00 Room Air 06/07/24 23:00 Room Air 06/07/24 22:00 Room Air (1) Bilateral carotid artery disease Carotid artery disease type: unspecified Qualified Code(s): I77.9 - Disorder of arteries and arterioles, unspecified
--- NOTE | 2024-06-08 09:47 | Discharge Summary ---
Date of Service June 08, 2024 Admission HPI Per Admitting Provider Name: VIK GATES Patient Number: [id number] : 1935 Date of Service: 05/16/2024 Chief Complaint: Carotid artery stenosis HPI: Mr. Gates is a pleasant 88 year old male with a PMH of HTH, CKD III, CAD, GERD. He was found to have bilateral carotid artery stenosis of >70% on the right and >80% on the left. He has been asymptomatic and denies amaurosis fugax, word finding problems, unilateral sensory or motor deficits, or other sighs or symptoms of TIA or Stroke. He is on Aspirin and Brilinta and has taken this daily. He is right hand dominate We had previously discussed performing a TCAR on the left for his high grade stenosis. Patient was agreeable to this. The procedure was delayed for hyperkalemia and hypotension. 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 These have been improved since his last visit. Current Home Meds: (Last Updated 05/16 11:16) acetaminophen (Tylenol Arthritis Caplet) prn PO allopurinol (allopurinol 300 mg oral tablet) 300 mg PO Daily aspirin (aspirin 81 mg oral tablet) 81 mg PO Daily atorvastatin (atorvastatin 40 mg oral tablet) 40 mg PO Daily furosemide (furosemide 20 mg oral tablet) 20 mg PO q48h prn as needed for swelling metoprolol (metoprolol succinate 25 mg oral tablet, extended release) 25 mg PO Daily multivitamin 1 tab PO Daily omeprazole (omeprazole 20 mg oral delayed release capsule) 1 cap PO Daily polyethylene glycol 3350 (MiraLax oral powder for reconstitution) 17 g PO Daily semaglutide (Ozempic (0.25 mg or 0.5 mg dose) 2 mg/3 mL subQ pen) 0.5 mg subQ q7days tetanus/diphth/pertuss (Tdap) adult/adol (tetanus/diphth/pertuss (Tdap) adult/adol 5 units-2.5 units-18.5 mcg/0.5 mL intramuscular suspension) 0.5 mL IM ONCE ticagrelor (Brilinta (ticagrelor) 90 mg oral tablet) 90 mg PO bid Allergies and Sensitivities: codeine(Swelling) Past Medical History: Problems: Bilateral carotid artery stenosis SCC (squamous cell carcinoma) Urinary tract infection in male Prediabetes History of left knee replacement Basal cell carcinoma Weight disorder Colonic polyp Keratosis Polyneuropathy Arthritis High cholesterol HTN (hypertension) CAD GERD ROSACEA Acid reflux HYPERTENSION Actinic keratosis Knee pain Colon polyps Peyronie disease Gout Stent Obesity Osteoarthritis BPH NIDDM OBJECTIVE Vitals: Last Updated 05/16/24 11:12 Date Temp BP Location Pulse RR SpO2 Pain 05/16/24 0 05/16/24 154/90 85 98 04/17/24 124/78 74 18 95 Vital Signs are the last 3 documented. No Orthostatic Data Available Height and Weight: Last Updated 11/11/23 09:21 Date BMI Wt(kg) Wt(lb) Method Ht(cm) (ft-in) Method 11/11/23 31.61 103 227 Standing Scale 180.5 5-11 Standing 08/10/23 31.09 101.3 223 Standing Scale 180.5 5-11 Standing 06/17/23 88.85 104.6 230 Standing Scale 108.5 3-6 Standing Heights and Weights are the last 3 documented. Physical Exam General: no acute distress, resting comfortably in bed HEENT:normocephalic,atraumatic Cardiovascular: regular rate Pulmonary: breathing comfortably on room air, equal chest rise bilaterally Abdomen: soft, nondistended Extremity:WWP, no deficit Neuro: CNII-CNXII intact, no focal deficits appreciated Skin: warm and well perfused, no rashes or jaundice appreciated 30 Day Labs: 04/25/24 1018 Enhanced Lab PDF Enhanced Lab PDF WBC UA-Quest 6-10 RBC UA-Quest NONE SEEN Squam Epi UA-Quest NONE SEEN Bacteria UA-Quest MANY Trip Phos Cryst UA-Quest MODERATE Amorph Sed UA-Quest MODERATE Hyaline Cast UA-Quest NONE SEEN 04/25/24 1016 Triglycerides-QST 268 H Chol/HDLC Ratio-QST 2.9 HDL Chol-QST 39 L LDL Chol-QST 44 Cholesterol-QST 115 Non HDL Chol-QST 76 eGFR-QST 20 L Glucose-Qst 168 H Na-Quest 133 L Cl-Quest 101 Creatinine-Quest 2.88 H BUN/Creat Ratio-Quest 26 H Ca-Quest 9.1 BUN-Quest 76 H K-Quest 5.2 CO2-Quest 21 TSH (QST) 8.22 H Vit D25 OH, IA-Quest 43 Enhanced Lab PDF Enhanced Lab PDF Imaging: Review of the patients MRA showed significant high grade stenosis of both the patients internal carotid arteries ASSESSMENT: _ PLAN: _ 1 ) Bilateral carotid artery stenosis, asymptomatic Mr. Gates is a pleasant 88 year old right hand dominate male with high grade stenosis of the bilateral carotid arteries. His stenosis is severe and meets criteria for intervention to prevent stroke. We discussed intervention including CEA and TCAR in detail. We went over the procedure, risks, and benefits of both procedures. Patient elected to go ahead with a TCAR approach. He is aware that this procedure requires contrast, and we will attempt to limit contrast use to less than 12cc. Patient is agreeable to go ahead with the procedure. He was given the opportunity to ask questions and they were answered in detail to his satisfaction. He will continue taking aspirin and brillinta daily. We will go ahead and schedule the procedure for a mutually acceptable time. I saw and evaluated the patient. Discussed with the resident and agree with the resident's findings and plan as documented in the resident's note. I have personally spent___15__ minutes performing [id number] and non -[id number]-ku-[id number] activities on this date of service. Activities Include: _x_ review of the medical record _x_ obtaining a history _x_ physical exam/evaluation __ review labs __ review radiology reports _x_ counseling/educating patient/family/caregiver __ discussion/referral to other healthcare professional _x_ documenting care in the medical record __ independent interpretation of results____ __ communication of results to patient/family/caregiver __ coordination of care Signature Line Electronic Signature on File CC: Umberto Bassett DO [address] [facility] [address] [facility] [address] Electronically Reviewed/Signed by: Marcel Brito MD Author Signature Dt/Tm:05/16/2024 11:42 AM Resident Division of General Surgery Electronically Reviewed/Signed by: Pasquale Blood MD Cosigner Signature Dt/Tm: 05/16/2024 11:51 AM Agricultural Real Estate Agent Pablo Rea [facility] [place] [address], [address] [place] [address] PC Result Type: Vascular Surgery Outpt Note Date of Service: May 16, 2024 11:29 EDT Authorization Status: Final Author or Import Date: MD Daryl, Marcel on May 16, 2024 11:42 EDT Verified By: MD Genny, Pasquale Keen on May 16, 2024 11:51 EDT Encounter info: [id number], [place] [address], Clinic, 05/16/2024 - 05/16/2024 Admission Exam Per Admitting Provider General: no acute distress, resting comfortably in bed HEENT:normocephalic,atraumatic Cardiovascular: regular rate Pulmonary: breathing comfortably on room air, equal chest rise bilaterally Abdomen: soft, nondistended Extremity:WWP, no deficit Neuro: CNII-CNXII intact, no focal deficits appreciated Skin: warm and well perfused, no rashes or jaundice appreciated Principal Diagnosis 1. s/p L TCAR 2. L ICA stenosis 3. Hypotension Discharge Exam Constitutional WD/WN, vitals as above cooperative and comfortable; not in distress Neck trachea midline Respiratory normal respiratory effort, lungs clear to auscultation Auscultation: + diminished lung sounds Cardiovascular Rate/Rhythm: regular rate and regular rhythm Vessels: femoral pulses present, posterior tibial pulses present, dorsalis pedis pulses present and radial pulses present; + abnormal peripheral pulses Extremities: normal capillary refill and + edema (mild) Gastrointestinal (Abdomen) Inspection/Auscultation: abdomen normal to inspection and normal bowel sounds Percussion/Palpation: abdomen soft; abdomen nontender Musculoskeletal no cyanosis or clubbing, extremities motor strength 5/5 Skin no rashes, warm and dry Neurologic moves all extremities and awake; no focal motor deficits and not confused Psychiatric A+Ox3, euthymic affect Discharge Data Allergies Allergy/AdvReac Type Severity Reaction Status Date / Time codeine Allergy Intermediate Facial Verified 06/05/24 06:26 Swelling/Nausea Consultations 06/05/24 10:55 Consult Teaching Pastor Routine Procedures Performed Operation Date: 06/05/24 08:00 Actual Procedures p Left Transcarotid Artery Revascularization(Left) - Pasquale Blood MD Ordered Studies 06/05/24 07:10 EV angio carotid cerv LT Routine US EV guide vascular access Routine Hospital Course (1) Bilateral carotid artery disease: Pt now POD #3 after L TCAR, doing well postop. Still with mild hypotension when OOB, remains on midodrine. Pt asymptomatic. SBP around 100mmHg. Discussed with liza Conklin for d/c home today on midodrine. Will continue to hold metoprolol until off midodrine. Total Time Total Time Spent Total Time Spent (In Minutes): 0 Discharge Plan Discharge Items Patient Disposition: Home - Self-Care Reason For Visit: Bilateral Carotid Artery Stenosis Discharge Diagnosis: 1. s/p L TCAR 2. L ICA stenosis 3. Hypotension Activity: Per Instructions section Non-emergency contact: Primary Care Provider and Surgeon Call non-emergency contact if: you have any medication questions, your pain is not controlled, your pain is concerning for you, you have a fever, your wound has increased redness and your wound has increased drainage Follow-up/Referrals: Vik Murphy MD [Physician] - 06/18/24 2:30 pm (Hospital follow up scheduled for June 18, 2024 at 2:30 pm) Umberto Bassett DO [Primary Care Provider] - 06/12/24 4:05 am (Hospital follow up scheduled with Dr. Vitale on June 12, 2024 at 4:05 pm) Pasquale Blood MD [Physician] - (Follow up with Dr Blood or Lisa Tello PA-C, in 2 weeks) Diet: Heart Healthy Addtl Attending Provider Instructions: ACTIVITY RECOMMENDATIONS: See Above SPECIAL CARE INSTRUCTIONS: Call your doctor if: * Temperature above 101 degrees * Pain not relieved by pain medicine ordered * There is increased drainage or redness from any incision * You have any unanswered questions or concerns. SPECIAL CARE INSTRUCTIONS: Diet: * You may return to previous diet. Medications: * Continue to take Aspirin, ticagrelor, and statin medications as directed. DO NOT STOP THESE MEDICATIONS WITHOUT SPEAKING TO DR BLOOD'S OFFICE Incision Care: * You may shower, but do not rub incision. You may let the warm soapy water run over it. Be sure to dry the incision well after bathing. * Do not shave directly over the incision until it is healed. * DO NOT IMMERSE THE INCISION IN A TUB/POOL/etc. UNTIL HEALED. Restrictions: * Do not drive if you are still taking any narcotic pain medication. * Possible Complications: * Numbness - It is normal to have some numbness around the incision. Numbness can extend beyond the incision to areas of the neck, ear and face. The numbness is due to bruising of nerves during the surgery and will gradually improve over a period of months. * Hoarseness/Difficulty Speaking and Swallowing - The bruising of nerves in the neck can also cause a hoarse voice, difficulty speaking or swallowing. This may improve over time, HOWEVER, if it continues for more than a few days please contact our office ([phone]). * Excessive Swelling - There will be some swelling immediately after surgery which usually resolves within one week. If you notice that the swelling is getting worse, notify your surgeon ([phone]). * Drainage/Bleeding - If there is any drainage or bleeding, it should be a very small amount (less than a teaspoon per day). If you have excessive bleeding or drainage from the incision, call your surgeon ([phone]) right away. ACTIVATION OF EMERGENCY MEDICAL SYSTEM: Call 911, immediately, if you experience any of the following: Warning Signs and Symptoms of Stroke: * Sudden numbness or weakness of the face, arm or leg, especially on one side of the body * Sudden confusion, trouble speaking or understanding * Sudden trouble seeing in one or both eyes * Sudden trouble walking, dizziness, loss of balance or coordination * Sudden severe headache with no cause Do not delay calling 911 if you experience any warning signs or symptoms of a stroke. Delay in seeking medical attention may affect what treatments can be given to you. Risk Factors for Stroke: You can reduce your chances of stroke by working with your medical provider to adopt a healthy lifestyle. Some specific ways to lower your chance of stroke are: * If you are a smoker, now is the time to stop smoking cigarettes * If you are diabetic, improve the control of your blood sugars * Avoid excessive amounts of alcohol * Control high blood pressure * Lose weight if you are overweight * Be sure to lead an active lifestyle * Eat a healthy diet low in salt, cholesterol and fat You should know about other risk factors for stroke that you are unable to control. These include: * Age 55 years or older * Male gender * Certain racial groups: , or / * Family History of Stroke, Mini stroke or Heart Attack * Sickle Cell Disease You will be receiving a call from the Vascular Surgery Nurse after you are discharged. FOLLOW UP VISIT: It is important for you to keep your follow up appointments with your medical provider. Keep any scheduled doctor appointments. Pending Studies at Discharge: No Stand-Alone Forms: My [facility] [place], Smoking Cessation Medications and DC Order Prescriptions: New midodrine 10 mg Tablet 10 mg PO TID@0800,1200,1700 14 Days Qty: 60 0RF Continued allopurinol 300 mg tablet 300 mg PO QAM Qty: 90 3RF Ozempic 0.25 mg or 0.5 mg (2 mg/3 mL) pen injector 0.5 mg subcut WK Rx Instructions: Mondays omeprazole 20 mg Capsule,Delayed Release(Dr/Ec) 20 mg PO HS Centrum Silver 0.4-300-250 mg-mcg-mcg Tablet 1 tab PO QAM nitroglycerin [Nitrostat] 0.4 mg tablet, sublingual 0.4 mg sublingual Q5M PRN (Reason: Chest Pain) Patient Comments: DISSOLVE ONE TABLET UNDER THE TONGUE EVERY 5 MINUTES FOR UP TO 3 DOSES NEEDED FOR CHEST PAIN. aspirin 81 mg Tablet,Delayed Release (Dr/Ec) 81 mg PO QAM Hold Instructions: Resume on 11/07/23. Resume Tuesday if no more blood per rectum. polyethylene glycol 3350 [Miralax] 17 gram powder in packet 17 g PO QAM acetaminophen [Tylenol Ex Str Arthritis Pain] 500 mg Tablet 1,000 mg PO Q6H PRN (Reason: Pain) atorvastatin 40 mg tablet 40 mg PO HS Brilinta 90 mg Tablet 90 mg PO BID Patient Comments: "Brilinta is picked up at [facility]" Rx Instructions: PER PT "TOOK 180 MG TODAY, 04/04/24, LOADING DOSE". THEN WILL CONTINUE AT 90 MG BID. furosemide 20 mg tablet 20 mg PO DAILY PRN (Reason: leg swelling) Qty: 30 1RF Held metoprolol succinate 25 mg tablet extended release 24 hr 25 mg PO QAM Hold Instructions: Resume on 06/19/24. Hold while taking midodrine Discharge Orders: Discharge Order (Routine); Ordered 06/08/24 Ordered By: Lisa D. Minarchick Krames/Other Patient Handouts: Managing Type 2 Diabetes Admission Data Admit Date/Time: 06/05/24 07:37 Attending Provider: Pasquale Blood Admit Provider: Pasquale Blood Primary Care Provider: Umberto Bassett Other Providers: Pedro Cortez; Omega Obando; Bo Lieberman; Raghav Ochoa; Hong Ellington; Rodo Austin; Marcus Hsieh; Yarely Piper; Dianna Maria; Buddy Cid; Santo Ji; Delores Lazo
[2024-06-08 09:50] VITALS: BP 161/63; PULSE 56
== END 2024-06-08 10:14 | disposition home or self-care (01) | DRG 35 ==
LOC: ASU 06:07 → 1E 07:37
PROC: EV.TCAR (2024-06-05 08:00)

== ENCOUNTER 2024-08-02 13:14 | Inpatient (IN) ==
--- NOTE | 2024-08-02 13:32 | Emergency Department Note ---
Impression & Plan Chest pain, CKD (chronic kidney disease), Elevated troponin, Hypertension, CAD (coronary artery disease) ED Provider Note NAME: NAVYA BROWNING AGE: 88 SEX: M : 1935 ARRIVES VIA: Ambulance INFORMANT: Patient ED PROVIDER(S): Justin Anthony MD CHIEF COMPLAINT: Chest pain PLAN: Disposition: Admit MEDICAL DECISION MAKING: The patient is a pleasant 88-year-old gentleman with a past medical history of CKD, diastolic and right-sided heart failure, CAD with history of PCI remotely, hypertension, hyperlipidemia, severe bilateral carotid artery disease s/p left TCAR in May 2024 who presents to the emergency department via EMS and accompanied by his and daughter for evaluation of episodes of chest pain which she feels confident that it is his angina. Patient reports having 2 episodes last night with the first occurring around midnight and then again around 4 AM. Patient reports he did take a nitroglycerin with the first episode and symptoms resolved. He reports he was preparing to take a second nitroglycerin when he noticed the symptoms gradually abating on its own and so did not take it. The patient reports he started to have similar episodes over the past week and describes that they occur often after eating. Last night he reports eating dinner around 7 PM which did include ham and mashed potatoes and then he went to bed around 11 PM. He does not necessarily feel that he was having any symptoms of indigestion. He reports that he did notice the pain improved when he sat up. He reports his second episode at 4 AM woke him up from sleep but he also acknowledges that this occurred in the setting of having a nightmare where he was running away from a bear in [place]. When he woke up he had the similar chest pain he had earlier in the evening. Otherwise he reports he does perform regular strength exercises at home and does not experience any chest pain with this type of exertion. He denies any recent fevers, chills, cough, congestion, GI or symptoms. He reports that since his TCAR in May of this year his blood pressure has been going up and down. He reports that he was started on midodrine after his hospitalization due to persistence of low blood pressure. He reports he was weaned off of this subsequently. He has been following closely with his outpatient doctors regarding monitoring of his blood pressure which periodically will rise to the 200s and then lower on its own. Later this morning he felt as if his chest pain was going to return and this is why 911 was called. However he reports that it did not actually begin. However he was given 324mg of aspirin and NTG SL x 2. He reports that his blood pressure was in the 200s/100s with EMS today. On evaluation the patient is no distress, afebrile, with blood pressure 110s-130s/60s-70s stable vital signs. He appears euvolemic. Weight appears stable. EKG without overt acute ischemia. CXR negative for acute cardiopulmonary process per my personal preliminary review/interpretation. WBC and platelets normal limits. H/H similar to prior. Chemistry without metabolic acidosis. Creatinine is 2.4 and BUN is 60 similar to prior range values in the setting of CKD. LFTs are unremarkable. Initial high-sensitivity troponin is 123, nonspecific but increased from March of this year when the patient was admitted for syncope. Of note, the patient has been in the 300s in the past when he was admitted in May 2023 for volume overload. Given the patient's increased troponin from recent values in setting of his report of feeling confident that his chest pain is due to angina he does agree with plan for admission for further assessment. Case was discussed with Dr. Macias, [facility] hospitalist, who will evaluate the patient for admission. Further management per admitting team. Triage Nursing notes reviewed and agree them. Prior/external medical records reviewed Vital Signs: reviewed Differential diagnosis: Cardiac ischemia, aortic dissection, pulmonary embolism, pneumothorax, pneumonia, pericarditis, myocarditis, esophageal rupture, GERD, cholecystitis, pancreatitis, musculoskeletal, as well as other pathologies. ER treatment provided: See below. Diagnostics interpreted by me: ECG: Sinus rhythm with sinus arrhythmia, first-degree block, 82 bpm, right bundle branch block, T wave abnormality, no overt ST elevation or depression, similar to 04/04/2024. Cardiac Monitoring: An order for continuous cardiac monitoring was placed and demonstrated Sinus rhythm with sinus arrhythmia, first-degree block, 82 bpm Laboratory studies: See below Imaging studies: See below Consultation(s): Dr. Macias, [facility] hospitalist. HPI: The patient is a pleasant 88-year-old gentleman with a past medical history of CKD, diastolic and right-sided heart failure, CAD with history of PCI remotely, hypertension, hyperlipidemia, severe bilateral carotid artery disease s/p left TCAR in May 2024 who presents to the emergency department via EMS and accompanied by his and daughter for evaluation of episodes of chest pain which she feels confident that it is his angina. Patient reports having 2 episodes last night with the first occurring around midnight and then again around 4 AM. Patient reports he did take a nitroglycerin with the first episode and symptoms resolved. He reports he was preparing to take a second nitroglycerin when he noticed the symptoms gradually abating on its own and so did not take it. The patient reports he started to have similar episodes over the past week and describes that they occur often after eating. Last night he reports eating dinner around 7 PM which did include ham and mashed potatoes and then he went to bed around 11 PM. He does not necessarily feel that he was having any symptoms of indigestion. He reports that he did notice the pain improved when he sat up. He reports his second episode at 4 AM woke him up from sleep but he also acknowledges that this occurred in the setting of having a nightmare where he was running away from a bear in [place]. When he woke up he had the similar chest pain he had earlier in the evening. Otherwise he reports he does perform regular strength exercises at home and does not experience any chest pain with this type of exertion. He denies any recent fevers, chills, cough, congestion, GI or symptoms. He reports that since his TCAR in May of this year his blood pressure has been going up and down. He reports that he was started on midodrine after his hospitalization due to persistence of low blood pressure. He reports he was weaned off of this subsequently. He has been following closely with his outpatient doctors regarding monitoring of his blood pressure which periodically will rise to the 200s and then lower on its own. Later this morning he felt as if his chest pain was going to return and this is why 911 was called. However he reports that it did not actually begin. However he was given 324mg of aspirin and NTG SL x 2. He reports that his blood pressure was in the 200s/100s with EMS today. ROS: See above HPI for pertinent positives & negatives. A total of 10 systems reviewed and were otherwise negative. VITALS:See Below PHYSICAL EXAMINATION: GENERAL: Awake, alert, well-appearing, in no distress HENT: Normocephalic, atraumatic. Oropharynx unremarkable. EYES: Normal conjunctiva. Sclera non-icteric. NECK: Supple. No nuchal rigidity. FROM. No JVD. RESPIRATORY: Clear to auscultation. CARDIAC: Regular rate, normal rhythm. Extremities warm and well perfused. Pulses equal. ABDOMEN: Soft, non-distended. No tenderness to palpation. No rebound or guarding. No masses. MUSCULOSKELETAL: Chest examination reveals no tenderness. The back is symmetrical on inspection without obvious abnormality. There is no CVA tenderness to palpation. No joint edema. LOWER EXTREMITIES: Calves are equal size bilaterally and non-tender. No edema. No discoloration. NEURO: Normal sensorium. No sensory or motor deficits noted. SKIN: No rash or jaundice noted. Justin Anthony MD Past Med/Surg History Problem List (Updated 08/02/24 @ 19:08 by Justin Anthony MD) Unstable angina Hypertension (Acute) Elevated troponin (Acute) CKD (chronic kidney disease) (Acute) Chest pain (Acute) Acute urinary retention (Acute) Abdominal pain, suprapubic (Acute) Obstructed Sevilla catheter (Acute) Chronic indwelling Sevilla catheter (Acute) Acute hyperkalemia (Acute) 12/19/23 Low blood pressure 12/01/23 GI bleed (Acute) 11/06/23 Complicated urinary tract infection (Acute) 11/06/23 Hyponatremia (Acute) 11/02/23 Constipation (Acute) GIB (gastrointestinal bleeding) Stage 4 chronic kidney disease (Acute) Antiplatelet or antithrombotic long-term use Bilateral carotid artery disease (Acute) Chronic kidney disease Venous insufficiency of both lower extremities Peripheral edema (Acute) 05/31/23 PRITCHARD (dyspnea on exertion) (Acute) 05/31/23 CHF (congestive heart failure) (Acute) Stenosis of right internal carotid artery Nonsustained supraventricular tachycardia Elevated TSH 04/25/23 Hydronephrosis, left Urinary retention 2/2 BPH and currently with Sevilla in place Vitamin D deficiency PRITCHARD (dyspnea on exertion) 11/10/22 Edema 11/10/22 Back pain Tearing of muscle Acute hip pain 05/26/21 Fatigue 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, 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 Chronic kidney disease, stage 3 (Chronic) pt dx with acute on chronic kidney injury (pre-renal) during 04/2023 hospital admission; baseline creat noted to be 1.7-1.9; lasix was held during admission and resumed on discharge Former smoker (Acute) History of coronary artery stent placement (Acute 2009) MARIO Ramus Intermedius Proteinuria (Acute) Anemia (Acute) normocytic anemia of chronic disease; stable CAD (coronary artery disease) MARIO TO RAMUS (2009) Medical History PRITCHARD (dyspnea on exertion) Constipation chronic - Miralax CHF (congestive heart failure) pt denies CAD (coronary artery disease) x1 stent Back pain Difficulty lying flat Antiplatelet or antithrombotic long-term use Brilinta Anemia Syncope most recently 04/04/24 in [facility] OP Lab - [facility] ER/Admission 04/04/24-04/08/24 Bilateral carotid artery disease Venous insufficiency of both lower extremities Peripheral edema hx "I took sodium out of my diet and have no swelling in my ankles/feet right now" Hx of hypotension Pt states, "This is more of a problem then ever high blood pressure" History of GI bleed (10/2023) Pt Unsure History of pneumonia (2021) Hx of pleural effusion (2021) Hx of gout "haven't had an attack in years" Hx of chest pain pt denies any chest pain at this time Hx: UTI (urinary tract infection) has indwelling sevilla cath, changed every 4 weeks CKD (chronic kidney disease) stage 4, follows with Dr. Murphy Sevilla catheter in place has changed every 4 weeks at [facility] urology, next change 06/07/24 History of Holter monitoring due to recent syncopal episode on 04/24/23, admitted to [facility] Polyneuropathy Peyronie's disease Obesity Bradycardia hx of 1st degree AVB. pt had episode of HR in 30s in ambulance after vasovagal event for which he was given atropine; per cardio, rusty episode likely 2/2 vagal stimulation Leukocytosis Syncope and collapse hx-admitted to [facility] following syncopal episode (04/24/23 - 04/27/23); dx likely vasovagal 2/2 volume depletion and BB. MGUS (monoclonal gammopathy of unknown significance) Dr Murphy Monitoring BPH (benign prostatic hyperplasia) currently with Sevilla in place Dyslipidemia Type 2 diabetes mellitus Ozempic Arthritis GERD (gastroesophageal reflux disease) Hearing deficit bilateral aids Hyperlipidemia Surgical History Hx of heart artery stent (2009) S/P MARIO TO RAMUS (2009), [facility], x1 stent; f/u dr. lopez, [place] Hx of cystoscopy Hx of tonsillectomy (1938) Hx of eye surgery laser surgery to remove "film" from eye following cataract sx. 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) History of colonoscopy History of open reduction and internal fixation (ORIF) procedure right tibial plateau - lateral fracture History of tonsillectomy History of endoscopic sinus surgery History of cardiac cath (2009) S/P MARIO TO RAMUS (2009), [facility], x1 stent; f/u dr. lopez, [place] Family History Uncle Family hx of colon cancer Social History Smoking Status: Former smoker Tobacco Type: Cigarettes Second Hand Exposure: No; Do You Dip or Chew Tobacco: No; Hx Alcohol Use: No Hx Substance Use: No Preferred Language: Tamazight Communication Ability: Effective Visual Impairment: Limited Hearing Ability: Normal [employer] Basic Required: No Beliefs That Will Affect Care: None marital status: Current Living Situation: Spouse current occupational status: retired How many Children do You have: 7 Feels Safe at Home: Yes Diet: low salt and other Diet Comment: low potassium diet conscious. restricted banana and avocado and nuts. caffeine: Yes (1-2 coffees daily) Physical Activity Frequency: Does not Exercise Seatbelt Use: always Do you think of yourself as: straight/heterosexual Gender Identity: Male Assistive Devices: Cane, Stair Lift and Walker Allergies Allergies Allergy/AdvReac Type Severity Reaction Status Date / Time codeine Allergy Intermediate Facial Verified 08/02/24 15:30 Swelling/Nausea Home Meds Home Medications Medication Instructions Recorded Confirmed [id number] acid 0.4 1 tab PO QAM 09/16/18 08/02/24 mg-lycopene 300 mcg-lutein 250 mcg tablet (Centrum Silver) omeprazole 20 mg capsule,delayed 20 mg PO HS 09/16/18 08/02/24 release nitroglycerin 0.4 mg sublingual 0.4 mg sublingual Q5M PRN Chest 03/14/19 08/02/24 tablet (Nitrostat) Pain aspirin 81 mg tablet,delayed 81 mg PO QAM 05/30/23 08/02/24 release semaglutide 0.25 mg or 0.5 mg (2 0.5 mg subcut WK 09/22/23 08/02/24 mg/3 mL) subcutaneous pen injector (Ozempic) metoprolol succinate 25 mg 0 mg PO QAM 04/02/24 08/02/24 tablet,extended release 24 hr polyethylene glycol 3350 17 gram 17 g PO QAM 04/02/24 08/02/24 oral powder packet (Miralax) ticagrelor 90 mg tablet (Brilinta) 90 mg PO BID 04/04/24 08/02/24 acetaminophen 500 mg tablet 1,000 mg PO Q6H PRN Pain 06/05/24 08/02/24 cephalexin 500 mg capsule 500 mg PO BID 08/02/24 08/02/24 Previous Rx's Medication Instructions Recorded allopurinol 300 mg tablet 300 mg PO QAM #90 tabs 08/04/23 furosemide 20 mg tablet 20 mg PO DAILY PRN leg swelling 04/08/24 #30 tabs atorvastatin 40 mg tablet 40 mg PO HS #90 tabs 06/12/24 Results & Data (ED) Vital Signs Vital Signs - 24 hr 08/02/24 13:13 08/02/24 13:13 08/02/24 13:13 Temperature 36.9 C Temperature Source Temporal Artery Scan Pulse Rate 87 Pulse Rate [Apical] 90 Pulse Rhythm [Apical] Regular Pulse Strength [Apical] Normal Respiratory Rate 20 18 Respiratory Effort / Characteristics Non-Labored Spontaneous Non-Labored Respiratory Depth Normal Normal Respiratory Pattern Regular Blood Pressure 116/65 Blood Pressure [Left Arm] 138/76 Blood Pressure Mean 82 Blood Pressure Mean [Left Arm] 96 Blood Pressure Position [Left Arm] Lying Pulse Oximetry 98 97 Oxygen Delivery Method Room Air Room Air Room Air Sepsis Recent Fever Within 48 Hours No Sepsis New/Unexplained Change in Mental Status No Sepsis Action Taken by Nursing No Action Required 08/02/24 13:28 08/02/24 15:00 08/02/24 16:15 Temperature Temperature Source Pulse Rate 78 Pulse Rate [Apical] 81 Pulse Rhythm [Apical] Pulse Strength [Apical] Respiratory Rate 18 Respiratory Effort / Characteristics Non-Labored Spontaneous Respiratory Depth Normal Respiratory Pattern Regular Blood Pressure Blood Pressure [Left Arm] 181/85 H Blood Pressure Mean Blood Pressure Mean [Left Arm] 117 Blood Pressure Position [Left Arm] Pulse Oximetry 98 98 Oxygen Delivery Method Room Air Room Air Sepsis Recent Fever Within 48 Hours Sepsis New/Unexplained Change in Mental Status Sepsis Action Taken by Nursing 08/02/24 17:00 Temperature Temperature Source Pulse Rate Pulse Rate [Apical] 82 Pulse Rhythm [Apical] Pulse Strength [Apical] Respiratory Rate 18 Respiratory Effort / Characteristics Non-Labored Spontaneous Respiratory Depth Normal Respiratory Pattern Regular Blood Pressure Blood Pressure [Left Arm] 184/99 H Blood Pressure Mean Blood Pressure Mean [Left Arm] 127 Blood Pressure Position [Left Arm] Pulse Oximetry 95 Oxygen Delivery Method Room Air Sepsis Recent Fever Within 48 Hours Sepsis New/Unexplained Change in Mental Status Sepsis Action Taken by Nursing Laboratory Data Attestation: I reviewed the patient's lab results. 08/02/24 13:31 08/02/24 13:31 Lab Results 08/02/24 08/02/24 Range/Units 13:31 15:36 WBC 10.64 (4.8-10.8) K/ul RBC 2.66 L (4.70-6.10) M/uL Hgb 8.0 L (14.0-18.0) g/dl Hct 24.4 L (42.0-52.0) % MCV 91.7 (80.0-100.0) fL MCH 30.1 (25.0-34.0) pg MCHC 32.8 (32.0-36.0) g/dL RDW Std Deviation 49.3 H (36.4-46.3) fL RDW Coeff of Hernandez 14.5 (11.5-14.5) % Plt Count 266 (130-400) K/uL MPV 11.5 (9.4-12.4) fL Immature Gran % (Auto) 0.4 % Neut % (Auto) 73.2 % Lymph % (Auto) 15.6 % Upton % (Auto) 7.7 % Eos % (Auto) 2.6 % Baso % (Auto) 0.5 % Neut # (Auto) 7.79 H (1.40-6.50) K/uL Lymph # (Auto) 1.66 (1.20-3.40) K/uL Upton # (Auto) 0.82 H (0.11-0.59) K/uL Eos # (Auto) 0.28 (0.00-0.50) K/uL Baso # (Auto) 0.05 (0.00-0.20) K/uL Immature Gran # (Auto) 0.04 (0.01-0.20) K/uL PT 10.3 (9.0-12.0) Seconds INR 0.9 (0.9-1.1) Sodium 141 (136-145) mmol/L Potassium 4.0 (3.5-5.1) mmol/L Chloride 113 H (98-107) mmol/L Carbon Dioxide 20 L (21-32) mmol/L Anion Gap 8 (3-11) BUN 60 H (6-23) mg/dl Creatinine 2.47 H (0.6-1.4) mg/dl Est Cr Clr Drug Dosing 25.3 ml/min eGFR 24.46 BUN/Creatinine Ratio 24.3 H (10-20) Glucose 189 H (70-99(Fasting)) mg/dl Calcium 8.0 L (8.6-10.3) mg/dl Magnesium 1.9 (1.7-2.4) mg/dl Total Bilirubin 0.3 (0.2-1.0) mg/dl AST 18 (13-39) U/L ALT 11 (7-52) U/L Alkaline Phosphatase 59 (34-104) U/L Troponin I High Sens 123.0 H* 122.1 H* (0-20) pg/ml Total Protein 6.0 (6.0-8.3) gm/dl Albumin 3.2 L (3.4-5.0) gm/dl Globulin 2.8 (2.5-4.0) gm/dl Albumin/Globulin Ratio 1.1 (0.9-2) Lipase 64 (11-82) U/L Administered Medications Discontinued Medications Aspirin (Aspirin Chew 324 Mg) 81 mg PO NOW STA Stop: 08/02/24 15:11 Last Admin: 08/02/24 15:39 Dose: Not Given Documented By: [facility] Imaging Data Radiologist's Impression: Chest X-Ray 08/02/24 13:28 XR chest 1V portable HISTORY: 88 years-old Male Chest pain, nonspecific COMPARISON: 04/04/2024 TECHNIQUE: AP view of the chest FINDINGS: Cardiac silhouette is enlarged. Pulmonary vascular congestion. No pneumothorax. No large pleural effusion. Unchanged blunting of the costophrenic angles with bibasilar atelectasis versus scarring. Findings appear stable from prior. Bones appear grossly intact. IMPRESSION: Cardiomegaly with unchanged appearance of the chest. ACT 112: Negative or not required by law. The above report was generated using voice recognition software. It may contain grammatical, syntax or spelling errors. Electronically signed by: Jaquan Franco M.D. 08/02/2024 2:35 PM Discharge Plan Visit Data Chief Complaint: Chest Pain Stated Complaint: CHEST DISCOMFORT ED Provider: Justin Anthony Discharge Problem: Chest pain, CKD (chronic kidney disease), Elevated troponin, Hypertension, CAD (coronary artery disease) Patient Disposition: Admitted As Inpatient Discharge Instructions Interventions: ED Discharge Assessment Last Done: 08/02/24 18:14 Discharge Problem: Chest pain Qualifiers: Chest pain type: unspecified Qualified Code(s): R07.9 - Chest pain, unspecified CKD (chronic kidney disease) Qualifiers: Chronic kidney disease stage: unspecified stage Qualified Code(s): N18.9 - Chronic kidney disease, unspecified Hypertension Qualifiers: Hypertension type: unspecified Qualified Code(s): I10 - Essential (primary) hypertension CAD (coronary artery disease) Qualifiers: Coronary Disease-Associated Artery/Lesion type: unspecified vessel or lesion type [place] vs. transplanted heart: [place] heart Associated angina: unspecified whether angina present Qualified Code(s): I25.10 - Atherosclerotic heart disease of [place] coronary artery without angina pectoris
[2024-08-02 13:51] LABS: Basophils # (auto) 0.05 K/uL (0.00-0.20); Basophils % (auto) 0.5 %; Eosinophils # (auto) 0.28 K/uL (0.00-0.50); Eosinophils % (auto) 2.6 %; Hematocrit (blood only) 24.4 % (42.0-52.0); Immature Granulocytes # (auto) 0.04 K/uL (0.01-0.20); Immature Granulocytes % (auto) 0.4 %; Lymphocytes # (auto) 1.66 K/uL (1.20-3.40); Lymphocytes % (auto) 15.6 %; Mean Corpuscular Hemoglobin 30.1 pg (25.0-34.0); Mean Corpuscular Hgb Conc 32.8 g/dL (32.0-36.0); Mean Corpuscular Volume 91.7 fL (80.0-100.0); Mean Platelet Volume 11.5 fL (9.4-12.4); Monocytes # (auto) 0.82 K/uL (0.11-0.59); Monocytes % (auto) 7.7 %; Neutrophils # (auto) 7.79 K/uL (1.40-6.50); Neutrophils % (auto) 73.2 %; Platelet Count 266 K/uL (130-400); RDW Coefficient of Variation 14.5 % (11.5-14.5); RDW Standard Deviation 49.3 fL (36.4-46.3); Red Blood Count 2.66 M/uL (4.70-6.10); White Blood Count 10.64 K/ul (4.8-10.8)
[2024-08-02 14:07] LABS: Albumin Globulin Ratio 1.1 (0.9-2); Albumin Level 3.2 gm/dl (3.4-5.0); BUN Creatinine Ratio 24.3 (10-20); Bilirubin,Total 0.3 mg/dl (0.2-1.0); Creatinine Clr Calc Pharmacy 25.3 ml/min; Globulin 2.8 gm/dl (2.5-4.0); Magnesium 1.9 mg/dl (1.7-2.4)
[2024-08-02 14:36] LABS: INR 0.9 (0.9-1.1); Prothrombin Time 10.3 Seconds (9.0-12.0)
--- NOTE | 2024-08-02 14:36 | XRay Report ---
XR chest 1V portable HISTORY: 88 years-old Male Chest pain, nonspecific COMPARISON: 04/04/2024 TECHNIQUE: AP view of the chest FINDINGS: Cardiac silhouette is enlarged. Pulmonary vascular congestion. No pneumothorax. No large pleural effu moreno. Unchanged blunting of the costophrenic angles with bibasilar atelectasis versus scarring. Findi ngs appear stable from prior. Bones appear grossly intact. IMPRESSION: Cardiomegaly with unchanged appearance of the chest. ACT 112: Negative or not required by law. The above report was generated using voice recognition software. It may contain grammatical, syntax o r spelling errors. Electronically signed by: Jaquan Franco M.D. 08/02/2024 2:35 PM
[2024-08-02] MEDS: ASPIRIN CHEW 324 MG PO STA (15:39)
--- NOTE | 2024-08-02 17:09 | History & Physical Report ---
Date of Service August 02, 2024 Assessment & Plan (1) Unstable angina: Plan: 88-year-old gentleman with significant vascular disease presenting for days of chest pain. Found to have elevated troponin on initial draw, which did start to downtrend on repeat. EKG changes consistent with prior findings. Given significant cardiac history and presence of current symptoms, will consult cardiology to evaluate stress testing +/- necessity of catheterization. 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/27/2009, [place] [facility]; on furosemide prn, metoprolol currently being held; Brilinta + ASA; patient currently chest pain-free - Admit - Cardiac monitoring - EKG sinus rhythm, sinus arrhythmia, first-degree AV block, RBBB, rate 80 bpm - > EKG prn w/ chest pain - Troponin initially 123, repeat 122 -> Pending repeat; no current CP and EKG stable - CBC RBC 2.66, H&H 8/24.4, RDW 49.3, CMP chloride 113, CO2 20, BUN 60, creatinine 2.47, BUN/creatinine ratio 24.3 - TSH pending - CXR without acute findings - Echo pending - Lipid 05/2022- total 169, LDL 52, HDL 89, triglycerides 142; pending repeat - ASA 81 mg daily as outpatinet + Brillinta - continue - NTG SL prn for CP - Maalox 30mL po q4hr indigestion prn if needed - Dobutamine stress test ordered- difficulty w/ ambulation so deferred treadmill stress - Cardiology consulted - appreciate cardiology input + recs #CKD stage III H/o CKD stage G4/A3, baseline Cr 2.7, follows w/ nephrology, most recent visit 06/15/2024 - No evidence of JOYCELYN; Cr 2.47 - Intolerant of LORNA/ARB due to hyperkalemia - Renally dose medications - Low Na + K diet - BMP am #Hypocalcemia Asymptomatic currently - Ca 8.0; Corrected Ca 8.6 (albumin 3.2) - Repeat Ca in AM- if remaining low, calcium carbonate BID Chronic conditions: GERD- Omeprazole HLD- Atorvastatin Gout- Allopurinol Urinary retention- FC; currently being treated for UTI; continue to completion of antibiotic Dispo: Admit Diet: Heart healthy VTE Prophylaxis: Heparin Code: Full This document was dictated utilizing [employer]. Please excuse any grammatical errors that may be secondary to use of this software. (2) Elevated troponin: (3) Stage 4 chronic kidney disease: (4) CAD (coronary artery disease): (5) Chronic kidney disease, stage 3: (6) Urinary retention: (7) CHF (congestive heart failure): Admission and Anticipated Discharge Date Admission Date: 08/02/2024 History of Present Illness Chief Complaint: Chest pain Primary Care Provider: Umberto Bassett DO 88-year-old male presenting to ED for chest pain discomfort over the past few days, worsening today. Stent and TAVR within the last month. ED course CBC RBC 2.66, H&H 8/24.4, RDW 49.3, neutrophils 1.79, monocytes 0.82; PT/INR WNL; CMP chloride 113, CO2 20, BUN 60, creatinine 2.47, BUN/creatinine ratio 24.3, glucose 189, calcium 8.0; magnesium 1.9; initial troponin 123.0, repeat 122.1; albumin 3.2; lipase 64; CXR cardiomegaly with unchanged appearance of the chest; EKG sinus rhythm, sinus arrhythmia, first-degree AV block, RBBB, T wave abnormality, rate around 80 bpm.; Provided with aspirin 81 mg in ED. Patient is 88-year-old male PMHx CKD stage IV, bilateral venous insufficiency, CAD, diastolic right heart failure, HTN, HLD, and severe bilateral carotid artery disease s/p left TCAR 05/2024 presenting for chest pain. Patient states that approximately 1 week ago he had an episode of chest pain which lasted approximately 30 minutes, which was not triggered by anything else occurred at rest. Spread across his entire chest into his shoulders, made him a little short of breath. 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 For that he was very worked up, but took a nitroglycerin and his chest pain resolved. Also reports that he taken his blood pressure at that time which was elevated and also resolved once the chest pain had. The night prior to arrival, at midnight (1220) he had chest pain which again was resolved following nitroglycerin. Additional episode occurred at 0200, and resolved in less than 30 minutes. Patient states that this has been a new occurrence for him, he has not had episodes of chest pain in the prior weeks or months after his most recent procedure. States he does not notice that the chest pain is worsened with exertion, but it just comes at random times sometimes with exertion, sometimes at rest. States blood pressure becomes elevated during these times, and that his blood pressure is elevated when he is laying flat. Denying shortness of breath or palpitations. States he has some edema bilateral lower extremities at times, around baseline right now but feels that he may be collecting fluid in his bilateral lower extremities. Patient is currently chest pain-free, no shortness of breath, no palpitations. States that he has had indigestion before, and that this does not feel like that. Additionally denying abdominal pain, N/V/D/C, numbness/tingling, LUTS, fever/chills, headache, or lightheadedness/dizziness. Took all a.m. medications. Has provided a blood pressure log, which will be included. Please see Dr. Macias's attestation for adjustments/additions to treatment plan. Allergies Allergy/AdvReac Type Severity Reaction Status Date / Time codeine Allergy Intermediate Facial Verified 08/02/24 15:30 Swelling/Nausea Home Medications Medication Instructions Recorded Confirmed Type [id number] acid 0.4 1 tab PO QAM 09/16/18 08/02/24 History mg-lycopene 300 mcg-lutein 250 mcg tablet (Centrum Silver) omeprazole 20 mg capsule,delayed 20 mg PO HS 09/16/18 08/02/24 History release nitroglycerin 0.4 mg sublingual 0.4 mg sublingual Q5M PRN Chest 03/14/19 08/02/24 History tablet (Nitrostat) Pain aspirin 81 mg tablet,delayed 81 mg PO QAM 05/30/23 08/02/24 History release allopurinol 300 mg tablet 300 mg PO QAM #90 tabs 08/04/23 08/02/24 Rx semaglutide 0.25 mg or 0.5 mg (2 0.5 mg subcut WK 09/22/23 08/02/24 History mg/3 mL) subcutaneous pen injector (Ozempic) metoprolol succinate 25 mg 0 mg PO QAM 04/02/24 08/02/24 History tablet,extended release 24 hr polyethylene glycol 3350 17 gram 17 g PO QAM 04/02/24 08/02/24 History oral powder packet (Miralax) ticagrelor 90 mg tablet (Brilinta) 90 mg PO BID 04/04/24 08/02/24 History furosemide 20 mg tablet 20 mg PO DAILY PRN leg swelling 04/08/24 08/02/24 Rx #30 tabs acetaminophen 500 mg tablet 1,000 mg PO Q6H PRN Pain 06/05/24 08/02/24 History atorvastatin 40 mg tablet 40 mg PO HS #90 tabs 06/12/24 08/02/24 Rx cephalexin 500 mg capsule 500 mg PO BID 08/02/24 08/02/24 History Past Med/Surg History Problem List Unstable angina Hypertension (Acute) Elevated troponin (Acute) CKD (chronic kidney disease) (Acute) Chest pain (Acute) Acute urinary retention (Acute) Abdominal pain, suprapubic (Acute) Obstructed Sevilla catheter (Acute) Chronic indwelling Sevilla catheter (Acute) Acute hyperkalemia (Acute) 12/19/23 Low blood pressure 12/01/23 GI bleed (Acute) 11/06/23 Complicated urinary tract infection (Acute) 11/06/23 Hyponatremia (Acute) 11/02/23 Constipation (Acute) GIB (gastrointestinal bleeding) Stage 4 chronic kidney disease (Acute) Antiplatelet or antithrombotic long-term use Bilateral carotid artery disease (Acute) Chronic kidney disease Venous insufficiency of both lower extremities Peripheral edema (Acute) 05/31/23 PRITCHARD (dyspnea on exertion) (Acute) 05/31/23 CHF (congestive heart failure) (Acute) Stenosis of right internal carotid artery Nonsustained supraventricular tachycardia Elevated TSH 04/25/23 Hydronephrosis, left Urinary retention 2/2 BPH and currently with Sevilla in place Vitamin D deficiency PRITCHARD (dyspnea on exertion) 11/10/22 Edema 11/10/22 Back pain Tearing of muscle Acute hip pain 05/26/21 Fatigue 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, 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 Chronic kidney disease, stage 3 (Chronic) pt dx with acute on chronic kidney injury (pre-renal) during 04/2023 hospital admission; baseline creat noted to be 1.7-1.9; lasix was held during admission and resumed on discharge Former smoker (Acute) History of coronary artery stent placement (Acute 2009) MARIO Ramus Intermedius Proteinuria (Acute) Anemia (Acute) normocytic anemia of chronic disease; stable CAD (coronary artery disease) MARIO TO RAMUS (2009) Medical History PRITCHARD (dyspnea on exertion) Constipation chronic - Miralax CHF (congestive heart failure) pt denies CAD (coronary artery disease) x1 stent Back pain Difficulty lying flat Antiplatelet or antithrombotic long-term use Brilinta Anemia Syncope most recently 04/04/24 in [facility] OP Lab - [facility] ER/Admission 04/04/24-04/08/24 Bilateral carotid artery disease Venous insufficiency of both lower extremities Peripheral edema hx "I took sodium out of my diet and have no swelling in my ankles/feet right now" Hx of hypotension Pt states, "This is more of a problem then ever high blood pressure" History of GI bleed (10/2023) Pt Unsure History of pneumonia (2021) Hx of pleural effusion (2021) Hx of gout "haven't had an attack in years" Hx of chest pain pt denies any chest pain at this time Hx: UTI (urinary tract infection) has indwelling sevilla cath, changed every 4 weeks CKD (chronic kidney disease) stage 4, follows with Dr. Murphy Sevilla catheter in place has changed every 4 weeks at [facility] urology, next change 06/07/24 History of Holter monitoring due to recent syncopal episode on 04/24/23, admitted to [facility] Polyneuropathy Peyronie's disease Obesity Bradycardia hx of 1st degree AVB. pt had episode of HR in 30s in ambulance after vasovagal event for which he was given atropine; per cardio, rusty episode likely 2/2 vagal stimulation Leukocytosis Syncope and collapse hx-admitted to [facility] following syncopal episode (04/24/23 - 04/27/23); dx likely vasovagal 2/2 volume depletion and BB. MGUS (monoclonal gammopathy of unknown significance) Dr Murphy Monitoring BPH (benign prostatic hyperplasia) currently with Sevilla in place Dyslipidemia Type 2 diabetes mellitus Ozempic Arthritis GERD (gastroesophageal reflux disease) Hearing deficit bilateral aids Hyperlipidemia Surgical History Hx of heart artery stent (2009) S/P MARIO TO RAMUS (2009), [facility], x1 stent; f/u beatrice nunez Hx of cystoscopy Hx of tonsillectomy (1938) Hx of eye surgery laser surgery to remove "film" from eye following cataract sx. 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) History of colonoscopy History of open reduction and internal fixation (ORIF) procedure right tibial plateau - lateral fracture History of tonsillectomy History of endoscopic sinus surgery History of cardiac cath (2009) S/P MARIO TO RAMUS (2009), [facility], x1 stent; f/u beatrice nunez Family History Uncle Family hx of colon cancer Social History Smoking Status: Former smoker Tobacco Type: Cigarettes Second Hand Exposure: No; Do You Dip or Chew Tobacco: No; Hx Alcohol Use: No Hx Substance Use: No Preferred Language: Pashto Communication Ability: Effective Visual Impairment: Limited Hearing Ability: Normal Personnel Records Clerk Required: No Beliefs That Will Affect Care: None marital status: Current Living Situation: Spouse current occupational status: retired How many Children do You have: 7 Feels Safe at Home: Yes Diet: low salt and other Diet Comment: low potassium diet conscious. restricted banana and avocado and nuts. caffeine: Yes (1-2 coffees daily) Physical Activity Frequency: Does not Exercise Seatbelt Use: always Do you think of yourself as: straight/heterosexual Gender Identity: Male Assistive Devices: Cane, Stair Lift and Walker Review of Systems Review of Systems: All systems reviewed & are unremarkable except as noted in Subjective Physical Exam Physical Exam: General: No acute distress Skin: Warm and dry, without rashes or lesions Head: Normocephalic, atraumatic Eyes: PERRL, conjunctivae clear, sclera non-icteric ENT: External ear and ear canal without swelling; nose atraumatic; good dentition, tongue normal appearance, pharynx normal without tonsillar swelling or exudate Neck: Supple, no LAD; no JVD Cardio: RRR, no M/G/R, S1 and S2 normal Resp: No respiratory distress, Lungs CTA in all lobes bilaterally, no wheezes, rales, or rhonchi Abdomen: Soft, symmetric, nontender; no masses or hepatosplenomegaly; Bowel sounds normoactive MSK: No deformities, full ROM throughout; pulses palpable and equal; trace pitting edema bilateral lower extremities. Neuro: Awake, alert; Muscle strength 5/5 bilaterally in UE/LE; Sensation intact bilaterally; CN grossly intact Psych: Appropriate mood and affect; good judgement and insight. Patient's and daughter present in room at time of visit. Results & Data Results & Data Vital Signs (Past 12 Hours) Vital Signs Temp Pulse Pulse Resp BP BP Pulse Ox 08/02/24 16:15 78 08/02/24 15:00 81 18 181/85 H 98 08/02/24 13:28 98 08/02/24 13:13 90 18 138/76 97 08/02/24 13:13 08/02/24 13:13 36.9 C 87 20 116/65 98 O2 Del Method 08/02/24 16:15 08/02/24 15:00 Room Air 08/02/24 13:28 Room Air 08/02/24 13:13 Room Air 08/02/24 13:13 Room Air 08/02/24 13:13 Room Air Laboratory Results 08/02/24 08/02/24 15:36 13:31 WBC 10.64 RBC 2.66 L Hgb 8.0 L Hct 24.4 L MCV 91.7 MCH 30.1 MCHC 32.8 RDW Std Deviation 49.3 H RDW Coeff of Hernandez 14.5 Plt Count 266 MPV 11.5 Immature Gran % (Auto) 0.4 Neut % (Auto) 73.2 Lymph % (Auto) 15.6 [place] % (Auto) 7.7 Eos % (Auto) 2.6 Baso % (Auto) 0.5 Neut # (Auto) 7.79 H Lymph # (Auto) 1.66 [place] # (Auto) 0.82 H Eos # (Auto) 0.28 Baso # (Auto) 0.05 Immature Gran # (Auto) 0.04 PT 10.3 INR 0.9 Sodium 141 Potassium 4.0 Chloride 113 H Carbon Dioxide 20 L Anion Gap 8 BUN 60 H Creatinine 2.47 H Est Cr Clr Drug Dosing 25.3 eGFR 24.46 BUN/Creatinine Ratio 24.3 H Glucose 189 H Calcium 8.0 L Magnesium 1.9 Total Bilirubin 0.3 AST 18 ALT 11 Alkaline Phosphatase 59 Troponin I High Sens 122.1 H* 123.0 H* Total Protein 6.0 Albumin 3.2 L Globulin 2.8 Albumin/Globulin Ratio 1.1 Lipase 64 Diagnostic Findings Chest X-Ray 08/02/24 13:28 XR chest 1V portable HISTORY: 88 years-old Male Chest pain, nonspecific COMPARISON: 04/04/2024 TECHNIQUE: AP view of the chest FINDINGS: Cardiac silhouette is enlarged. Pulmonary vascular congestion. No pneumothorax. No large pleural effusion. Unchanged blunting of the costophrenic angles with bibasilar atelectasis versus scarring. Findings appear stable from prior. Bones appear grossly intact. IMPRESSION: Cardiomegaly with unchanged appearance of the chest. ACT 112: Negative or not required by law. The above report was generated using voice recognition software. It may contain grammatical, syntax or spelling errors. Electronically signed by: Jaquan Franco M.D. 08/02/2024 2:35 PM Code Status & VTE Plan Code Status Full VTE Prophylaxis Plan VTE Prophylaxis will be ordered: Yes Supervising Physician Co-Signing Physician Notes Patient was seen and examined independently I discussed the case with Anna VASQUEZ I reviewed pertinent past medical social family history and also the plan of care and agree with the plan of care. Patient has had 3 or 4 episodes of chest discomfort relieved by nitro over the last few days he really feels this is cardiogenic in nature however some of his description specially with recumbency middle of the night sounds to be GI in origin. He has never had a GI workup in the past. He does have known coronary disease as previous probability is slightly high. He has had negative chemical stress test in the past although he had some minor EKG changes he had robust echocardiographic response. His EKG shows no acute current of injury his troponin is elevated over his baseline which typically runs around 30s Patient's card exam is regular without murmurs she has no JVD his lungs are clear without wheezes or crackles abdomen selective bowel sounds he is a chronic Sevilla catheter in place he is some ecchymosis of the thighs from previous iliac access from Dr. Royal for vascular surgery for TCAR Chest pain questionable unstable angina previous probability elevated due to noncardiac disease. Will trend troponins supplemental oxygen control blood pressure, continue aspirin and Brilinta Concern for proceeding cardiac catheterization is likely based upon chronic kidney disease. Will discuss with cardiology in the morning depending on troponin trending Any exceptions will be noted below PG Care Time/CCT Total # of Minutes Spent Total Time Spent with Patient: Total time spent is greater than 50% in coordination of care (as documented) at patient's floor/unit and/or counseling patient: Coding Level of Care Code 92236 INT INP/OBS CARE 375MIN Diagnoses Unstable angina I20.0 Elevated troponin R79.89 Stage 4 chronic kidney disease N18.4 CAD (coronary artery disease) I25.10 Stage 3a chronic kidney disease N18.31 Chronic kidney disease stage 3 subtype: stage 3a (GFR 45-59) Urinary retention R33.9 Chronic diastolic congestive heart failure I50.32 Heart failure chronicity: chronic Heart failure type: diastolic (5) Chronic kidney disease, stage 3 Chronic kidney disease stage 3 subtype: stage 3a (GFR 45-59) Qualified Code(s): N18.31 - Chronic kidney disease, stage 3a (7) CHF (congestive heart failure) Heart failure chronicity: chronic Heart failure type: diastolic Qualified Code(s): I50.32 - Chronic diastolic (congestive) heart failure
--- NOTE | 2024-08-02 17:24 | Electrocardiogram Report ---
Test Reason : Blood Pressure : */* mmHG Vent. Rate : 82 BPM Atrial Rate : 82 BPM P-R Int : 266 ms QRS Dur : 154 ms QT Int : 398 ms P-R-T Axes : 75 109 -37 degrees QTcB Int : 464 ms Sinus rhythm with marked sinus arrhythmia with 1st degree A-V block Right bundle branch block T wave abnormality, consider inferolateral ischemia Abnormal ECG When compared with ECG of 04-Apr-2024 13:44, No significant change was found Confirmed by Anup Shah ([id number]) on 08/02/2024 5:24:03 PM Referred By: Confirmed By: Anup Shah
[2024-08-02] MEDS ORDERED: METOPROLOL TARTRATE 1 MG/ML VIAL IV PRN (18:04)
[2024-08-02] MEDS ORDERED: MELATONIN 3 MG TAB PO PRN (19:01)
[2024-08-02] MEDS ORDERED: FUROSEMIDE 20 MG TAB PO PRN (19:01)
[2024-08-02] MEDS ORDERED: ALUMINUM/MAGNESIUM SUSP 30 ML UDC PO PRN (19:01)
[2024-08-02] MEDS: cephALEXin 500 MG CAP PO SCH (20:51)
[2024-08-02] MEDS: TICAGRELOR 90 MG TAB PO SCH (20:51)
[2024-08-02] MEDS: PANTOprazole 40 MG TAB PO SCH (20:51)
[2024-08-02] MEDS: ATORVASTATIN 40 MG TAB PO SCH (20:52)
[2024-08-02] MEDS: HEPARIN SOD 5,000 UNIT/0.5 ML VIAL SQ SCH (21:58)
[2024-08-03 07:09] LABS: Hemoglobin 6.8 g/dl (14.0-18.0); Mean Corpuscular Hemoglobin 29.6 pg (25.0-34.0); Mean Corpuscular Hgb Conc 32.4 g/dL (32.0-36.0); Mean Corpuscular Volume 91.3 fL (80.0-100.0); Mean Platelet Volume 11.3 fL (9.4-12.4); Platelet Count 225 K/uL (130-400); RDW Coefficient of Variation 14.7 % (11.5-14.5); RDW Standard Deviation 49.3 fL (36.4-46.3); White Blood Count 9.98 K/ul (4.8-10.8)
[2024-08-03] MEDS ORDERED: SODIUM CHLORIDE 0.9% 50 ML IV PRN ×2 (07:26→10:39)
[2024-08-03] MEDS ORDERED: SODIUM CHLORIDE 0.9% 100 ML IV PRN ×2 (07:26→10:39)
--- NOTE | 2024-08-03 07:26 | Hospitalist Progress Note ---
Date of Service August 03, 2024 Assessment & Plan (1) Unstable angina: Plan: 88-year-old gentleman with significant vascular disease presenting for accelerated chest pain relieved with nitro. Found to have elevated troponin, EKG without acute changes consistent with prior findings. 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 08/27/2009, on furosemide prn, Brilinta + ASA; patient intermittent symptoms, started on metoprolol and dose escalated for bp control - Troponin initially 123-122-130 - Echo no acute changes LV function normal If stable thru weekend may consider nuclear perfusion stress tuesday, if unstable may consider more urgent cath, or cath tuesday anemia is worsened, ordered transfusion, no obvious source, bid ppi, consider GI evaluation but need cardiac stabilization prior to consider EGD Holding heparin gtt for unstable angina in face of unstable anemia, if hgb stablizes and cp recurrs may consider heparin gtt CKD stage IV - No evidence of JOYCELYN; Cr 2.47 - Intolerant of LORNA/ARB due to hyperkalemia - Renally dose medications Chronic conditions: GERD- Omeprazole HLD- Atorvastatin Gout- Allopurinol Urinary retention-currently being treated for catheter associated uti; continue to completion of antibiotic cephalexin Diet: Heart healthy VTE Prophylaxis: Heparin Code: Full Admission and Anticipated Discharge Date Admission Date: August 02, 2024 Subjective pt has had intermittent chest pain relieved by nitro, also found to have new acute blood loss anemia of undetermined source concern for Left heart cath with current CKD 4 at bedside and updated Physical Exam Physical Exam: pt appears stated age cardiac exam is regular lungs are clear abd is soft and non tender Results & Data Results & Data Vital Signs (Past 12 Hours) Vital Signs Temp Pulse Pulse Resp BP Pulse Ox O2 Del Method 08/03/24 07:11 73 08/03/24 07:10 97.7 F 76 17 154/81 H 95 Room Air 08/03/24 03:50 97.9 F 97 H 16 156/71 H 95 Room Air 08/02/24 23:40 97.7 F 97 H 18 132/53 L 97 Room Air 08/02/24 21:43 80 08/02/24 19:26 Room Air 08/02/24 19:26 97.7 F 96 H 18 160/73 H 95 Room Air Laboratory Results review cbc review chemistry PG Care Time/CCT Total # of Minutes Spent Total Time Spent with Patient: Total time spent is greater than 50% in coordination of care (as documented) at patient's floor/unit and/or counseling patient: Coding Level of Care Code 18482 SUB INP/OBS CARE 3/50MIN Diagnoses Unstable angina I20.0
[2024-08-03 08:00] LABS: Albumin Globulin Ratio 1.1 (0.9-2); Albumin Level 3.1 gm/dl (3.4-5.0); BUN Creatinine Ratio 20.9 (10-20); Bilirubin,Total 0.4 mg/dl (0.2-1.0); Calcium 8.8 mg/dl (8.6-10.3); Creatinine Clr Calc Pharmacy 19.3 ml/min; Globulin 2.8 gm/dl (2.5-4.0); Potassium 5.1 mmol/L (3.5-5.1); Thyroid Stimulating Hormone 3.396 uIu/ml (0.300-4.500); Total Protein 5.9 gm/dl (6.0-8.3)
[2024-08-03] MEDS: allopurinoL 300 MG TAB PO SCH (09:09)
--- NOTE | 2024-08-03 09:44 | Gastrointestinal Consultation ---
Date of Consultation August 03, 2024 Assessment & Plan (1) Unstable angina: 88 year old male with history of vascular disease, CKD, CHF, first degree AV block, CAD admitted w/ chest pain, elevated troponin - EKG without acute changes. GI was asked to evaluate given acute on chronic anemia w/ HGB of 6.8 from baseline 8-9 w/o evidence of active GI bleeding. Appreciated cardiology evaluation Tentative plan for EGD/Colonoscopy Tuesday pending cardiac clearance Hold NSAIDs, anticoagulation/antiplatelets if able Trend H&H Monitor and document GI output Transfuse PRN per primary service Check iron panel, ferritin PO PPI twice daily I spent a total of 60 minutes on the date of service in review of patient's record, and previously obtained information in person and appropriate medical visit, discussion and education of plan, with patient and/or caregiver, placing orders for tests/referral/procedures as medically necessary and documentation of pertinent clinical information in patient's medical records for their visit today. We appreciate assistance in the management of any serological abnorm ality and corrections to include: hemoglobin >7, INR <2, platelets >50,000, potassium levels >3.5 but <5.3, and sodium levels within 5 points of the reference range prior to endoscopic evaluation. Supervising Physician Co-Signing Physician Notes I examined the patient and reviewed the medical record, laboratory data and im aging studies. I agree with the assessment and plan of care as suggested by the advanced practice provider. Patient denies any GI complaints per se no abdominal pain nausea vomiting no hematemesis or melena is having 1-2 bowel movements a day he has had an acute fall in his hemoglobin has not had an endoscopy for a long time we will plan for an EGD and a colonoscopy once cleared by cardiology further recommendations after endoscopy and meantime we will check iron studies and get ferritin and percentage saturation Thank you for allowing us to take part in the care of your patient we will fifi nue to follow him with you History of Present Illness Reason for Consultation: anemia? esophageal pain, will need cardi clearance Requesting Physician: Gopi Macias MD Attending Physician: Gopi Macias MD History of Present Illness 88 year old male with history of vascular disease, CKD, CHF, first degree AV block, CAD admitted w/ chest pain, elevated troponin - GI was asked to evaluate for anemia and question of esophageal related pain. Pt was seen and evaluated, chart reviewed. He notes from a GI standpoint he is feeling ok. He denies abd pain. No nausea/vomiting. Appetite is good. Denies reflux/regurgitation. No dysphagia. Stools tend towards constipation w/ a BM every 2 days or so. No black or bloody stools. No fever, chills. He has had episodes of CP w/ associated SOB which improved on nitro. He is currently pain free. 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 He may have had a family history of colon cancer in an uncle. Allergies Allergy/AdvReac Type Severity Reaction Status Date / Time codeine Allergy Intermediate Facial Verified 08/02/24 15:30 Swelling/Nausea Home Medications Medication Instructions Recorded Confirmed Type [id number] acid 0.4 1 tab PO QAM 09/16/18 08/02/24 History mg-lycopene 300 mcg-lutein 250 mcg tablet (Centrum Silver) omeprazole 20 mg capsule,delayed 20 mg PO HS 09/16/18 08/02/24 History release nitroglycerin 0.4 mg sublingual 0.4 mg sublingual Q5M PRN Chest 03/14/19 08/02/24 History tablet (Nitrostat) Pain aspirin 81 mg tablet,delayed 81 mg PO QAM 05/30/23 08/02/24 History release allopurinol 300 mg tablet 300 mg PO QAM #90 tabs 08/04/23 08/02/24 Rx semaglutide 0.25 mg or 0.5 mg (2 0.5 mg subcut WK 09/22/23 08/02/24 History mg/3 mL) subcutaneous pen injector (Ozempic) metoprolol succinate 25 mg 0 mg PO QAM 04/02/24 08/02/24 History tablet,extended release 24 hr polyethylene glycol 3350 17 gram 17 g PO QAM 04/02/24 08/02/24 History oral powder packet (Miralax) ticagrelor 90 mg tablet (Brilinta) 90 mg PO BID 04/04/24 08/02/24 History furosemide 20 mg tablet 20 mg PO DAILY PRN leg swelling 04/08/24 08/02/24 Rx #30 tabs acetaminophen 500 mg tablet 1,000 mg PO Q6H PRN Pain 06/05/24 08/02/24 History atorvastatin 40 mg tablet 40 mg PO HS #90 tabs 06/12/24 08/02/24 Rx cephalexin 500 mg capsule 500 mg PO BID 08/02/24 08/02/24 History Patient History Medical History PRITCHARD (dyspnea on exertion) Constipation chronic - Miralax CHF (congestive heart failure) pt denies CAD (coronary artery disease) x1 stent Back pain Difficulty lying flat Antiplatelet or antithrombotic long-term use Brilinta Anemia Syncope most recently 04/04/24 in [facility] OP Lab - [facility] ER/Admission 04/04/24-04/08/24 Bilateral carotid artery disease Venous insufficiency of both lower extremities Peripheral edema hx "I took sodium out of my diet and have no swelling in my ankles/feet right now" Hx of hypotension Pt states, "This is more of a problem then ever high blood pressure" History of GI bleed (10/2023) Pt Unsure History of pneumonia (2021) Hx of pleural effusion (2021) Hx of gout "haven't had an attack in years" Hx of chest pain pt denies any chest pain at this time Hx: UTI (urinary tract infection) has indwelling sevilla cath, changed every 4 weeks CKD (chronic kidney disease) stage 4, follows with Dr. Murphy Sevilla catheter in place has changed every [address] [facility] urology, next change 06/07/24 History of Holter monitoring due to recent syncopal episode on 04/24/23, admitted to [facility] Polyneuropathy Peyronie's disease Obesity Bradycardia hx of 1st degree AVB. pt had episode of HR in 30s in ambulance after vasovagal event for which he was given atropine; per cardio, rusty episode likely 2/2 vagal stimulation Leukocytosis Syncope and collapse hx-admitted to [facility] following syncopal episode (04/24/23 - 04/27/23); dx likely vasovagal 2/2 volume depletion and BB. MGUS (monoclonal gammopathy of unknown significance) Dr Murphy Monitoring BPH (benign prostatic hyperplasia) currently with Sevilla in place Dyslipidemia Type 2 diabetes mellitus Ozempic Arthritis GERD (gastroesophageal reflux disease) Hearing deficit bilateral aids Hyperlipidemia Surgical History Hx of heart artery stent (2009) S/P MARIO TO [facility]US (2009), [facility], x1 stent; f/u dr. lopez, beatrice Hx of cystoscopy Hx of tonsillectomy (1938) Hx of eye surgery laser surgery to remove "film" from eye following cataract sx. 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) History of colonoscopy History of open reduction and internal fixation (ORIF) procedure right tibial plateau - lateral fracture History of tonsillectomy History of endoscopic sinus surgery History of cardiac cath (2009) S/P MARIO TO [facility]US (2009), [facility], x1 stent; f/u beatrice nunez Family History Uncle Family hx of colon cancer Social History Smoking Status: Former smoker Tobacco Type: Cigarettes Second Hand Exposure: No; Do You Dip or Chew Tobacco: No; Hx Alcohol Use: No Hx Substance Use: No Preferred Language: Tuvaluan Communication Ability: Effective Visual Impairment: Limited Hearing Ability: Normal Associate Manager Required: No Beliefs That Will Affect Care: None marital status: Current Living Situation: Spouse current occupational status: retired How many Children do You have: 7 Other Information That Helps Us Care for You: No Feels Safe at Home: Yes Safety Concerns: Feels Safe At This Time Diet: low salt and other Diet Comment: low potassium diet conscious. restricted banana and avocado and nuts. caffeine: Yes (1-2 coffees daily) Physical Activity Frequency: Does not Exercise Seatbelt Use: always Do you think of yourself as: straight/heterosexual Gender Identity: Male Assistive Devices: Walker Review of Systems Review of Systems: All other findings negative except as noted in HPI. Physical Exam Constitutional: WD/WN, vitals as above Respiratory: normal respiratory effort Cardiovascular: Rate/Rhythm: regular rate Gastrointestinal (Abdomen): normal bowel sounds, soft, nontender, no hepatosplenomegaly Skin: no rashes, warm and dry Results & Data Vital Signs (Past 12 Hours) Vital Signs Temp Pulse Pulse Resp BP Pulse Ox O2 Del Method 08/03/24 09:30 89 16 192/83 H 96 Room Air 08/03/24 07:11 73 08/03/24 07:10 36.5 C 76 17 154/81 H 95 Room Air 08/03/24 03:50 36.6 C 97 H 16 156/71 H 95 Room Air 08/02/24 23:40 36.5 C 97 H 18 132/53 L 97 Room Air 08/02/24 21:43 80 Laboratory Results 08/03/24 08/03/24 08/02/24 Range/Units 07:58 06:33 21:15 WBC 9.98 (4.8-10.8) K/ul RBC 2.30 L (4.70-6.10) M/uL Hgb 6.8 L* (14.0-18.0) g/dl Hct 21.0 L (42.0-52.0) % MCV 91.3 (80.0-100.0) fL MCH 29.6 (25.0-34.0) pg MCHC 32.4 (32.0-36.0) g/dL RDW Std Deviation 49.3 H (36.4-46.3) fL RDW Coeff of Hernandez 14.7 H (11.5-14.5) % Plt Count 225 (130-400) K/uL MPV 11.3 (9.4-12.4) fL Immature Gran % (Auto) % Neut % (Auto) % Lymph % (Auto) % Lane % (Auto) % Eos % (Auto) % Baso % (Auto) % Neut # (Auto) (1.40-6.50) K/uL Lymph # (Auto) (1.20-3.40) K/uL Lane # (Auto) (0.11-0.59) K/uL Eos # (Auto) (0.00-0.50) K/uL Baso # (Auto) (0.00-0.20) K/uL Immature Gran # (Auto) (0.01-0.20) K/uL PT (9.0-12.0) Seconds INR (0.9-1.1) Sodium 139 (136-145) mmol/L Potassium 5.1 D (3.5-5.1) mmol/L Chloride 109 H (98-107) mmol/L Carbon Dioxide 24 (21-32) mmol/L Anion Gap 6 (3-11) BUN 67 H (6-23) mg/dl Creatinine 3.20 H D (0.6-1.4) mg/dl Est Cr Clr Drug Dosing 19.3 ml/min eGFR 17.93 BUN/Creatinine Ratio 20.9 H (10-20) Glucose 147 H (70-99(Fasting)) mg/dl Calcium 8.8 (8.6-10.3) mg/dl Magnesium (1.7-2.4) mg/dl Total Bilirubin 0.4 (0.2-1.0) mg/dl AST 15 (13-39) U/L ALT 11 (7-52) U/L Alkaline Phosphatase 56 (34-104) U/L Troponin I High Sens 130.8 H* (0-20) pg/ml Total Protein 5.9 L (6.0-8.3) gm/dl Albumin 3.1 L (3.4-5.0) gm/dl Globulin 2.8 (2.5-4.0) gm/dl Albumin/Globulin Ratio 1.1 (0.9-2) Lipase (11-82) U/L TSH 3.396 (0.300-4.500) uIu/ml Blood Type A Positive Antibody Screen NEGATIVE Crossmatch See Detail 08/02/24 08/02/24 Range/Units 15:36 13:31 WBC 10.64 (4.8-10.8) K/ul RBC 2.66 L (4.70-6.10) M/uL Hgb 8.0 L (14.0-18.0) g/dl Hct 24.4 L (42.0-52.0) % MCV 91.7 (80.0-100.0) fL MCH 30.1 (25.0-34.0) pg MCHC 32.8 (32.0-36.0) g/dL RDW Std Deviation 49.3 H (36.4-46.3) fL RDW Coeff of Hernandez 14.5 (11.5-14.5) % Plt Count 266 (130-400) K/uL MPV 11.5 (9.4-12.4) fL Immature Gran % (Auto) 0.4 % Neut % (Auto) 73.2 % Lymph % (Auto) 15.6 % Lane % (Auto) 7.7 % Eos % (Auto) 2.6 % Baso % (Auto) 0.5 % Neut # (Auto) 7.79 H (1.40-6.50) K/uL Lymph # (Auto) 1.66 (1.20-3.40) K/uL Lane # (Auto) 0.82 H (0.11-0.59) K/uL Eos # (Auto) 0.28 (0.00-0.50) K/uL Baso # (Auto) 0.05 (0.00-0.20) K/uL Immature Gran # (Auto) 0.04 (0.01-0.20) K/uL PT 10.3 (9.0-12.0) Seconds INR 0.9 (0.9-1.1) Sodium 141 (136-145) mmol/L Potassium 4.0 (3.5-5.1) mmol/L Chloride 113 H (98-107) mmol/L Carbon Dioxide 20 L (21-32) mmol/L Anion Gap 8 (3-11) BUN 60 H (6-23) mg/dl Creatinine 2.47 H (0.6-1.4) mg/dl Est Cr Clr Drug Dosing 25.3 ml/min eGFR 24.46 BUN/Creatinine Ratio 24.3 H (10-20) Glucose 189 H (70-99(Fasting)) mg/dl Calcium 8.0 L (8.6-10.3) mg/dl Magnesium 1.9 (1.7-2.4) mg/dl Total Bilirubin 0.3 (0.2-1.0) mg/dl AST 18 (13-39) U/L ALT 11 (7-52) U/L Alkaline Phosphatase 59 (34-104) U/L Troponin I High Sens 122.1 H* 123.0 H* (0-20) pg/ml Total Protein 6.0 (6.0-8.3) gm/dl Albumin 3.2 L (3.4-5.0) gm/dl Globulin 2.8 (2.5-4.0) gm/dl Albumin/Globulin Ratio 1.1 (0.9-2) Lipase 64 (11-82) U/L TSH (0.300-4.500) uIu/ml Blood Type Antibody Screen Crossmatch PG Care Time/CCT Total # of Minutes Spent Total Time Spent with Patient: Total time spent is greater than 50% in coordination of care (as documented) at patient's floor/unit and/or counseling patient: Coding Level of Care Code 20819 INT INP/OBS CARE 2/55MIN Diagnoses Unstable angina I20.0
--- NOTE | 2024-08-03 09:49 | XCELERA ---
[id number]
[2024-08-03] MEDS: NITROGLYCERIN SL 0.4 MG/TAB TAB SL PRN (09:51)
[2024-08-03] MEDS: ASPIRIN 81 MG ECTAB PO SCH (09:53)
[2024-08-03] MEDS: POLYETHYLENE (MIRALAX) 17 GM PACK PO SCH (10:25)
[2024-08-03] MEDS: PANTOprazole 40 MG/10 ML SYR IV SCH (10:25)
--- NOTE | 2024-08-03 11:38 | Cardiology Consultation ---
Date of Consultation August 03, 2024 Assessment & Plan (1) Chest pain: (2) Elevated troponin: (3) CHF (congestive heart failure): (4) CAD (coronary artery disease): (5) First degree AV block: (6) Right bundle branch block: Plan 1. Chest pain: His chest pain is concerning for angina. It is curious that it occurs only at rest and generally at nighttime. He has not had symptoms during the daytime but is notably sedentary. This would be less common for true coronary insufficiency. He has a mild elevation in his biomarkers, but it has not risen and he has had higher elevations during prior admissions. This is despite a 30-minute episode of chest discomfort by his report. However, his probability of significant coronary disease is quite high. Under most circumstances I would recommend urgent coronary angiography, but there are some extenuating circumstances as noted below. 2. Coronary artery disease: Known to have had percutaneous intervention to the ramus intermedius in 2009. He is continued on aggressive secondary prevention both for coronary and peripheral vascular disease. This includes a daily aspirin, Brilinta and high-dose atorvastatin. 3. Conduction disease: He has a history of first-degree AV block and right bundle branch block. No evidence of higher degree AV block. Previously on metoprolol currently being held. 4. Dyspnea: He has an element of dyspnea on exertion. This appeared to have developed subsequent to his recent surgery. Possibly from deconditioning. Also possibly from newly discovered anemia. He has a history of pulmonary vascular congestion and diastolic heart failure. However, he seems well compensated cur rently. Preserved LV systolic function on echocardiogram performed today. 5. Elevated troponin: Mild elevation without an increase over time. Possibly indicative of a remote event. However, he has had elevated bili markers on prior admissions that were higher. I do not think in and of itself this represents a significant concern or definitive evidence of an acute coronary syndrome. I discussed options with the patient. Under no circumstances with his history and symptoms I would recommend coronary angiography on an urgent basis. However, he was discovered to be significantly anemic today and there is some question about gastrointestinal blood loss. As such, he has not been anticoagulated. Scheduled for an evaluation tomorrow. He also has significant kidney disease and acute kidney injury. This is perhaps the most concerning issue as it significantly elevates his risk of contrast nephropathy with any angiography or intervention. We did discuss the potential for severe kidney injury and the need for dialysis if he were to undergo angiography. At this point we will continue his antiplatelet agents, reinstitute beta-blockade, we may initiate transdermal nitroglycerin depending on the frequency of his events. Will wait for blood transfusion and GI evaluation. For more frequent or sustained episodes he may require more urgent evaluation and be exposed to the attendant complications. History of Present Illness Reason for Consultation: Chest pain, elevated troponin Requesting Physician: Colleen Attending Physician: Gopi Macias MD History of Present Illness The patient is an 88-year-old gentleman with a history of vascular disease to include coronary artery disease and carotid artery disease. He recently underwent a right carotid endarterectomy which was complicated by some orthostatic hypotension. He has been doing better from that standpoint and actually discontinued midodrine on his own. He presented to the hospital for episodes of chest discomfort. These occur randomly and generally at rest. Most commonly they occur at nighttime as well. They began over a week ago. They are characterized by a sense of central substernal chest pressure with radiation to both arms. Sitting up seems to improve the symptoms but not eliminate them entirely. No associated breathing difficulty. No pleuritic chest pain. He sy mptoms himself seem to resolve spontaneously over 30 minutes or more rapidly with use of sublingual nitroglycerin. No symptoms precipitated by activity or exertion. The patient is notably sedentary. He does little ambulation and does not at a slow pace. He does not as send or descend stairs in his home. This is primarily due to fatigue and leg weakness. Since his recent surgery he has noticed some increased shortness of breath with activity, walking approximately 30 to 40 feet. No dizziness or lightheadedness. No sense of palpitation. Allergies Allergy/AdvReac Type Severity Reaction Status Date / Time codeine Allergy Intermediate Facial Verified 08/02/24 15:30 Swelling/Nausea Home Medications Medication Instructions Recorded Confirmed Type vijumtad-arc-bgkqt acid 0.4 1 tab PO QAM 09/16/18 08/02/24 History mg-lycopene 300 mcg-lutein 250 mcg tablet (Centrum Silver) omeprazole 20 mg capsule,delayed 20 mg PO HS 09/16/18 08/02/24 History release nitroglycerin 0.4 mg sublingual 0.4 mg sublingual Q5M PRN Chest 03/14/19 History tablet (Nitrostat) Pain aspirin 81 mg tablet,delayed 81 mg PO QAM 05/30/23 08/02/24 History release allopurinol 300 mg tablet 300 mg PO QAM #90 tabs 08/04/23 08/02/24 Rx semaglutide 0.25 mg or 0.5 mg (2 0.5 mg subcut WK 09/22/23 08/02/24 History mg/3 mL) subcutaneous pen injector (Ozempic) metoprolol succinate 25 mg 0 mg PO QAM 04/02/24 08/02/24 History tablet,extended release 24 hr polyethylene glycol 3350 17 gram 17 g PO QAM 04/02/24 08/02/24 History oral powder packet (Miralax) ticagrelor 90 mg tablet (Brilinta) 90 mg PO BID 04/04/24 08/02/24 History furosemide 20 mg tablet 20 mg PO DAILY PRN leg swelling 04/08/24 08/02/24 Rx #30 tabs acetaminophen 500 mg tablet 1,000 mg PO Q6H PRN Pain 06/05/24 08/02/24 History atorvastatin 40 mg tablet 40 mg PO HS #90 tabs 06/12/24 08/02/24 Rx cephalexin 500 mg capsule 500 mg PO BID 08/02/24 08/02/24 History Patient History Medical History PRITCHARD (dyspnea on exertion) Constipation chronic - Miralax CHF (congestive heart failure) pt denies CAD (coronary artery disease) x1 stent Back pain Difficulty lying flat Antiplatelet or antithrombotic long-term use Brilinta Anemia Syncope most recently 04/04/24 in [facility] OP Lab - [facility] ER/Admission 04/04/24-04/08/24 Bilateral carotid artery disease Venous insufficiency of both lower extremities Peripheral edema hx "I took sodium out of my diet and have no swelling in my ankles/feet right now" Hx of hypotension Pt states, "This is more of a problem then ever high blood pressure" History of GI bleed (10/2023) Pt Unsure History of pneumonia (2021) Hx of pleural effusion (2021) Hx of gout "haven't had an attack in years" Hx of chest pain pt denies any chest pain at this time Hx: UTI (urinary tract infection) has indwelling sevilla cath, changed every 4 weeks CKD (chronic kidney disease) stage 4, follows with Dr. Murphy Sevilla catheter in place has changed every 4 weeks at [facility] urology, next change 06/07/24 History of Holter monitoring due to recent syncopal episode on 04/24/23, admitted to [facility] Polyneuropathy Peyronie's disease Obesity Bradycardia hx of 1st degree AVB. pt had episode of HR in 30s in ambulance after vasovagal event for which he was given atropine; per cardio, rusty episode likely 2/2 vagal stimulation Leukocytosis Syncope and collapse hx-admitted to [facility] following syncopal episode (04/24/23 - 04/27/23); dx likely vasovagal 2/2 volume depletion and BB. MGUS (monoclonal gammopathy of unknown significance) Dr Murphy Monitoring BPH (benign prostatic hyperplasia) currently with Sevilla in place Dyslipidemia Type 2 diabetes mellitus Ozempic Arthritis GERD (gastroesophageal reflux disease) Hearing deficit bilateral aids Hyperlipidemia Surgical History Hx of heart artery stent (2009) S/P MARIO TO RAMUS (2009), [facility], x1 stent; f/u dr. lopez, [place] Hx of cystoscopy Hx of tonsillectomy (1938) Hx of eye surgery laser surgery to remove "film" from eye following cataract sx. 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 lopez, [place] Family History Uncle Family hx of colon cancer Social History Smoking Status: Former smoker Tobacco Type: Cigarettes Second Hand Exposure: No; Do You Dip or Chew Tobacco: No; Hx Alcohol Use: No Hx Substance Use: No Preferred Language: Thai Communication Ability: Effective Visual Impairment: Limited Hearing Ability: Normal Milling Supervisor Required: No Beliefs That Will Affect Care: None marital status: Current Living Situation: Spouse current occupational status: retired How many Children do You have: 7 Other Information That Helps Us Care for You: No Feels Safe at Home: Yes Safety Concerns: Feels Safe At This Time Diet: low salt and other Diet Comment: low potassium diet conscious. restricted banana and avocado and nuts. caffeine: Yes (1-2 coffees daily) Physical Activity Frequency: Does not Exercise Seatbelt Use: always Do you think of yourself as: straight/heterosexual Gender Identity: Male Assistive Devices: Walker Review of Systems Review of Systems: Per HPI. No recent change in his bowel or bladder habits. No melena. Generally formed unger-colored stools by report. No difficulty swallowing. No vomiting. Physical Exam Physical Exam: The patient is alert and oriented. Mood and affect appeared normal. He answered all questions appropriately. HEENT: Pupils are equal and reactive to light and accommodation. Extraocular movements are intact. The sclerae are anicteric. Neuro: Cranial nerves intact Neck: Patient's neck is supple. There is no evidence of jugular venous distention. The thyroid is not enlarged. Lungs: Clear to auscultation bilaterally. He has good air movement without use of accessory muscles. No rales wheezes or rhonchi. Cardiac: Heart demonstrates a regular rate and rhythm. Normal S1 and S2. No murmurs on examination. Pulses: The patient has palpable radial pulses bilaterally that are equal in intensity Extremities: There was no evidence of hypoperfusion. There is no cyanosis or clubbing. There is no edema. Skin: I did not appreciate any rashes on examination today. Results & Data Vital Signs (Past 12 Hours) Vital Signs Temp Pulse Pulse Resp BP BP Pulse Ox 08/03/24 11:19 36.5 C 87 18 121/66 92 08/03/24 11:02 36.5 C 89 18 185/74 H 97 08/03/24 09:30 89 16 192/83 H 96 08/03/24 07:11 73 08/03/24 07:10 36.5 C 76 17 154/81 H 95 08/03/24 03:50 36.6 C 97 H 16 156/71 H 95 08/02/24 23:40 36.5 C 97 H 18 132/53 L 97 O2 Del Method 08/03/24 11:19 08/03/24 11:02 08/03/24 09:30 Room Air 08/03/24 07:11 08/03/24 07:10 Room Air 08/03/24 03:50 Room Air 08/02/24 23:40 Room Air Laboratory Results Abnormal Lab Results 08/02/24 08/02/24 08/02/24 13:31 15:36 21:15 WBC 10.64 RBC 2.66 L Hgb 8.0 L Hct 24.4 L MCV 91.7 MCH 30.1 MCHC 32.8 RDW Std Deviation 49.3 H RDW Coeff of Hernandez 14.5 Plt Count 266 MPV 11.5 Immature Gran % (Auto) 0.4 Neut % (Auto) 73.2 Lymph % (Auto) 15.6 [place] % (Auto) 7.7 Eos % (Auto) 2.6 Baso % (Auto) 0.5 Neut # (Auto) 7.79 H Lymph # (Auto) 1.66 [place] # (Auto) 0.82 H Eos # (Auto) 0.28 Baso # (Auto) 0.05 Immature Gran # (Auto) 0.04 PT 10.3 INR 0.9 Sodium 141 Potassium 4.0 Chloride 113 H Carbon Dioxide 20 L Anion Gap 8 BUN 60 H Creatinine 2.47 H Est Cr Clr Drug Dosing 25.3 eGFR 24.46 BUN/Creatinine Ratio 24.3 H Glucose 189 H Calcium 8.0 L Magnesium 1.9 Total Bilirubin 0.3 AST 18 ALT 11 Alkaline Phosphatase 59 Troponin I High Sens 123.0 H* 122.1 H* 130.8 H* Total Protein 6.0 Albumin 3.2 L Globulin 2.8 Albumin/Globulin Ratio 1.1 Lipase 64 TSH Blood Type Antibody Screen Crossmatch 08/03/24 08/03/24 06:33 07:58 WBC 9.98 RBC 2.30 L Hgb 6.8 L* Hct 21.0 L MCV 91.3 MCH 29.6 MCHC 32.4 RDW Std Deviation 49.3 H RDW Coeff of Hernandez 14.7 H Plt Count 225 MPV 11.3 Immature Gran % (Auto) Neut % (Auto) Lymph % (Auto) [place] % (Auto) Eos % (Auto) Baso % (Auto) Neut # (Auto) Lymph # (Auto) [place] # (Auto) Eos # (Auto) Baso # (Auto) Immature Gran # (Auto) PT INR Sodium 139 Potassium 5.1 D Chloride 109 H Carbon Dioxide 24 Anion Gap 6 BUN 67 H Creatinine 3.20 H D Est Cr Clr Drug Dosing 19.3 eGFR 17.93 BUN/Creatinine Ratio 20.9 H Glucose 147 H Calcium 8.8 Magnesium Total Bilirubin 0.4 AST 15 ALT 11 Alkaline Phosphatase 56 Troponin I High Sens Total Protein 5.9 L Albumin 3.1 L Globulin 2.8 Albumin/Globulin Ratio 1.1 Lipase TSH 3.396 Blood Type A Positive Antibody Screen NEGATIVE Crossmatch See Detail Diagnostic Findings Chest x-ray obtained the time admission not reveal any acute cardiopulmonary process. Echocardiogram 08/03/2024: Normal LV systolic function with ejection fraction of 60 to 65%. Mild LVH. Mildly dilated left atrium. No significant valvular heart disease. ECG Additional Comments: EKG obtained at time admission revealed normal sinus rhythm with likely some blocked PACs. First-degree AV block, right bundle branch block and T wave abnormality that is old. PG Care Time/CCT Total # of Minutes Spent Total Time Spent with Patient: Total time spent is greater than 50% in coordination of care (as documented) at patient's floor/unit and/or counseling patient: Coding Level of Care Code 85808 INT INP/OBS CARE MIN Diagnoses Chest pain R07.9 Chest pain type: unspecified Elevated troponin R79.89 Chronic diastolic congestive heart failure I50.32 Heart failure chronicity: chronic Heart failure type: diastolic CAD (coronary artery disease) I25.10 First degree AV block I44.0 Right bundle branch block I45.10 (1) Chest pain Chest pain type: unspecified Qualified Code(s): R07.9 - Chest pain, unspecified (3) CHF (congestive heart failure) Heart failure chronicity: chronic Heart failure type: diastolic Qualified Code(s): I50.32 - Chronic diastolic (congestive) heart failure
[2024-08-03] MEDS: METOPROLOL TARTRATE 25 MG TAB PO SCH (13:52)
--- NOTE | 2024-08-03 15:51 | Electrocardiogram Report ---
Test Reason : Blood Pressure : */* mmHG Vent. Rate : 83 BPM Atrial Rate : 83 BPM P-R Int : 284 ms QRS Dur : 158 ms QT Int : 412 ms P-R-T Axes : 53 108 -50 degrees QTcB Int : 484 ms Sinus rhythm with 1st degree A-V block Right bundle branch block T wave abnormality, consider inferolateral ischemia Abnormal ECG When compared with ECG of 02-Aug-2024 13:23, No significant change was found Confirmed by Anup Shah ([id number]) on 08/03/2024 3:51:24 PM Referred By: REFERRED SELF Confirmed By: Anup Shah
[2024-08-03] MEDS: METOPROLOL TARTRATE 25 MG TAB PO ONE (18:12)
[2024-08-03] MEDS: METOPROLOL TARTRATE 50 MG TAB PO SCH (20:10)
[2024-08-04] MEDS: ACETAMINOPHEN 500 MG TAB PO PRN (02:43)
[2024-08-04 04:54] LABS: Hematocrit (blood only) 28.1 % (42.0-52.0); Hemoglobin 9.4 g/dl (14.0-18.0); Mean Corpuscular Hemoglobin 28.9 pg (25.0-34.0); Mean Corpuscular Hgb Conc 33.5 g/dL (32.0-36.0); Mean Corpuscular Volume 86.5 fL (80.0-100.0); Mean Platelet Volume 11.5 fL (9.4-12.4); Platelet Count 219 K/uL (130-400); RDW Coefficient of Variation 15.8 % (11.5-14.5); RDW Standard Deviation 49.5 fL (36.4-46.3); Red Blood Count 3.25 M/uL (4.70-6.10); White Blood Count 10.09 K/ul (4.8-10.8)
[2024-08-04 05:10] LABS: Calcium 8.6 mg/dl (8.6-10.3); Creatinine Clr Calc Pharmacy 21.3 ml/min
[2024-08-04 05:31] LABS: Ferritin 14.6 ng/ml (8-388)
--- NOTE | 2024-08-04 09:53 | Gastroenterology Progress Note ---
Date of Service August 04, 2024 Assessment & Plan (1) Anemia: Plan: With his stools being negative he would prefer to take a "wait and see" attitude. Will talk with him again in am and see where decision stands but I agree with his choice of observation if not an acute problem. Admission and Anticipated Discharge Date Admission Date: August 02, 2024 Subjective Patient is questioning proceeding with endoscopic evaluation and wants to know stool test before deciding. He has not seen blood and would prefer not to proceed if there is no blood in stool. Stool yesterday is negative for occult blood Physical Exam Physical Exam: Pleasant, very sharp and talkative in no distress Constitutional: WD/WN, vitals as above Results & Data Vital Signs (Past 12 Hours) Vital Signs Temp Pulse Pulse Resp BP Pulse Ox O2 Del Method 08/04/24 07:27 61 08/04/24 07:17 36.5 C 67 18 153/81 H 95 Room Air 08/04/24 02:41 36.6 C 65 18 161/72 H 94 Room Air 08/04/24 00:59 69 166/78 H 08/03/24 22:15 72 08/03/24 22:15 36.6 C 72 18 187/82 H 96 Room Air (1) Anemia Anemia type: unspecified type Qualified Code(s): D64.9 - Anemia, unspecified
--- NOTE | 2024-08-04 10:39 | Hospitalist Progress Note ---
Date of Service August 04, 2024 Assessment & Plan (1) Anemia: (2) Unstable angina: (3) Elevated troponin: (4) Acute on chronic anemia: (5) CKD (chronic kidney disease): (6) Hypertension: Plan 88-year-old gentleman with significant vascular disease [facility] chest pain relieved with nitro. Found to have elevated troponin, EKG without acute changes consistent with prior findings. Given significant cardiac history and presence of current symptoms, cardiology considering left heart cath but newfound anemia and ckd4 causing need to optimize prior Chest pain/Elevated troponin/CAD/CHF - relieved by nitro; h/o cardiac disease to include CAD s/p PCI; ASCVD s/p DES[employer] PUBL[employer]ER with stenting times 08/27/2009, on furosemide prn, Brilinta + ASA; patient intermittent symptoms, started on metoprolol and dose escalated for bp control - Troponin initially 123-122-130 - Echo no acute changes LV function normal - nuclear perfusion stress test vs cardiac angiography on Tuesday - Cardiology consulted: continue beta-ashley and ASA 81 while Hgb remains stable, hold Brilinta - monitor closely for angina Anemia - Hgb: 6.8 (08/03) s/p transfusion improved to 11.7, dropped to 9.4 transiently and then increased back to 10.0 (08/04) - Holding heparin gtt for unstable angina in face of unstable anemia - GI consulted however may hold of on EGD/colonoscopy due to limited evidence for acute GI bleed. Hemoccult negative CKD stage IV - No evidence of JOYCELYN; Cr 2.91 - Intolerant of LORNA/ARB due to hyperkalemia - Renally dose medications Chronic conditions: GERD- Omeprazole HLD- Atorvastatin Gout- Allopurinol Urinary retention-currently being treated for catheter associated uti; continue to completion of antibiotic cephalexin Diet: Heart healthy VTE Prophylaxis: Heparin Code: Full Admission and Anticipated Discharge Date Admission Date: August 02, 2024 Supervising Physician Co-Signing Physician Notes ATTESTATION I also saw the patient and confirmed ellington portions of the history and exam. I agree with the impression and plan in the resident documentation, and as summarized below. I also discussed the case with the GI client insights consultant, who sees the patient concurrent with my visit. Patient without chest pain or other complaints this morning. He has some questions about the plan for the weekend and these are answered. EXAM 160/71, 65, 18, 96% room air Alert and oriented. NAD CV regular with KAYCEE appreciated Lungs clear with non labored respirations. ABD soft and non tender DATA Labs HgB = 10 Sodium 134, Potassium 5, BUN 64, Cr 2.91 IMPRESSION & PLAN Unstable angina Suspect this was secondary to anemia Appreciate cardiology consultation Anemia Chronic and likely multifactorial, but chiefly related to his renal disease He acute drop may in part have been artifactual related to fluid shifts or simply a lab anomaly, as there has been no obvious source of bleeding GI consultation appreciated; will see what his HgB looks like tomorrow before deciding if need endoscopic evaluation. He may be a candidate for SERENA therapy; will discuss with his outpatient business integration analyst on Tuesday CKD, Stage G4/A3, baseline Cr 2.7 with EGFR 20 cc/min Has been up trending over last few months Improved Cr today, electrolytes remain acceptable Not on LORNA/ARB due to hyperkalemia Additional per resident documentation Subjective Vik Gates is a 88 y/o M with a past medical hisotry of CKD stage 4, BL venous insuffiency, CAD, diastolic right heart failure, CAD s/p PCI, BL carotid artery disease s/p TCAR 05/31, HTN, and HLD admitted due to angina exacerbated by acute blood loss and reduced renal function. Patient was seen resting comfortably this morning and states that although his anginal symptoms typically occur at night, but since his blood transfusion 08/03 has not had any chest pain, tightness or dyspnea. Patient reports that he does not want to proceed with EGD or colonoscopy as his stool occult blood testing was negative and has not noticed any changes in stool consistency or color. Patient notes that since his transfusion he has not had any adverse symptoms. Patient reports that he has had heartburn and reflux in the past, but his recent chest pain had felt different. Patient is afebrile and not in acute distress. Physical Exam Physical Exam: General: patient resting comfortably, NAD, non-toxic in appearance, answers questions appropriately. Skin: warm, dry, intact HEENT: NC/AT, anicteric sclera, conjunctiva without injection, moist mucus membranes. Heart: +S1/S2, regular, no m/r/g Lungs: equal air entry bilaterally, no rales/rhonchi/wheezes Abd: +BS, soft, NT/ND Ext: warm, no clubbing/cyanosis or edema Neuro: nonfocal, speech intact, no facial droop, moving all extremities. Results & Data Results & Data Vital Signs (Past 12 Hours) Vital Signs Temp Pulse Pulse Resp BP Pulse Ox O2 Del Method 08/04/24 07:27 61 08/04/24 07:17 36.5 C 67 18 153/81 H 95 Room Air 08/04/24 02:41 36.6 C 65 18 161/72 H 94 Room Air 08/04/24 00:59 69 166/78 H Resident Activity Tracking Resident Involvement: Resident Care Provided Care Provided: Adult Hospital Medicine (1) Anemia Anemia type: unspecified type Qualified Code(s): D64.9 - Anemia, unspecified (5) CKD (chronic kidney disease) Chronic kidney disease stage: unspecified stage Qualified Code(s): N18.9 - Chronic kidney disease, unspecified (6) Hypertension Hypertension type: unspecified Qualified Code(s): I10 - Essential (primary) hypertension
--- NOTE | 2024-08-04 11:45 | Cardiology Progress Note ---
Date of Service August 04, 2024 Assessment & Plan (1) Unstable angina: (2) Elevated troponin: (3) Acute on chronic anemia: (4) CKD (chronic kidney disease): (5) Hypertension: Plan await decision from GI as to EGD/colonoscopy to r/o GI blood loss. It does appear that he has some degree of chronic anemia however for at least 2-3 years. The angina is definately triggered by the hgb 6. ? if this is due to the recent TCAR with extensive bruising or other source of blood loss. Will decide on doing nuclear stress to assess for ischemia, depending on hgb stability. However, if his stress test comes back abnormal medical therapy my be best/only option given Cr 3. Will follow while in hospital. Cont BB, resume ASA 81mg if hgb remains stable. Brilinta is on hold. If he has further angina, I need notified please. Admission and Anticipated Discharge Date Admission Date: August 02, 2024 Subjective Patients history reviewed with patient, and daughter. Long history of CRI, Cr approx 3, follows with Dr. Horta, with long standing anemia with hgb approx 10ish, presumable due to anemia of chronic disease and erythropoeitin issues related to his renal insufficiency, up until recent TCAR when started on DAPT since May with Dr. Royal-according to family had extensive bruising with the procedure. He developed typical anginal symptoms recently in the setting of hgb of only 6. Has a hx of remote stent [place] [address] Khan. Has not had angina until recently. Transfused, hgb up to 11.7 last pm and now down to 9.4. There is no obvious acute blood loss evident and his hemoccult was negative for blood. He has hx of extensive polyps removal back in 2009 as well. 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 Results & Data Vital Signs (Past 12 Hours) Vital Signs Temp Pulse Pulse Resp BP Pulse Ox O2 Del Method 08/04/24 11:24 36.4 C L 57 L 18 121/45 L 96 Room Air 08/04/24 07:27 61 08/04/24 07:17 36.5 C 67 18 153/81 H 95 Room Air 08/04/24 02:41 36.6 C 65 18 161/72 H 94 Room Air 08/04/24 00:59 69 166/78 H Laboratory Results Abnormal lab results 08/03/24 08/03/24 08/04/24 Range/Units 07:58 17:33 04:14 RBC 3.25 L (4.70-6.10) M/uL Hgb 11.7 L D 9.4 L (14.0-18.0) g/dl Hct 28.1 L (42.0-52.0) % RDW Std Deviation 49.5 H (36.4-46.3) fL RDW Coeff of Hernandez 15.8 H (11.5-14.5) % Sodium 134 L (136-145) mmol/L BUN 64 H (6-23) mg/dl Creatinine 2.91 H (0.6-1.4) mg/dl BUN/Creatinine Ratio 22.0 H (10-20) Glucose 178 H (70-99(Fasting)) mg/dl Iron 263 H (35-175) mcg/dl Transferrin % Sat 75 H (20-50) % Crossmatch See Detail Medications Administered Current Inpatient Medications Acetaminophen (Acetaminophen 500 Mg Tab) 1,000 mg PO Q6H PRN PRN Reason: Pain Stop: 09/01/24 19:00 Last Admin: 08/04/24 02:43 Dose: 1,000 mg Al Hydrox/Mg Hydrox/Simethicone (Aluminum/Magnesium Susp 30 Ml Udc) 30 ml PO Q6H PRN PRN Reason: Indigestion Stop: 09/01/24 19:00 Allopurinol (Allopurinol 300 Mg Tab) 300 mg PO [facility] Stop: 09/02/24 08:59 Last Admin: 08/04/24 07:54 Dose: 300 mg Aspirin (Aspirin 81 Mg Ectab) 81 mg PO [facility] Stop: 09/02/24 08:59 Last Admin: 08/03/24 09:53 Dose: Not Given Atorvastatin Calcium (Atorvastatin 40 Mg Tab) 40 mg PO [facility] Stop: 09/01/24 20:59 Last Admin: 08/03/24 20:10 Dose: 40 mg Cephalexin HCl (Cephalexin 500 Mg Cap) 500 mg PO BID [facility]; Protocol Stop: 08/12/24 20:59 Last Admin: 08/04/24 07:54 Dose: 500 mg Pantoprazole Sodium (Protonix) 40 mg in 10 mls @ 5 mls/min IV BID [facility] Stop: 09/02/24 08:59 Last Admin: 08/04/24 07:55 Dose: 5 mls/min Melatonin (Melatonin 3 Mg Tab) 3 mg PO HS PRN PRN Reason: Insomnia Stop: 09/01/24 19:00 Metoprolol Tartrate (Metoprolol Tartrate 1 Mg/Ml Vial) 5 mg IV Q4 PRN PRN Reason: sbp > 185, dbp >95, HR >120 Stop: 09/01/24 18:03 Metoprolol Tartrate (Metoprolol Tartrate 50 Mg Tab) 50 mg PO BID [facility] Stop: 09/02/24 20:59 Last Admin: 08/04/24 07:54 Dose: 50 mg Nitroglycerin (Nitroglycerin Sl 0.4 Mg/Tab Tab) 0.4 mg SL Q5M PRN PRN Reason: Chest Pain Stop: 09/01/24 19:00 Last Admin: 08/03/24 11:07 Dose: 0.4 mg Polyethylene Glycol (Polyethylene (Miralax) 17 Gm Pack) 17 gm PO QAM [facility] Stop: 09/02/24 08:59 Last Admin: 08/04/24 07:55 Dose: 17 gm Ticagrelor (Ticagrelor 90 Mg Tab) 90 mg PO BID [facility] Stop: 09/01/24 20:59 Last Admin: 08/03/24 09:52 Dose: Not Given (4) CKD (chronic kidney disease) Chronic kidney disease stage: unspecified stage Qualified Code(s): N18.9 - Chronic kidney disease, unspecified (5) Hypertension Hypertension type: unspecified Qualified Code(s): I10 - Essential (primary) hypertension
[2024-08-04 14:42] LABS: Hematocrit (blood only) 30.2 % (42.0-52.0); Mean Corpuscular Hgb Conc 33.1 g/dL (32.0-36.0); Mean Corpuscular Volume 87.5 fL (80.0-100.0); Mean Platelet Volume 11.6 fL (9.4-12.4); Platelet Count 231 K/uL (130-400); RDW Coefficient of Variation 15.9 % (11.5-14.5); Red Blood Count 3.45 M/uL (4.70-6.10); White Blood Count 10.35 K/ul (4.8-10.8)
[2024-08-05 04:57] LABS: Basophils # (auto) 0.05 K/uL (0.00-0.20); Basophils % (auto) 0.5 %; Eosinophils # (auto) 0.31 K/uL (0.00-0.50); Eosinophils % (auto) 3.1 %; Hematocrit (blood only) 27.5 % (42.0-52.0); Hemoglobin 9.1 g/dl (14.0-18.0); Immature Granulocytes # (auto) 0.03 K/uL (0.01-0.20); Immature Granulocytes % (auto) 0.3 %; Lymphocytes # (auto) 1.44 K/uL (1.20-3.40); Lymphocytes % (auto) 14.4 %; Mean Corpuscular Hemoglobin 28.9 pg (25.0-34.0); Mean Corpuscular Hgb Conc 33.1 g/dL (32.0-36.0); Mean Corpuscular Volume 87.3 fL (80.0-100.0); Mean Platelet Volume 11.9 fL (9.4-12.4); Monocytes # (auto) 0.94 K/uL (0.11-0.59); Monocytes % (auto) 9.4 %; Neutrophils # (auto) 7.26 K/uL (1.40-6.50); Neutrophils % (auto) 72.3 %; Platelet Count 217 K/uL (130-400); RDW Coefficient of Variation 15.4 % (11.5-14.5); RDW Standard Deviation 49.4 fL (36.4-46.3); Red Blood Count 3.15 M/uL (4.70-6.10); White Blood Count 10.03 K/ul (4.8-10.8)
[2024-08-05 05:11] LABS: Albumin Globulin Ratio 1.1 (0.9-2); BUN Creatinine Ratio 22.2 (10-20); Bilirubin,Total 0.3 mg/dl (0.2-1.0); Calcium 8.4 mg/dl (8.6-10.3); Creatinine Clr Calc Pharmacy 21.5 ml/min; Globulin 2.8 gm/dl (2.5-4.0); Potassium 4.6 mmol/L (3.5-5.1); Total Protein 5.8 gm/dl (6.0-8.3)
--- NOTE | 2024-08-05 10:08 | Hospitalist Progress Note ---
Date of Service August 05, 2024 Assessment & Plan (1) Anemia: (2) Unstable angina: (3) Elevated troponin: (4) Acute on chronic anemia: (5) CKD (chronic kidney disease): (6) Hypertension: Plan 88-year-old gentleman with significant vascular disease presenting for [facility] ed chest pain relieved with nitro. Found to have elevated troponin, EKG without acute changes consistent with prior findings. Given significant cardiac history and presence of current symptoms, cardiology considering left heart cath but newfound anemia and ckd4 causing need to optimize prior Chest pain/Elevated troponin/CAD/CHF - relieved by nitro; h/o cardiac disease to include CAD s/p PCI; ASCVD s/p [employer] with stenting times 08/27/2009, on furosemide prn, Brilinta + ASA; patient intermittent symptoms, started on metoprolol and dose escalated for bp control - Troponin initially 123-122-130 - Echo no acute changes LV function normal - nuclear perfusion stress test vs cardiac angiography on Tuesday - Cardiology consulted: continue beta-ashley and ASA 81 while Hgb remains stable, hold Brilinta - monitor closely for angina Anemia - Hgb: 6.8 (08/03) s/p transfusion improved to 11.7, dropped to 9.4 transiently and then increased back to 10.0 (08/04) - Holding heparin gtt for unstable angina in face of unstable anemia - GI consulted however may hold of on EGD/colonoscopy due to limited evidence for acute GI bleed. Hemoccult negative x2 CKD stage IV - No evidence of JOYCELYN; Cr 2.91 - Intolerant of LORNA/ARB due to hyperkalemia - Renally dose medications Chronic conditions: GERD- Omeprazole HLD- Atorvastatin Gout- Allopurinol Urinary retention-currently being treated for catheter associated uti; continue to completion of antibiotic cephalexin Diet: Heart healthy VTE Prophylaxis: Heparin Code: Full Admission and Anticipated Discharge Date Admission Date: August 02, 2024 Supervising Physician Co-Signing Physician Notes ATTESTATION I also saw the patient and confirmed ellington portions of the history and exam. I agree with the impression and plan in the resident documentation, and as summarized below. I also discussed the case with the sales operations consultant, Patient with uneventful evening in terms of angina. He does report an elevated blood pressure overnight, but he was asymptomatic. EXAM 119/66, 63, 18 Alert and oriented. NAD CV regular with KAYCEE appreciated Lungs clear with non labored respirations. ABD soft and non tender DATA Labs HgB = 9.8 Sodium 135, Potassium 4.6, BUN 64, Cr 2.88 IMPRESSION & PLAN Unstable angina Suspect this was secondary to anemia Appreciate cardiology consultation NM stress may help risk stratify and guide management, especially if he has recurrent symptoms as an outpatient. In any event, medical management would include efforts to keep HgB > 7 in the least Brilinta remains on hold; he is currently on ASA Anemia Chronic and likely multifactorial, but chiefly related to his renal disease He acute drop may in part have been artifactual related to fluid shifts or simply a lab anomaly, as there has been no obvious source of bleeding GI consultation appreciated; will see what his HgB looks like tomorrow before deciding if need endoscopic evaluation, but leaning against He may be a candidate for SERENA therapy; will discuss with his outpatient timers inspector on Tuesday CKD, Stage G4/A3, baseline Cr 2.7 with EGFR 20 cc/min Has been up trending over last few months Improved Cr today, electrolytes remain acceptable Not on LORNA/ARB due to hyperkalemia Additional per resident documentation Subjective Vik Gates is a 88 y/o M with a past medical hisotry of CKD stage 4, BL venous insuffiency, CAD, diastolic right heart failure, CAD s/p PCI, BL carotid artery disease s/p TCAR 05/31, HTN, and HLD admitted due to angina exacerbated by acute blood loss and reduced renal function. Patient was seen resting comfortably this morning and states that although his anginal symptoms typically occur at night, but since his blood transfusion 08/03 has not had any chest pain, tightness or dyspnea. Patient reports that he does not want to proceed with EGD or colonoscopy as his stool occult blood testing was negative and has not noticed any changes in stool consistency or color. Patient notes that since his transfusion he has not had any adverse symptoms. Patient reports that he has had heartburn and reflux in the past, but his recent chest pain had felt different. Patient is afebrile and not in acute distress. Physical Exam Physical Exam: General: patient resting comfortably, NAD, non-toxic in appearance, answers questions appropriately. Skin: warm, dry, intact HEENT: NC/AT, anicteric sclera, conjunctiva without injection, moist mucus membranes. Heart: +S1/S2, regular, no m/r/g Lungs: equal air entry bilaterally, no rales/rhonchi/wheezes Abd: +BS, soft, NT/ND Ext: warm, no clubbing/cyanosis or edema Neuro: nonfocal, speech intact, no facial droop, moving all extremities. Results & Data Results & Data Vital Signs (Past 12 Hours) Vital Signs Temp Pulse Pulse Resp BP Pulse Ox O2 Del Method 08/05/24 07:09 36.4 C L 65 18 130/75 95 Room Air 08/05/24 07:03 63 08/05/24 03:17 36.4 C L 63 16 137/69 96 Room Air 08/05/24 00:25 178/76 H 08/04/24 23:39 36.5 C 69 16 193/84 H 95 Room Air Resident Activity Tracking Resident Involvement: Resident Care Provided Care Provided: Adult Hospital Medicine (1) Anemia Anemia type: unspecified type Qualified Code(s): D64.9 - Anemia, unspecified (5) CKD (chronic kidney disease) Chronic kidney disease stage: unspecified stage Qualified Code(s): N18.9 - Chronic kidney disease, unspecified (6) Hypertension Hypertension type: unspecified Qualified Code(s): I10 - Essential (primary) hypertension
--- NOTE | 2024-08-05 10:30 | Cardiology Progress Note ---
Date of Service August 05, 2024 Assessment & Plan (1) Unstable angina: Plan: will plan on nuclear stress tomorrow. As long as his hgb remains stable. Depending on the results of the stress further recom may follow. The degree of his renal function however may impact on ablitity to cath IF the stress is severely abnormal. Medical therapy for now. He should cont ASA, BB, statin. He is on Brilinta s/p TCAR (2) Elevated troponin: (3) Acute on chronic anemia: (4) CKD (chronic kidney disease): (5) Hypertension: Plan Suspect the drop in hgb is due to recent TCAR with extensive bruising since there is currently no other source of blood loss. Admission and Anticipated Discharge Date Admission Date: August 02, 2024 Subjective Further history reviewed with patient. Vik Gates is a 88 y/o M with a past medical history of CKD stage 4, BL venous insufficiency, CAD, diastolic right heart failure, CAD s/p PCI, BL carotid artery disease s/p TCAR 05/31, HTN, and HLD admitted due to angina exacerbated by ? acute on chronic anemia and reduced renal function. Heme occult has been negative x 2. His hgb since yesterday is remaining stable. Discussed doing Lexiscan to assess his angina and ischemia and he is agreeable. as long as his hgb remains above 9 will proceed. Review of Systems Review of Systems: All systems reviewed & are unremarkable except as noted in HPI & below Physical Exam Physical Exam: AAO x 3 in NAD Respiratory: normal respiratory effort, lungs clear to auscultation Cardiovascular: Rate/Rhythm: regular rate and regular rhythm Heart Sounds: normal S1 and normal S2 Results & Data Vital Signs (Past 12 Hours) Vital Signs Temp Pulse Pulse Resp BP Pulse Ox O2 Del Method 08/05/24 07:09 36.4 C L 65 18 130/75 95 Room Air 08/05/24 07:03 63 08/05/24 03:17 36.4 C L 63 16 137/69 96 Room Air 08/05/24 00:25 178/76 H 08/04/24 23:39 36.5 C 69 16 193/84 H 95 Room Air Laboratory Results Abnormal lab results 08/04/24 08/05/24 Range/Units 14:24 03:52 RBC 3.45 L 3.15 L (4.70-6.10) M/uL Hgb 10.0 L 9.1 L (14.0-18.0) g/dl Hct 30.2 L 27.5 L (42.0-52.0) % RDW Std Deviation 51.0 H 49.4 H (36.4-46.3) fL RDW Coeff of Hernandez 15.9 H 15.4 H (11.5-14.5) % Neut # (Auto) 7.26 H (1.40-6.50) K/uL Centre # (Auto) 0.94 H (0.11-0.59) K/uL Sodium 135 L (136-145) mmol/L BUN 64 H (6-23) mg/dl Creatinine 2.88 H (0.6-1.4) mg/dl BUN/Creatinine Ratio 22.2 H (10-20) Glucose 164 H (70-99(Fasting)) mg/dl Calcium 8.4 L (8.6-10.3) mg/dl Total Protein 5.8 L (6.0-8.3) gm/dl Albumin 3.0 L (3.4-5.0) gm/dl Medications Administered Current Inpatient Medications Acetaminophen (Acetaminophen 500 Mg Tab) 1,000 mg PO Q6H PRN PRN Reason: Pain Stop: 09/01/24 19:00 Last Admin: 08/04/24 02:43 Dose: 1,000 mg Al Hydrox/Mg Hydrox/Simethicone (Aluminum/Magnesium Susp 30 Ml Udc) 30 ml PO Q6H PRN PRN Reason: Indigestion Stop: 09/01/24 19:00 Allopurinol (Allopurinol 300 Mg Tab) 300 mg PO [facility] Stop: 09/02/24 08:59 Last Admin: 08/05/24 08:19 Dose: 300 mg Aspirin (Aspirin 81 Mg Ectab) 81 mg PO [facility] Stop: 09/02/24 08:59 Last Admin: 08/03/24 09:53 Dose: Not Given Atorvastatin Calcium (Atorvastatin 40 Mg Tab) 40 mg PO [facility] Stop: 09/01/24 20:59 Last Admin: 08/04/24 20:01 Dose: 40 mg Cephalexin HCl (Cephalexin 500 Mg Cap) 500 mg PO BID [facility]; Protocol Stop: 08/12/24 20:59 Last Admin: 08/05/24 08:19 Dose: 500 mg Pantoprazole Sodium (Protonix) 40 mg in 10 mls @ 5 mls/min IV BID [facility] Stop: 09/02/24 08:59 Last Admin: 08/05/24 08:19 Dose: 5 mls/min Melatonin (Melatonin 3 Mg Tab) 3 mg PO HS PRN PRN Reason: Insomnia Stop: 09/01/24 19:00 Metoprolol Tartrate (Metoprolol Tartrate 1 Mg/Ml Vial) 5 mg IV Q4 PRN PRN Reason: sbp > 185, dbp >95, HR >120 Stop: 09/01/24 18:03 Metoprolol Tartrate (Metoprolol Tartrate 50 Mg Tab) 50 mg PO BID [facility] Stop: 09/02/24 20:59 Last Admin: 08/05/24 08:18 Dose: 50 mg Nitroglycerin (Nitroglycerin Sl 0.4 Mg/Tab Tab) 0.4 mg SL Q5M PRN PRN Reason: Chest Pain Stop: 09/01/24 19:00 Last Admin: 08/03/24 11:07 Dose: 0.4 mg Polyethylene Glycol (Polyethylene (Miralax) 17 Gm Pack) 17 gm PO QAM [facility] Stop: 09/02/24 08:59 Last Admin: 08/05/24 08:18 Dose: 17 gm Ticagrelor (Ticagrelor 90 Mg Tab) 90 mg PO BID [facility] Stop: 09/01/24 20:59 Last Admin: 08/03/24 09:52 Dose: Not Given (4) CKD (chronic kidney disease) Chronic kidney disease stage: unspecified stage Qualified Code(s): N18.9 - Chronic kidney disease, unspecified (5) Hypertension Hypertension type: unspecified Qualified Code(s): I10 - Essential (primary) hypertension
--- NOTE | 2024-08-05 10:33 | Gastroenterology Progress Note ---
Date of Service August 05, 2024 Assessment & Plan (1) Acute on chronic anemia: Plan: We had a long discussion about his concerns. I told him that if we checked his stool every day one of them would likely turn up positive--possibly from something he ate or even just some rectal or perianal irritation. He does not feel it is necessary for him to go through with EGD and colonoscopy. I will leave that decision to him and primary team. Admission and Anticipated Discharge Date Admission Date: August 02, 2024 Subjective Patient feels well. Had brown stool today. Hgb 9 which is relatively stable. He is curious why stool wasn't checked today for blood. He is also closely watching his labs here and curious about them. Physical Exam Physical Exam: He looks well Constitutional: WD/WN, vitals as above Results & Data Vital Signs (Past 12 Hours) Vital Signs Temp Pulse Pulse Resp BP Pulse Ox O2 Del Method 08/05/24 07:09 36.4 C L 65 18 130/75 95 Room Air 08/05/24 07:03 63 08/05/24 03:17 36.4 C L 63 16 137/69 96 Room Air 08/05/24 00:25 178/76 H 08/04/24 23:39 36.5 C 69 16 193/84 H 95 Room Air
[2024-08-05 14:15] LABS: Hematocrit (blood only) 29.1 % (42.0-52.0); Hemoglobin 9.8 g/dl (14.0-18.0); Mean Corpuscular Hemoglobin 29.4 pg (25.0-34.0); Mean Corpuscular Hgb Conc 33.7 g/dL (32.0-36.0); Mean Corpuscular Volume 87.4 fL (80.0-100.0); Platelet Count 219 K/uL (130-400); RDW Coefficient of Variation 15.6 % (11.5-14.5); RDW Standard Deviation 49.6 fL (36.4-46.3); Red Blood Count 3.33 M/uL (4.70-6.10); White Blood Count 10.47 K/ul (4.8-10.8)
[2024-08-06 03:51] VITALS: O2SAT 94
[2024-08-06 07:31] LABS: Hematocrit (blood only) 29.1 % (42.0-52.0); Hemoglobin 9.8 g/dl (14.0-18.0); Mean Corpuscular Hemoglobin 29.5 pg (25.0-34.0); Mean Corpuscular Hgb Conc 33.7 g/dL (32.0-36.0); Mean Corpuscular Volume 87.7 fL (80.0-100.0); Mean Platelet Volume 11.2 fL (9.4-12.4); Platelet Count 222 K/uL (130-400); RDW Standard Deviation 48.4 fL (36.4-46.3); Red Blood Count 3.32 M/uL (4.70-6.10)
[2024-08-06 07:48] LABS: Albumin Globulin Ratio 1.1 (0.9-2); Albumin Level 3.2 gm/dl (3.4-5.0); BUN Creatinine Ratio 21.5 (10-20); Bilirubin,Total 0.4 mg/dl (0.2-1.0); Calcium 8.6 mg/dl (8.6-10.3); Creatinine Clr Calc Pharmacy 20.6 ml/min; Globulin 2.9 gm/dl (2.5-4.0); Potassium 4.8 mmol/L (3.5-5.1); Total Protein 6.1 gm/dl (6.0-8.3)
[2024-08-06 08:36] VITALS: RESP 20
--- NOTE | 2024-08-06 09:41 | Gastroenterology Progress Note ---
Date of Service August 06, 2024 Assessment & Plan (1) Acute on chronic anemia: Plan: -Proceed with cardiac work-up as planned -Continue to monitor H/H and monitor for overt signs of GI bleeding -Patient/family reiterate that he is not interested in endoscopic evaluation at this time. Admission and Anticipated Discharge Date Admission Date: August 02, 2024 Supervising Physician Co-Signing Physician Notes Agree with nurse practitioners assessment patient has anemia without iron deficiency. He has significant renal insufficiency so anemia of chronic disease is probable. Patient has decided against any endoscopic evaluation and I support him in this decision. I believe it is the right decision. He denies any obvious melena hematochezia., Patient for discharge today. Subjective Patient is an 88 yo male with acute on chronic anemia. He is resting in bed at the time of my visit. He has had multiple heme negative stools. He denies melena, hematemesis, hematochezia, nausea, vomiting, abdominal pain, or diarrhea. He is not interested in having an EGD & colonoscopy unless medically necessary. He is awaiting a nuclear stress test today. Patient is currently on Protonix at this time. H/H 9.8/29.1. No overt GI bleeding at this time. Review of Systems Gastrointestinal: no abdominal pain, no hematemesis, no diarrhea/loose stools, no blood in stools and no melena Physical Exam Constitutional: well developed Respiratory: normal respiratory effort Cardiovascular: Rate/Rhythm: regular rate Gastrointestinal (Abdomen): normal bowel sounds, soft, nontender, no hepatosplenomegaly Psychiatric: Orientation: alert and oriented x 3 Results & Data Results & Data Vital Signs (Past 12 Hours) Vital Signs Temp Pulse Pulse Resp BP Pulse Ox O2 Del Method 08/06/24 08:35 36.7 C 60 20 127/71 94 Room Air 08/06/24 05:46 62 08/06/24 03:50 36.7 C 60 16 127/67 94 Room Air 08/05/24 23:30 36.7 C 67 18 117/79 97 Room Air 08/05/24 23:16 66 PG Care Time/CCT Total # of Minutes Spent Total Time Spent with Patient: Total time spent is greater than 50% in coordination of care (as documented) at patient's floor/unit and/or counseling patient: Coding Level of Care Code 75853 SUB INP/OBS CARE 3/50MIN Diagnoses Acute on chronic anemia D64.9
[2024-08-06] MEDS: REGADENOSON 0.4 MG/5 ML SYR IV ONE (11:32)
--- NOTE | 2024-08-06 12:33 | Hospitalist Progress Note ---
Date of Service August 06, 2024 Assessment & Plan (1) Unstable angina: Plan: will plan on nuclear stress tomorrow. As long as his hgb remains stable. Depending on the results of the stress further recom may follow. The degree of his renal function however may impact on ablitity to cath IF the stress is severely abnormal. Medical therapy for now. He should cont ASA, BB, statin. He is on Brilinta s/p TCAR (2) Elevated troponin: (3) Acute on chronic anemia: (4) CKD (chronic kidney disease): (5) Hypertension: Plan Suspect the drop in hgb is due to recent TCAR with extensive bruising since there is currently no other source of blood loss. Admission and Anticipated Discharge Date Admission Date: August 02, 2024 Subjective Patient is an 88 yo male with acute on chronic anemia. He is resting in bed at the time of my visit. He has had multiple heme negative stools. He denies melena, hematemesis, hematochezia, nausea, vomiting, abdominal pain, or diarrhea. He is not interested in having an EGD & colonoscopy unless medically necessary. He is awaiting a nuclear stress test today. Patient is currently on Protonix at this time. H/H 9.8/29.1. No overt GI bleeding at this time. Physical Exam Physical Exam: General: patient resting comfortably, NAD, non-toxic in appearance, answers questions appropriately. Skin: warm, dry, intact HEENT: NC/AT, anicteric sclera, conjunctiva without injection, moist mucus membranes. Heart: +S1/S2, regular, no m/r/g Lungs: equal air entry bilaterally, no rales/rhonchi/wheezes Abd: +BS, soft, NT/ND Ext: warm, no clubbing/cyanosis or edema Neuro: nonfocal, speech intact, no facial droop, moving all extremities. Results & Data Results & Data Vital Signs (Past 12 Hours) Vital Signs Temp Pulse Pulse Resp BP Pulse Ox O2 Del Method 08/06/24 10:33 Room Air 08/06/24 08:35 36.7 C 60 20 127/71 94 Room Air 08/06/24 05:46 62 08/06/24 03:50 36.7 C 60 16 127/67 94 Room Air (4) CKD (chronic kidney disease) Chronic kidney disease stage: unspecified stage Qualified Code(s): N18.9 - Chronic kidney disease, unspecified (5) Hypertension Hypertension type: unspecified Qualified Code(s): I10 - Essential (primary) hypertension
--- NOTE | 2024-08-06 13:05 | Myocardial Perfusion Study ---
Date of Service August 06, 2024 Myocardial Perfusion Study k Myocardial Perfusion Study Report One day nuclear medicine technetium 99m Cardiolite myocardial perfusion scan Clinical history: This stress test is being performed because of angina pectoris in a patient with known CAD. Comparison: None Technique: For the stress portion of the study, 31 mCi of technetium 99m Cardiolite IV was injected at 11:05 AM on August 06, 2024. Thirty minutes following the injection, imaging of the heart was performed in multiple projections. For the rest portion of the study, 10.7 mCi of technetium 99m Cardiolite was injected IV at 9:46 AM on August 06, 2024. One hour following the injection, imaging of the heart was performed in the same projections. Stress portion: The patient was given 0.4 mg of intravenous Lexiscan while being monitored continuously. The patient did not experience chest discomfort. Baseline EKG notes normal sinus rhythm with a complete RBBB. There were no significant ST segment changes seen during the protocol. There were no dysrhythmias. Findings: The short axis, vertical long axis, and horizontal long axis images were reviewed in detail. There was a small perfusion defect involving the proximal inferolateral wall at stress. Normal perfusion in this segment at rest. This suggest myocardial ischemia. No evidence of a myocardial infarction. The left ventricle demonstrates normal systolic function without wall motion abnormalities. The left ventricular ejection fraction is 52%. Conclusions: 1. Scintigraphic evidence a small area of stress-induced myocardial ischemia involving the proximal inferolateral wall. 2. No Lexiscan-induced chest pain. 3. No EKG changes. 4. Normal left ventricular systolic function without wall motion abnormality. Left ventricular ejection fraction is 52%. [facility] Myocardial perfusion code Procedure Code Procedure 1: Myocardial Perfusion Codes: 99896 Cardiovascular Stress Test, multiple Procedure 2: Myocardial Perfusion Codes: 77973 Cardiovascular Stress Test, supervision only Procedure 3: Myocardial Perfusion Codes: 71700 Cardiovascular Stress Test, interpretation and report
--- NOTE | 2024-08-06 14:23 | Discharge Summary ---
Date of Service August 06, 2024 Admission HPI Per Admitting Provider 88-year-old male presenting to ED for chest pain discomfort over the past few days, worsening today. Stent and TAVR within the last month. ED course CBC RBC 2.66, H&H 8/24.4, RDW 49.3, neutrophils 1.79, monocytes 0.82; PT/INR WNL; CMP chloride 113, CO2 20, BUN 60, creatinine 2.47, BUN/creatinine ratio 24.3, glucose 189, calcium 8.0; magnesium 1.9; initial troponin 123.0, repeat 122.1; albumin 3.2; lipase 64; CXR cardiomegaly with unchanged appearance of the chest; EKG sinus rhythm, sinus arrhythmia, first-degree AV block, RBBB, T wave abnormality, rate around 80 bpm.; Provided with aspirin 81 mg in ED. Patient is 88-year-old male PMHx CKD stage IV, bilateral venous insufficiency, CAD, diastolic right heart failure, HTN, HLD, and severe bilateral carotid artery disease s/p left TCAR 05/2024 presenting for chest pain. Patient states that approximately 1 week ago he had an episode of chest pain which lasted approximately 30 minutes, which was not triggered by anything else occurred at rest. Spread across his entire chest into his shoulders, made him a little short of breath. 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 For that he was very worked up, but took a nitroglycerin and his chest pain resolved. Also reports that he taken his blood pressure at that time which was elevated and also resolved once the chest pain had. The night prior to arrival, at midnight (1220) he had chest pain which again was resolved following nitroglycerin. Additional episode occurred at 0200, and resolved in less than 30 minutes. Patient states that this has been a new occurrence for him, he has not had episodes of chest pain in the prior weeks or months after his most recent procedure. States he does not notice that the chest pain is worsened with exertion, but it just comes at random times sometimes with exertion, sometimes at rest. States blood pressure becomes elevated during these times, and that his blood pressure is elevated when he is laying flat. Denying shortness of breath or palpitations. States he has some edema bilateral lower extremities at times, around baseline right now but feels that he may be collecting fluid in his bilateral lower extremities. Patient is currently chest pain-free, no shortness of breath, no palpitations. States that he has had indigestion before, and that this does not feel like that. Additionally denying abdominal pain, N/V/D/C, numbness/tingling, LUTS, fever/chills, headache, or lightheadedness/dizziness. Took all a.m. medications. Has provided a blood pressure log, which will be included. Please see Dr. Macias's attestation for adjustments/additions to treatment plan. Admission Exam Per Admitting Provider General: No acute distress Skin: Warm and dry, without rashes or lesions Head: Normocephalic, atraumatic Eyes: PERRL, conjunctivae clear, sclera non-icteric ENT: External ear and ear canal without swelling; nose atraumatic; good dentition, tongue normal appearance, pharynx normal without tonsillar swelling or exudate Neck: Supple, no LAD; no JVD Cardio: RRR, no M/G/R, S1 and S2 normal Resp: No respiratory distress, Lungs CTA in all lobes bilaterally, no wheezes, rales, or rhonchi Abdomen: Soft, symmetric, nontender; no masses or hepatosplenomegaly; Bowel sounds normoactive MSK: No deformities, full ROM throughout; pulses palpable and equal; trace pitting edema bilateral lower extremities. Neuro: Awake, alert; Muscle strength 5/5 bilaterally in UE/LE; Sensation intact bilaterally; CN grossly intact Psych: Appropriate mood and affect; good judgement and insight. Principal Diagnosis Angina, chronic anemia Discharge Exam General: patient resting comfortably, NAD, non-toxic in appearance, answers questions appropriately. Skin: warm, dry, intact HEENT: NC/AT, anicteric sclera, conjunctiva without injection, moist mucus membranes. Heart: +S1/S2, regular, no m/r/g Lungs: equal air entry bilaterally, no rales/rhonchi/wheezes Abd: +BS, soft, NT/ND Ext: warm, no clubbing/cyanosis or edema Neuro: nonfocal, speech intact, no facial droop, moving all extremities. Discharge Data Allergies Allergy/AdvReac Type Severity Reaction Status Date / Time codeine Allergy Intermediate Facial Verified 08/02/24 15:30 Swelling/Nausea Consultations 08/02/24 15:14 ED Decision to Admit Stat 08/02/24 19:01 Consult Cardiology Routine 08/03/24 07:27 Consult Gastroenterology Routine Procedures Performed Operation Date: 08/06/24 16:30 <No data on this case meets the specified criteria> Hospital Course (1) Unstable angina: (2) Elevated troponin: (3) Acute on chronic anemia: (4) CKD (chronic kidney disease): (5) Hypertension: (6) Anemia: Plan 88-year-old gentleman with significant vascular disease presenting for accelerated chest pain relieved with nitro. Found to have elevated troponin, EKG without acute changes consistent with prior findings. 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 with stenting times 08/27/2009, on furosemide prn, Brilinta + ASA; patient intermittent symptoms, started on metoprolol and dose escalated for bp control - Troponin initially 123-122-130 - Echo no acute changes LV function normal - nuclear perfusion stress test vs cardiac angiography on Tuesday - Cardiology consulted: continue beta-ashley and ASA 81 while Hgb remains stable, hold Brilinta - Patient nuclear stress testing revealed some anterolateral ischemia that will be medically managed - Imdur 30 mg ER added to patient medications upon d/c Anemia - Hgb: 6.8 (08/03) s/p transfusion improved to 11.7, dropped to 9.4 transiently and then increased back to 10.0 (08/04) - Holding heparin gtt for unstable angina in face of unstable anemia - GI consulted however may hold of on EGD/colonoscopy due to limited evidence for acute GI bleed. Hemoccult negative CKD stage IV - No evidence of JOYCELYN; Cr 2.91 - Intolerant of LORNA/ARB due to hyperkalemia - Renally dose medications Chronic conditions: GERD- Omeprazole HLD- Atorvastatin Gout- Allopurinol Urinary retention-currently being treated for catheter associated uti; continue to completion of antibiotic cephalexin Diet: Heart healthy VTE Prophylaxis: Heparin Code: Full Total Time Total Time Spent Total Time Spent (In Minutes): <30 Discharge Plan Discharge Items Patient Disposition: Home - Self-Care Reason For Visit: UNSTABLE ANGINA Discharge Diagnosis: Unstable Angina Activity: Per Instructions section Non-emergency contact: Primary Care Provider, User Support Analyst and Shop Tailor Call non-emergency contact if: your symptoms worsen and your pain is not controlled Follow-up/Referrals: Umberto Bassett DO [Primary Care Provider] - Apoorva Tillman DO [Physician] - Duke Carmona DO [Resident] - Diet: Dialysis Renal and Heart Healthy Ambulatory Orders: Complete Blood Count no Diff (Q7D) Timeframe: 2 Weeks Location: Determined by Patient Ordered By: Rachel Anne Complete Blood Count no Diff (Q7D) Timeframe: 3 Weeks Location: Determined by Patient Ordered By: Rachel Anne Complete Blood Count no Diff (Q7D) Timeframe: 4 Weeks Location: Determined by Patient Ordered By: Rachel Anne Addtl Attending Provider Instructions: You were seen in the hospital for chest discomfort. With your kidney function we were hesitant to use any contrast to evaluate for decreased blood flow to your heart. We discussed your case with the cardiology team and decided on a workup with a stress test and nuclear medicine study to evaluate the blood flow to the heart. This showed a small area of ischemia (decreased blood flow to a part of the heart). The area was not large enough that we would do a cardiac cathete rization to try to open up any narrowed vessels. We will continue with medical management for now. We started a medication called isosorbide mononitrate and you tolerated it well. You will take this medication daily. If you start getting lightheaded/dizzy when going from sitting to standing or when walking around talk to your doctor. We will also have your follow up with cardiology outpatient. We do believe that your anemia is contributing to your chest discomfort symptoms. We ordered labs weekly to monitor for worsening anemia. Please have your primary care doctor follow up on these labs. Please follow up with your PCP or someone at their office in the next 7-10 days Pending Studies at Discharge: No Stand-Alone Forms: My Exo Protein Bars, Smoking Cessation Medications and DC Order Prescriptions: New isosorbide mononitrate 30 mg tablet extended release 24 hr 30 mg PO DAILY Qty: 30 0RF Continued allopurinol 300 mg tablet 300 mg PO QAM Qty: 90 3RF atorvastatin 40 mg tablet 40 mg PO HS Qty: 90 3RF Ozempic 0.25 mg or 0.5 mg (2 mg/3 mL) pen injector 0.5 mg subcut WK Rx Instructions: Mondays omeprazole 20 mg Capsule,Delayed Release(Dr/Ec) 20 mg PO HS Centrum Silver 0.4-300-250 mg-mcg-mcg Tablet 1 tab PO QAM nitroglycerin [Nitrostat] 0.4 mg tablet, sublingual 0.4 mg sublingual Q5M PRN (Reason: Chest Pain) Patient Comments: DISSOLVE ONE TABLET UNDER THE TONGUE EVERY 5 MINUTES FOR UP TO 3 DOSES NEEDED FOR CHEST PAIN. Rx Instructions: Pt states this is and he would need a new script, but still has his medication just in case he needs it. aspirin 81 mg Tablet,Delayed Release (Dr/Ec) 81 mg PO QAM Hold Instructions: Resume on 11/07/23. Resume Tuesday if no more blood per rectum. polyethylene glycol 3350 [Miralax] 17 gram powder in packet 17 g PO QAM metoprolol succinate 25 mg tablet extended release 24 hr 0 mg PO QAM Hold Instructions: Resume on 06/19/24. Hold while taking midodrine Rx Instructions: Per patient, this has been on hold since 06/20/2024, hasn't been told to restart it yet. Was previously on hold due to patient taking Midodrine. Original Directions: 25mg by mouth daily acetaminophen 500 mg Tablet 1,000 mg PO Q6H PRN (Reason: Pain) Brilinta 90 mg Tablet 90 mg PO BID Patient Comments: "Brilinta is picked up at [facility] not [facility]" furosemide 20 mg tablet 20 mg PO DAILY PRN (Reason: leg swelling) Qty: 30 1RF cephalexin 500 mg capsule 500 mg PO BID Rx Instructions: Start Date 07/24/24 x10 day supply Discharge Orders: Discharge Order (Routine); Ordered 08/06/24 Ordered By: Rachel Anne Admission Data Admit Date/Time: 08/02/24 17:19 Attending Provider: Augie Galarza Admit Provider: Gopi Macias Primary Care Provider: Umberto Bassett Other Providers: Gopi Macias; Anup Shah; Miqeul Conn Other Interventions: Discharge Summary Assessment (RN) Last Done: 08/06/24 16:26 Supervising Physician Co-Signing Physician Notes I personally examined the patient and verified all ellington points of history and exam, discussed case, and agree with decision making with Dr Carmona Feeling better, walking around well, would very much like to go home. Stress test and plans discussed with cardiologyinput greatly appreciated. Vitals noted, in general he is awake and alert pleasant no distress. HEENT normocephalic atraumatic mucous membranes moist. Breathing unlabored no accesso ry muscle use good effort. Skin without rashes pallor or icterus. Neuro without focal deficits. and daughter present at the bedsideupdated to the best my ability and to their satisfaction. Answered all questions to the best my ability. Anginaprobably largely secondary to anemia acutely. Stress test did show a small area of reversible ischemiabut in discussion with cardiology seem to be a very small area, and in discussion with cardiology as well as separate discussion with patient, all are currently in agreement that the risk to his kidney function deteriorating further with a cath appears to outweigh any benefit that interventions may hold. Resume antiplatelets. Initiate Imdur (did first dose while he was still in the hospitalhe was able to ambulate without any significant symptoms), and try to stay ahead of anemia further (see below) anemiachronic and multifactorialacute drop probably related to phlebotomy surrounding his TCAR as well as what sounds to been a rather significant nosebleed as an outpatient. Required transfusion of 2 units. Hemoglobin has now been stable, no overt bleeding. Declined endoscopic workup (GI input appreciated). Safe/stable for homereached out to nephrologyif he is an SERENA candidatewould ask that they initiate this. If they feel that it would be of no benefit to him, would ask that his PCP follows a weekly hemoglobin for the near but foreseeable future so that he could be set up for a transfusion as needed (given where he develops symptoms, probably reasonable to transfuse if he is less than 8 hemoglobin) CKD stage IVoverall stable. Not on LORNA/ARB due to hyperkalemia. Safe/stable for home. Outpatient follow-up. discharge today
[2024-08-06] MEDS: ISOSORBIDE MONO EXTENDED REL 30 MG TABCR PO ONE (15:29)
[2024-08-06 15:47] VITALS: BP 129/69; TEMP 97.7
[2024-08-06 16:28] VITALS: PULSE 89
--- NOTE | 2024-08-06 18:47 | Billing Data ---
Date of Service August 06, 2024 Coding Level of Care Code 85153 IN/OBS DISCH 30 MIN/LESS
--- NOTE | 2024-08-06 18:47 | Billing Data ---
Date of Service August 06, 2024 Coding Level of Care Code 18693 IN/OBS DISCH 30 MIN/LESS
== END 2024-08-06 17:10 | disposition home or self-care (01) | DRG 303 ==
LOC: ED 13:14 → 2W 17:19 → SUATTDRO 17:19 → 2W 18:14

== ENCOUNTER 2024-10-16 08:14 | Inpatient (IN) ==
--- NOTE | 2024-10-04 11:36 | Anesthesiology Consultation ---
Date of Service October 04, 2024 Assessment & Plan (1) Encounter for pre-operative examination: Chart Review Chart Review: Pending: Refer to Additional Notes / Consult section (cardiac optimization possibly to be done 10/10/24) and Patient NOT seen in Pre Admission Testing - Discussed case with Dr Vogel- will message cardiology to see if cardio preop optimization can be done at routine cardio appt on 10/10/24 ([place] [facility]). - Check BSG AM DOS Did have post op hypotension from left TCAR 05/2024 - was put on Lemuel- synephrine and midodrine - Ozempic instructions: Patient informed by PAT nursing to stop 7 days prior to surgery. Patient advised by PAT nursing to check with prescriber to see if alternative diabetic management changes recommended while holding Ozempic- if so, patient to call back to PAT to update chart and discuss if any further preop medication instructions needed. Last dose of Ozempic scheduled 10/09/24- will be off Ozempic x 7 days by DOS on 10/16/24 -Infectious Disease screening: Per PAT nursing assessment on 10/04/24. No known infectious disease contacts in past 10 days or current infectious disease symptoms. No recent travel outside the country. Seen in [place] ED 09/25/24= seen for elevated blood pressure. Initial troponin was 77 which is above what it was in August but it has been higher before. Patient denies active chest pain or SOB. CXR did show small pleural effusion. Offered admission and patient was seen by relationship specialist hospitalist. Suggested repeating troponin (repeat was fairly flat). Patient asymptomatic. Was discharged home and recommending taking dose of Lasix in the morning. History Surgery Operation Date: 10/16/24 10:20 Proposed Procedures p Right Transcarotid Artery Revascularization - Pasquale Royal MD Height/Weight Height: 5 ft 11.75 in Weight: 97.976 kg Allergies Allergy/AdvReac Type Severity Reaction Status Date / Time codeine Allergy Intermediate Facial Verified 10/04/24 10:37 Swelling/Nausea Medications Home Medications Medication Instructions Recorded Confirmed Last Taken zmoofqeo-yzk-nwnpt acid 0.4 1 tab PO QAM 09/16/18 10/04/24 08/02/24 mg-lycopene 300 mcg-lutein 250 mcg tablet (Centrum Silver) omeprazole 20 mg capsule,delayed 20 mg PO HS 09/16/18 10/04/2408/01/24 release nitroglycerin 0.4 mg sublingual 0.4 mg sublingual Q5M PRN Chest 03/14/19 10/04/24 Unknown tablet (Nitrostat) Pain aspirin 81 mg tablet,delayed 81 mg PO QAM 05/30/23 10/04/24 08/02/24 release semaglutide 0.25 mg or 0.5 mg (2 0.5 mg subcut WK 09/22/23 10/04/24 07/30/24 mg/3 mL) subcutaneous pen injector (Ozempic) polyethylene glycol 3350 17 gram 17 g PO QAM 04/02/24 10/04/24 08/02/24 oral powder packet (Miralax) ticagrelor 90 mg tablet (Brilinta) 90 mg PO BID 04/04/24 10/04/24 08/02/24 furosemide 20 mg tablet 20 mg PO DAILY PRN leg swelling 04/08/24 10/04/24 04/03/24 #30 tabs acetaminophen 500 mg tablet 1,000 mg PO Q6H PRN Pain 06/05/24 10/04/24 06/04/24 14:00 atorvastatin 40 mg tablet 40 mg PO HS #90 tabs 06/12/24 10/04/24 08/01/24 allopurinol 300 mg tablet 300 mg PO QAM #90 tabs 08/28/24 10/04/24 Unknown clonidine HCl 0.1 mg tablet 0.1 mg PO BID PRN Systolic BP >170 08/28/24 10/04/24 Unknown #60 tabs metoprolol succinate 25 mg 25 mg PO QAM 08/28/24 10/04/24 Unknown tablet,extended release 24 hr isosorbide mononitrate 30 mg 30 mg PO QAM 09/28/24 10/04/24 Unknown tablet,extended release 24 hr Past Medical History Medical History (Updated 10/04/24 @ 15:00 by Ashley Layne PA-C) Anemia Antiplatelet or antithrombotic long-term use Brilinta Arthritis Back pain Difficulty lying flat Bilateral carotid artery disease s/p left TCAR 05/2024 BPH (benign prostatic hyperplasia) currently with Sevilla in place Bradycardia hx of 1st degree AVB. in the past had episode of HR in 30s in ambulance after vasovagal event for which he was given atropine; per cardio, rusty episode likely 2/2 vagal stimulation CAD (coronary artery disease) MARIO to ramus (2009) CHF (congestive heart failure) pt denies per cardio records "history of HF" CKD (chronic kidney disease) stage 4, follows with Dr. Murphy Constipation chronic - Miralax PRITCHARD (dyspnea on exertion) Dyslipidemia Sevilla catheter in place has changed every 4 weeks at [facility] GERD (gastroesophageal reflux disease) Hearing deficit bilateral aids History of GI bleed (10/2023) Pt Unsure Hx of gout "haven't had an attack in years" Hx of pleural effusion Small left pleural effusion noted on 09/25/24 CXR Hx: UTI (urinary tract infection) has indwelling sevilla cath, changed every 4 weeks Hypertension - Severe HTN in supine position coupled with significant orthostatic hypotension - Per cardio records "hemodynamic instability exacerbated by his carotid artery disease (baroreceptors), autonomic neuropathy, episodic intravascular volume depletion" MGUS (monoclonal gammopathy of unknown significance) Dr Murphy Monitoring Nonsustained supraventricular tachycardia No recent or current symptoms suggestive of an arrhythmia Obesity Peyronie's disease Polyneuropathy RBBB f/u dr. lopez, [place] Syncope and collapse hx-admitted to [facility] following syncopal episode (04/24/23 - 04/27/23); dx likely vasovagal 2/2 volume depletion and BB. most recently 04/04/24 in [facility] OP Lab - [facility] ER/Admission 04/04/24-04/08/24 Type 2 diabetes mellitus Ozempic Urinary retention 2/2 BPH and currently with Sevilla in place Venous insufficiency of both lower extremities Do not feel that the edema is secondary to a primary cardiac etiology per cardio records Past Family History Family History Uncle Family hx of colon cancer Past Surgical History Surgical History (Updated 10/04/24 @ 11:13 by Kelly Mcclain) History of cardiac cath (2009) S/P MARIO TO RAM (2009), [facility], x1 stent; f/u dr. lopez, [place] History of colonoscopy History of endoscopic sinus surgery History of open reduction and internal fixation (ORIF) procedure right tibial plateau - lateral fracture History of tonsillectomy History of transcarotid artery revascularization (TCAR) 05/2024, left side Hx of bilateral cataract extraction Hx of cystoscopy Hx of eye surgery laser surgery to remove "film" from eye following cataract sx. Hx of heart artery stent (2009) S/P MARIO TO RAMUS (2009), [facility], x1 stent; f/u dr. lopez, [facility] [place] Status post total left knee replacement (12/12/18) Social History Smoking Status: Former smoker Do You Dip or Chew Tobacco: No Smoking End Date: 1967 Hx Alcohol Use: Yes (none for last 18 months) Alcohol type: wine alcohol intake frequency: holidays/special occasions only Hx Substance Use: No substance use type: does not use Lab Results Anesthesia Preop Results Results Anesthesia Widget: WBC 13.27 K/ul (4.8-10.8) H 09/25/24 Hgb 10.4 g/dl (14.0-18.0) L 09/25/24 Hct 31.6 % (42.0-52.0) L 09/25/24 Plt 262 K/uL (130-400) 09/25/24 Na 136 mmol/L (136-145) 09/25/24 K 4.7 mmol/L (3.5-5.1) 09/25/24 Cl 105 mmol/L (98-107) 09/25/24 CO2 23 mmol/L (21-32) 09/25/24 BUN 58 mg/dl (6-23) H 09/25/24 Creat 2.70 mg/dl (0.6-1.4) H 09/25/24 Glucose Level 202 mg/dl (70-99(Fasting)) H 09/25/24 PT 9.9 Seconds (9.0-12.0) 09/25/24 PTT 27 Seconds (21-31) 09/25/24 INR 0.9 (0.9-1.1) 09/25/24 Urine Color Yellow 09/12/24 Urine Appearance Cloudy (Clear) A 09/12/24 Urine pH >= 9.0 (4.5-7.5) H 09/12/24 Urine Specific [place] 1.018 (1.000-1.030) 09/12/24 Urine Protein 4+ (Negative) H 09/12/24 Urine Glucose (UA) 1+ (Negative) H 09/12/24 Urine Ketones Negative (Negative) 09/12/24 Urine Blood Negative (Negative) 09/12/24 Urine Nitrite Positive (Negative) A 09/12/24 Urine Bilirubin Negative (Negative) 09/12/24 Urine Urobilinogen Negative (Negative) 09/12/24 Urine Leukocyte Esterase 3+ (Negative) H 09/12/24 Urine WBC (Auto) 0-5 /hpf (0-5) 09/12/24 Urine RBC (Auto) 3-5 /hpf (0-2) H 09/12/24 Urine Hyaline Casts (Auto) 3-5 /lpf (0-2) H 09/12/24 Urine Epithelial Cells (Auto) 0-2 /hpf (0-2) 09/12/24 Urine Bacteria (Auto) 4+ (None Seen) H 09/12/24 Testing Laboratory Results Mild leukocytosis- labs done in [place] ED - see in ED for hypertensive urgency (surgeon's office informed- will leave to surgeon's discretion) Anemia- chronic and stable Elevated creatinine chronic and stable UA ordered by nephro- seen by nephro 09/12/24 09/25/24= Troponin: 77.2 (at 1931) and 71.4 (at 2201) (per hospitalist consultation 09/25/24= " elevated troponin in setting of uncontrolled HTN. No chest pain. No acute EKG changes. Troponin has improved on repeat); Per records- patient usually with elevated troponin Electrocardiogram Date: 09/25/24 SR with 1st degree AVB at 91bpm RBBB T wave abnormality, consider inferior ischemia When compared to EKG from Aug 30, 2024- QT has lengthened per cardio Chest X-Ray Date: 09/25/24 Small left pleural effusion. Bilateral lower lung atelectasis. Mildly prominent lung markings may be secondary to technique versus pulmonary vasculature congestion. Echocardiogram Date: 08/03/24 EF: 60-65% LV Function: normal RWMA: + none Other Findings: + LVH (mild/concentric) Valvular Disease: + no significant valvular disease LA mildly dilated Stress Test Date: 08/06/24 Type: nuclear Conclusions: 1. Scintigraphic evidence a small area of stress-induced myocardial ischemia involving the proximal inferolateral wall. 2. No Lexiscan-induced chest pain. 3. No EKG changes. 4. Normal left ventricular systolic function without wall motion abnormality. Left ventricular ejection fraction is 52%. (Reviewed by cardio- per 08/28/24 office visit- decision was made to manage medically due to multiple comorbidities and renal dysfunction; high risk for invasive cardiac evaluation requiring administration of contrast dye) Other Testing Neck MRA 02/17/24 1. High-grade stenosis at the origin of the internal carotid arteries which is likely secondary to atherosclerosis. 2. Patent vertebral arteries. Cardiac event monitor 05/29/23 Sinus rhythm with rates 61-174 bpm, average 85 bpm Baseline first degree AV block. FL interval approximately 280 milliseconds. Baseline intraventricular conduction delay Occasional premature supraventricular ectopic beats, accounted for 3% of all beats. Rare supraventricular ectopic couplets Several episodes of non sustained supraventricular tachycardia of 3-8 beat duration. Fastest rate 174 bpm Rare premature ventricular ectopic beats. These accounted for 1% of all beats.
--- NOTE | 2024-10-15 10:27 | History & Physical Report ---
Date of Service October 15, 2024 History of Present Illness Primary Care Provider: Umberto Bassett, DO Subjective I had the pleasure of seeing Vik today for follow-up. As you know he is a 88-year-old gentleman who has had bilateral severe internal carotid artery stenosis. He had a TCAR on the left side which resulted in hypotension requiring midodrine. He now has better blood pressure control. He wanted to in the 140-160 range. He came in today discussed the right TCAR procedure. Objective Vitals & Measurements HR: 88 (Monitored) BP: 168/72 SpO2: 95% Physical Exam On exam he is awake alert and oriented x 3. Blood pressure 160/70. He has no neurological deficits. His radials and carotids are +2 bilaterally. Lungs are clear. Heart has a RRR. Abdominal exam is benign. Diagnostic Results Ultrasound shows 70 - 79% narrowing of the right internal carotid artery. On MRI it was significantly tighter. Assessment/Plan 1. Bilateral carotid artery stenosis This point went over the risks options benefits of a right TCAR. He understood the risks options and benefits of the document on the consent form. He elected to go ahead with the right TCAR. This will be scheduled beginning of October. Thank you very much for letting us participate in the care of this patient. Sincerely, Ralph Royal MD Attestation I have personally spent ___20__ minutes performing ohyk-ex-xrer and cog-zgey-pn-face activities on this date of service. Activities Include: __x review of the medical record __x obtaining a history __x physical exam/evaluation __ review labs __ review radiology reports __x counseling/educating patient/family/caregiver __ discussion/referral to other healthcare professional __x documenting care in the medical record __ independent interpretation of results __ communication of results to patient/family/caregiver __ coordination of care Signature Line Electronic Signature on File Pasquale Royal MD Author Signature Dt/Tm: 09/20/2024 12:11 PM Market Maker Pablo Rea [facility] [place] [address], [address] [place] [address] EJS Result Type: .Outpt Ltr Date of Service: September 20, 2024 11:22 EST Authorization Status: Final Subject: Follow Up Visit Author or Import Date: MD Royal Eugene J on September 20, 2024 12:11 EST Verified By: MD Royal Eugene J on September 20, 2024 12:11 EST Encounter info: [id number], [place] [id number], Clinic, 09/20/2024 - 09/20/2024 Allergies Allergy/AdvReac Type Severity Reaction Status Date / Time codeine Allergy Intermediate Facial Verified 10/10/24 15:34 Swelling/Nausea Home Medications Medication Instructions Recorded Confirmed Type exolsydg-ofh-vvmji acid 0.4 1 tab PO QAM 09/16/18 10/10/24 History mg-lycopene 300 mcg-lutein 250 mcg tablet (Centrum Silver) omeprazole 20 mg capsule,delayed 20 mg PO HS 09/16/18 10/10/24 History release nitroglycerin 0.4 mg sublingual 0.4 mg sublingual Q5M PRN Chest 03/14/19 10/10/24 History tablet (Nitrostat) Pain aspirin 81 mg tablet,delayed 81 mg PO QAM 05/30/23 10/10/24 History release semaglutide 0.25 mg or 0.5 mg (2 0.5 mg subcut WK 09/22/23 10/10/24 History mg/3 mL) subcutaneous pen injector (Ozempic) polyethylene glycol 3350 17 gram 17 g PO QAM 04/02/24 10/10/24 History oral powder packet (Miralax) ticagrelor 90 mg tablet (Brilinta) 90 mg PO BID 04/04/24 10/10/24 History furosemide 20 mg tablet 20 mg PO DAILY PRN leg swelling 04/08/24 10/10/24 Rx #30 tabs acetaminophen 500 mg tablet 1,000 mg PO Q6H PRN Pain 06/05/24 10/10/24 History atorvastatin 40 mg tablet 40 mg PO HS #90 tabs 06/12/24 10/10/24 Rx allopurinol 300 mg tablet 300 mg PO QAM #90 tabs 08/28/24 10/10/24 Rx clonidine HCl 0.1 mg tablet 0.1 mg PO BID PRN Systolic BP >170 08/28/24 10/10/24 Rx #60 tabs metoprolol succinate 25 mg 25 mg PO QAM 08/28/24 10/10/24 History tablet,extended release 24 hr isosorbide mononitrate 30 mg 30 mg PO QAM 09/28/24 10/10/24 History tablet,extended release 24 hr Past Med/Surg History Problem List Anemia Encounter for pre-operative examination Right bundle branch block Autonomic neuropathy Orthostatic hypotension Iron deficiency Elevated troponin Chronic indwelling Sevilla catheter (Acute) Constipation (Acute) Stage 4 chronic kidney disease (Acute) Antiplatelet or antithrombotic long-term use Bilateral carotid artery disease (Acute) Chronic kidney disease Venous insufficiency of both lower extremities CHF (congestive heart failure) (Acute) Hydronephrosis, left Vitamin D deficiency Back pain Tearing of muscle Fatigue 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, 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 Former smoker (Acute) History of coronary artery stent placement (Acute 2009) MARIO Ramus Intermedius Proteinuria (Acute) Medical History Hypertension - Severe HTN in supine position coupled with significant orthostatic hypotension - Per cardio records "hemodynamic instability exacerbated by his carotid artery disease (baroreceptors), autonomic neuropathy, episodic intravascular volume depletion" Nonsustained supraventricular tachycardia No recent or current symptoms suggestive of an arrhythmia CAD (coronary artery disease) MARIO to ramus (2009) RBBB f/u dr. lopez, mnpg Urinary retention 2/2 BPH and currently with Sevilla in place PRITCHARD (dyspnea on exertion) Constipation chronic - Miralax CHF (congestive heart failure) pt denies per cardio records "history of HF" Back pain Difficulty lying flat Antiplatelet or antithrombotic long-term use Brilinta Bilateral carotid artery disease s/p left TCAR 05/2024 Venous insufficiency of both lower extremities Do not feel that the edema is secondary to a primary cardiac etiology per cardio records History of GI bleed (10/2023) Pt Unsure Hx of pleural effusion Small left pleural effusion noted on 09/25/24 CXR Hx of gout "haven't had an attack in years" Hx: UTI (urinary tract infection) has indwelling sevilla cath, changed every 4 weeks CKD (chronic kidney disease) stage 4, follows with Dr. Murphy Sevilla catheter in place has changed every 4 weeks at [facility] urology Polyneuropathy Peyronie's disease Obesity Bradycardia hx of 1st degree AVB. in the past had episode of HR in 30s in ambulance after vasovagal event for which he was given atropine; per cardio, rusty episode likely 2/2 vagal stimulation Syncope and collapse hx-admitted to [facility] following syncopal episode (04/24/23 - 04/27/23); dx likely vasovagal 2/2 volume depletion and BB. most recently 04/04/24 in [facility] OP Lab - [facility] ER/Admission 04/04/24-04/08/24 MGUS (monoclonal gammopathy of unknown significance) Dr Murphy Monitoring BPH (benign prostatic hyperplasia) currently with Sevilla in place Dyslipidemia Type 2 diabetes mellitus Ozempic Arthritis GERD (gastroesophageal reflux disease) Hearing deficit bilateral aids Surgical History History of transcarotid artery revascularization (TCAR) 05/2024, left side Hx of heart artery stent (2009) S/P MARIO TO RAMUS (2009), [facility], x1 stent; f/u beatrice nunez Hx of cystoscopy Hx of eye surgery laser surgery to remove "film" from eye following cataract sx. 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) History of colonoscopy History of open reduction and internal fixation (ORIF) procedure right tibial plateau - lateral fracture History of tonsillectomy History of endoscopic sinus surgery History of cardiac cath (2009) S/P MARIO TO RAMUS (2009), [facility], x1 stent; f/u dr. lopez, beatrice Family History Uncle Family hx of colon cancer Social History Smoking Status: Former smoker Tobacco Type: Cigarettes Smoking End Date: 1967; Second Hand Exposure: No; Do You Dip or Chew Tobacco: No; Tobacco Cessation Education Requested by Patient: No Hx Alcohol Use: Yes (none for last 18 months) Alcohol type: wine Hx Substance Use: No Preferred Language: Latvian Communication Ability: Effective Visual Impairment: Limited Hearing Ability: Normal Agitator Operator Required: No Beliefs That Will Affect Care: None marital status: Current Living Situation: Spouse and Family current occupational status: retired How many Children do You have: 7 Other Information That Helps Us Care for You: No Feels Safe at Home: Yes Safety Concerns: Feels Safe At This Time Diet: low salt and other Diet Comment: low potassium diet conscious. restricted banana and avocado and nuts. caffeine: Yes (1-2 coffees daily) Physical Activity Frequency: Does not Exercise Seatbelt Use: always Do you think of yourself as: straight/heterosexual Gender Identity: Male Assistive Devices: Glasses, Hearing Aid - Bilateral, Stair Lift and Walker Review of Systems All systems reviewed & are unremarkable except as noted in HPI & below
[2024-10-16] MEDS: LACTATED RINGER'S 1,000 ML IV SCH ×2 (09:03→15:38)
[2024-10-16] MEDS ORDERED: fentaNYL citrate PF 100 MCG/2 ML VIAL IV PRN (09:10)
[2024-10-16] MEDS ORDERED: HYDROmorphone INJ 1 MG/ML SYRINGE IV PRN (09:10)
[2024-10-16] MEDS ORDERED: ATROPINE SULFATE 0.1 MG/ML 10ML SYR IV PRN (09:10)
[2024-10-16] MEDS ORDERED: ONDANSETRON INJ 2 MG/ML 2 ML VIAL IV PRN ×2 (09:10→13:50)
[2024-10-16] MEDS ORDERED: ePHEDrine sulfate 50 MG/ML AMP IV PRN (09:10)
--- NOTE | 2024-10-16 09:15 | Anesthesiology Consultation ---
Date of Service October 16, 2024 Assessment & Plan Chart Review Chart Review: Acceptable Risk for Surgery Consults Requested none ASA ASA3 Proposed Anesthesia Anesthesia Type: General Anesthesia Line Insertion: Arterial line and Central Venous Catheter (Possible ) History Surgery Operation Date: 10/16/24 10:15 Proposed Procedures p Right Transcarotid Artery Revascularization - Pasquale Royal MD Height/Weight Height: 5 ft 11.75 in Weight: 100.7 kg Allergies Allergy/AdvReac Type Severity Reaction Status Date / Time codeine Allergy Intermediate Facial Verified 10/16/24 08:46 Swelling/Nausea Medications Home Medications Medication Instructions Recorded Confirmed Last Taken ygoedblg-yil-teuqr acid 0.4 1 tab PO QAM 09/16/18 10/16/24 1 Week Ago mg-lycopene 300 mcg-lutein 250 mcg ~10/09/24 tablet (Centrum Silver) omeprazole 20 mg capsule,delayed 20 mg PO HS 09/16/18 10/16/24 10/15/24 20:00 release nitroglycerin 0.4 mg sublingual 0.4 mg sublingual Q5M PRN Chest 03/14/19 10/16/24 3 Weeks Ago tablet (Nitrostat) Pain ~09/25/24 aspirin 81 mg tablet,delayed 81 mg PO QAM 05/30/23 10/16/24 10/16/24 07:00 release semaglutide 0.25 mg or 0.5 mg (2 0.5 mg subcut WK 09/22/23 10/16/24 1 Week Ago mg/3 mL) subcutaneous pen injector ~10/09/24 (Ozempic) polyethylene glycol 3350 17 gram 17 g PO QAM 04/02/24 10/16/24 10/15/24 07:00 oral powder packet (Miralax) ticagrelor 90 mg tablet (Brilinta) 90 mg PO BID 04/04/24 10/16/24 10/16/24 07:00 furosemide 20 mg tablet 20 mg PO DAILY PRN leg swelling 04/08/24 10/16/24 3 Weeks Ago #30 tabs ~09/25/24 acetaminophen 500 mg tablet 1,000 mg PO Q6H PRN Pain 06/05/24 10/16/24 3 Days Ago ~10/13/24 atorvastatin 40 mg tablet 40 mg PO HS #90 tabs 06/12/24 10/16/24 10/15/24 20:00 allopurinol 300 mg tablet 300 mg PO QAM #90 tabs 08/28/24 10/16/24 10/16/24 07:00 clonidine HCl 0.1 mg tablet 0.1 mg PO BID PRN Systolic BP >170 08/28/24 10/16/24 10/15/24 20:00 #60 tabs metoprolol succinate 25 mg 25 mg PO QAM 08/28/24 10/16/24 10/16/24 07:00 tablet,extended release 24 hr isosorbide mononitrate 30 mg 30 mg PO QAM 09/28/24 10/16/24 10/16/24 07:00 tablet,extended release 24 hr Active Medications Generic Name Dose Route Start Last Admin Trade Name Freq PRN Reason Stop Dose Admin Lactated Ringer's 1,000 mls @ 50 mls/hr 10/16/24 06:00 10/16/24 09:03 Lr IV 10/17/24 01:59 50 mls/hr .Q20H LEONARDA Administration NPO Date Last Intake of Fluids: 10/16/24 Time Last Intake of Fluids: 06:45 Last Intake of Fluids Comment: Sips with morning meds Date Last Intake of Solids: 10/15/24 Time Last Intake of Solids: 19:00 Last Intake of Solids Comment: Greater then 8 hrs Past Medical History Medical History Hypertension - Severe HTN in supine position coupled with significant orthostatic hypotension - Per cardio records "hemodynamic instability exacerbated by his carotid artery disease (baroreceptors), autonomic neuropathy, episodic intravascular volume depletion" Nonsustained supraventricular tachycardia No recent or current symptoms suggestive of an arrhythmia CAD (coronary artery disease) MARIO to ramus (2009) RBBB f/u dr. lopez, mnpg Urinary retention 2/2 BPH and currently with Sevilla in place PRITCHARD (dyspnea on exertion) Constipation chronic - Miralax CHF (congestive heart failure) pt denies per cardio records "history of HF" Back pain Difficulty lying flat Antiplatelet or antithrombotic long-term use Brilinta Bilateral carotid artery disease s/p left TCAR 05/2024 Venous insufficiency of both lower extremities Do not feel that the edema is secondary to a primary cardiac etiology per cardio records History of GI bleed (10/2023) Pt Unsure Hx of pleural effusion Small left pleural effusion noted on 09/25/24 CXR Hx of gout "haven't had an attack in years" Hx: UTI (urinary tract infection) has indwelling sevilla cath, changed every 4 weeks CKD (chronic kidney disease) stage 4, follows with Dr. Murphy Sevilla catheter in place has changed every 4 weeks at [facility] urology Polyneuropathy Peyronie's disease Obesity Bradycardia hx of 1st degree AVB. in the past had episode of HR in 30s in ambulance after vasovagal event for which he was given atropine; per cardio, rusty episode likely 2/2 vagal stimulation Syncope and collapse hx-admitted to [facility] following syncopal episode (04/24/23 - 04/27/23); dx likely vasovagal 2/2 volume depletion and BB. most recently 04/04/24 in [facility] OP Lab - [facility] ER/Admission 04/04/24-04/08/24 MGUS (monoclonal gammopathy of unknown significance) Dr Murphy Monitoring BPH (benign prostatic hyperplasia) currently with Sevilla in place Dyslipidemia Type 2 diabetes mellitus Ozempic Arthritis GERD (gastroesophageal reflux disease) Hearing deficit bilateral aids Exercise / Class Metabolic Activity III < 4 Walking/Shop/Light housework Past Family History Family History Uncle Family hx of colon cancer Past Surgical History Surgical History History of transcarotid artery revascularization (TCAR) 05/2024, left side Hx of heart artery stent (2009) S/P MARIO TO RAMUS (2009), [facility], x1 stent; f/u beatrice nunez Hx of cystoscopy Hx of eye surgery laser surgery to remove "film" from eye following cataract sx. 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) History of colonoscopy History of open reduction and internal fixation (ORIF) procedure right tibial plateau - lateral fracture History of tonsillectomy History of endoscopic sinus surgery History of cardiac cath (2009) S/P MARIO TO RAMUS (2009), [facility], x1 stent; f/u beatrice nunez Past Anesthesia History No Hx of Anesthesia Complications History of PONV No Hx of PONV and No Hx of Motion Sickness Social History Smoking Status: Former smoker Do You Dip or Chew Tobacco: No Smoking End Date: 1967 Hx Alcohol Use: Yes Alcohol type: wine alcohol intake frequency: holidays/special occasions only Alcohol Intake Frequency Comment: Last drink 1.5 years ago Hx Substance Use: No substance use type: does not use Review of Systems ROS Unobtainable: All systems reviewed & are unremarkable except as noted in HPI & below Physical Exam Vital Signs Last Vital Signs Temp 36.9 C 10/16/24 08:25 Pulse 95 H 10/16/24 08:25 Resp 18 10/16/24 08:25 BP 196/91 H 10/16/24 08:25 Pulse Ox 97 10/16/24 08:25 O2 Del Method Room Air 10/16/24 08:25 Constitutional no acute distress ENMT Thyromental Distance: > or= 3.5 Finger Breadths Mallampati Class: I Neck normal visual inspection Respiratory normal respiratory effort Auscultation: lungs clear to auscultation bilaterally Cardiovascular Rate/Rhythm: regular rate and regular rhythm Neurologic moves all extremities (5/5 strength ) Motor/Sensory: + sensory deficit (None ) CN 2-12 grossly intact Psychiatric Orientation: alert and oriented x 3 Testing Laboratory Results 10/16/24 08:27 POC Glucose 208 H Electrocardiogram Date: 09/25/24 SR with 1st degree AVB at 91bpm RBBB T wave abnormality, consider inferior ischemia When compared to EKG from Aug 30, 2024- QT has lengthened per cardio Chest X-Ray Date: 09/25/24 Small left pleural effusion. Bilateral lower lung atelectasis. Mildly prominent lung markings may be secondary to technique versus pulmonary vasculature congestion. Echocardiogram Date: 08/03/24 EF: 60-65% LV Function: normal RWMA: + none Other Findings: + LVH (mild/concentric) Valvular Disease: + no significant valvular disease LA mildly dilated Stress Test Date: 08/06/24 Type: nuclear Conclusions: 1. Scintigraphic evidence a small area of stress-induced myocardial ischemia involving the proximal inferolateral wall. 2. No Lexiscan-induced chest pain. 3. No EKG changes. 4. Normal left ventricular systolic function without wall motion abnormality. Left ventricular ejection fraction is 52%. (Reviewed by cardio- per 08/28/24 office visit- decision was made to manage medically due to multiple comorbidities and renal dysfunction; high risk for invasive cardiac evaluation requiring administration of contrast dye) Other Testing Neck MRA 02/17/24 1. High-grade stenosis at the origin of the internal carotid arteries which is likely secondary to atherosclerosis. 2. Patent vertebral arteries. Cardiac event monitor 05/29/23 Sinus rhythm with rates 61-174 bpm, average 85 bpm Baseline first degree AV block. ND interval approximately 280 milliseconds. Baseline intraventricular conduction delay Occasional premature supraventricular ectopic beats, accounted for 3% of all beats. Rare supraventricular ectopic couplets Several episodes of non sustained supraventricular tachycardia of 3-8 beat duration. Fastest rate 174 bpm Rare premature ventricular ectopic beats. These accounted for 1% of all beats.
[2024-10-16] MEDS ORDERED: ROCURONIUM BROMIDE 10 MG/ML 5 ML VIAL IV ONE ×2 (09:21→10:49)
[2024-10-16] MEDS ORDERED: fentaNYL citrate PF 100 MCG/2 ML VIAL ONE (09:21)
[2024-10-16] MEDS ORDERED: PROPOFOL IV EMULSION 10 MG/ML 20 ML VIAL IV ONE (09:21)
[2024-10-16] MEDS ORDERED: LIDOCAINE 2% 2 ML VIAL/AMP(20MG/ML) INFIL ONE (09:21)
--- NOTE | 2024-10-16 09:35 | History & Physical Bridge Note ---
Date of Service October 16, 2024 History & Physical Bridge Note I have examined the patient, reviewed the History & Physical and in the interval since the performance of the History & Physical I have noted the following changes of clinical significance: no changes noted
[2024-10-16] MEDS ORDERED: PHENYLEPHRINE HCL 25 MG/250 ML NSS IV ONE (09:41)
[2024-10-16] MEDS ORDERED: PHENYLEPHRINE HCL 10 MG/ML VIAL ONE (09:43)
[2024-10-16] MEDS ORDERED: GLYCOPYRROLATE 0.2 MG/ML VIAL ONE (09:52)
[2024-10-16] MEDS: ceFAZolin 2000MG 2,000 MG/15 ML SYR IV SCH ×2 (10:15→15:38)
[2024-10-16] MEDS ORDERED: LABETALOL HCL IV 5 MG/ML 20ML IV ONE (10:24)
[2024-10-16] MEDS ORDERED: ePHEDrine sulfate 50 MG/ML AMP ONE (10:40)
[2024-10-16] MEDS ORDERED: HEPARIN SOD (PORCINE) 1000 UNIT/ML ONE (10:45)
[2024-10-16] MEDS ORDERED: SUGAMMADEX SODIUM 200 MG/2 ML VIAL IV ONE (10:52)
[2024-10-16] MEDS ORDERED: ONDANSETRON INJ 2 MG/ML 2 ML VIAL ONE (10:53)
[2024-10-16] MEDS ORDERED: DEXAMETHASONE SOD INJ 4 MG/ML VIAL ONE ×2 (10:53)
[2024-10-16] MEDS ORDERED: ESMOLOL HCL INJ 10 MG/ML 10ML VIAL IV ONE ×3 (11:05→11:43)
[2024-10-16] MEDS: VISIPAQUE IV ONE (11:16)
[2024-10-16] MEDS: GELATIN SPONGE SZ 100 ONE (11:17)
[2024-10-16] MEDS ORDERED: PROTAMINE SULFATE 10 MG/ML 5 ML VIAL IV ONE (11:17)
[2024-10-16] MEDS: SURGICEL ABSORB HEMOSTAT 2IN X 14IN TOP ONE (11:17)
[2024-10-16] MEDS: THROMBIN FOR SOLN 20000 UNIT KIT ONE (11:17)
[2024-10-16] MEDS ORDERED: METOPROLOL TARTRATE 1 MG/ML VIAL IV ONE (11:23)
[2024-10-16] MEDS: ceFAZolin 330 MG/ML 1 GM VIAL ONE (11:38)
[2024-10-16] MEDS: ARISTA ABSORBABLE HEMOSTAT 3GM TOP ONE (11:38)
[2024-10-16] MEDS: BUPIVACAINE/EPINEPHRINE 0.5% MPF 1:200,000 30 ML VIAL ONE (11:38)
--- NOTE | 2024-10-16 11:40 | Procedure Note ---
Angiogram Post Procedure Fluoroscopy Time (minutes): 3.4 Radiation (mGy): 35 Contrast: 9 Post Operative Report Pre & Post Diagnosis Operation Date: 10/16/24 10:15 Pre-Op Diagnosis: Right Internal Carotid Stenosis Post-Op Diagnosis: Right Internal Carotid Stenosis I identified the patient and participated in the time-out.: Yes Procedure Operation Date: 10/16/24 10:15 Actual Procedures p Right Transcarotid Artery Revascularization with Ultrasound of Left Common Femoral Vein(Right) - Pasquale Royal MD Surgeon Pasquale Royal MD Management Coordinator Kim,PAC Estimated Blood Loss 20 Findings Consistent with Post-Op Diagnosis Specimens none Anesthesia Type General Complications none Disposition Accompanied Patient To Recovery: No Disposition: Recovery Room Indications This is an 88-year-old gentleman who was found to have bilateral severe internal carotid artery stenosis. He had a TCAR left side with no complications. He is now back for the right side. I have discussed the risks options and benefits of the procedure with the patient. The patient understands the risks options and benefits and agrees to the procedure. Description of Procedure The patient was taken to the operating room and placed in supine position. After general anesthesia was accomplished the groins and right side of the neck and chest were prepped and draped in a sterile manner. Timeout was performed and the patient was identified. A transverse incision was made just above the clavicle between the heads of the sternocleidomastoid. This is carried down to where the common carotid artery was identified. It was isolated. It was slung with umbilical tape. Next the U stitch was placed in the common carotid artery with a 5-0 Prolene suture. Patient was given [id number] heparin at that time. Ultrasound was then used to localize the left common femoral vein. The vein was patent and compressed easily. Under ultrasound guidance the left common femoral vein was punctured and the venous sheath was inserted. This was aspirated and flushed with heparinized saline. ACT at that time was 252. Using micropuncture technique the common carotid artery was punctured. The micro sheath was inserted to 3 cm. Injection was then done showing the bifurcation. There was a significant lesion seen at the origin of the internal carotid artery on the right side. We then inserted the J-wire left and short of the lesion. The micro sheath was removed and the TCAR sheath was inserted. Once it was in place and held against the artery it was sutured to the chest wall and the incision edge. We then flushed the tubing appropriately. The venous return to was clamped onto the TCAR sheath. It was flushed through and then attached to the venous inflow sheath in the left groin. Sheath was checked for flow. The saline cleared nicely. The common carotid artery was then clamped. Flow reversal was instituted.The flow reversal was again checked for flow and found to have good flow after clamping. We inserted a 5.5 x 35 balloon backloaded on the wire. The wire was passed through the lesion into the petrous portion of the internal carotid. The 5.5 balloon was then advanced to the lesion. Lesion was then predilated with a 5.5 mm balloon. Balloon was removed. We then inserted the 9/7 x 40 stent. This was deployed across the lesion without difficulty. The catheter was removed. Appeared to be still a slight amount of narrowing at the midportion of the stent. We then inserted a 6 x 35 balloon and redilated this area. Widely patent stent was then noted on fluoroscopy. The carotid was allowed to go 2 minutes with flow reversal. Completion angiogram was done at that time which showed a widely patent carotid stent. At that point the common carotid artery was unclamped. The venous return tubing was clamped and removed from the TCAR sheath. The blood was allowed to flow back into the venous system. The TCAR sheath was then removed and the 5-0 Prolene suture securely tied. The patient was given 25 mg of protamine. Hemostasis was noted of the puncture site. An ACT was then drawn. The ACT was 147. The sheath was pulled from the groin and pressure was applied. Wound was irrigated with saline solution. Adequate hemostasis was obtained of the wound. Once this was noted the wound was closed in usual fashion using a 3-0 Vicryl suture for the subcutaneous layer and a 4-0 subcuticular Vicryl suture for the skin edges. Dermabond was used for dressing. The patient left the operation room in satisfactory condition and tolerated the procedure well. All needle and sponge counts were correct at the end of the procedure. Lisa Tello Pac assisted due to lack of resident availability and was necessary for positioning, draping, retraction, wound closure deep layers, subcutaneous tissue, and skin closure and was necessary for assisting with the case. I attest to the content of the Intraoperative Record and any orders documented therein. Any exceptions are noted below.
[2024-10-16] MEDS ORDERED: oxyCODONE/ACETAMINOPHEN 5mg/325mg TAB PO PRN (13:50)
[2024-10-16] MEDS ORDERED: NITROGLYCERIN SL 0.4 MG/TAB TAB SL PRN (13:50)
[2024-10-16] MEDS ORDERED: PHENYLEPHRINE/NSS 25 MG/250 ML BAG IV PRN (13:50)
--- NOTE | 2024-10-16 13:53 | Anesthesiology Progress Note ---
Date of Service October 16, 2024 Anesthesia Post Procedure Vital Signs Vital Signs: Temp Pulse Pulse Resp BP BP Pulse Ox 10/16/24 13:05 76 16 101/39 L 97/53 L 93 10/16/24 12:55 36.3 C L 75 17 113/43 L 113/55 L 94 10/16/24 12:45 77 12 132/43 L 134/63 94 10/16/24 12:35 79 13 131/43 L 123/62 98 10/16/24 12:25 80 12 131/49 L 130/68 94 10/16/24 12:15 80 12 88/35 L 98/56 L 99 10/16/24 12:05 83 18 124/48 L 137/73 98 10/16/24 11:58 36.0 C L 82 16 98/36 L 108/60 98 10/16/24 08:25 36.9 C 18 208/87 H 196/91 H 97 10/16/24 08:25 95 H 18 97 O2 Del Method O2 Flow Rate 10/16/24 13:05 Room Air 10/16/24 12:55 Room Air 10/16/24 12:45 Room Air 10/16/24 12:35 Room Air 10/16/24 12:25 Room Air 10/16/24 12:15 Oxymask 5 10/16/24 12:05 Oxymask 5 10/16/24 11:58 Oxymask 5 10/16/24 08:25 Room Air 10/16/24 08:25 Room Air Transfer of Care Handoff Completed per policy Notes Mental Status: alert / awake / arousable Patient Amnestic to Procedure: Yes Nausea / Vomiting: adequately controlled Pain: adequately controlled Airway Patency, RR, SpO2: stable & adequate BP & HR: stable & adequate Hydration State: stable & adequate Anesthetic Complications: no major complications apparent and Pt Satisfied with anesthetic care Notes: CN 2-12 intact, moves all ext, at baseline
--- NOTE | 2024-10-16 14:01 | Critical Care Consultation ---
Date of Consultation October 16, 2024 Assessment & Plan (1) Bilateral carotid artery disease: Patient's status post right TCAR day 0 and left TCAR in May. He is doing well postoperatively. Patient receiving dual antiplatelets and statins per vascular surgery. Home antihypertensives ordered. Will monitor hemodynamics closely given prior history of orthostatic hypotension in relation to left TCAR. Continue frequent neurovascular checks and monitoring of the airway. Pain controlled by vascular surgical team. ICU services available to intervene should the need arise. Thank you for the consult. History of Present Illness Reason for Consultation: ICU monitoring status post right TCAR Attending Physician: Pasquale Royal MD History of Present Illness 88-year-old male with a history of left TCAR in May 2024. He had a complication with postoperative orthostatic hypotension and was followed by Dr. Lopez of cardiology. Additionally, his history is significant for CKD stage IV, anemia, MGUS, coronary artery disease status post stenting, left total knee arthroplasty and previous admissions for worsening dyspnea and syncope. Right now he is doing well and denies any significant complaints with difficulty swallowing, shortness of breath, chest pain or dizziness. Is mildly hypotensive and has an arterial line in place. His is at bedside. He is currently on lactated Ringer's at 125 mL/h. His vascular surgeon has reordered his home dose allopurinol, aspirin, atorvastatin, isosorbide mononitrate, metoprolol, MiraLAX, Brilinta twice daily and multivitamin. Patient also has as needed pain medications ordered for anesthesiology. Allergies Allergy/AdvReac Type Severity Reaction Status Date / Time codeine Allergy Intermediate Facial Verified 10/16/24 08:46 Swelling/Nausea Home Medications Medication Instructions Recorded Confirmed Type otmujwui-bxv-[id number] acid 0.4 1 tab PO QAM 09/16/18 10/16/24 History mg-lycopene 300 mcg-lutein 250 mcg tablet (Centrum Silver) omeprazole 20 mg capsule,delayed 20 mg PO HS 09/16/18 10/16/24 History release nitroglycerin 0.4 mg sublingual 0.4 mg sublingual Q5M PRN Chest 03/14/19 10/16/24 History tablet (Nitrostat) Pain aspirin 81 mg tablet,delayed 81 mg PO QAM 05/30/23 10/16/24 History release semaglutide 0.25 mg or 0.5 mg (2 0.5 mg subcut WK 09/22/23 10/16/24 History mg/3 mL) subcutaneous pen injector (Ozempic) polyethylene glycol 3350 17 gram 17 g PO QAM 04/02/24 10/16/24 History oral powder packet (Miralax) ticagrelor 90 mg tablet (Brilinta) 90 mg PO BID 04/04/24 10/16/24 History furosemide 20 mg tablet 20 mg PO DAILY PRN leg swelling 04/08/24 10/16/24 Rx #30 tabs acetaminophen 500 mg tablet 1,000 mg PO Q6H PRN Pain 06/05/24 10/16/24 History atorvastatin 40 mg tablet 40 mg PO HS #90 tabs 06/12/24 10/16/24 Rx allopurinol 300 mg tablet 300 mg PO QAM #90 tabs 08/28/24 10/16/24 Rx clonidine HCl 0.1 mg tablet 0.1 mg PO BID PRN Systolic BP >170 08/28/24 10/16/24 Rx #60 tabs metoprolol succinate 25 mg 25 mg PO QAM 08/28/24 10/16/24 History tablet,extended release 24 hr isosorbide mononitrate 30 mg 30 mg PO QAM 09/28/24 10/16/24 History tablet,extended release 24 hr Patient History Medical History Hypertension - Severe HTN in supine position coupled with significant orthostatic hypotension - Per cardio records "hemodynamic instability exacerbated by his carotid artery disease (baroreceptors), autonomic neuropathy, episodic intravascular volume depletion" Nonsustained supraventricular tachycardia No recent or current symptoms suggestive of an arrhythmia CAD (coronary artery disease) MARIO to ramus (2009) RBBB f/u dr. lopez, [place] Urinary retention 2/2 BPH and currently with Sevilla in place PRITCHARD (dyspnea on exertion) Constipation chronic - Miralax CHF (congestive heart failure) pt denies per cardio records "history of HF" Back pain Difficulty lying flat Antiplatelet or antithrombotic long-term use Brilinta Bilateral carotid artery disease s/p left TCAR 05/2024 Venous insufficiency of both lower extremities Do not feel that the edema is secondary to a primary cardiac etiology per cardio records History of GI bleed (10/2023) Pt Unsure Hx of pleural effusion Small left pleural effusion noted on 2/18/25 CXR Hx of gout "haven't had an attack in years" Hx: UTI (urinary tract infection) has indwelling sevilla cath, changed every 4 weeks CKD (chronic kidney disease) stage 4, follows with Dr. Murphy Sevilla catheter in place has changed every [address] [facility] urology Polyneuropathy Peyronie's disease Obesity Bradycardia hx of 1st degree AVB. in the past had episode of HR in 30s in ambulance after vasovagal event for which he was given atropine; per cardio, rusty episode likely 2/2 vagal stimulation Syncope and collapse hx-admitted to [facility] following syncopal episode (04/24/23 - 04/27/23); dx likely vasovagal 2/2 volume depletion and BB. most recently 04/04/24 in [facility] OP Lab - [facility] ER/Admission 04/04/24-04/08/24 MGUS (monoclonal gammopathy of unknown significance) Dr Murphy Monitoring BPH (benign prostatic hyperplasia) currently with Sevilla in place Dyslipidemia Type 2 diabetes mellitus Ozempic Arthritis GERD (gastroesophageal reflux disease) Hearing deficit bilateral aids Surgical History History of transcarotid artery revascularization (TCAR) 05/2024, left side Hx of heart artery stent (2009) S/P MARIO TO RAMUS (2009), [facility], x1 stent; f/u beatrice nunez Hx of cystoscopy Hx of eye surgery laser surgery to remove "film" from eye following cataract sx. 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) History of colonoscopy History of open reduction and internal fixation (ORIF) procedure right tibial plateau - lateral fracture History of tonsillectomy History of endoscopic sinus surgery History of cardiac cath (2009) S/P MARIO TO RAMUS (2009), [facility], x1 stent; f/u beatrice nunez Family History Uncle Family hx of colon cancer Social History Smoking Status: Former smoker Tobacco Type: Cigarettes Smoking End Date: 1967; Second Hand Exposure: No; Do You Dip or Chew Tobacco: No; Tobacco Cessation Education Requested by Patient: No Hx Alcohol Use: Yes Alcohol type: wine Hx Substance Use: No Preferred Language: Pashto Communication Ability: Effective Visual Impairment: Limited Hearing Ability: Normal Equal Opportunity Officer Required: No Beliefs That Will Affect Care: None marital status: Current Living Situation: Spouse current occupational status: retired How many Children do You have: 7 Other Information That Helps Us Care for You: No Feels Safe at Home: Yes Safety Concerns: Feels Safe At This Time Diet: low salt and other Diet Comment: low potassium diet conscious. restricted banana and avocado and nuts. caffeine: Yes (1-2 coffees daily) Physical Activity Frequency: Does not Exercise Seatbelt Use: always Do you think of yourself as: straight/heterosexual Gender Identity: Male Assistive Devices: Cane and Walker Assistive Devices Comment: Stair lift at home Review of Systems Review of Systems: All systems reviewed & are unremarkable except as noted in HPI & below Physical Exam Physical Exam: Constitutional: Patient appears to be of their stated age. Patient is in no apparent distress. Patient is well-developed. Eyes: Pupils are equal round and reactive to light. Conjunctivae are normal. Anicteric sclera. Ears nose, mouth and throat: Mallampati class 2. Normal posterior oropharynx. Uvula is midline. Neck: right neck with expected bruising status post right TCAR. No pulsatile lesion and no obvious bleeding seen. Respiratory: Clear to auscultation bilaterally. No use of accessory muscles. No significant clubbing noted. Cardiovascular: Regular rate and rhythm. No murmurs. No edema. Gastrointestinal: Normal bowel sounds, soft, nontender and nondistended. No hepatosplenomegaly noted. Musculoskeletal: No cyanosis. Patient is able to move all extremities. Strength is 5 out of 5 in the upper and lower extremities. Skin: No rashes, warm dry and intact. Left groin with bandaging and a Tegaderm in place. No significant hematoma. Neurologic: No obvious focal neurological deficits seen. Psychiatric: Alert and oriented x3 with a euthymic affect. Results & Data Results & Data Vital Signs (Past 12 Hours) Vital Signs Temp Pulse Pulse Resp BP BP Pulse Ox 10/16/24 13:05 76 16 101/39 L 97/53 L 93 10/16/24 12:55 36.3 C L 75 17 113/43 L 113/55 L 94 10/16/24 12:45 77 12 132/43 L 134/63 94 10/16/24 12:35 79 13 131/43 L 123/62 98 10/16/24 12:25 80 12 131/49 L 130/68 94 10/16/24 12:15 80 12 88/35 L 98/56 L 99 10/16/24 12:05 83 18 124/48 L 137/73 98 10/16/24 11:58 36.0 C L 82 16 98/36 L 108/60 98 10/16/24 08:25 36.9 C 18 208/87 H 196/91 H 97 10/16/24 08:25 95 H 18 97 O2 Del Method O2 Flow Rate 10/16/24 13:05 Room Air 10/16/24 12:55 Room Air 10/16/24 12:45 Room Air 10/16/24 12:35 Room Air 10/16/24 12:25 Room Air 10/16/24 12:15 Oxymask 5 10/16/24 12:05 Oxymask 5 10/16/24 11:58 Oxymask 5 10/16/24 08:25 Room Air 10/16/24 08:25 Room Air Coding Level of Care Code 59205 IN/OBS CONSULT LVL 3,45M Diagnoses Bilateral carotid artery disease I77.9 Carotid artery disease type: unspecified (1) Bilateral carotid artery disease Carotid artery disease type: unspecified Qualified Code(s): I77.9 - Disorder of arteries and arterioles, unspecified
[2024-10-16] MEDS: PHENYLEPHRINE 100MCG/ML 5ML SYR ONE (14:48)
[2024-10-16] MEDS: STAT IV Infusion **Titration per Protocol STA ×2 (15:54)
[2024-10-16] MEDS: NITROPRUSSIDE SODIUM 50 MG in DEXTROSE 5% 500 ML IV SCH (17:17)
[2024-10-16] MEDS ORDERED: GLUCOSE 10 TAB/TUBE PO PRN (21:21)
[2024-10-16] MEDS ORDERED: GLUCOSE 40% GEL 15 GM TUBE PO PRN (21:21)
[2024-10-16] MEDS ORDERED: DEXTROSE 50% 50 ML SYRINGE IV PRN (21:21)
[2024-10-16] MEDS ORDERED: CARBOHYDRATES FOR HYPOGLYCEMIA PO PRN (21:21)
[2024-10-16] MEDS ORDERED: GLUCAGON FOR INJ 1 MG VIAL SQ PRN (21:21)
[2024-10-16] MEDS: ATORVASTATIN 40 MG TAB PO SCH (22:11)
[2024-10-16] MEDS: ICU Protocol for HYPERglycemia SCH (22:11)
[2024-10-16] MEDS: TICAGRELOR 90 MG TAB PO SCH (22:11)
[2024-10-16] MEDS: PANTOprazole 40 MG TAB PO SCH (22:11)
[2024-10-16 22:15] LABS: Hemoglobin 7.9 g/dl (14.0-18.0)
[2024-10-16] MEDS: INSULIN ASPART PER UNIT CHARGE SC SCH (22:18)
[2024-10-16] MEDS ORDERED: SODIUM CHLORIDE 0.9% 50 ML IV PRN ×2 (22:44)
[2024-10-16] MEDS ORDERED: SODIUM CHLORIDE 0.9% 100 ML IV PRN ×2 (22:44)
[2024-10-17] MEDS ORDERED: INSULIN ASPART PER UNIT CHARGE SC SCH ×2 (07:30→22:00)
[2024-10-17] MEDS: ASPIRIN 81 MG ECTAB PO SCH (07:54)
[2024-10-17] MEDS: CEROVITE ADV FORMULA TAB PO SCH (07:54)
[2024-10-17] MEDS: ISOSORBIDE MONO EXTENDED REL 30 MG TABCR PO SCH (07:55)
[2024-10-17] MEDS: METOPROLOL SUCC 25MG EXT REL TAB PO SCH (07:55)
[2024-10-17] MEDS: allopurinoL 300 MG TAB PO SCH (07:56)
[2024-10-17] MEDS: FUROSEMIDE 20 MG TAB PO PRN (07:56)
[2024-10-17] MEDS: POLYETHYLENE (MIRALAX) 17 GM PACK PO SCH (08:10)
--- NOTE | 2024-10-17 09:08 | Critical Care Progress Note ---
Date of Service October 17, 2024 Assessment & Plan (1) Bilateral carotid artery disease: Plan: Patient's status post right TCAR day 1 and left TCAR in May. He is doing well postoperatively. Patient receiving dual antiplatelets and statins per vascular surgery. Home antihypertensives ordered. Titrate down to off of the IV nitroprusside. Will monitor hemodynamics closely given prior history of orthostatic hypotension in relation to left TCAR. Continue frequent neurovascular checks and monitoring of the airway. Pain controlled by vascular surgical team. ICU services available to intervene should the need arise. Thank you for the consult. Admission and Anticipated Discharge Date Admission Date: October 16, 2024 Subjective Patient seen and evaluated at bedside. Complaining of some discomfort at the surgical site of the neck. Otherwise, no complaints of chest pain, palpitations, dizziness, lightheadedness, or abdominal discomfort. Review of Systems Review of Systems: As per subjective. Physical Exam Physical Exam: Constitutional: Patient appears to be of their stated age. Patient is in no apparent distress. Patient is well-developed. Eyes: Pupils are equal round and reactive to light. Conjunctivae are normal. Anicteric sclera. Ears nose, mouth and throat: Mallampati class 2. Normal posterior oropharynx. Uvula is midline. Neck: right neck with expected bruising status post right TCAR. No pulsatile lesion and no obvious bleeding seen. Respiratory: Clear to auscultation bilaterally. No use of accessory muscles. No significant clubbing noted. Cardiovascular: Regular rate and rhythm. No murmurs. No edema. Gastrointestinal: Normal bowel sounds, soft, nontender and nondistended. No hepatosplenomegaly noted. Musculoskeletal: No cyanosis. Patient is able to move all extremities. Strength is 5 out of 5 in the upper and lower extremities. Skin: No rashes, warm dry and intact. Left groin with bandaging and a Tegaderm in place. No significant hematoma. Neurologic: No obvious focal neurological deficits seen. Psychiatric: Alert and oriented x3 with a euthymic affect. Results & Data Results & Data Vital Signs (Past 12 Hours) Vital Signs Temp Pulse Resp BP Pulse Ox O2 Del Method 10/17/24 08:32 185/106 H 10/17/24 08:24 93 H 15 96 Room Air 10/17/24 08:00 100 H 26 H 95 Room Air 10/17/24 08:00 181/87 H 10/17/24 07:45 97 H 20 97 Room Air 10/17/24 07:30 181/87 H 10/17/24 07:24 83 20 95 Room Air 10/17/24 07:18 79 20 95 Room Air 10/17/24 03:42 160/60 H 10/17/24 03:30 70 18 160/74 H 95 10/17/24 03:03 36.9 C 75 19 161/64 H 94 10/17/24 02:01 36.9 C 76 18 157/57 H 95 10/17/24 01:04 81 18 160/57 H 95 10/17/24 00:04 37 C 81 15 165/60 H 95 10/17/24 00:00 153/61 H 10/17/24 00:00 82 10/16/24 23:34 37 C 89 148/59 H 96 10/16/24 23:19 37 C 76 20 147/57 H 95 10/16/24 22:55 36.7 C 88 20 170/66 H 96 10/16/24 22:00 141/68 H 10/16/24 21:45 136/76 10/16/24 21:30 85 18 92 10/16/24 21:15 85 23 123/75 95 Coding Level of Care Code 50552 SUB INP/OBS CARE 2MIN Diagnoses Bilateral carotid artery disease I77.9 Carotid artery disease type: unspecified (1) Bilateral carotid artery disease Carotid artery disease type: unspecified Qualified Code(s): I77.9 - Disorder of arteries and arterioles, unspecified
[2024-10-17] MEDS ORDERED: Nursing to Pharmacy Communication SCH (09:45)
[2024-10-17] MEDS: cloNIDine HCL 0.1 MG TAB PO PRN (10:20)
[2024-10-17 10:40] LABS: Hematocrit (blood only) 26.3 % (42.0-52.0); Hemoglobin 8.6 g/dl (14.0-18.0)
[2024-10-17] MEDS ORDERED: PHARMACY GLYCEMIC MGMT CONSULT PRN (13:09)
[2024-10-17] MEDS: INSULIN ASPART PER UNIT CHARGE SC SCH (13:23)
--- NOTE | 2024-10-17 13:33 | Hospitalist Progress Note ---
Date of Service October 17, 2024 Assessment & Plan (1) Bilateral carotid artery disease: (2) Stage 4 chronic kidney disease: (3) Hypertension: (4) History of coronary artery stent placement: Plan He is now s/p Right Transcarotid Artery Revascularization Stable post surgery Rest of mgt per vascular HTN BP appears labile It got higher while the patient was talking with me currently around 170's systolic continue clonidine Type 2 DM Takes Ozempic at home Blood glucose elevated pharmacy glycemic consult placed ok to d/c when vascular approves Admission and Anticipated Discharge Date Admission Date: October 16, 2024 Subjective Patient seen and examined today, stable postsurgery, although I noticed that he started he was talking his blood pressures seem to spike up Review of Systems Review of Systems: All systems reviewed are negative, apart from the ones contained in the history. Physical Exam Physical Exam: The patient is awake, alert and oriented 3, well developed and well nourished, normocephalic and atraumatic, lying in bed and in no acute distress. HEENT--PERRL, EOMI, mucous membranes and oropharynx mildly dry Neck--supple. No JVD. No bruits. Thyroid normal, trachea midline, no adenopathy. Heart--normal S1 and S2. No murmurs, rubs or gallops. Lungs--clear bilaterally, no respiratory distress, no accessory muscle use. Abdomen--normal bowel sounds and soft. Extremities--no cyanosis or clubbing. No edema. Dermatologic--normal skin turgor, normal color, no abnormal lymph nodes, no rash. Neurologic--cranial nerves II through XII grossly intact. Rheumatologic--normal range of motion. Psychiatric--normal affect. Results & Data Results & Data Vital Signs (Past 12 Hours) Vital Signs Temp Pulse Resp BP Pulse Ox O2 Del Method 10/17/24 12:06 84 19 98 Room Air 10/17/24 12:00 170/95 H 10/17/24 11:54 90 34 H 97 Room Air 10/17/24 11:30 188/100 H 10/17/24 11:01 197/93 H 10/17/24 11:00 86 20 98 Room Air 10/17/24 10:33 97 H 41 H 96 Room Air 10/17/24 10:30 149/88 H 10/17/24 10:00 181/82 H 10/17/24 09:54 86 18 98 Room Air 10/17/24 09:30 168/75 H 10/17/24 09:30 168/75 H 10/17/24 09:01 148/93 H 10/17/24 08:57 82 20 96 Room Air 10/17/24 08:47 Room Air 10/17/24 08:32 185/106 H 10/17/24 08:32 185/106 H 10/17/24 08:24 93 H 15 96 Room Air 10/17/24 08:00 76 10/17/24 08:00 100 H 26 H 95 Room Air 10/17/24 08:00 181/87 H 10/17/24 07:45 97 H 20 97 Room Air 10/17/24 07:30 181/87 H 10/17/24 07:24 83 20 95 Room Air 10/17/24 07:18 79 20 95 Room Air 10/17/24 03:42 160/60 H 10/17/24 03:30 70 18 160/74 H 95 10/17/24 03:03 98.4 F 75 19 161/64 H 94 10/17/24 02:01 98.4 F 76 18 157/57 H 95 PG Care Time/CCT Total # of Minutes Spent Total Time Spent with Patient: Total time spent is greater than 50% in coordination of care (as documented) at patient's floor/unit and/or counseling patient: Coding Level of Care Code 62361 SUB INP/OBS CARE 2/35MIN Diagnoses Bilateral carotid artery disease I77.9 Stage 4 chronic kidney disease N18.4 Hypertension I10 History of coronary artery stent placement Z95.5 Time Spent (min) 35
--- NOTE | 2024-10-17 14:25 | Surgery Progress Note ---
Date of Service October 17, 2024 Assessment & Plan (1) S/P vascular surgery: Plan: Patient POD 1 from a tcar. He is doing well without complications. Will d\c today. Admission and Anticipated Discharge Date Admission Date: October 16, 2024 Subjective Patient awake and alert. Denies any focal deficits. Denies any incisional pain Physical Exam Constitutional: WD/WN, vitals as above Neck: trachea midline Respiratory: normal respiratory effort; no respiratory distress Cardiovascular: Rate/Rhythm: regular rate and regular rhythm Skin: + incision (mild swelling and ecchymosis ) Neurologic: CN's II-XI intact bilaterally, normal sensation to monofilament and moves all extremities Psychiatric: A+Ox3, euthymic affect Results & Data Vital Signs (Past 12 Hours) Vital Signs Temp Pulse Resp BP Pulse Ox O2 Del Method 10/17/24 14:06 74 21 97 10/17/24 14:00 165/81 H 10/17/24 14:00 165/81 H 10/17/24 14:00 165/81 H 10/17/24 13:51 67 18 98 10/17/24 13:30 164/61 H 10/17/24 13:30 164/61 H 10/17/24 13:30 164/61 H 10/17/24 13:30 164/61 H 10/17/24 13:30 164/61 H 10/17/24 13:30 164/61 H 10/17/24 13:30 164/61 H 10/17/24 13:30 164/61 H 10/17/24 13:30 164/61 H 10/17/24 13:30 164/61 H 10/17/24 13:12 83 19 98 Room Air 10/17/24 13:00 161/63 H 10/17/24 13:00 161/63 H 10/17/24 13:00 83 17 10/17/24 12:53 181/92 H 10/17/24 12:48 64 17 96 10/17/24 12:06 84 19 98 Room Air 10/17/24 12:00 170/95 H 10/17/24 11:54 90 34 H 97 Room Air 10/17/24 11:30 188/100 H 10/17/24 11:01 197/93 H 10/17/24 11:00 86 20 98 Room Air 10/17/24 10:33 97 H 41 H 96 Room Air 10/17/24 10:30 149/88 H 10/17/24 10:00 181/82 H 10/17/24 09:54 86 18 98 Room Air 10/17/24 09:30 168/75 H 10/17/24 09:30 168/75 H 10/17/24 09:01 148/93 H 10/17/24 08:57 82 20 96 Room Air 10/17/24 08:47 Room Air 10/17/24 08:32 185/106 H 10/17/24 08:32 185/106 H 10/17/24 08:24 93 H 15 96 Room Air 10/17/24 08:00 76 10/17/24 08:00 100 H 26 H 95 Room Air 10/17/24 08:00 181/87 H 10/17/24 07:45 97 H 20 97 Room Air 10/17/24 07:30 181/87 H 10/17/24 07:24 83 20 95 Room Air 10/17/24 07:18 79 20 95 Room Air 10/17/24 03:42 160/60 H 10/17/24 03:30 70 18 160/74 H 95 10/17/24 03:03 36.9 C 75 19 161/64 H 94
--- NOTE | 2024-10-17 14:27 | Discharge Summary ---
Date of Service October 17, 2024 Admission HPI Per Admitting Provider Subjective I had the pleasure of seeing Vik today for follow-up. As you know he is a 88-year-old gentleman who has had bilateral severe internal carotid artery stenosis. He had a TCAR on the left side which resulted in hypotension requiring midodrine. He now has better blood pressure control. He wanted to in the 140-160 range. He came in today discussed the right TCAR procedure. Objective Vitals & Measurements HR: 88 (Monitored) BP: 168/72 SpO2: 95% Physical Exam On exam he is awake alert and oriented x 3. Blood pressure 160/70. He has no neurological deficits. His radials and carotids are +2 bilaterally. Lungs are clear. Heart has a RRR. Abdominal exam is benign. Diagnostic Results Ultrasound shows 70 - 79% narrowing of the right internal carotid artery. On MRI it was significantly tighter. Assessment/Plan 1. Bilateral carotid artery stenosis This point went over the risks options benefits of a right TCAR. He understood the risks options and benefits of the document on the consent form. He elected to go ahead with the right TCAR. This will be scheduled beginning of October. Thank you very much for letting us participate in the care of this patient. Sincerely, Ralph Royal MD Attestation I have personally spent ___20__ minutes performing deta-tc-vitj and myf-xxyu-up-face activities on this date of service. Activities Include: __x review of the medical record __x obtaining a history __x physical exam/evaluation __ review labs __ review radiology reports __x counseling/educating patient/family/caregiver __ discussion/referral to other healthcare professional __x documenting care in the medical record __ independent interpretation of results __ communication of results to patient/family/caregiver __ coordination of care Signature Line Electronic Signature on File Pasquale Royal MD Author Signature Dt/Tm: 09/20/2024 12:11 PM Mds Coordinator Pablo Rea [facility] [place], [address] [place] [address] EJS Result Type: .Outpt Ltr Date of Service: September 20, 2024 11:22 EST Authorization Status: Final Subject: Follow Up Visit Author or Import Date: MD Royal Eugene J on September 20, 2024 12:11 EST Verified By: MD Royal Eugene J on September 20, 2024 12:11 EST Encounter info: [id number], [place] [id number], Clinic, 09/20/2024 - 09/20/2024 Admission Exam Per Admitting Provider On exam he is awake alert and oriented x 3. Blood pressure 160/70. He has no neurological deficits. His radials and carotids are +2 bilaterally. Lungs are clear. Heart has a RRR. Abdominal exam is benign. Principal Diagnosis Right internal carotid artery stenosis Discharge Exam Constitutional WD/WN, vitals as above Neck trachea midline Respiratory normal respiratory effort; no respiratory distress Cardiovascular Rate/Rhythm: regular rate and regular rhythm Skin + incision (mild swelling and ecchymosis) Neurologic CN's II-XI intact bilaterally, normal sensation to monofilament and moves all extremities Psychiatric A+Ox3, euthymic affect Discharge Data Allergies Allergy/AdvReac Type Severity Reaction Status Date / Time codeine Allergy Intermediate Facial Verified 10/16/24 08:46 Swelling/Nausea Consultations 10/16/24 13:50 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 He is doing well without complications. Will d\\c today. Total Time Total Time Spent Total Time Spent (In Minutes): x Discharge Plan Discharge Items Patient Disposition: Home - Self-Care Reason For Visit: Right Internal Carotid Stenosis Discharge Diagnosis: right internal carotid artery stenosis Activity: Per Instructions section Lifting: Gradually increase as tolerated Bathing Comment: may shower starting tomorrow Non-emergency contact: Surgeon Call non-emergency contact if: your temperature is above 101.5, your wound has increased redness, your wound has increased drainage and your wound pain has increased Follow-up/Referrals: Umberto Bassett, [Primary Care Provider] - Diet: Heart Healthy Add Attending Provider Instructions: SPECIAL CARE INSTRUCTIONS: Diet: * You may return to previous diet. Medications: * Continue to take Aspirin, brilinta and statin as directed. Incision Care: * You may shower, but do not rub incision. You may let the warm soapy water run over it. Be sure to dry the incision well after bathing. * Do not shave directly over the incision until it is healed. * DO NOT IMMERSE THE INCISION IN A TUB/POOL/etc. UNTIL HEALED. Restrictions: * Do not drive for at least one week or if you are still taking any narcotic pain medication. * Do not lift anything heavier than a gallon of milk for one week after going home. Possible Complications: * Numbness - It is normal to have some numbness around the incision. Numbness can extend beyond the incision to areas of the neck, ear and face. The numbness is due to bruising of nerves during the surgery and will gradually improve over a period of months. * Hoarseness/Difficulty Speaking and Swallowing - The bruising of nerves in the neck can also cause a hoarse voice, difficulty speaking or swallowing. This may improve over time, HOWEVER, if it continues for more than a few days please contact our office ([phone]). * Excessive Swelling - There will be some swelling immediately after surgery which usually resolves within one week. If you notice that the swelling is getting worse, notify your surgeon ([phone]). * Drainage/Bleeding - If there is any drainage or bleeding, it should be a very small amount (less than a teaspoon per day). If you have excessive bleeding or drainage from the incision, call your surgeon ([phone]) right away. ACTIVATION OF EMERGENCY MEDICAL SYSTEM: Call 911, immediately, if you experience any of the following: Warning Signs and Symptoms of Stroke: * Sudden numbness or weakness of the face, arm or leg, especially on one side of the body * Sudden confusion, trouble speaking or understanding * Sudden trouble seeing in one or both eyes * Sudden trouble walking, dizziness, loss of balance or coordination * Sudden severe headache with no cause Do not delay calling 911 if you experience any warning signs or symptoms of a stroke. Delay in seeking medical attention may affect what treatments can be given to you. Risk Factors for Stroke: You can reduce your chances of stroke by working with your medical provider to adopt a healthy lifestyle. Some specific ways to lower your chance of stroke are: * If you are a smoker, now is the time to stop smoking cigarettes * If you are diabetic, improve the control of your blood sugars * Avoid excessive amounts of alcohol * Control high blood pressure * Lose weight if you are overweight * Be sure to lead an active lifestyle * Eat a healthy diet low in salt, cholesterol and fat You should know about other risk factors for stroke that you are unable to con trol. These include: * Age 55 years or older * Male gender * Certain racial groups: , or / * Family History of Stroke, Mini stroke or Heart Attack * Sickle Cell Disease You will be receiving a call from the Vascular Surgery Nurse after you are discharged. FOLLOW UP VISIT: It is important for you to keep your follow up appointments with your medical provider. Keep any scheduled doctor appointments. Call [phone] to schedule a follow up appointment if one not already scheduled. Pending Studies at Discharge: No Stand-Alone Forms: [facility], Smoking Cessation Medications and DC Order Prescriptions: Continued atorvastatin 40 mg tablet 40 mg PO HS Qty: 90 3RF allopurinol 300 mg tablet 300 mg PO QAM Qty: 90 3RF Ozempic 0.25 mg or 0.5 mg (2 mg/3 mL) pen injector 0.5 mg subcut WK Rx Instructions: tuesdays isosorbide mononitrate 30 mg tablet extended release 24 hr 30 mg PO QAM clonidine HCl 0.1 mg tablet 0.1 mg PO BID MDD 0.2 mg PRN (Reason: Systolic BP >170) Qty: 60 2RF Patient Comments: takes daily at 1100 and 1600 metoprolol succinate 25 mg tablet extended release 24 hr 25 mg PO QAM Hold Instructions: Resume on 06/19/24. Hold while taking midodrine omeprazole 20 mg Capsule,Delayed Release(Dr/Ec) 20 mg PO HS Centrum Silver 0.4-300-250 mg-mcg-mcg Tablet 1 tab PO QAM nitroglycerin [Nitrostat] 0.4 mg tablet, sublingual 0.4 mg sublingual Q5M PRN (Reason: Chest Pain) Patient Comments: DISSOLVE ONE TABLET UNDER THE TONGUE EVERY 5 MINUTES FOR UP TO 3 DOSES NEEDED FOR CHEST PAIN. Rx Instructions: Pt states this is and he would need a new script, but still has his medication just in case he needs it. aspirin 81 mg Tablet,Delayed Release (Dr/Ec) 81 mg PO QAM Hold Instructions: Resume on 11/07/23. Resume Tuesday if no more blood per rectum. polyethylene glycol 3350 [Miralax] 17 gram powder in packet 17 g PO QAM acetaminophen 500 mg Tablet 1,000 mg PO Q6H PRN (Reason: Pain) Brilinta 90 mg Tablet 90 mg PO BID Patient Comments: "Brilinta is picked up at [facility] not [facility]" furosemide 20 mg tablet 20 mg PO DAILY PRN (Reason: leg swelling) Qty: 30 1RF Discharge Orders: Discharge Order (Routine); Ordered 10/17/24 Ordered By: Pasquale Royal Admission Data Admit Date/Time: 10/16/24 09:24 Attending Provider: Pasquale Royal Admit Provider: Pasquale Royal Primary Care Provider: Umberto Bassett Other Providers: Pedro Cortez; Omega Obando; Bo Lieberman; Hong Ellington; Rodo Austin; Marcus Hsieh; Yarely Piper Other Interventions: Discharge Summary Assessment (RN) Last Done: 10/17/24 14:22
--- NOTE | 2024-10-17 14:29 | Pharmacy Report ---
Pharmacy Glycemic Short Note 2 - Date of Service October 17, 2024 - Glycemic Short BSG Results (Last 24 hours): 10/16/24 10/16/24 10/17/24 15:53 21:12 07:35 POC Glucose 190 H 276 H 275 H 10/17/24 10/17/24 11:27 13:14 POC Glucose 318 H* 292 H OUTPATIENT ANTIDIABETIC REGIMEN: * Semaglutide 0.5mg SQ weekly (last dose approx 10/09/24) * A1c = ? 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 Pt also received IV meds mixed in D5W * Anticipate patient's steroid induced hyperglycemia to be short-lived (24- 36hrs). * Of note, when patient was admitted in Jul 2024, he did not require basal insulin for glycemic control * Will continue Novolog per "moderate" stress level based upon weight. Will give additional Novolog SQ 1 hr following lunch-time coverage to address insulin deficiency. PLAN FOR INPATIENT GLYCEMIC CONTROL: * Basal insulin * None at this time as pt possibly being d/c'd to home today and will resume semaglutide. Basal insulin not required on last admit. * Bolus insulin * Additional Novolog 5 units SQ 1-2 hrs after lunch-time Novolog dose. * NovoLog per scale ACHS or Q6hrs while NPO * Goal Range: Low 110 mg/dL - High 140 mg/dL * Correction Factor: 25 mg/dL/unit * Nutritional / Prandial insulin per carb ratio of 1 unit per 8 grams CHO consumed
[2024-10-17] MEDS ORDERED: SODIUM CHLORIDE 0.9% 50 ML IV PRN (14:41)
[2024-10-17] MEDS ORDERED: SODIUM CHLORIDE 0.9% 100 ML IV PRN (14:41)
[2024-10-17 15:00] VITALS: TEMP 97.9
[2024-10-17] MEDS: hydrALAZINE HCL 20 MG/ML VIAL ONE (15:30)
[2024-10-17] MEDS: hydrALAZINE HCL 20 MG/ML VIAL IV ONE (15:31)
[2024-10-17 17:38] VITALS: O2SAT 98
[2024-10-17 18:38] VITALS: BP 185/73; PULSE 67; RESP 20
== END 2024-10-17 18:39 | disposition home or self-care (01) | DRG 35 ==
LOC: ASU 08:14 → 1E 09:24
PROC: EV.TCAR (2024-10-16 10:15)

== ENCOUNTER 2025-04-19 00:38 | Observation (INO) ==
[2025-04-19] MEDS: NITROGLYCERIN SL 0.4 MG/TAB TAB SL PRN (00:51)
--- NOTE | 2025-04-19 00:53 | Emergency Department Note ---
Impression & Plan Unstable angina, Anemia Admit to the [facility] ED Provider Note NAME: VIK BROWNING AGE: 89 SEX: Male INFORMANT: Patient ED PROVIDER(S): Amrita Peñaloza DO CHIEF COMPLAINT: chest pain PLAN: Disposition: admit to the [facility] MEDICAL DECISION MAKING: This is an 89-year-old male patient with a history of chronic anemia and previous episodes of unstable angina who presents to the emergency department with chest discomfort. The patient awoke at 1145 tonight with midsternal chest pain that radiated to both arms. His took his blood pressure and found it to be elevated and administered a nitroglycerin which relieved the pain slightly. EMS was called and they transported the patient here. They administered oral aspirin. The patient is quite pale on physical exam. The patient has a history of anemia and previous episodes of unstable angina. He is concerned that after having a surgical procedure on his scalp that his hemoglobin has dropped even further. The hemoglobin had been 8.31-week ago and today it is 8.2. Other laboratory studies reveal no significant leukocytosis. Creatinine is 3.16 which is baseline for the patient. Glucose is 286. Troponin was elevated at 57.1. Patient has a history of elevated troponin in the past. Patient medicated with sublingual nitroglycerin which brought his blood pressure down and relieved his chest discomfort. I discussed the case with the [facility] and they will evaluate for further inpatient care. Care/management discussed with: clinical laboratory manager and [facility] Triage Nursing notes: reviewed and agree with them. Vital Signs: reviewed and remarkable for hypertension Additional History obtained from: EMS Chronic Medical/Social Conditions affecting care: Chronic anemia; unstable angina Prior/ Outside/ External records reviewed: I reviewed inpatient medical records from spring 2024. Differential Diagnosis: NSTEMI, STEMI, unstable angina, aortic dissection, anemia Diagnostics, independently interpreted by me: ECG: sinus tachycardia at 110 with a right bundle branch block and ST segment depression laterally. This was compared to an EKG from 2024 and was unchanged. Cardiac Monitoring: Sinus tachycardia at 107 Imaging studies: portable chest x-ray: Moderate cardiomegaly with left-sided pleural effusion as per my independent interpretation. HPI: 89 year old Male arrives for evaluation of Chest pain. history of chronic anemia and previous episodes of unstable angina who presents to the emergency department with chest discomfort. The patient awoke at 1145 tonight with midsternal chest pain that radiated to both arms. His took his blood pressure and found it to be elevated and administered a nitroglycerin which relieved the pain slightly. EMS was called and they transported the patient here. They administered oral aspirin. PAST MEDICAL HISTORY: See Below, PAST SURGICAL HISTORY: See Below, SOCIAL HISTORY: See Below, HOME MEDICATIONS: see list ALLERGIES: codeine VITALS: See Below PHYSICAL EXAMINATION: HEENT: Head - normocephalic with a scabbed over lesion to the top of his scalp. Pupils are equal, round, and reactive to light. Extraocular eye muscles are intact, and sclera are anicteric. Nose - moist nasal mucosa without discharge. Mouth - moist buccal mucosa. Oropharynx is nonerythematous and there is no tonsillar exudate or edema noted. Neck: Supple; no JVD, nuchal rigidity, cervical lymphadenopathy. Heart: tachycardic rate and regular rhythm. There is a normal S1 and S2 with no murmurs, clicks, or gallops appreciated. Lungs: Clear to auscultation bilaterally with no wheezes, rales, or rhonchi. Abdomen: Soft, completely nontender, nondistended, with good bowel sounds. There are no palpable pulsatile masses or hepatosplenomegaly. There is no guarding, rigidity, or rebound noted. Extremities: No evidence of cyanosis, clubbing, or edema. There are easily palpable peripheral pulses. Skin: Extremely pale, warm and dry with good turgor and no rashes. 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 A complete history and physical was performed. Laboratory studies drawn as above. An order was placed for continuous cardiac monitoring. Patient was in a sinus tachycardia at a rate of 107. Twelve-lead EKG was obtained as described above. Patient was complaining of persistent chest discomfort and was given additional sublingual nitro which relieved his pain. Portable chest x-ray was performed. I discussed the case with the [facility] Hospitalist and they will evaluate for further inpatient care. Past Med/Surg History Problem List (Updated 04/19/25 @ 19:11 by Amrita Peñaloza DO) Anemia (Acute) Unstable angina (Acute) Hypertension - Severe HTN in supine position coupled with significant orthostatic hypotension - Per cardio records "hemodynamic instability exacerbated by his carotid artery disease (baroreceptors), autonomic neuropathy, episodic intravascular volume depletion" Chest pain Scalp lesion Urinary catheter dysfunction Acute kidney injury superimposed on CKD S/P vascular surgery Anemia Right bundle branch block Autonomic neuropathy Orthostatic hypotension Iron deficiency Elevated troponin Chronic indwelling Sevilla catheter (Acute) Constipation (Acute) Stage 4 chronic kidney disease (Acute) Antiplatelet or antithrombotic long-term use Bilateral carotid artery disease (Acute) Chronic kidney disease Venous insufficiency of both lower extremities CHF (congestive heart failure) (Acute) Hydronephrosis, left Vitamin D deficiency Back pain Tearing of muscle Fatigue 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, 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 Former smoker (Acute) History of coronary artery stent placement (Acute 2009) MARIO Ramus Intermedius Proteinuria (Acute) Medical History Nonsustained supraventricular tachycardia No recent or current symptoms suggestive of an arrhythmia CAD (coronary artery disease) MARIO to ramus (2009) RBBB f/u dr. lopez[place] [facility] [place]inary retention 2/2 BPH and currently with Sevilla in place PRITCHARD (dyspnea on exertion) Constipation chronic - Miralax CHF (congestive heart failure) pt denies per cardio records "history of HF" Back pain Difficulty lying flat Antiplatelet or antithrombotic long-term use Brilinta Bilateral carotid artery disease s/p left TCAR 05/2024 Venous insufficiency of both lower extremities Do not feel that the edema is secondary to a primary cardiac etiology per cardio records History of GI bleed (10/2023) Pt Unsure Hx of pleural effusion Small left pleural effusion noted on 09/25/24 CXR Hx of gout "haven't had an attack in years" Hx: UTI (urinary tract infection) has indwelling sevilla cath, changed every 4 weeks CKD (chronic kidney disease) stage 4, follows with Dr. Murphy Sevilla catheter in place has changed every 4 weeks at [facility] urology Polyneuropathy Peyronie's disease Obesity Bradycardia hx of 1st degree AVB. in the past had episode of HR in 30s in ambulance after vasovagal event for which he was given atropine; per cardio, rusty episode likely 2/2 vagal stimulation Syncope and collapse hx-admitted to [facility] following syncopal episode (04/24/23 - 04/27/23); dx likely vasovagal 2/2 volume depletion and BB. most recently 04/04/24 in [facility] OP Lab - [facility] ER/Admission 04/04/24-04/08/24 MGUS (monoclonal gammopathy of unknown significance) Dr Murphy Monitoring BPH (benign prostatic hyperplasia) currently with Sevilla in place Dyslipidemia Type 2 diabetes mellitus Ozempic Arthritis GERD (gastroesophageal reflux disease) Hearing deficit bilateral aids Surgical History History of transcarotid artery revascularization (TCAR) 05/2024, left side Hx of heart artery stent (2009) S/P MARIO TO RAMUS (2009), [facility], x1 stent; f/u [facility] Hx of cystoscopy Hx of eye surgery laser surgery to remove "film" from eye following cataract sx. 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) History of colonoscopy History of open reduction and internal fixation (ORIF) procedure right tibial plateau - lateral fracture History of tonsillectomy History of endoscopic sinus surgery History of cardiac cath (2009) S/P MARIO TO RAMUS (2009), [facility], x1 stent; f/u dr. lopez, [facility] Family History Uncle Family hx of colon cancer Social History Smoking Status: Former smoker Tobacco Type: Declines Second Hand Exposure: No; Do You Dip or Chew Tobacco: No; Hx Alcohol Use: No Hx Substance Use: No Preferred Language: [place] Verdean Communication Ability: Effective Visual Impairment: Limited Hearing Ability: Normal Security Orderly Required: No Beliefs That Will Affect Care: None marital status: Current Living Situation: Spouse current occupational status: retired How many Children do You have: 7 Feels Safe at Home: Yes Diet: low salt and other Diet Comment: low potassium diet conscious. restricted banana and avocado and nuts. caffeine: Yes (1-2 coffees daily) Physical Activity Frequency: Does not Exercise Seatbelt Use: always Do you think of yourself as: straight/heterosexual Gender Identity: Male Assistive Devices: Walker Allergies Allergies Allergy/AdvReac Type Severity Reaction Status Date / Time codeine Allergy Intermediate Facial Verified 04/19/25 01:21 Swelling/Nausea Home Meds Home Medications Medication Instructions Recorded Confirmed qoreewxe-tse-ztkic acid 0.4 1 tab PO QAM 09/16/18 04/19/25 mg-lycopene 300 mcg-lutein 250 mcg tablet (Centrum Silver) omeprazole 20 mg capsule,delayed 20 mg PO HS 09/16/18 04/19/25 release nitroglycerin 0.4 mg sublingual 0.4 mg sublingual Q5M PRN Chest 03/14/19 04/19/25 tablet (Nitrostat) Pain aspirin 81 mg tablet,delayed 81 mg PO QAM 05/30/23 04/19/25 release semaglutide 0.25 mg or 0.5 mg (2 0.5 mg subcut WK 09/22/23 04/19/25 mg/3 mL) subcutaneous pen injector (Ozempic) polyethylene glycol 3350 17 gram 17 g PO QAM 04/02/24 04/19/25 oral powder packet (Miralax) ticagrelor 90 mg tablet (Brilinta) 90 mg PO BID 04/04/24 04/19/25 acetaminophen 500 mg tablet 1,000 mg PO Q6H PRN Pain 06/05/24 04/19/25 clonidine 0.3 mg/24 hr weekly 0.3 mg transdermal WK 04/19/25 04/19/25 transdermal patch Previous Rx's Medication Instructions Recorded furosemide 20 mg tablet 20 mg PO DAILY PRN leg swelling 04/08/24 #30 tabs atorvastatin 40 mg tablet 40 mg PO HS #90 tabs 06/12/24 allopurinol 300 mg tablet 300 mg PO QAM #90 tabs 08/28/24 ferrous sulfate 325 mg (65 mg 325 mg PO .COMPLEX #90 tabs 11/30/24 iron) tablet clonidine 0.1 mg/24 hr weekly 1 patch transdermal .weekly #12 ea 01/01/25 transdermal patch Results & Data (ED) Vital Signs Vital Signs - 24 hr 04/19/25 00:41 04/19/25 00:56 04/19/25 01:09 Temperature 36.8 C Temperature Source Oral Pulse Rate 110 H 97 H Pulse Rate [Apical] 99 H Pulse Rate from SpO2 Sensor 94 H Respiratory Rate 18 20 14 Respiratory Effort / Characteristics Non-Labored Spontaneous Respiratory Depth Normal Respiratory Pattern Regular Blood Pressure 209/120 H Blood Pressure [Right Arm] 140/82 Blood Pressure Mean 149 Blood Pressure Mean [Right Arm] 101 Blood Pressure Position [Right Arm] Lying Pulse Oximetry 98 95 95 Oxygen Delivery Method Room Air Room Air Sepsis Recent Fever Within 48 Hours No Sepsis New/Unexplained Change in Mental Status No Sepsis Action Taken by Nursing No Action Required 04/19/25 01:12 04/19/25 01:18 04/19/25 01:36 Temperature Temperature Source Pulse Rate 96 H 98 H 94 H Pulse Rate [Apical] Pulse Rate from SpO2 Sensor 96 H 94 H Respiratory Rate 20 16 Respiratory Effort / Characteristics Respiratory Depth Respiratory Pattern Blood Pressure Blood Pressure [Right Arm] Blood Pressure Mean Blood Pressure Mean [Right Arm] Blood Pressure Position [Right Arm] Pulse Oximetry 95 95 Oxygen Delivery Method Sepsis Recent Fever Within 48 Hours Sepsis New/Unexplained Change in Mental Status Sepsis Action Taken by Nursing 04/19/25 01:51 04/19/25 02:00 04/19/25 02:00 Temperature Temperature Source Pulse Rate 91 H Pulse Rate [Apical] Pulse Rate from SpO2 Sensor 90 Respiratory Rate 18 Respiratory Effort / Characteristics Respiratory Depth Respiratory Pattern Blood Pressure 113/77 113/77 Blood Pressure [Right Arm] Blood Pressure Mean 98 98 Blood Pressure Mean [Right Arm] Blood Pressure Position [Right Arm] Pulse Oximetry 96 Oxygen Delivery Method Sepsis Recent Fever Within 48 Hours Sepsis New/Unexplained Change in Mental Status Sepsis Action Taken by Nursing 04/19/25 02:00 04/19/25 02:17 04/19/25 02:27 Temperature Temperature Source Pulse Rate 88 93 H Pulse Rate [Apical] Pulse Rate from SpO2 Sensor 87 94 H Respiratory Rate 15 21 Respiratory Effort / Characteristics Respiratory Depth Respiratory Pattern Blood Pressure 172/88 H Blood Pressure [Right Arm] Blood Pressure Mean 108 Blood Pressure Mean [Right Arm] Blood Pressure Position [Right Arm] Pulse Oximetry 91 98 Oxygen Delivery Method Sepsis Recent Fever Within 48 Hours Sepsis New/Unexplained Change in Mental Status Sepsis Action Taken by Nursing 04/19/25 02:30 Temperature Temperature Source Pulse Rate 90 Pulse Rate [Apical] Pulse Rate from SpO2 Sensor 92 H Respiratory Rate 17 Respiratory Effort / Characteristics Respiratory Depth Respiratory Pattern Blood Pressure Blood Pressure [Right Arm] Blood Pressure Mean Blood Pressure Mean [Right Arm] Blood Pressure Position [Right Arm] Pulse Oximetry 98 Oxygen Delivery Method Sepsis Recent Fever Within 48 Hours Sepsis New/Unexplained Change in Mental Status Sepsis Action Taken by Nursing Laboratory Data 04/19/25 13:33 04/19/25 00:48 Lab Results 04/19/25 Range/Units 00:48 WBC 11.65 H (4.8-10.8) K/ul RBC 2.71 L (4.70-6.10) M/uL Hgb 8.2 L (14.0-18.0) g/dl Hct 25.1 L (42.0-52.0) % MCV 92.6 (80.0-100.0) fL MCH 30.3 (25.0-34.0) pg MCHC 32.7 (32.0-36.0) g/dL RDW Std Deviation 51.4 H (36.4-46.3) fL RDW Coeff of Hernandez 15.3 H (11.5-14.5) % Plt Count 244 (130-400) K/uL MPV 11.2 (9.4-12.4) fL Immature Gran % (Auto) 0.3 % Neut % (Auto) 72.8 % Lymph % (Auto) 15.3 % [place] % (Auto) 8.8 % Eos % (Auto) 2.3 % Baso % (Auto) 0.5 % Neut # (Auto) 8.48 H (1.40-6.50) K/uL Lymph # (Auto) 1.78 (1.20-3.40) K/uL [place] # (Auto) 1.02 H (0.11-0.59) K/uL Eos # (Auto) 0.27 (0.00-0.50) K/uL Baso # (Auto) 0.06 (0.00-0.20) K/uL Immature Gran # (Auto) 0.04 (0.01-0.20) K/uL Sodium 134 L (136-145) mmol/L Potassium 4.8 (3.5-5.1) mmol/L Chloride 104 (98-107) mmol/L Carbon Dioxide 21 (21-32) mmol/L Anion Gap 9 (3-11) BUN 54 H (6-23) mg/dl Creatinine 3.16 H (0.6-1.4) mg/dl Est Cr Clr Drug Dosing 19.1 ml/min eGFR 18.09 BUN/Creatinine Ratio 17.1 (10-20) Glucose 286 H (70-99(Fasting)) mg/dl Calcium 8.8 (8.6-10.3) mg/dl Total Bilirubin 0.4 (0.2-1.0) mg/dl AST 23 (13-39) U/L ALT 13 (7-52) U/L Alkaline Phosphatase 70 (34-104) U/L Troponin I High Sens 57.1 H* (0-20) pg/ml Total Protein 6.9 (6.0-8.3) gm/dl Albumin 3.6 (3.4-5.0) gm/dl Globulin 3.3 (2.5-4.0) gm/dl Albumin/Globulin Ratio 1.1 (0.9-2) Lipase 53 (11-82) U/L Administered Medications Acetaminophen (Acetaminophen 325 Mg Tab) 650 mg PO Q4H PRN PRN Reason: Pain or Fever Stop: 05/19/25 04:44 Last Admin: 04/19/25 12:38 Dose: 650 mg Documented By: SANDEEP Allopurinol (Allopurinol 300 Mg Tab) 300 mg PO [facility] Stop: 05/19/25 08:59 Last Admin: 04/19/25 08:23 Dose: 300 mg Documented By: SANDEEP Aspirin (Aspirin 81 Mg Ectab) 81 mg PO [facility] Stop: 05/19/25 08:59 Last Admin: 04/19/25 08:23 Dose: 81 mg Documented By: SANDEEP Ferrous Sulfate (Ferrous Sulfate 325 Mg Tab) 325 mg PO DAILY [facility] Stop: 05/19/25 08:59 Last Admin: 04/19/25 08:23 Dose: 325 mg Documented By: SANDEEP Heparin Sodium/Dextrose (Heparin 09364 Unit/500 Ml D5w) 25,000 units in 500 mls @ 20 mls/hr IV .Q24H [facility]; Protocol Stop: 05/19/25 12:44 Last Titration: 04/19/25 19:01 Dose: 1,000 units/hr, 20 mls/hr Documented By: BAKARI Co-signed By: SANDEEP Admin: 04/19/25 14:08 Dose: 1,000 units/hr, 20 mls/hr Documented By: SANDEEP Co-signed By: TLM Insulin Aspart (Insulin Aspart Per Unit Charge) 0 units SC ACHS [facility] Stop: 05/19/25 07:29 Last Admin: 04/19/25 17:25 Dose: 4 units Documented By: SANDEEP Co-signed By: FABIANA Admin: 04/19/25 14:07 Dose: 3 units Documented By: SANDEEP Co-signed By: KEN Admin: 04/19/25 09:49 Dose: Not Given Documented By: SANDEEP Insulin Glargine (Lantus Per Unit Charge) 9 units SQ BID [facility] Stop: 05/19/25 08:59 Last Admin: 04/19/25 09:50 Dose: Not Given Documented By: SANDEEP Miscellaneous (Check Clonidine Patches Placement) 1 each N/A QS [facility] Stop: 05/19/25 15:59 Last Admin: 04/19/25 17:20 Dose: 1 each Documented By: SANDEEP Nitroglycerin (Nitroglycerin Sl 0.4 Mg/Tab Tab) 0.4 mg SL Q5M PRN PRN Reason: Chest Pain Stop: 05/19/25 00:49 Last Admin: 04/19/25 00:51 Dose: 0.4 mg Documented By: MIKALA Nitroglycerin (Nitroglycerin 2% Ointment 30gm Tube) 0.5 inch EXT Q6H [facility] Stop: 05/19/25 12:59 Last Admin: 04/19/25 17:25 Dose: 0.5 inch Documented By: Admin: 04/19/25 14:09 Dose: 0.5 inch Documented By: SANDEEP Polyethylene Glycol (Polyethylene (Miralax) 17 Gm Pack) 17 gm PO DAILY PRN PRN Reason: Constipation Stop: 05/19/25 10:04 Last Admin: 04/19/25 10:20 Dose: 17 gm Documented By: SANDEEP Ticagrelor (Ticagrelor 90 Mg Tab) 90 mg PO BID [facility] Stop: 05/19/25 08:59 Last Admin: 04/19/25 08:24 Dose: 90 mg Documented By: SANDEEP Discontinued Medications Heparin Sodium (Porcine) (Heparin Sod (Porcine) 1000 Unit/Ml) 4,000 units IV NOW ONE Stop: 04/19/25 12:46 Last Admin: 04/19/25 14:08 Dose: 4,000 units Documented By: SANDEEP Co-signed By: KEN Heparin Sodium/Dextrose (Heparin Iv Adult Wt-Based Low-Dose W/ Initial Bolus Protocol) 1 each IV NOW STA; Protocol Stop: 04/19/25 12:18 Last Admin: 04/19/25 14:08 Dose: Not Given Documented By: CB Metoprolol Tartrate (Metoprolol Tartrate 1 Mg/Ml Vial) 2.5 mg IV NOW STA Stop: 04/19/25 12:18 Last Admin: 04/19/25 12:37 Dose: 2.5 mg Documented By: CB Nitroglycerin (Nitroglycerin Sl 0.4 Mg/Tab Tab) Confirm Administered Dose 0.4 mg .ROUTE .STK-MED ONE Stop: 04/19/25 00:49 Last Admin: 04/19/25 01:14 Dose: Not Given Documented By: LCD Nitroglycerin (Nitroglycerin 2% Ointment 30gm Tube) 1 inch EXT NOW STA Stop: 04/19/25 03:38 Last Admin: 04/19/25 05:15 Dose: Not Given Documented By: BR Perflutren Lipid Microsphere (Perflutren Lipid Microsphere (Definity)) 2 ml IV ONCE ONE Stop: 04/19/25 13:26 Last Admin: 04/19/25 13:26 Dose: 2 ml Documented By: ANNA Discharge Plan Visit Data Chief Complaint: Chest Pain Stated Complaint: CHEST PAIN ED Provider: Amrita Peñaloza Discharge Problem: Unstable angina, Anemia Patient Disposition: Admitted As Inpatient Condition: Serious Discharge Instructions Interventions: ED Discharge Assessment Last Done: 04/19/25 06:10
[2025-04-19 01:04] LABS: Hematocrit (blood only) 25.1 % (42.0-52.0); Hemoglobin 8.2 g/dl (14.0-18.0); Immature Granulocytes # (auto) 0.04 K/uL (0.01-0.20); Immature Granulocytes % (auto) 0.3 %; Mean Corpuscular Hemoglobin 30.3 pg (25.0-34.0); Mean Corpuscular Volume 92.6 fL (80.0-100.0); Platelet Count 244 K/uL (130-400); RDW Standard Deviation 51.4 fL (36.4-46.3); Red Blood Count 2.71 M/uL (4.70-6.10); White Blood Count 11.65 K/ul (4.8-10.8)
[2025-04-19] MEDS: NITROGLYCERIN SL 0.4 MG/TAB TAB ONE (01:14)
[2025-04-19 01:20] LABS: Alanine Aminotransferase 13.0 U/L (7-52); Albumin Globulin Ratio 1.1 (0.9-2); Alkaline Phosphatase 70.0 U/L (34-104); Anion Gap 9.0 (3-11); Bilirubin,Total 0.4 mg/dl (0.2-1.0); Blood Urea Nitrogen 54.0 mg/dl (6-23); Calcium 8.8 mg/dl (8.6-10.3); Carbon Dioxide 21.0 mmol/L (21-32); Chloride 104.0 mmol/L (98-107); Creatinine Clr Calc Pharmacy 19.1 ml/min; Globulin 3.3 gm/dl (2.5-4.0); Glucose 286.0 mg/dl (70-99(Fasting)); Lipase 53.0 U/L (11-82); Potassium 4.8 mmol/L (3.5-5.1); Sodium 134.0 mmol/L (136-145); Total Protein 6.9 gm/dl (6.0-8.3)
--- NOTE | 2025-04-19 02:02 | XRay Report ---
EXAM: XR chest 1V portable CLINICAL HISTORY: Chest pain, nonspecific TECHNIQUE: Radiograph of chest was acquired. 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 Left side mild pleural effusion with atelectasis in left lower lung zone. Cardiomegaly. No acute osseous abnormality. IMPRESSION: 1. Prominent bilateral bronchovascular shadows. 2. Left side mild pleural effusion with atelectasis in left lower lung zone. 3. Cardiomegaly 4. No interval changes. Electronically signed by Joe Myrick 04-19-2025 02:02 AM
--- NOTE | 2025-04-19 02:38 | History & Physical Report ---
Date of Service April 19, 2025 Assessment & Plan (1) Chest pain: (2) Hypertension: (3) Iron deficiency: (4) Stage 4 chronic kidney disease: Plan Patient is an 89-year-old male with past medical history of sleep Kd, chronic indwelling Sevilla, type II DM, HLD, HTN, former smoker, CAD s/p stent in 2009, recent TCAR bilateral. Patient presented via EMS after he woke up with dull midsternal chest pain that radiated to both arms relieved with nitroglycerin x 2 and aspirin 324 mg po. patient is also concerned about his drop in hemoglobin over the past few months and had an iron infusion 04/18. He was found to have a troponin of 57.1 and EKG showed right bundle branch block. He is being admitted for further cardiac workup. #Chest painrelieved with nitroglycerin, troponin 57.1, 2-hour repeat pending (elevated at baseline). EKG showed right bundle branch block mildly worse from previous. CXR showed mild congestive changes with left-sided mild pleural effusion with atelectasis. Possibly a component of hypertensive emergency given BP reportedly elevated to 209/112 during episode at home. - heart score 6 - with 2/10 CP reoccurrence after admission - nitropaste ordered Trend troponin every 6 hours EKG with chest pain as needed Continue nitroglycerin SL as needed Was loaded with aspirin 324mg via EMS, continue daily baby aspirin and Brilinta Echocardiogram ordered Potassium and calcium WNL, magnesium ordered Monitor on telemetry #HTNBP 209/120 in ED downtrended to 162/88 at time of admission. Patient change clonidine patch 04/18; continue #Iron deficiency anemiaComponent of chronic kidney disease, has frequent iron infusions and reportedly had 04/18. Hgb 8.2 at time of admission and patient symptomatic with dyspnea on exertion. Denies any signs of GI bleeding. 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 Murphy is breakdown person - patient stated that he has been speaking with his trash collector about possibly setting up outpatient blood transfusions #CKDcreatinine 3.16 on arrival, at baseline. Follows with Dr. Murphy, trash collector. Avoid nephrotoxic agents if possible #CAD/HLD s/p stent in 2009, bilateral TCAR (05/2024 and 10/2024). Continue Aspirin, Brilinta, statin #Urinary retentionfollows with Dr. Aaron and has a chronic indwelling Sevilla. Continue standard catheter care #Type II DMon semaglutide at home VTE ppx: SCDs, low risk Dispo: med/tele - likely dc home 04/19 after echo Admission and Anticipated Discharge Date Admission Date: 04/19/25 History of Present Illness Chief Complaint: chest pain Primary Care Provider: Umberto Bassett DO Patient is an 89-year-old male with past medical history of sleep Kd, chronic indwelling Sevilla, type II DM, HLD, HTN, former smoker, CAD s/p stent in 2009, recent TCAR bilateral. Patient presented via EMS after he woke up with dull midsternal chest pain that radiated to both arms relieved with nitroglycerin x 2 and aspirin 324 mg po. patient is also concerned about his drop in hemoglobin over the past few months and had an iron infusion 04/18. He was found to have a troponin of 57.1 and EKG showed right bundle branch block. He is being admitted for further cardiac workup. Patient seen at bedside. He stated he woke up with this dull midsternal chest pain that radiated to both of his arms and he had a BP of 209/112 at home. He took a sublingual nitroglycerin which reduced his chest pain from 6/10 to 2/10. He called EMS because of his elevated blood pressure. He stated en route they gave him 4 baby aspirin and in the ED he had sublingual nitroglycerin x 1 which resolved his chest pain. Patient stated that he was feeling well today and even exercised more than normal around the house, he denies any chest pain with exertion. He does endorse dyspnea with exertion over the past 2 to 3 weeks however relates it to his dropping hemoglobin levels. He stated he felt similar with the dyspnea on exertion in October whenever he required a blood transfusion x 1. He denies any current dizziness, lightheadedness, chest pain, shortness of breath, abdominal pain, nausea, vomiting, melena, hematochezia, hematemesis. He stated he does intermittently get nosebleeds that last for several days however he does not lose a significant amount of blood, most recent was several weeks ago. He denies current nicotine or alcohol use. He took all of his home medications yesterday. He wishes to be full code. Patient stated he has been speaking with his trash collector about having scheduled iron infusions or blood transfusions. He had the iron infusion yesterday because he had low iron on labs 1 week ago. Allergies Allergy/AdvReac Type Severity Reaction Status Date / Time codeine Allergy Intermediate Facial Verified 04/19/25 01:21 Swelling/Nausea Home Medications Medication Instructions Recorded Confirmed Type [id number] acid 0.4 1 tab PO QAM 09/16/18 04/19/25 History mg-lycopene 300 mcg-lutein 250 mcg tablet (Centrum Silver) omeprazole 20 mg capsule,delayed 20 mg PO HS 09/16/18 04/19/25 History release nitroglycerin 0.4 mg sublingual 0.4 mg sublingual Q5M PRN Chest 03/14/19 04/19/25 History tablet (Nitrostat) Pain aspirin 81 mg tablet,delayed 81 mg PO QAM 05/30/23 04/19/25 History release semaglutide 0.25 mg or 0.5 mg (2 0.5 mg subcut WK 09/22/23 04/19/25 History mg/3 mL) subcutaneous pen injector (Ozempic) polyethylene glycol 3350 17 gram 17 g PO QAM 04/02/24 04/19/25 History oral powder packet (Miralax) ticagrelor 90 mg tablet (Brilinta) 90 mg PO BID 04/04/24 04/19/25 History furosemide 20 mg tablet 20 mg PO DAILY PRN leg swelling 04/08/24 04/19/25 Rx #30 tabs acetaminophen 500 mg tablet 1,000 mg PO Q6H PRN Pain 06/05/24 04/19/25 History atorvastatin 40 mg tablet 40 mg PO HS #90 tabs 06/12/24 04/19/25 Rx allopurinol 300 mg tablet 300 mg PO QAM #90 tabs 08/28/24 04/19/25 Rx ferrous sulfate 325 mg (65 mg 325 mg PO .COMPLEX #90 tabs 11/30/24 04/19/25 Rx iron) tablet clonidine 0.1 mg/24 hr weekly 1 patch transdermal .weekly #12 ea 01/01/25 04/19/25 Rx transdermal patch clonidine 0.3 mg/24 hr weekly 0.3 mg transdermal WK 04/19/25 04/19/25 History transdermal patch Past Med/Surg History Problem List (Updated 04/19/25 @ 20:16 by Rickey Henson MD) Non-ST elevation (NSTEMI) myocardial infarction Anemia (Acute) Unstable angina (Acute) Hypertension - Severe HTN in supine position coupled with significant orthostatic hypotension - Per cardio records "hemodynamic instability exacerbated by his carotid artery disease (baroreceptors), autonomic neuropathy, episodic intravascular volume depletion" Chest pain Scalp lesion Urinary catheter dysfunction Acute kidney injury superimposed on CKD S/P vascular surgery Anemia Right bundle branch block Autonomic neuropathy Orthostatic hypotension Iron deficiency Elevated troponin Chronic indwelling Sevilla catheter (Acute) Constipation (Acute) Stage 4 chronic kidney disease (Acute) Antiplatelet or antithrombotic long-term use Bilateral carotid artery disease (Acute) Chronic kidney disease Venous insufficiency of both lower extremities CHF (congestive heart failure) (Acute) Hydronephrosis, left Vitamin D deficiency Back pain Tearing of muscle Fatigue 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, 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 Former smoker (Acute) History of coronary artery stent placement (Acute 2009) MARIO Ramus Intermedius Proteinuria (Acute) Medical History Nonsustained supraventricular tachycardia No recent or current symptoms suggestive of an arrhythmia CAD (coronary artery disease) MARIO to ramus (2009) RBBB f/u dr. lopez, [facility] [place] Urinary retention 2/2 BPH and currently with Sevilla in place PRITCHARD (dyspnea on exertion) Constipation chronic - Miralax CHF (congestive heart failure) pt denies per cardio records "history of HF" Back pain Difficulty lying flat Antiplatelet or antithrombotic long-term use Brilinta Bilateral carotid artery disease s/p left TCAR 05/2024 Venous insufficiency of both lower extremities Do not feel that the edema is secondary to a primary cardiac etiology per cardio records History of GI bleed (10/2023) Pt Unsure Hx of pleural effusion Small left pleural effusion noted on 09/25/24 CXR Hx of gout "haven't had an attack in years" Hx: UTI (urinary tract infection) has indwelling sevilla cath, changed every 4 weeks CKD (chronic kidney disease) stage 4, follows with Dr. Murphy Sevilla catheter in place has changed every 4 weeks at [facility] urology Polyneuropathy Peyronie's disease Obesity Bradycardia hx of 1st degree AVB. in the past had episode of HR in 30s in ambulance after vasovagal event for which he was given atropine; per cardio, rusty episode likely 2/2 vagal stimulation Syncope and collapse hx-admitted to [facility] following syncopal episode (04/24/23 - 04/27/23); dx likely vasovagal 2/2 volume depletion and BB. most recently 04/04/24 in [facility] OP Lab - [facility] ER/Admission 04/04/24-04/08/24 MGUS (monoclonal gammopathy of unknown significance) Dr Murphy Monitoring BPH (benign prostatic hyperplasia) currently with Sevilla in place Dyslipidemia Type 2 diabetes mellitus Ozempic Arthritis GERD (gastroesophageal reflux disease) Hearing deficit bilateral aids Surgical History History of transcarotid artery revascularization (TCAR) 05/2024, left side Hx of heart artery stent (2009) S/P MARIO TO RAMUS (2009), [facility], x1 stent; f/u beatrice nunez Hx of cystoscopy Hx of eye surgery laser surgery to remove "film" from eye following cataract sx. 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) History of colonoscopy History of open reduction and internal fixation (ORIF) procedure right tibial plateau - lateral fracture History of tonsillectomy History of endoscopic sinus surgery History of cardiac cath (2009) S/P MARIO TO RAMUS (2009), [facility], x1 stent; f/u beatrice nunez Family History Uncle Family hx of colon cancer Social History Smoking Status: Former smoker Tobacco Type: Declines Second Hand Exposure: No; Do You Dip or Chew Tobacco: No; Hx Alcohol Use: No Hx Substance Use: No Preferred Language: Ukrainian Communication Ability: Effective Visual Impairment: Limited Hearing Ability: Normal Food Processor Required: No Beliefs That Will Affect Care: None marital status: Current Living Situation: Spouse current occupational status: retired How many Children do You have: 7 Feels Safe at Home: Yes Diet: low salt and other Diet Comment: low potassium diet conscious. restricted banana and avocado and nuts. caffeine: Yes (1-2 coffees daily) Physical Activity Frequency: Does not Exercise Seatbelt Use: always Do you think of yourself as: straight/heterosexual Gender Identity: Male Assistive Devices: Walker Review of Systems Review of Systems: see HPI Physical Exam Physical Exam: The patient is awake, alert and oriented 3, well developed and well nourished, normocephalic and atraumatic, in no acute distress. Non-toxic appearing. HEENT- EOMI, mucous membranes moist. Hearing grossly intact. Heart-normal S1 and S2. No murmurs, rubs or gallops. Lungs-clear bilaterally, no respiratory distress, no accessory muscle use. Abdomen-normal bowel sounds and soft. No ascites noted. Non-tender. Extremities- no clubbing, cyanosis, or edema. Rheumatologic-normal range of motion. Psychiatric-normal affect. Results & Data Results & Data Vital Signs (Past 12 Hours) Vital Signs Temp Pulse Pulse Resp BP BP Pulse Ox 04/19/25 02:30 90 17 98 04/19/25 02:27 93 H 21 98 04/19/25 02:17 172/88 H 04/19/25 02:00 88 15 91 04/19/25 02:00 113/77 04/19/25 02:00 113/77 04/19/25 01:51 91 H 18 96 04/19/25 01:36 94 H 16 95 04/19/25 01:18 98 H 04/19/25 01:12 96 H 20 95 04/19/25 01:09 97 H 14 95 04/19/25 00:56 99 H 20 140/82 95 04/19/25 00:41 36.8 C 110 H 18 209/120 H 98 O2 Del Method 04/19/25 02:30 04/19/25 02:27 04/19/25 02:17 04/19/25 02:00 04/19/25 02:00 04/19/25 02:00 04/19/25 01:51 04/19/25 01:36 04/19/25 01:18 04/19/25 01:12 04/19/25 01:09 04/19/25 00:56 Room Air 04/19/25 00:41 Room Air Laboratory Results Lab Results 04/19/25 Range/Units 00:48 WBC 11.65 H (4.8-10.8) K/ul RBC 2.71 L (4.70-6.10) M/uL Hgb 8.2 L (14.0-18.0) g/dl Hct 25.1 L (42.0-52.0) % MCV 92.6 (80.0-100.0) fL MCH 30.3 (25.0-34.0) pg MCHC 32.7 (32.0-36.0) g/dL RDW Std Deviation 51.4 H (36.4-46.3) fL RDW Coeff of Hernandez 15.3 H (11.5-14.5) % Plt Count 244 (130-400) K/uL MPV 11.2 (9.4-12.4) fL Immature Gran % (Auto) 0.3 % Neut % (Auto) 72.8 % Lymph % (Auto) 15.3 % Glascock % (Auto) 8.8 % Eos % (Auto) 2.3 % Baso % (Auto) 0.5 % Neut # (Auto) 8.48 H (1.40-6.50) K/uL Lymph # (Auto) 1.78 (1.20-3.40) K/uL Glascock # (Auto) 1.02 H (0.11-0.59) K/uL Eos # (Auto) 0.27 (0.00-0.50) K/uL Baso # (Auto) 0.06 (0.00-0.20) K/uL Immature Gran # (Auto) 0.04 (0.01-0.20) K/uL Sodium 134 L (136-145) mmol/L Potassium 4.8 (3.5-5.1) mmol/L Chloride 104 (98-107) mmol/L Carbon Dioxide 21 (21-32) mmol/L Anion Gap 9 (3-11) BUN 54 H (6-23) mg/dl Creatinine 3.16 H (0.6-1.4) mg/dl Est Cr Clr Drug Dosing 19.1 ml/min eGFR 18.09 BUN/Creatinine Ratio 17.1 (10-20) Glucose 286 H (70-99(Fasting)) mg/dl Calcium 8.8 (8.6-10.3) mg/dl Total Bilirubin 0.4 (0.2-1.0) mg/dl AST 23 (13-39) U/L ALT 13 (7-52) U/L Alkaline Phosphatase 70 (34-104) U/L Troponin I High Sens 57.1 H* (0-20) pg/ml Total Protein 6.9 (6.0-8.3) gm/dl Albumin 3.6 (3.4-5.0) gm/dl Globulin 3.3 (2.5-4.0) gm/dl Albumin/Globulin Ratio 1.1 (0.9-2) Lipase 53 (11-82) U/L Diagnostic Findings reviewed cxr Medications Administered ed - nitroglycerin SL x1 ECG Additional Comments: RBBB - slightly worse from previous in sep 2023 Code Status & VTE Plan Code Status full code VTE Prophylaxis Plan VTE Prophylaxis will be ordered: Yes Supervising Physician Co-Signing Physician Notes Attending addendum: I have physically seen this patient, have supervised the VIJAYA's activities, and agree with the H&P unless as otherwise noted. Assessment and Plan: The patient is an 89-year-old male with a past medical history including CKD, chronic indwelling Sevilla catheter, diabetes mellitus type 2, hyperlipidemia, hypertension, former smoker, CAD status post stent in 2009, status post recent bilateral TCAR. He presented to the emergency department due to being woken up by a dull midsternal chest pain that radiated to both arms that was relieved nitroglycerin x 2 and aspirin 224 mg by mouth. He reports having had a drop in hemoglobin over the past 2 months in [place] iron infusion on 04/18. Workup in the emergency department included an elevated troponin to 57.1, and EKG with right bundle branch block. [facility]. Chest pain/hypertension/CHF/right bundle branch block/CAD- Relieved by sublingual nitroglycerin x 2 and aspirin 325 mg p.o. The patient will be admitted to telemetry for serial cardiac enzymes, serial EKG's, cardiac rhythm monitoring and a 2-D echocardiogram with Dopplers. Nitroglycerin sublingual 0.5 mg every 5 minutes as needed chest pain Continue aspirin 81 mg every morning, clonidine 0.3 mg transdermal weekly, and Brilinta 90 mg p.o. twice daily Iron deficiency anemia- Hemoglobin 8.2 on admission, with base 8.4 Hemoccult stools Status post recent iron infusion on 04/18 CBC with differential every morning CKD- Creatinine 3.16 on arrival, with base 3.[address] Murphy Diabetes mellitus type 2- On semaglutide at home, will be held in the inpatient setting Glucose 286 on admission Placed on Accu-Cheks with NovoLog SSI Check hemoglobin A1c Chronic urinary retention- Continue Sevilla catheter PG Care Time/CCT Total # of Minutes Spent Total Time Spent with Patient: Total time spent is greater than 50% in coordination of care (as documented) at patient's floor/unit and/or counseling patient: Coding Level of Care Code 03589 INT INP/OBS CARE 375MIN Diagnoses Chest pain R07.9 Hypertension I10 Iron deficiency E61.1 Stage 4 chronic kidney disease N18.4
[2025-04-19 04:06] LABS: Magnesium 2.3 mg/dl (1.7-2.4)
[2025-04-19] MEDS ORDERED: ONDANSETRON INJ 2 MG/ML 2 ML VIAL IV PRN (04:45)
[2025-04-19] MEDS ORDERED: MELATONIN 3 MG TAB PO PRN (04:45)
[2025-04-19] MEDS ORDERED: DOCUSATE SODIUM 100 MG CAP PO PRN (04:45)
[2025-04-19] MEDS: NITROGLYCERIN 2% OINTMENT 30GM TUBE EXT STA (05:15)
[2025-04-19] MEDS ORDERED: GLUCAGON FOR INJ 1 MG VIAL SQ PRN (06:33)
[2025-04-19] MEDS ORDERED: GLUCOSE 10 TAB/TUBE PO PRN (06:33)
[2025-04-19] MEDS ORDERED: DEXTROSE 50% 50 ML SYRINGE IV PRN (06:33)
[2025-04-19] MEDS ORDERED: CARBOHYDRATES FOR HYPOGLYCEMIA PO PRN (06:33)
[2025-04-19] MEDS ORDERED: GLUCOSE 40% GEL 15 GM TUBE PO PRN (06:33)
[2025-04-19] MEDS: ASPIRIN 81 MG ECTAB PO SCH (08:23)
[2025-04-19] MEDS: FERROUS SULFATE 325 MG TAB PO SCH (08:23)
[2025-04-19] MEDS: TICAGRELOR 90 MG TAB PO SCH (08:24)
[2025-04-19] MEDS ORDERED: SODIUM CHLORIDE 0.9% 100 ML IV PRN ×2 (09:46→10:01)
[2025-04-19] MEDS: INSULIN ASPART PER UNIT CHARGE SC SCH (09:49)
[2025-04-19] MEDS: LANTUS PER UNIT CHARGE SQ SCH (09:50)
[2025-04-19] MEDS: POLYETHYLENE (MIRALAX) 17 GM PACK PO PRN (10:20)
--- NOTE | 2025-04-19 10:49 | Nephrology Consultation ---
Date of Consultation April 19, 2025 Assessment & Plan (1) Acute kidney injury superimposed on CKD: * JOYCELYN on CKD due to anemia * Volume status and electrolyte balance are acceptable * Baseline Cr ~ 3.0 due to DKD * Poor chronic dialysis candidate due to frailty * Monitor BMP, UO (2) Anemia: * h/o recurrent SANIA * Patient declined endoscopy during 07/31 hospitalization due to frailty * Will order iron studies, FOBT * Although Hgb > 8.0, patient presented w/ angina and up-trending troponin * Indications/benefits/risks for blood transfusion discussed w/ Dr. Gates this morning. He is agreeable. Signed consent obtained and placed on chart * T&C 1 unit PRBC, transfuse one unit ordered this am * Monitor daily H&H (3) Elevated troponin: * ECG reviewed this am - RBBB * Troponin 57-->133 * Consultation w/ [facility] cardiology requested (4) Hypertension: * BP is mildly elevated. Suspect patient may benefit from low dose beta ashley. 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 Information for the HPI is obtained from direct patient interview and review of the EMR. HPI is summarized as follows: Dr. Gates has CKD stage G4/A3 (advanced impairment). His baseline Cr has been 2.5-3.0 w/ EGFR 20 cc/min. Urine sediment has been benign. Urinary protein excretion has risen to 3g/day. Unfortunately Dr. Gates has been intolerant of LORNA/ARB due to recurrent hyperkalemia. Serum immunoelectrophoresis 09/21 revealed a faint monoclonal band. 10/[address] was negative for hydronephrosis. Renal impairment is on the basis of DKD. Dr. Gates has suffered from recurrent SANIA. 07/31 he was evaluated by gastroenterology but declined endoscopy due to age/frailty. Since that time he has been receiving periodic blood transfusions as an outpatient as ordered by his PCP. Dr. Gates was last seen in the nephrology office 04/08/25. Hgb was 8.4, transferrin saturation 12%, ferritin < 200. He was prescribed IV Venofer. Dr. Gates received 500 mg IV Venofer yesterday morning. He reports that last night at approximately midnight he awoke from sleep with retrosternal chest pain radiating to his jaw and left shoulder. EMD evaluation revealed up-trending troponin. ECG c/w RBBB. Cr 3.2. Hgb 8.2. Dr. Gates denies overt blood loss. PMH: CKD, recurrent SANIA, hypercholesterolemia, ASCVD s/p [employer] w/ stenting x1 2009, AODM, MGUS, refractory HTN, L TCAR (05/31) complicated by hypotension requiring midodrine therapy, R TCAR 10/30. Allergies Allergy/AdvReac Type Severity Reaction Status Date / Time codeine Allergy Intermediate Facial Verified 04/19/25 01:21 Swelling/Nausea Home Medications Medication Instructions Recorded Confirmed Type hgueomrr-bjz-ahoyf acid 0.4 1 tab PO QAM 09/16/18 04/19/25 History mg-lycopene 300 mcg-lutein 250 mcg tablet (Centrum Silver) omeprazole 20 mg capsule,delayed 20 mg PO HS 09/16/18 04/19/25 History release nitroglycerin 0.4 mg sublingual 0.4 mg sublingual Q5M PRN Chest 03/14/19 04/19/25 History tablet (Nitrostat) Pain aspirin 81 mg tablet,delayed 81 mg PO QAM 05/30/23 04/19/25 History release semaglutide 0.25 mg or 0.5 mg (2 0.5 mg subcut WK 09/22/23 04/19/25 History mg/3 mL) subcutaneous pen injector (Ozempic) polyethylene glycol 3350 17 gram 17 g PO QAM 04/02/24 04/19/25 History oral powder packet (Miralax) ticagrelor 90 mg tablet (Brilinta) 90 mg PO BID 04/04/24 04/19/25 History furosemide 20 mg tablet 20 mg PO DAILY PRN leg swelling 04/08/24 04/19/25 Rx #30 tabs acetaminophen 500 mg tablet 1,000 mg PO Q6H PRN Pain 06/05/24 04/19/25 History atorvastatin 40 mg tablet 40 mg PO HS #90 tabs 06/12/24 04/19/25 Rx allopurinol 300 mg tablet 300 mg PO QAM #90 tabs 08/28/24 04/19/25 Rx ferrous sulfate 325 mg (65 mg 325 mg PO .COMPLEX #90 tabs 11/30/24 04/19/25 Rx iron) tablet clonidine 0.1 mg/24 hr weekly 1 patch transdermal .weekly #12 ea 01/01/25 04/19/25 Rx transdermal patch clonidine 0.3 mg/24 hr weekly 0.3 mg transdermal WK 04/19/25 04/19/25 History transdermal patch Patient History Medical History Nonsustained supraventricular tachycardia No recent or current symptoms suggestive of an arrhythmia CAD (coronary artery disease) MARIO to betsy (2009) RBBB f/u dr. lopez[place] [facility] [place]inary retention 2/2 BPH and currently with Sevilla in place PRITCHARD (dyspnea on exertion) Constipation chronic - Miralax CHF (congestive heart failure) pt denies per cardio records "history of HF" Back pain Difficulty lying flat Antiplatelet or antithrombotic long-term use Brilinta Bilateral carotid artery disease s/p left TCAR 05/2024 Venous insufficiency of both lower extremities Do not feel that the edema is secondary to a primary cardiac etiology per cardio records History of GI bleed (10/2023) Pt Unsure Hx of pleural effusion Small left pleural effusion noted on 09/25/24 CXR Hx of gout "haven't had an attack in years" Hx: UTI (urinary tract infection) has indwelling sevilla cath, changed every 4 weeks CKD (chronic kidney disease) stage 4, follows with Dr. Murphy Sevilla catheter in place has changed every 4 weeks at [facility] urology Polyneuropathy Peyronie's disease Obesity Bradycardia hx of 1st degree AVB. in the past had episode of HR in 30s in ambulance after vasovagal event for which he was given atropine; per cardio, rusty episode likely 2/2 vagal stimulation Syncope and collapse hx-admitted to [facility] following syncopal episode (04/24/23 - 04/27/23); dx likely vasovagal 2/2 volume depletion and BB. most recently 04/04/24 in [facility] OP Lab - [facility] ER/Admission 04/04/24-04/08/24 MGUS (monoclonal gammopathy of unknown significance) Dr Murphy Monitoring BPH (benign prostatic hyperplasia) currently with Sevilla in place Dyslipidemia Type 2 diabetes mellitus Ozempic Arthritis GERD (gastroesophageal reflux disease) Hearing deficit bilateral aids Surgical History History of transcarotid artery revascularization (TCAR) 05/2024, left side Hx of heart artery stent (2009) S/P MARIO TO RAMUS (2009), [facility], x1 stent; f/u dr. lopez, [place] Hx of cystoscopy Hx of eye surgery laser surgery to remove "film" from eye following cataract sx. 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) History of colonoscopy History of open reduction and internal fixation (ORIF) procedure right tibial plateau - lateral fracture History of tonsillectomy History of endoscopic sinus surgery History of cardiac cath (2009) S/P MARIO TO RAMUS (2009), [facility], x1 stent; f/u dr. lpoez, [place] Family History Uncle Family hx of colon cancer Social History Smoking Status: Former smoker Tobacco Type: Declines Second Hand Exposure: No; Do You Dip or Chew Tobacco: No; Hx Alcohol Use: No Hx Substance Use: No Preferred Language: Serbian Communication Ability: Effective Visual Impairment: Limited Hearing Ability: Normal Child Nutrition Manager Required: No Beliefs That Will Affect Care: None marital status: Current Living Situation: Spouse current occupational status: retired How many Children do You have: 7 Feels Safe at Home: Yes Diet: low salt and other Diet Comment: low potassium diet conscious. restricted banana and avocado and nuts. caffeine: Yes (1-2 coffees daily) Physical Activity Frequency: Does not Exercise Seatbelt Use: always Do you think of yourself as: straight/heterosexual Gender Identity: Male Assistive Devices: Glasses, Hearing Aid - Bilateral and Walker Review of Systems Constitutional: no fever Eyes: no problem reported Ear, Nose, Mouth, Throat: no problem reported Respiratory: no cough and no dyspnea Cardiovascular: + chest pain and + radiating jaw, neck o r arm pain Gastrointestinal: no abdominal pain, no nausea, no vomiting and no diarrhea/loose stools Genitourinary: no dysuria, no hematuria or no flank pain Integumentary: no rash Neurologic: + generalized weakness Physical Exam Constitutional: + frail appearing Eyes: PERRL, conjunctivae normal, anicteric sclerae ENMT: external ear and nose normal, oropharynx normal Neck: trachea midline, no thyromegaly Respiratory: normal respiratory effort, lungs clear to auscultation Cardiovascular: Rate/Rhythm: regular rate and regular rhythm Extremities: no edema Gastrointestinal (Abdomen): normal bowel sounds, soft, nontender, no hepatosplenomegaly Musculoskeletal: Extremities: no cyanosis Skin: no rashes, warm and dry Neurologic: awake; not confused Results & Data Vital Signs (Past 12 Hours) Vital Signs Temp Pulse Pulse Resp BP BP Pulse Ox 04/19/25 08:36 36.4 C L 72 18 148/74 H 97 04/19/25 07:00 66 04/19/25 05:42 71 04/19/25 04:48 04/19/25 04:48 36.4 C L 78 18 144/72 H 96 04/19/25 04:45 36.4 C L 78 18 144/72 H 96 04/19/25 04:45 04/19/25 03:36 83 18 166/85 H 98 04/19/25 02:45 93 H 15 162/88 H 97 04/19/25 02:30 90 17 98 04/19/25 02:27 93 H 21 98 04/19/25 02:17 172/88 H 04/19/25 02:00 88 15 91 04/19/25 02:00 113/77 04/19/25 02:00 113/77 04/19/25 01:51 91 H 18 96 04/19/25 01:36 94 H 16 95 04/19/25 01:18 98 H 04/19/25 01:12 96 H 20 95 04/19/25 01:09 97 H 14 95 04/19/25 00:56 99 H 20 140/82 95 04/19/25 00:41 36.8 C 110 H 18 209/120 H 98 Pulse Ox O2 Del Method O2 Del Method 04/19/25 08:36 Room Air 04/19/25 07:00 04/19/25 05:42 04/19/25 04:48 Room Air 04/19/25 04:48 Room Air 04/19/25 04:45 Room Air 04/19/25 04:45 96 Room Air 04/19/25 03:36 Room Air 04/19/25 02:45 04/19/25 02:30 04/19/25 02:27 04/19/25 02:17 04/19/25 02:00 04/19/25 02:00 04/19/25 02:00 04/19/25 01:51 04/19/25 01:36 04/19/25 01:18 04/19/25 01:12 04/19/25 01:09 04/19/25 00:56 Room Air 04/19/25 00:41 Room Air Laboratory Results Laboratory Results WBC 11.65 K/ul (4.8-10.8) H 04/19/25 00:48 RBC 2.71 M/uL (4.70-6.10) L 04/19/25 00:48 Hgb 8.2 g/dl (14.0-18.0) L 04/19/25 00:48 Hct 25.1 % (42.0-52.0) L 04/19/25 00:48 MCV 92.6 fL (80.0-100.0) 04/19/25 00:48 MCH 30.3 pg (25.0-34.0) 04/19/25 00:48 MCHC 32.7 g/dL (32.0-36.0) 04/19/25 00:48 RDW Std Deviation 51.4 fL (36.4-46.3) H 04/19/25 00:48 RDW Coeff of Hernandez 15.3 % (11.5-14.5) H 04/19/25 00:48 Plt Count 244 K/uL (130-400) 04/19/25 00:48 MPV 11.2 fL (9.4-12.4) 04/19/25 00:48 Immature Gran % (Auto) 0.3 % 04/19/25 00:48 Neut % (Auto) 72.8 % 04/19/25 00:48 Lymph % (Auto) 15.3 % 04/19/25 00:48 Bay % (Auto) 8.8 % 04/19/25 00:48 Eos % (Auto) 2.3 % 04/19/25 00:48 Baso % (Auto) 0.5 % 04/19/25 00:48 Neut # (Auto) 8.48 K/uL (1.40-6.50) H 04/19/25 00:48 Lymph # (Auto) 1.78 K/uL (1.20-3.40) 04/19/25 00:48 Bay # (Auto) 1.02 K/uL (0.11-0.59) H 04/19/25 00:48 Eos # (Auto) 0.27 K/uL (0.00-0.50) 04/19/25 00:48 Baso # (Auto) 0.06 K/uL (0.00-0.20) 04/19/25 00:48 Immature Gran # (Auto) 0.04 K/uL (0.01-0.20) 04/19/25 00:48 Sodium 134 mmol/L (136-145) L 04/19/25 00:48 Potassium 4.8 mmol/L (3.5-5.1) 04/19/25 00:48 Chloride 104 mmol/L (98-107) 04/19/25 00:48 Carbon Dioxide 21 mmol/L (21-32) 04/19/25 00:48 Anion Gap 9 (3-11) 04/19/25 00:48 BUN 54 mg/dl (6-23) H 04/19/25 00:48 Creatinine 3.16 mg/dl (0.6-1.4) H 04/19/25 00:48 Est Cr Clr Drug Dosing 19.1 ml/min 04/19/25 00:48 eGFR 18.09 04/19/25 00:48 BUN/Creatinine Ratio 17.1 (10-20) 04/19/25 00:48 Glucose 286 mg/dl (70-99(Fasting)) H 04/19/25 00:48 POC Glucose 182 mg/dl (70-99) H 04/19/25 07:59 Calcium 8.8 mg/dl (8.6-10.3) 04/19/25 00:48 Magnesium 2.3 mg/dl (1.7-2.4) 04/19/25 03:30 Total Bilirubin 0.4 mg/dl (0.2-1.0) 04/19/25 00:48 AST 23 U/L (13-39) 04/19/25 00:48 ALT 13 U/L (7-52) 04/19/25 00:48 Alkaline Phosphatase 70 U/L (34-104) 04/19/25 00:48 Troponin I High Sens 133.4 pg/ml (0-20) H* D 04/19/25 03:30 Total Protein 6.9 gm/dl (6.0-8.3) 04/19/25 00:48 Albumin 3.6 gm/dl (3.4-5.0) 04/19/25 00:48 Globulin 3.3 gm/dl (2.5-4.0) 04/19/25 00:48 Albumin/Globulin Ratio 1.1 (0.9-2) 04/19/25 00:48 Lipase 53 U/L (11-82) 04/19/25 00:48 Crossmatch See Detail 04/19/25 10:40 Impressions Chest X-Ray 04/19/25 00:40 EXAM: XR chest 1V portable CLINICAL HISTORY: Chest pain, nonspecific TECHNIQUE: Radiograph of chest was acquired. 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 Left side mild pleural effusion with atelectasis in left lower lung zone. Cardiomegaly. No acute osseous abnormality. IMPRESSION: 1. Prominent bilateral bronchovascular shadows. 2. Left side mild pleural effusion with atelectasis in left lower lung zone. 3. Cardiomegaly 4. No interval changes. Electronically signed by Joe Myrick 04-19-2025 02:02 AM PG Care Time/CCT Total # of Minutes Spent Total Time Spent with Patient: Total time spent is greater than 50% in coordination of care (as documented) at patient's floor/unit and/or counseling patient: Coding Level of Care Code 35978 IN/OBS CONSULT LVL 5,80M Diagnoses Acute kidney injury superimposed on CKD N17.9; N18.9 Anemia D64.9 Elevated troponin R79.89 Hypertension I10
[2025-04-19 11:22] LABS: Iron 252.0 mcg/dl (35-175); Total Iron Binding Cap Calc 395.0 mcg/dl (250-450); Transferrin 282.0 mg/dl (200-360); Transferrin (FE) Percent Satur 64.0 % (20-50)
[2025-04-19 11:39] LABS: Ferritin 293.9 ng/ml (8-388)
[2025-04-19] MEDS: METOPROLOL TARTRATE 1 MG/ML VIAL IV STA (12:37)
[2025-04-19] MEDS: ACETAMINOPHEN 325 MG TAB PO PRN (12:38)
--- NOTE | 2025-04-19 12:55 | Hospitalist Progress Note ---
Date of Service April 19, 2025 Assessment & Plan (1) Chest pain: (2) Hypertension: (3) Iron deficiency: (4) Stage 4 chronic kidney disease: Plan Patient is an 89-year-old male with past medical history of sleep Kd, chronic indwelling Jerome, type II DM, HLD, HTN, former smoker, CAD s/p stent in 2009, recent TCAR bilateral. Patient presented via EMS after he woke up with dull midsternal chest pain that radiated to both arms relieved with nitroglycerin x 2 and aspirin 324 mg po. patient is also concerned about his drop in hemoglobin over the past few months and had an iron infusion 04/18. He was found to have a troponin of 57.1 and EKG showed right bundle branch block. He is being admitted for further cardiac workup. #Chest pain,? Crescendo angina, hypertension Presented to the hospital with troponin 57.1, right bundle branch block, and hypertension 209/112 Heart score 6. Reviewed progression at bedside 04/19. He reports that he has intermittently had angina in the past maybe once or twice a week but very minimal and which he associates with downtrending hemoglobin levels in the past. He notes that his angina is worse and more frequent in the last week or so than it had been previously. He had 1 episode of angina with exertion day prior to admission which lasted about 5 minutes with rest, then in the evening had a second episode which lasted about 45 minutes at rest. Subsequently he woke up with chest pain and bilateral shoulder pain that evening, angina at rest is not normal for him. He has had anginal symptoms with hemoglobin in the low 8, and has had a gradual downtrend hemoglobin level to 8 however symptoms with clear progressive and concerning for crescendo pattern are concerning for a fixed lesion causing vulnerability. Did discuss with cardiology, agree with treating as potential ACS at this time and placing on low-dose heparin GTT. He is at risk of bleeding, however other than self-limited epistaxis denies any clinical bleeding. He has declined endoscopy evaluation in the past, is aware that there is a risk of GI bleeding while on anticoagulation however given lack of melena/hematochezia and overt bleeding and uptrending troponin concern for ACS benefits of cardiac protection currently outweigh risk. He is being transfused 1 unit of blood empirically as well. Cardiac catheterization limited due to his underlying CKD, creatinine 3.16 on admission, patient is not interested in catheterization at this time. Baseline creatinine around 2.63.0 Also with significant hypertension, may have ischemia worsened by afterload. He had been on isosorbide and metoprolol multiple times in the past although these had been dose adjusted/discontinued due to episodes of orthostasis. Given hypertension and uptrending troponins. Did have a single pause overnight, ideally would have preferred metoprolol however given pause will defer metoprolol and can add amlodipine instead for afterload reduction. Dose adjust as tolerated. Nitropaste continued. If BP/orthostatics tolerate could consider resuming isosorbide on discharge, although patient has difficulty with tolerance and recurrent orthostatic symptoms on this in the past. Monitoring patch continued. Patient subsequently seen by cardiology and was recommended for afterload reduction and nitrate therapy, he prefers to defer this until he sees how he feels after his blood transfusion. He is not interested in cardiac catheterization or anything that would cause increased risk of CKD progression. Patient is okay with heparin infusion with risk/benefit discussion as documented, if tolerating this would continue for 48 hours Chest pain free on reassessment. EKG similar to prior, right bundle branch block redemonstrated Echo pending Aspirin/Brilinta/statin continued. He is on DAPT due to recent TCAR #Iron deficiency anemia With underlying CKD, and iron deficiency. Has frequent iron transfusions last 04/17. Subsequent iron levels are likely inaccurate due to recent infusion Nephrology following 1 unit for empiric transfusion pending #CKD creatinine 3.16 on arrival Creatinine baseline approximately 2.63.0, diabetic kidney disease Nephrology following BMP daily Bilateral TCAR - bilateral TCAR (05/2024 and 10/2024). Continue Aspirin, Brilinta, statin 9 strokelike symptoms #Urinary retention follows with Dr. Aaron and has a chronic indwelling Jerome. Continue standard catheter care - Reports some foul smell and may be some discomfort. UA pending. Is aware that he will always have chronic colonization #Type II DM on semaglutide at home BSG above goal,SSI narrowed from 45/15 to 40/12 VTE ppx: SCDs, low risk Dispo: M/T Admission and Anticipated Discharge Date Admission Date: April 19, 2025 Subjective Seen at the bedside on morning assessment. He reports that he has a history of intermittent angina around twice a week which is normally mild and occurs when his blood levels are in the low eights. He reports the day prior to admission he had an episode of angina with exertion which lasted less than 5 minutes with rest but later in that evening he had another episode with exertion which then lasted about 45 minutes with rest. After going to bed he was awoken with an episode of chest pain with radiation to into his shoulders which had some improvement but incomplete resolution after taking a nitro from 2017. Present to the ER for further evaluation. He reports that while he does have intermittent angina the quality and severity does seem worse in the last week then with his prior episodes. He has chronic iron deficiency anemia of unclear cause, but which would be from GI losses. He has declined endoscopy evaluation in the past and is not interested in aggressive interventions for such. He does follow with cardiology for CKD and notes he feels better when he gets periodic transfusions. Of note while his most recent iron labs are suggestive of iron overload these were drawn after a Venofer infusion and are not reflective of his baseline state. Chest pain-free this morning. Did discuss with nephrology and cardiology. Given crescendo symptoms with chest pain at rest concerning for unstable angina/ACS do recommend heparinization. He has not had any clinical bleeding, although with chronic iron deficiency anemia with deferred GI workup certainly worsen GI bleeding is a risk. This was discussed with Vik and his at the bedside. Agreeable to low-dose heparin for ACS and monitoring closely for bleeding especially given uptrending troponins unclear evidence of ischemia. They are aware that there is a risk of bleeding with this and if that occurred would discontinue heparin at that time and transfuse as able. He did see cardiology, and he is not interested in any type of catheterization procedure especially given his underlying CKD as he has not been interested in anything that could worsen his renal function or cause progressive to dialysis which he would not want. Given this he wants limited medical management of his condition. He reports he is potentially open to taking blood pressure medications but has been noted to have very labile blood pressure in the past and would like to make minimal changes 1 at a time if indicated. He reports that he has a liberalized systolic threshold and typically his goal is around 170 as an outpatient because he will periodically bottom out as low as 110 or lower intermittently. For this reason he has not been on metoprolol or isosorbide recently. He would prefer not to be on these if possible but if he is persistently greater than 180/190 would be open to starting a low-dose of amlodipine or trialing Nitropaste for now. Metoprolol is initially discussed however then deferred as on review of telemetry he did have a 3-second pause. Physical Exam Physical Exam: General: A&Ox3. NAD. Cooperative. Slight pallor HEENT: Atraumatic, normocephalic. Vision and hearing grossly intact. Vision and hearing grossly intact, slightly hard of hearing Pulm: CTAB A&P. -wheezes, -rales, -rhonchi. Symmetrical chest rise. No increase in work of breathing. No respiratory distress. Cardiac: RRR, -mrg. Radial pulses intact and symmetrical. Abdominal: Nontender, nondistended, soft. BS present. Extremities: Warm, dry Results & Data Results & Data Vital Signs (Past 12 Hours) Vital Signs Temp Pulse Pulse Resp BP BP Pulse Ox 04/19/25 12:37 81 195/83 H 04/19/25 12:36 36.5 C 81 18 195/83 H 97 04/19/25 12:01 36.3 C L 75 18 183/76 H 97 04/19/25 11:38 77 167/73 H 04/19/25 08:36 36.4 C L 72 18 148/74 H 97 04/19/25 07:00 66 04/19/25 05:42 71 04/19/25 04:48 04/19/25 04:48 36.4 C L 78 18 144/72 H 96 04/19/25 04:45 36.4 C L 78 18 144/72 H 96 04/19/25 04:45 04/19/25 03:36 83 18 166/85 H 98 04/19/25 02:45 93 H 15 162/88 H 97 04/19/25 02:30 90 17 98 04/19/25 02:27 93 H 21 98 04/19/25 02:17 172/88 H 04/19/25 02:00 88 15 91 04/19/25 02:00 113/77 04/19/25 02:00 113/77 04/19/25 01:51 91 H 18 96 04/19/25 01:36 94 H 16 95 04/19/25 01:18 98 H 04/19/25 01:12 96 H 20 95 04/19/25 01:09 97 H 14 95 04/19/25 00:56 99 H 20 140/82 95 Pulse Ox O2 Del Method O2 Del Method 04/19/25 12:37 04/19/25 12:36 Room Air 04/19/25 12:01 Room Air 04/19/25 11:38 04/19/25 08:36 Room Air 04/19/25 07:00 04/19/25 05:42 04/19/25 04:48 Room Air 04/19/25 04:48 Room Air 04/19/25 04:45 Room Air 04/19/25 04:45 96 Room Air 04/19/25 03:36 Room Air 04/19/25 02:45 04/19/25 02:30 04/19/25 02:27 04/19/25 02:17 04/19/25 02:00 04/19/25 02:00 04/19/25 02:00 04/19/25 01:51 04/19/25 01:36 04/19/25 01:18 04/19/25 01:12 04/19/25 01:09 04/19/25 00:56 Room Air PG Care Time/CCT Total # of Minutes Spent Total Time Spent with Patient: Total time spent is greater than 50% in coordination of care (as documented) at patient's floor/unit and/or counseling patient: Coding Level of Care Code 76354 SUB INP/OBS CARE 3/50MIN Diagnoses Chest pain R07.9 Hypertension I10 Iron deficiency E61.1 Stage 4 chronic kidney disease N18.4
[2025-04-19] MEDS: PERFLUTREN LIPID MICROSPHERE (DEFINITY) IV ONE (13:26)
[2025-04-19] MEDS ORDERED: REMOVE CLONIDINE PATCH SCH (13:30)
[2025-04-19 14:02] LABS: Hematocrit (blood only) 23.5 % (42.0-52.0); Hemoglobin 7.6 g/dl (14.0-18.0); Immature Granulocytes # (auto) 0.05 K/uL (0.01-0.20); Immature Granulocytes % (auto) 0.5 %; Mean Corpuscular Hemoglobin 30.2 pg (25.0-34.0); Mean Corpuscular Volume 93.3 fL (80.0-100.0); Platelet Count 218 K/uL (130-400); RDW Standard Deviation 52.3 fL (36.4-46.3); Red Blood Count 2.52 M/uL (4.70-6.10); White Blood Count 9.69 K/ul (4.8-10.8)
[2025-04-19] MEDS: HEPARIN SOD (PORCINE) 1000 UNIT/ML IV ONE (14:08)
[2025-04-19] MEDS: Heparin IV Adult Wt-Based Low-Dose w/ INITIAL Bolus Protocol IV STA (14:08)
[2025-04-19] MEDS: HEPARIN 25000 UNIT/500 ML D5W 25,000 UNITS/500 ML BAG IV SCH (14:08)
[2025-04-19] MEDS: NITROGLYCERIN 2% OINTMENT 30GM TUBE EXT SCH (14:09)
--- NOTE | 2025-04-19 14:19 | Cardiology Consultation ---
Date of Consultation April 19, 2025 Assessment & Plan (1) Non-ST elevation (NSTEMI) myocardial infarction: (2) CAD (coronary artery disease): (3) Hypertension: (4) Anemia: Plan ASSESSMENT/PLAN: 1. NSTEMI: Occurred in the setting of known CAD, uncontrolled hypertension, and anemia. We discussed treatment options such as coronary angiography but in the setting of significant CKD, possibility of worsening CKD precipitating the need for dialysis. He quickly declined. He prefers medical management. While in the room, his systolic blood pressure was significantly elevated in the 190s mmHg. Recommended nitrate therapy and calcium channel ashley such as amlodipine, avoiding beta-ashley given 3-second pause earlier today and significant VT prolongation. He quickly declined any medication change and wanted first only to receive blood transfusion, which had just been initiated by nursing staff. We discussed rationale for more aggressive therapy and antianginal benefit while improving upon blood pressure but he declined and was adamant that he did not want to start new medications. Can continue heparin drip if no contraindication and no obvious bleed. Would continue heparin drip for 48 hours if no contraindication. Consider cardiac rehab if he is willing to participate after discharge. Trend troponin until peaked. 2. CAD s/p prior ramus PCI: According to outpatient records, there was moderate ostial LAD and right acute marginal stenosis in 2009 and underwent 2.5 x 12 mm Promus MARIO ramus PCI. Given rest symptoms and crescendo presentation of his angina, concerned that he now has severe CAD in the setting of severe hypertension and anemia. Chronically on dual antiplatelet therapy and can continue if no contraindication. Would avoid beta-ashley given prolonged VT and 3-second pause today. Heparin drip as above. Continue high intensity statin therapy. Aspirin 81 mg daily indefinitely given prior PCI. 3. Hypertension: Blood pressure was uncontrolled during visit today but he declined any adjustment to his antihypertensive regimen. Discussed with primary hospitalist, Dr. Live, who plans on discussing further with patient. 4. CKD: As per nephrology. 5. Anemia: As per primary hospitalist service. No obvious bleed. Receiving PRBC. 6. Disposition: After 5 PM on 04/19/2025, please call on-call relationship counselor with any further questions or concerns. Patient was signed out to Dr. Smith who will be covering cardiology throughout the weekend. Please call Dr. Smith with any further concerns or questions. Plan of care was discussed with Dr. Live of the primary hospitalist service. Highly complex medical issues. Thank you for allowing me to participate in the care of your patient. Please call for any other questions or concerns. Sincerely, Olegario Henson M.D. History of Present Illness Reason for Consultation: NSTEMI Requesting Physician: Odilon Live MD Attending Physician: Odilon Live MD History of Present Illness Mr. Gates is a pleasant 89-year-old gentleman with a history significant for CAD s/p proximal ramus PCI, CKD, carotid artery stenosis s/p bilateral TCAR, type 2 diabetes, hypertension, dyslipidemia, SVT, and orthostatic hypotension. His primary relationship counselor is Dr. Lopez. He was admitted on 04/19/2025 with NSTEMI. He reports that he has a history of "stable angina." He will experience angina when walking longer distances and it quickly resolves with rest. He had an episode in October 2024 where he had "unstable angina" which correlated with lower hemoglobin than usual. He has been followed for anemia. He received PRBC transfusion and immediately felt better. For the past month, angina has worsened. He states that on 04/18/2025 he had 3 episodes of "stable angina" followed by an episode of "unstable" angina. Angina occurred while walking in his home in the setting of systolic blood pressure greater than 200 mmHg. He also was awakened by his usual angina. He describes the angina as a dull chest discomfort across his chest that radiates to his bilateral arms without diaphoresis and no obvious shortness of breath. When he was seen earlier this afternoon, he denied any chest discomfort. He denies shortness of breath, syncope, near syncope, palpitations, melena, hematochezia, or hematuria. He admits that he has had some swelling in his feet over the past 10 days and wears compression stockings typically. He wears a clonidine patch and states that it had been working well until recently over the past couple of weeks. Review of systems: As above. Family history: Noncontributory. Social history: He quit smoking in 1965. Denies alcohol or drug abuse. Lives at home with his , his daughter, son-in-law, and grandchild. He had 8 kids in total, but 1 has . He was unaccompanied. Allergies Allergy/AdvReac Type Severity Reaction Status Date / Time codeine Allergy Intermediate Facial Verified 04/19/25 01:21 Swelling/Nausea Home Medications Medication Instructions Recorded Confirmed Type mawkwckc-sss-schbs acid 0.4 1 tab PO QAM 09/16/18 04/19/25 History mg-lycopene 300 mcg-lutein 250 mcg tablet (Centrum Silver) omeprazole 20 mg capsule,delayed 20 mg PO HS 09/16/18 04/19/25 History release nitroglycerin 0.4 mg sublingual 0.4 mg sublingual Q5M PRN Chest 03/14/19 04/19/25 History tablet (Nitrostat) Pain aspirin 81 mg tablet,delayed 81 mg PO QAM 05/30/23 04/19/25 History release semaglutide 0.25 mg or 0.5 mg (2 0.5 mg subcut WK 09/22/23 04/19/25 History mg/3 mL) subcutaneous pen injector (Ozempic) polyethylene glycol 3350 17 gram 17 g PO QAM 04/02/24 04/19/25 History oral powder packet (Miralax) ticagrelor 90 mg tablet (Brilinta) 90 mg PO BID 04/04/24 04/19/25 History furosemide 20 mg tablet 20 mg PO DAILY PRN leg swelling 04/08/24 04/19/25 Rx #30 tabs acetaminophen 500 mg tablet 1,000 mg PO Q6H PRN Pain 06/05/24 04/19/25 History atorvastatin 40 mg tablet 40 mg PO HS #90 tabs 06/12/24 04/19/25 Rx allopurinol 300 mg tablet 300 mg PO QAM #90 tabs 08/28/24 04/19/25 Rx ferrous sulfate 325 mg (65 mg 325 mg PO .COMPLEX #90 tabs 11/30/24 04/19/25 Rx iron) tablet clonidine 0.1 mg/24 hr weekly 1 patch transdermal .weekly #12 ea 01/01/25 04/19/25 Rx transdermal patch clonidine 0.3 mg/24 hr weekly 0.3 mg transdermal WK 04/19/25 04/19/25 History transdermal patch Patient History Medical History Nonsustained supraventricular tachycardia No recent or current symptoms suggestive of an arrhythmia CAD (coronary artery disease) MARIO to ramus (2009) RBBB f/u beatrice nunez Urinary retention 2/2 BPH and currently with Sevilla in place PRITCHARD (dyspnea on exertion) Constipation chronic - Miralax CHF (congestive heart failure) pt denies per cardio records "history of HF" Back pain Difficulty lying flat Antiplatelet or antithrombotic long-term use Brilinta Bilateral carotid artery disease s/p left TCAR 05/2024 Venous insufficiency of both lower extremities Do not feel that the edema is secondary to a primary cardiac etiology per cardio records History of GI bleed (10/2023) Pt Unsure Hx of pleural effusion Small left pleural effusion noted on 09/25/24 CXR Hx of gout "haven't had an attack in years" Hx: UTI (urinary tract infection) has indwelling sevilla cath, changed every 4 weeks CKD (chronic kidney disease) stage 4, follows with Dr. Murphy Sevilla catheter in place has changed every 4 weeks at [facility] urology Polyneuropathy Peyronie's disease Obesity Bradycardia hx of 1st degree AVB. in the past had episode of HR in 30s in ambulance after vasovagal event for which he was given atropine; per cardio, rusty episode likely 2/2 vagal stimulation Syncope and collapse hx-admitted to [facility] following syncopal episode (04/24/23 - 04/27/23); dx likely vasovagal 2/2 volume depletion and BB. most recently 04/04/24 in [facility] OP Lab - [facility] ER/Admission 04/04/24-04/08/24 MGUS (monoclonal gammopathy of unknown significance) Dr Murphy Monitoring BPH (benign prostatic hyperplasia) currently with Sevilla in place Dyslipidemia Type 2 diabetes mellitus Ozempic Arthritis GERD (gastroesophageal reflux disease) Hearing deficit bilateral aids Surgical History History of transcarotid artery revascularization (TCAR) 05/2024, left side Hx of heart artery stent (2009) S/P MARIO TO RAMUS (2009), [facility], x1 stent; f/u beatrice nunez Hx of cystoscopy Hx of eye surgery laser surgery to remove "film" from eye following cataract sx. 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) History of colonoscopy History of open reduction and internal fixation (ORIF) procedure right tibial plateau - lateral fracture History of tonsillectomy History of endoscopic sinus surgery History of cardiac cath (2009) S/P MARIO TO RAMUS (2009), [facility], x1 stent; f/u dr. lopez, [facility] [place] Family History Uncle Family hx of colon cancer Social History Smoking Status: Former smoker Tobacco Type: Declines Second Hand Exposure: No; Do You Dip or Chew Tobacco: No; Hx Alcohol Use: No Hx Substance Use: No Preferred Language: Malagasy Communication Ability: Effective Visual Impairment: Limited Hearing Ability: Normal Feed House Supervisor Required: No Beliefs That Will Affect Care: None marital status: Current Living Situation: Spouse current occupational status: retired How many Children do You have: 7 Feels Safe at Home: Yes Diet: low salt and other Diet Comment: low potassium diet conscious. restricted banana and avocado and nuts. caffeine: Yes (1-2 coffees daily) Physical Activity Frequency: Does not Exercise Seatbelt Use: always Do you think of yourself as: straight/heterosexual Gender Identity: Male Assistive Devices: Walker Physical Exam Physical Exam: Gen.: No acute distress. Alert and oriented. HEENT: Anicteric sclera. Neck: No obvious JVD. Cardiac: Regular. Normal S1-S2. No murmurs, rubs, or gallops. Pulmonary: Clear to auscultation bilaterally without wheezes, rales, or rhonchi. Abdomen: Soft, nontender, nondistended, with normoactive bowel sounds. No bruits noted. Extremities: 2+ radial pulses bilaterally. 2+ posterior tibialis pulses bilaterally. Trace bilateral lower extremity edema. No cyanosis. Psychiatric: Affect appears appropriate. Results & Data Vital Signs (Past 12 Hours) Vital Signs Temp Pulse Pulse Resp BP BP Pulse Ox 04/19/25 14:00 36.5 C 80 17 189/91 H 97 04/19/25 13:41 36.8 C 80 18 202/88 H 95 04/19/25 13:30 36.5 C 81 18 185/80 H 97 04/19/25 13:09 88 189/75 H 04/19/25 12:37 81 195/83 H 04/19/25 12:36 36.5 C 81 18 195/83 H 97 04/19/25 12:01 36.3 C L 75 18 183/76 H 97 04/19/25 11:38 77 167/73 H 04/19/25 08:36 36.4 C L 72 18 148/74 H 97 04/19/25 07:00 66 04/19/25 05:42 71 04/19/25 04:48 04/19/25 04:48 36.4 C L 78 18 144/72 H 96 04/19/25 04:45 36.4 C L 78 18 144/72 H 96 04/19/25 04:45 04/19/25 03:36 83 18 166/85 H 98 04/19/25 02:45 93 H 15 162/88 H 97 04/19/25 02:30 90 17 98 04/19/25 02:27 93 H 21 98 04/19/25 02:17 172/88 H Pulse Ox O2 Del Method O2 Del Method 04/19/25 14:00 04/19/25 13:41 04/19/25 13:30 04/19/25 13:09 04/19/25 12:37 04/19/25 12:36 Room Air 04/19/25 12:01 Room Air 04/19/25 11:38 04/19/25 08:36 Room Air 04/19/25 07:00 04/19/25 05:42 04/19/25 04:48 Room Air 04/19/25 04:48 Room Air 04/19/25 04:45 Room Air 04/19/25 04:45 96 Room Air 04/19/25 03:36 Room Air 04/19/25 02:45 04/19/25 02:30 04/19/25 02:27 04/19/25 02:17 Laboratory Results Laboratory Results - last 24 hr 04/19/25 04/19/25 04/19/25 00:48 03:30 04:34 WBC 11.65 H RBC 2.71 L Hgb 8.2 L Hct 25.1 L MCV 92.6 MCH 30.3 MCHC 32.7 RDW Std Deviation 51.4 H RDW Coeff of Hernandez 15.3 H Plt Count 244 MPV 11.2 Immature Gran % (Auto) 0.3 Neut % (Auto) 72.8 Lymph % (Auto) 15.3 [place] % (Auto) 8.8 Eos % (Auto) 2.3 Baso % (Auto) 0.5 Neut # (Auto) 8.48 H Lymph # (Auto) 1.78 [place] # (Auto) 1.02 H Eos # (Auto) 0.27 Baso # (Auto) 0.06 Immature Gran # (Auto) 0.04 PT INR APTT PTT Ratio Sodium 134 L Potassium 4.8 Chloride 104 Carbon Dioxide 21 Anion Gap 9 BUN 54 H Creatinine 3.16 H Est Cr Clr Drug Dosing 19.1 eGFR 18.09 BUN/Creatinine Ratio 17.1 Glucose 286 H POC Glucose 222 H Calcium 8.8 Magnesium 2.3 Iron TIBC Transferrin Transferrin % Sat Ferritin Total Bilirubin 0.4 AST 23 ALT 13 Alkaline Phosphatase 70 Troponin I High Sens 57.1 H* 133.4 H* D Total Protein 6.9 Albumin 3.6 Globulin 3.3 Albumin/Globulin Ratio 1.1 Lipase 53 Blood Type Antibody Screen Crossmatch 04/19/25 04/19/25 04/19/25 07:59 10:40 11:46 WBC RBC Hgb Hct MCV MCH MCHC RDW Std Deviation RDW Coeff of Hernandez Plt Count MPV Immature Gran % (Auto) Neut % (Auto) Lymph % (Auto) [place] % (Auto) Eos % (Auto) Baso % (Auto) Neut # (Auto) Lymph # (Auto) [place] # (Auto) Eos # (Auto) Baso # (Auto) Immature Gran # (Auto) PT INR APTT PTT Ratio Sodium Potassium Chloride Carbon Dioxide Anion Gap BUN Creatinine Est Cr Clr Drug Dosing eGFR BUN/Creatinine Ratio Glucose POC Glucose 182 H 260 H Calcium Magnesium Iron 252 H TIBC 395 Transferrin 282 Transferrin % Sat 64 H Ferritin 293.9 Total Bilirubin AST ALT Alkaline Phosphatase Troponin I High Sens 1385.0 H* D Total Protein Albumin Globulin Albumin/Globulin Ratio Lipase Blood Type A Positive Antibody Screen NEGATIVE Crossmatch See Detail 04/19/25 13:33 WBC 9.69 RBC 2.52 L Hgb 7.6 L Hct 23.5 L MCV 93.3 MCH 30.2 MCHC 32.3 RDW Std Deviation 52.3 H RDW Coeff of Hernandez 15.2 H Plt Count 218 MPV 11.6 Immature Gran % (Auto) 0.5 Neut % (Auto) 74.0 Lymph % (Auto) 14.3 [place] % (Auto) 8.0 Eos % (Auto) 2.7 Baso % (Auto) 0.5 Neut # (Auto) 7.16 H Lymph # (Auto) 1.39 [place] # (Auto) 0.78 H Eos # (Auto) 0.26 Baso # (Auto) 0.05 Immature Gran # (Auto) 0.05 PT Pending INR Pending APTT Pending PTT Ratio Pending Sodium Potassium Chloride Carbon Dioxide Anion Gap BUN Creatinine Est Cr Clr Drug Dosing eGFR BUN/Creatinine Ratio Glucose POC Glucose Calcium Magnesium Iron TIBC Transferrin Transferrin % Sat Ferritin Total Bilirubin AST ALT Alkaline Phosphatase Troponin I High Sens Total Protein Albumin Globulin Albumin/Globulin Ratio Lipase Blood Type Antibody Screen Crossmatch Diagnostic Findings Labs reviewed and notable for elevated high-sensitivity troponin trending up to 1385, abnormal but stable renal function, normal potassium, anemia with hemoglobin 7.6, normal platelet count. ECHO 04/19/25: 1. Normal right ventricular size and systolic function. EF 55-60%. Mild hypokinesis of the inferolateral wall. Severe concentric left ventricular hypertrophy. 2. Mildly dilated right ventricle with normal systolic function. 3. Mild left atrial dilation. 4. Mild mitral regurgitation. 5. Technically difficult study, enhanced with IV Definity. 6. No significant change from prior study on 08/03/2024. Telemetry personally reviewed: Sinus rhythm. There was a 3-second pause on 04/19/2025 at 6:20 AM (patient states that he was awake but asymptomatic). No significant arrhythmia noted. Nephrology consultation reviewed from 04/19/2025. History and physical report reviewed. Chest x-ray 04/19/2025: Left mild pleural effusion per radiology. ECGs personally reviewed: ECG 04/19/2025 at 12:42 AM: Possible sinus tachycardia with first-degree AV block. 110 bpm. ECG 04/19/2025 at 11:56 AM: Sinus rhythm with first-degree AV block. Septal infarct. RBBB. RBBB. Inferior infarct. Inferior ST elevation. Medications Administered Current Inpatient Medications Acetaminophen (Acetaminophen 325 Mg Tab) 650 mg PO Q4H PRN PRN Reason: Pain or Fever Stop: 05/19/25 04:44 Last Admin: 04/19/25 12:38 Dose: 650 mg Allopurinol (Allopurinol 300 Mg Tab) 300 mg PO QAM LEONARDA Stop: 05/19/25 08:59 Last Admin: 04/19/25 08:23 Dose: 300 mg Aspirin (Aspirin 81 Mg Ectab) 81 mg PO QAM LEONARDA Stop: 05/19/25 08:59 Last Admin: 04/19/25 08:23 Dose: 81 mg Atorvastatin Calcium (Atorvastatin 40 Mg Tab) 40 mg PO HS LEONARDA Stop: 05/19/25 20:59 Clonidine HCl (Clonidine Hcl 0.1 Mg/24 Hr Transderm Sys) 1 patch TD Q7D LEONARDA Stop: 05/19/25 13:29 Clonidine HCl (Clonidine Hcl 0.3 Mg/24 Hr Transderm Sys) 1 patch TD Q7D LEONARDA Stop: 05/19/25 13:29 Dextrose (Dextrose 50% 50 Ml Syringe) 25 - 50 ml IV UD PRN; Protocol PRN Reason: Hypoglycemia Protocol Stop: 05/19/25 06:32 Docusate Sodium (Docusate Sodium 100 Mg Cap) 100 mg PO BID PRN PRN Reason: Constipation Stop: 05/19/25 04:44 Ferrous Sulfate (Ferrous Sulfate 325 Mg Tab) 325 mg PO DAILY LEONARDA Stop: 05/19/25 08:59 Last Admin: 04/19/25 08:23 Dose: 325 mg Glucagon (Glucagon For Inj 1 Mg Vial) 1 mg SQ UD PRN; Protocol PRN Reason: Hypoglycemia Protocol Stop: 05/19/25 06:32 Glucose (Glucose 40% Gel 15 Gm Tube) 15 - 30 gm PO UD PRN; Protocol PRN Reason: Hypoglycemia Protocol Stop: 05/19/25 06:32 Glucose (Glucose 10 Tab/Tube) 4 - 8 tab PO UD PRN; Protocol PRN Reason: Hypoglycemia Protocol Stop: 05/19/25 06:32 Sodium Chloride (Nss) 100 mls @ 15 mls/hr IV .Q6H40M PRN PRN Reason: For Transfusion Duration Stop: 04/19/25 17:46 Sodium Chloride (Nss) 100 mls @ 15 mls/hr IV .Q6H40M PRN PRN Reason: For Transfusion Duration Stop: 04/19/25 18:01 Heparin Sodium/Dextrose (Heparin 66207 Unit/500 Ml D5w) 25,000 units in 500 mls @ 20 mls/hr IV .Q24H LEONARDA; Protocol Stop: 05/19/25 12:44 Last Admin: 04/19/25 14:08 Dose: 1,000 units/hr, 20 mls/hr Insulin Aspart (Insulin Aspart Per Unit Charge) 0 units SC ACHS [facility] Stop: 05/19/25 07:29 Last Admin: 04/19/25 14:07 Dose: 3 units Insulin Glargine (Lantus Per Unit Charge) 9 units SQ BID LEONARDA Stop: 05/19/25 08:59 Last Admin: 04/19/25 09:50 Dose: Not Given Melatonin (Melatonin 3 Mg Tab) 3 mg PO HS PRN PRN Reason: Sleep Stop: 05/19/25 04:44 Metoprolol Tartrate (Metoprolol Tartrate 25 Mg Tab) 12.5 mg PO BID [facility] Stop: 05/19/25 20:59 Miscellaneous (Carbohydrates For Hypoglycemia ) 15 - 30 gm PO UD PRN PRN Reason: Hypoglycemia Protocol Stop: 05/19/25 06:32 Miscellaneous (Remove Clonidine Patch) 1 each N/A CQWK [facility] Stop: 05/19/25 13:29 Miscellaneous (Check Clonidine Patches Placement) 1 each N/A QS [facility] Stop: 05/19/25 15:59 Nitroglycerin (Nitroglycerin Sl 0.4 Mg/Tab Tab) 0.4 mg SL Q5M PRN PRN Reason: Chest Pain Stop: 05/19/25 00:49 Last Admin: 04/19/25 00:51 Dose: 0.4 mg Nitroglycerin (Nitroglycerin 2% Ointment 30gm Tube) 0.5 inch EXT Q6H LEONARDA Stop: 05/19/25 12:59 Last Admin: 04/19/25 14:09 Dose: 0.5 inch Ondansetron HCl (Ondansetron Inj 2 Mg/Ml 2 Ml Vial) 4 mg IV Q6H PRN PRN Reason: Nausea And Vomiting Stop: 05/19/25 04:44 Pantoprazole Sodium (Pantoprazole 40 Mg Tab) 40 mg PO HS [facility] Stop: 05/19/25 20:59 Polyethylene Glycol (Polyethylene (Miralax) 17 Gm Pack) 17 gm PO DAILY PRN PRN Reason: Constipation Stop: 10/12/25 10:04 Last Admin: 04/19/25 10:20 Dose: 17 gm Ticagrelor (Ticagrelor 90 Mg Tab) 90 mg PO BID LEONARDA Stop: 05/19/25 08:59 Last Admin: 04/19/25 08:24 Dose: 90 mg PG Care Time/CCT Total # of Minutes Spent Total Time Spent with Patient: Total time spent is greater than 50% in coordination of care (as documented) at patient's floor/unit and/or counseling patient: Coding Level of Care Code 32451 INT INP/OBS CARE 3/75MIN Diagnoses Non-ST elevation (NSTEMI) myocardial infarction I21.4 CAD (coronary artery disease) I25.10 Hypertension I10 Anemia D64.9
[2025-04-19 14:24] LABS: Acanthocytes 1+; Polychromasia 2+; Tear Drop Cells 1+
[2025-04-19 14:32] LABS: INR 0.9 (0.9-1.1); Partial Thromboplastin Time 28 Seconds (21-31); Prothrombin Time 10.2 Seconds (9.0-12.0)
[2025-04-19] MEDS: [UNRECOGNIZED DRUG - REMARK] SCH (17:20)
[2025-04-19 18:02] LABS: Appearance Urine Turbid (Clear); Bacteria Urine Automated 4+ (None Seen); Cast Urine Automated >20 /lpf (0-2); Glucose Urine UA Trace (Negative)
--- NOTE | 2025-04-19 18:39 | XCELERA ---
[id number]
--- NOTE | 2025-04-19 20:08 | Electrocardiogram Report ---
Test Reason : Blood Pressure : */* mmHG Vent. Rate : 110 BPM Atrial Rate : * BPM P-R Int : * ms QRS Dur : 154 ms QT Int : 396 ms P-R-T Axes : * -22 -15 degrees QTcB Int : 535 ms Possible Sinus tachycardia with 1st degree A-V block Right bundle branch block Inferior infarct , age undetermined Inferior ST elevation Abnormal ECG When compared with ECG of 25-Sep-2024 19:25, ST elevation now present in Inferior leads Confirmed by Rickey Henson ([id number]) on 04/19/2025 8:08:01 PM Referred By: REFERRED SELF Confirmed By: Rickey Henson
--- NOTE | 2025-04-19 20:09 | Electrocardiogram Report ---
Test Reason : Blood Pressure : */* mmHG Vent. Rate : 80 BPM Atrial Rate : 80 BPM P-R Int : 306 ms QRS Dur : 162 ms QT Int : 426 ms P-R-T Axes : 97 -2 268 degrees QTcB Int : 491 ms Sinus rhythm with 1st degree A-V block Right bundle branch block Septal infarct , age undetermined T wave abnormality, consider inferolateral ischemia Abnormal ECG When compared with ECG of 19-Apr-2025 00:42, ST no longer elevated in Inferior leads Inferior infarct is no longer Present Septal infarct is now Present Confirmed by Rickey Henson ([id number] on 04/19/2025 8:08:52 PM Referred By: REFERRED SELF Confirmed By: Rickey Henson
[2025-04-19] MEDS: ATORVASTATIN 40 MG TAB PO SCH (20:57)
[2025-04-19] MEDS: METOPROLOL TARTRATE 25 MG TAB PO SCH (20:57)
[2025-04-19 21:04] LABS: ANTI-Xa, UFH(UnfractionatedHep 0.57 IU/ml (0.3-0.7)
[2025-04-20 06:19] LABS: Hematocrit (blood only) 21.2 % (42.0-52.0); Hemoglobin 7.2 g/dl (14.0-18.0); Immature Granulocytes # (auto) 0.05 K/uL (0.01-0.20); Immature Granulocytes % (auto) 0.5 %; Mean Corpuscular Hemoglobin 30.4 pg (25.0-34.0); Mean Corpuscular Volume 89.5 fL (80.0-100.0); Platelet Count 185 K/uL (130-400); RDW Standard Deviation 52.0 fL (36.4-46.3); Red Blood Count 2.37 M/uL (4.70-6.10); White Blood Count 10.34 K/ul (4.8-10.8)
[2025-04-20 06:46] LABS: ANTI-Xa, UFH(UnfractionatedHep 0.51 IU/ml (0.3-0.7); RBC Morphology Unremarkable
[2025-04-20 06:50] LABS: Anion Gap 5.0 (3-11); Blood Urea Nitrogen 62.0 mg/dl (6-23); Calcium 8.0 mg/dl (8.6-10.3); Carbon Dioxide 21.0 mmol/L (21-32); Chloride 103.0 mmol/L (98-107); Creatinine Clr Calc Pharmacy 18.8 ml/min; Glucose 176.0 mg/dl (70-99(Fasting)); Magnesium 2.2 mg/dl (1.7-2.4); Potassium 5.3 mmol/L (3.5-5.1); Sodium 129.0 mmol/L (136-145)
[2025-04-20] MEDS ORDERED: SODIUM CHLORIDE 0.9% 100 ML IV PRN (07:46)
[2025-04-20] MEDS: SODIUM ZIRCONIUM CYCLOSILICATE 10 GM PACKET PO SCH (09:50)
--- NOTE | 2025-04-20 10:42 | Nephrology Progress Note ---
Date of Service April 20, 2025 Assessment & Plan (1) Acute kidney injury superimposed on CKD: (2) Stage 4 chronic kidney disease: (3) Anemia: (4) Hypertension: (5) Non-ST elevation (NSTEMI) myocardial infarction: (6) First degree AV block: Plan 89 yo gentleman with stage IV CKD secondary to diabetes, baseline creatinine slightly variable but around 3.0 mg/dl, admitted to the hospital with chest pain. Troponin was slightly elevated, started on heparin drip and evaluated by cardiology. Chest pain resolved and has been asymptomatic since. Kidney function was slightly variable but not too far from baseline, creatinine this morning was 3.3 mg/dl. Noted to have significant anemia, received 1 unit of blood transfusion yesterday but hemoglobin again dropped to 7.2 this morning and currently getting another unit. Clinically negative but getting workup for any evidence of GI bleeding, heparin dose was lowered. Lab this morning was notable for mild hyperkalemia and hyponatremia, received 1 dose of Lokelma this morning. Has been having decent urine output net negative. Blood pressure was running high but slightly improved after started on amlodipine. Off of beta-ashley as per cardiology due to some pauses on EKG. Considering advanced CKD, currently asymptomatic, plan for medical management without considering cardiac cath at this point. --Monitor intake and output, aim to keep net even. --Agree with continuing on amlodipine and increasing dose as tolerated, need to keep off of LORNA inhibitor/ARB/aldosterone antagonist considering hyperkalemia. --Kidney function and electrolyte in a.m. Admission and Anticipated Discharge Date Admission Date: April 19, [address] Gates was seen and evaluated this morning. He reports overall feeling better, did not have any further episode of chest pain, shortness of breath. Slept well overnight. Blood pressure has been running high but noted slight improvement after receiving 5 mg of amlodipine this morning. Continued on clonidine patch. Received 1 unit of blood transfusion yesterday but hemoglobin dropped further to 7.2 this morning and currently receiving another unit of blood. Fecal occult blood test was done this morning, result pending but he himself denies any active bleeding. Review of Systems Review of Systems: Detailed review of system was done and pertinent positives and negatives are mentioned above. Physical Exam Constitutional: WD/WN, vitals as above no acute distress Eyes: + anicteric sclerae Neck: normal visual inspection Respiratory: no respiratory distress Auscultation: lungs clear to auscultation bilaterally Cardiovascular: Rate/Rhythm: regular rate and regular rhythm Heart Sounds: normal S1 and normal S2 Extremities: no edema Skin: no rashes, warm and dry Neurologic: no focal motor deficits and not confused Psychiatric: Orientation: alert and oriented x 3 Results & Data Vital Signs (Past 12 Hours) Vital Signs Temp Pulse Pulse Resp BP BP Pulse Ox 04/20/25 10:28 36.8 C 70 16 176/79 H 94 04/20/25 09:28 36.7 C 76 18 184/77 H 04/20/25 08:58 36.8 C 74 17 186/82 H 94 04/20/25 08:43 37.0 C 71 16 179/76 H 94 04/20/25 08:27 37.0 C 75 18 225/87 H 95 04/20/25 07:33 36.8 C 72 17 180/89 H 95 04/20/25 06:45 61 04/20/25 03:00 36.6 C 67 18 128/75 94 04/19/25 23:04 37.2 C 63 18 115/68 96 O2 Del Method 04/20/25 10:28 04/20/25 09:28 04/20/25 08:58 04/20/25 08:43 04/20/25 08:27 04/20/25 07:33 Room Air 04/20/25 06:45 04/20/25 03:00 Room Air 04/19/25 23:04 Room Air PG Care Time/CCT Total # of Minutes Spent Total Time Spent with Patient: Total time spent is greater than 50% in coordination of care (as documented) at patient's floor/unit and/or counseling patient: Coding Level of Care Code 58530 SUB INP/OBS CARE 2/35MIN Diagnoses Acute kidney injury superimposed on CKD N17.9; N18.9 Stage 4 chronic kidney disease N18.4 Anemia D64.9 Hypertension I10 Non-ST elevation (NSTEMI) myocardial infarction I21.4 First degree AV block I44.0
--- NOTE | 2025-04-20 12:01 | Hospitalist Progress Note ---
Date of Service April 20, 2025 Assessment & Plan (1) Chest pain: (2) Hypertension: (3) Iron deficiency: (4) Stage 4 chronic kidney disease: Plan Patient is an 89-year-old male with past medical history of sleep Kd, chronic indwelling Jerome, type II DM, HLD, HTN, former smoker, CAD s/p stent in 2009, recent TCAR bilateral. Patient presented via EMS after he woke up with dull midsternal chest pain that radiated to both arms relieved with nitroglycerin x 2 and aspirin 324 mg po. patient is also concerned about his drop in hemoglobin over the past few months and had an iron infusion 04/18. He was found to have a troponin of 57.1 and EKG showed right bundle branch block. He is being admitted for further cardiac workup. #NSTEMI, history of CAD with PCI History of coronary PCI and stent 2009, also with bilateral TCAR 05/27/2024 and 10/25/2024 relieved with nitroglycerin, troponin 57.1, 2-hour repeat pending (elevated at baseline). EKG showed right bundle branch block mildly worse from previous. CXR showed mild congestive changes with left-sided mild pleural effusion with atelectasis. Possibly a component of hypertensive emergency given BP reportedly elevated to 209/112 during episode at home. - heart score 6 . with 2/10 CP reoccurrence after admission - nitropaste ordered. Subsequently pain-free Troponin peaked at 1385, continues to downtrend Amlodipine added for afterload reduction Cardiology consult for NSTEMI. Patient declined catheterization. Medical management. CKD with baseline creatinine 3.16 at baseline, poor dialysis candidate and he has not been interested in this on past discussion EKG with chest pain as needed He had had increased blood pressures, and increased antihypertensive control discussed the 04/19 with him,he preferred to defer this and declined medication changes at that time. His blood pressure remained elevated 04/20 and on further bedside discussion he is agreeable to starting amlodipine. Will also trial a low-dose of isosorbide. Metoprolol not recommended to pause on telemetry Echo: EF 55-60%. Mild hypokinesis of inferior wall. Severe contracture LVH. No significant change from 2023 Acute on Chronic Anemia, Hx Iron deficiency anemia Component of chronic kidney disease, has frequent iron infusions and reportedly had 04/18. Hgb 8.2 at time of admission and patient symptomatic with dyspnea on exertion. Denies any signs of GI bleeding. - He has history of extensive polyps which required staged intervention to fully remove and this was done 15 years ago. LIkely with recurrent polyps at minimum, may have underlying undiagnosed colorectal malignancy leading to occult bleeding. He has declined endoscopy evaluation in the past for this and is supported with blood transfusions as needed. - Lower suspicion for upper GI bleeding as he has not had any epigastric discomfort at any point, no melena, and BUN while elevated has been reasonably stable and proportional to his renal function -Heparin paused due to drop in hemoglobin. Monitor for evidence of GI bleeding. No other obvious source of bleeding. He likely has underlying coronary disease and is at risk of perfusion deficits with anemia, and as he has been pain-free since arriving and had been on heparin however a significant portion of the day yesterday overnight benefits to NSTEMI treatment with heparin are likely similar to or outweighed by his risk of poor perfusion with progressive anemia and possible occult GI bleeding. Given this will pause heparin, trend blood levels, transfuse 1 unit this morning. Will continue to monitor and transfuse to a threshold of at least 8. #CKD creatinine 3.16 on arrival, at baseline. Creatinine 3.28, adequate urine output but he is with potassium 5.3 and mild hyponatremia at [facility] following Hyperkalemia 5.3 on 04/20. Colloid is infusion, Lokelma ordered. Trend BMP. Avoid LORNA/ARB/MRA due to hyperkalemia and CKD UOP adequate # History of bilateral TCAR No evidence of neck hematoma/bleeding. No strokelike symptoms #Urinary retention follows with Dr. Aaron and has a chronic indwelling Jerome. Continue standard catheter care #Type II DM on semaglutide at home .BSG control adequate, [id number] on morning check 04/20. Continue glargine 9 units twice daily, SSI VTE ppx: SCDs, low risk Dispo: med/tele - likely dc home 04/19 after echo Admission and Anticipated Discharge Date Admission Date: April 19, 2025 Subjective Seen on morning rounds. Feels well and no further recurrence of pain however h emoglobin did drop overnight. Blood pressure elevated this morning, he is agreeable to receiving amlodipine which has been started. Clonidine patch is continued. He has not noticed any hemodynamically significant bleeding. Has a small bruise/hematoma on his right posterior upper arm and some scattered bruising but no significant hematomas consistent with downtrending hemoglobin of 1 point. Cl inically has not had any bloody or melanic bowel movements and notes that he does generally have a bowel movement every day and this has not changed. I do have concern that he may be have occult GI bleeding, FOB is pending however sensitivity of this is poor, if he has clinically significant bleed to drop his hemoglobin would expect this to be apparent as melena/hematochezia. Given his history of extensive polyps which required staged intervention to fully remove and this was done over 15 years ago that may have underlying colorectal malignancy leading to occult bleeding. He has declined endoscopy evaluation in the past for this and is supported with blood transfusions as needed. Lower suspicion for upper GI bleeding as he has not had any epigastric discomfort at any point, no melena, and BUN while elevated has been reasonably stable and proportional to his renal function Discussed extensively at bedside with Mr. Gates. He has deferred catheterization and prefers conservative medical management. Also was high risk for progression of his CKD should he have any type of contrast dye, and he both has not wanted dialysis and is unlikely to tolerate this well. He had increased antihypertensive control discussed yesterday with him, preferred to defer this until he was transfused however his blood pressure remains high and on further bedside discussion he is agreeable to starting amlodipine. Will also trial a low-dose of isosorbide. Toprol all discontinued due to short pause while on telemetry. Physical Exam Physical Exam: General: A&Ox3. NAD. Cooperative. Slight pallor HEENT: Atraumatic, normocephalic. Vision and hearing grossly intact. Vision and hearing grossly intact, slightly hard of hearing Pulm: CTAB A&P. -wheezes, -rales, -rhonchi. Symmetrical chest rise. No increase in work of breathing. No respiratory distress. Cardiac: RRR, -mrg. Radial pulses intact and symmetrical. Abdominal: Nontender, nondistended, soft. BS present. Extremities: Warm, dry Results & Data Results & Data Vital Signs (Past 12 Hours) Vital Signs Temp Pulse Pulse Resp BP BP Pulse Ox 04/20/25 11:28 36.7 C 77 16 206/92 H 96 04/20/25 10:28 36.8 C 70 16 176/79 H 94 04/20/25 09:28 36.7 C 76 18 184/77 H 04/20/25 08:58 36.8 C 74 17 186/82 H 94 04/20/25 08:43 37.0 C 71 16 179/76 H 94 04/20/25 08:27 37.0 C 75 18 225/87 H 95 04/20/25 07:33 36.8 C 72 17 180/89 H 95 04/20/25 06:45 61 04/20/25 03:00 36.6 C 67 18 128/75 94 O2 Del Method 04/20/25 11:28 04/20/25 10:28 04/20/25 09:28 04/20/25 08:58 04/20/25 08:43 04/20/25 08:27 04/20/25 07:33 Room Air 04/20/25 06:45 04/20/25 03:00 Room Air PG Care Time/CCT Total # of Minutes Spent Total Time Spent with Patient: Total time spent is greater than 50% in coordination of care (as documented) at patient's floor/unit and/or counseling patient: Coding Level of Care Code 39300 SUB INP/OBS CARE 3/50MIN Diagnoses Chest pain R07.9 Hypertension I10 Iron deficiency E61.1 Stage 4 chronic kidney disease N18.4
[2025-04-20] MEDS: ISOSORBIDE MONO EXTENDED REL 30 MG TABCR PO SCH (12:47)
[2025-04-20 13:19] LABS: Hematocrit (blood only) 26.9 % (42.0-52.0); Hemoglobin 9.2 g/dl (14.0-18.0)
[2025-04-20 16:44] LABS: Anion Gap 8.0 (3-11); Blood Urea Nitrogen 62.0 mg/dl (6-23); Calcium 8.5 mg/dl (8.6-10.3); Carbon Dioxide 20.0 mmol/L (21-32); Chloride 104.0 mmol/L (98-107); Creatinine Clr Calc Pharmacy 19.2 ml/min; Glucose 117.0 mg/dl (70-99(Fasting)); Potassium 4.5 mmol/L (3.5-5.1); Sodium 132.0 mmol/L (136-145)
[2025-04-21 07:31] LABS: Hematocrit (blood only) 25.1 % (42.0-52.0); Hemoglobin 8.8 g/dl (14.0-18.0); Immature Granulocytes # (auto) 0.04 K/uL (0.01-0.20); Immature Granulocytes % (auto) 0.5 %; Mean Corpuscular Hemoglobin 30.7 pg (25.0-34.0); Mean Corpuscular Volume 87.5 fL (80.0-100.0); Platelet Count 186 K/uL (130-400); RDW Standard Deviation 52.2 fL (36.4-46.3); Red Blood Count 2.87 M/uL (4.70-6.10); White Blood Count 8.55 K/ul (4.8-10.8)
[2025-04-21 07:55] LABS: ANTI-Xa, UFH(UnfractionatedHep < 0.10 IU/ml (0.3-0.7)
[2025-04-21 08:04] LABS: Anion Gap 6.0 (3-11); Blood Urea Nitrogen 67.0 mg/dl (6-23); Calcium 8.2 mg/dl (8.6-10.3); Carbon Dioxide 21.0 mmol/L (21-32); Chloride 104.0 mmol/L (98-107); Creatinine Clr Calc Pharmacy 17.8 ml/min; Glucose 134.0 mg/dl (70-99(Fasting)); Potassium 4.5 mmol/L (3.5-5.1); Sodium 131.0 mmol/L (136-145)
[2025-04-21 08:18] VITALS: TEMP 97.7
--- NOTE | 2025-04-21 09:11 | Discharge Summary ---
Discharge Summary Date of Service April 21, 2025 Principal Dx & Hospital Course #1 = Principal Diagnosis (1) Chest pain: (2) Hypertension: (3) Iron deficiency: (4) Stage 4 chronic kidney disease: (5) Chronic kidney disease: (6) Iron (Fe) deficiency anemia: Plan Patient is an 89-year-old male with past medical history of sleep Kd, chronic indwelling Jerome, type II DM, HLD, HTN, former smoker, CAD s/p stent in 2009, recent TCAR bilateral. Patient presented via EMS after he woke up with dull midsternal chest pain that radiated to both arms relieved with nitroglycerin x 2 and aspirin 324 mg po. patient is also concerned about his drop in hemoglobin over the past few months and had an iron infusion 04/18. He was found to have a troponin of 57.1 and EKG showed right bundle branch block. He was seen during admission. Suspected NSTEMI with some symptoms worsened by progressive chronic anemia without overt bleeding. He has a history of anginal symptoms when his hemoglobin reaches approximately 8. he received 1 unit of transfusion for symptoms with a hemoglobin of near 8; on review of his uptrending troponin, high heart score, and concern for crescendo anginal pattern preceding presentation was reviewed with cardiology and recommended for heparinization. He did not show any overt bleeding or have any slighty bowel movements, and balance he did have a Hemoccult negative however his hemoglobin did drop by 1 g/dL in the morning following heparin GTT. Heparin was paused, he received a second unit of transfusion and had a hemoglobin of 9.2 subsequently. He continued to have no clinical bleeding other than a small amount of oozing from a wound on his scalp (he did not have any head strike or significant trauma, he scratched this by accident). Throughout this he was hypertensive [id number]. He had previously discontinued the hypertensives and nitrates due to variable blood pressures and orthostatic hypotension and some low blood pressures at home. He was consistently elevated, and likely has hypertensive contribution to his cardiac symptoms and his CKD. He did respond well to Nitropaste and low-dose amlodipine. Metoprolol was initially given however was discontinued as on review of telemetry he had 1 episode of a 3-second pause. He was tolerating amlodipine 5 mg and isosorbide well with a blood pressure of 150/70 at discharge. Given his labile hypertension at home and reports of drop s, more aggressive control was not pursued at time of admission. He will most certainly has a coronary lesion; he was seen by cardiology and catheterization was discussed however due to his overall risk, severe CKD deferred procedural intervention and wanted to treat with medical management. He has not been interested in dialysis. He was pain-free following admission and with transfusion, had no recurrence with a downtrending troponin. He was discharged to continue antihypertensives as noted and outpatient follow-up. He should have repeat BMP/hemoglobin levels checked in approximately 48 hours with results CCed to nephrology. He was ambulating independently without chest pain at time of discharge To do as outpatient: 1. Repeat H&H, BMP within 48 hours row results to nephrology 2. Follow-up with PCP, cardiology 3. Continue amlodipine 5 mg daily. Continue isosorbide mononitrate 30 mg every morning. If blood pressure is borderline low, decrease amlodipine to 2.5 and trend 4. Avoid LORNA/ARB/MRA due to both CKD and hyperkalemia #NSTEMI, history of CAD with PCI History of coronary PCI and stent 2009, also with bilateral TCAR 05/27/2024 and 10/25/2024 relieved with nitroglycerin, troponin 57.1, 2-hour repeat pending (elevated at baseline). EKG showed right bundle branch block mildly worse from previous. CXR showed mild congestive changes with left-sided mild pleural effusion with atelectasis. Possibly a component of hypertensive emergency given BP reportedly elevated to 209/112 during episode at home. - heart score 6 . with 2/10 CP reoccurrence after admission - nitropaste ordered. Subsequently pain-free Troponin peaked at 1385, down trended Amlodipine and isosorbide added for afterload reduction Cardiology consult for NSTEMI. Patient declined catheterization. Medical management. CKD with baseline creatinine 3.16 at baseline, poor dialysis candidate and he has not been interested in this on past discussion EKG with chest pain as needed He had had increased blood pressures, and increased antihypertensive control discussed the 04/19 with him,he preferred to defer this and declined medication changes at that time. His blood pressure remained elevated 04/20 and on further bedside discussion he is agreeable to starting amlodipine and isosorbide. Tolerated this well with blood pressure [id number] at dc. Metoprolol not recommended to pause on telemetry Echo: EF 55-60%. Mild hypokinesis of inferior wall. Concentric LVH. No significant change from 2023 Acute on Chronic Anemia, Hx Iron deficiency anemia Component of chronic kidney disease, has frequent iron infusions and reportedly had 04/18. Hgb 8.2 at time of admission and patient symptomatic with dyspnea on exertion. Denies any signs of GI bleeding. - He has history of extensive polyps which required staged intervention to fully remove and this was done 15 years ago. LIkely with recurrent polyps at minimum, may have underlying undiagnosed colorectal malignancy leading to occult bleeding. He has declined endoscopy evaluation in the past for this and is supported with blood transfusions as needed. - Lower suspicion for upper GI bleeding as he has not had any epigastric discomfort at any point, no melena, and BUN while elevated has been reasonably stable and proportional to his renal function -Heparin stopped due to drop in hemoglobin. He did not have any clinical evidence of GI bleeding subsequently, Hemoccult stools negative. Remained chest pain-free #CKD creatinine 3.16 on arrival, at baseline. Creatinine upper range of normal at discharge Nephrology following Hyperkalemia 5.3 on 04/20. Colloid is infusion, Lokelma ordered. Normalized BMP rechecked within 48 # History of bilateral TCAR No evidence of neck hematoma/bleeding. No strokelike symptoms #Urinary retention follows with Dr. Aaron and has a chronic indwelling Jerome. Continue standard catheter care #Type II DM on semaglutide at home Home diabetes medicines reviewed. Last A1c within goal VTE ppx: SCDs, low risk Dispo: med/tele - likely [place] home 04/19 after echo Admission HPI Per Admitting Provider Patient is an 89-year-old male with past medical history of sleep Kd, chronic indwelling Jerome, type II DM, HLD, HTN, former smoker, CAD s/p stent in 2009, recent TCAR bilateral. Patient presented via EMS after he woke up with dull midsternal chest pain that radiated to both arms relieved with nitroglycerin x 2 and aspirin 324 mg po. patient is also concerned about his drop in hemoglobin over the past few months and had an iron infusion 04/18. He was found to have a troponin of 57.1 and EKG showed right bundle branch block. He is being admitted for further cardiac workup. Patient seen at bedside. He stated he woke up with this dull midsternal chest pain that radiated to both of his arms and he had a BP of 209/112 at home. He took a sublingual nitroglycerin which reduced his chest pain from 6/10 to 2/10. He called EMS because of his elevated blood pressure. He stated en route they gave him 4 baby aspirin and in the ED he had sublingual nitroglycerin x 1 which resolved his chest pain. Patient stated that he was feeling well today and even exercised more than normal around the house, he denies any chest pain with exertion. He does endorse dyspnea with exertion over the past 2 to 3 weeks however relates it to his dropping hemoglobin levels. He stated he felt similar with the dyspnea on exertion in October whenever he required a blood transfusion x 1. He denies any current dizziness, lightheadedness, chest pain, shortness of breath, abdominal pain, nausea, vomiting, melena, hematochezia, hematemesis. He stated he does intermittently get nosebleeds that last for several days however he does not lose a significant amount of blood, most recent was several weeks ago. He denies current nicotine or alcohol use. He took all of his home medications yesterday. He wishes to be full code. Patient stated he has been speaking with his rn emergency room about having scheduled iron infusions or blood transfusions. He had the iron infusion yesterday because he had low iron on labs 1 week ago. Discharge Exam General: A&Ox3. NAD. Cooperative. HEENT: Slight oozing from abrasion at right posterior scalp. Left scalp skin wound with overlying abrasion. Some clot and light oozing. Dressing reapplied and covered. Healing by secondary intention. Vision and hearing grossly intact. Vision and hearing grossly intact, slightly hard of hearing Pulm: CTAB A&P. -wheezes, -rales, -rhonchi. Symmetrical chest rise. No increase in work of breathing. No respiratory distress. Cardiac: RRR, -mrg. Radial pulses intact and symmetrical. Abdominal: Nontender, nondistended, soft. BS present. Extremities: Warm, dry Discharge Plan Discharge Items Patient Disposition: Home - Self-Care Reason For Visit: CHEST PAIN Discharge Diagnosis: NSTEMI Progressive chronic anemia Condition on Discharge: Serious Activity: Resume your previous activity Non-emergency contact: Primary Care Provider, Manufacturing Quality Engineer and Welder Machine Operator Call non-emergency contact if: you have any medication questions, your symptoms worsen, your pain is not controlled and your pain is worsening Follow-up/Referrals: Vik Murphy MD [Physician] - Kevin Gonzalez MD [Physician] - Umberto Bassett DO [Primary Care Provider] - Diet: Carb Consistent or DM2, Heart Healthy and Low Potassium (2gm) Ambulatory Orders: Basic Metabolic Panel (Routine) Timeframe: 1 Day Location: Determined by Patient Ordered By: Odilon Live Hemoglobin and Hematocrit (Routine) Timeframe: 1 Day Location: Determined by Patient Ordered By: Odilon Coates Attending Provider Instructions: You were seen in the hospital for low blood levels and chest pain. You had 3 episodes of progressively worsening chest pain and 1 which occurred at rest, with elevated heart markers all consistent with acute coronary syndrome/NSTEMI. This is a type of heart attack. You were treated with a blood transfusion for your anemia, and were placed on heparin which is a blood thinner and a medical treatment for a heart attack. The next day your blood levels did drop, however you had no clinical signs of bleeding. Your heparin was discontinued he received another unit of blood with appropriate rise in your blood levels. You did not show any evidence of ongoing bleeding. You were seen by cardiology, and the risk/benefits of catheterization were discussed with you. On shared decision making you preferred to continue medical management for your underlying heart disease. Your blood pressure was above goal, but improved with addition of blood pressure agents. Please continue amlodipine and isosorbide as below for blood pressure control Please continue to take amlodipine 5 mg by mouth once daily for blood pressure. If you notice that your blood pressure is slightly low or you have any lightheadedness/dizziness, you may either hold or cut this medication in half to 2.5 mg. Please discuss this with your primary care doctor if this occurs. Please take isosorbide mononitrate 30 mg daily. You have a history of labile hypertension and are at risk of lightheadedness/dizziness and low blood pressure. If this occurs please discuss your blood pressure medicines with your outpatient physicians. Uncontrolled hypertension places you at increased risk of cardiac and renal disease progression. Your potassium levels were elevated during admission. These returned to normal at time of discharge; however it is recommended you have a repeat check of your kidney function and potassium within 48 hours. A basic metabolic panel and blood level recheck (H&H) has been ordered for you. Please follow-up on the results of these tests with your rn emergency room Dr. Murphy. If you develop any new or worsening symptoms including fever, chills, sweats, chest pain, chest pressure, difficulty breathing, uncontrolled nausea/vomiting, rash, wheezing, passing out or nearly passing out, bleeding, black/bloody bowel movements, or other new or concerning symptoms please call your primary care physician, or call 911 for re-evaluation in the emergency department if you are very concerned. Pending Studies at Discharge: No Stand-Alone Forms: My [facility] [employer], Smoking Cessation Medications and DC Order Prescriptions: New isosorbide mononitrate 30 mg Tablet Extended Release 24 Hr 30 mg PO QAM Qty: 30 0RF amlodipine 5 mg Tablet 5 mg PO HS Qty: 30 0RF Continued atorvastatin 40 mg tablet 40 mg PO HS Qty: 90 3RF allopurinol 300 mg tablet 300 mg PO QAM Qty: 90 3RF Ozempic 0.25 mg or 0.5 mg (2 mg/3 mL) pen injector 0.5 mg subcut WK Rx Instructions: SUNDAYS clonidine 0.1 mg/24 hr patch weekly 1 patch transdermal .weekly Qty: 12 3RF Rx Instructions: CHANGE THURSDAYS TOTAL DOSE 0.4--TAKES WITH 0.3 MG PATCH ferrous sulfate 325 mg (65 mg iron) tablet 325 mg PO .COMPLEX Qty: 90 3RF Rx Instructions: 325 mg orally daily; Reduce to every other day if you develop constipation omeprazole 20 mg Capsule,Delayed Release(Dr/Ec) 20 mg PO HS Centrum Silver 0.4-300-250 mg-mcg-mcg Tablet 1 tab PO QAM nitroglycerin [Nitrostat] 0.4 mg tablet, sublingual 0.4 mg sublingual Q5M PRN (Reason: Chest Pain) Patient Comments: DISSOLVE ONE TABLET UNDER THE TONGUE EVERY 5 MINUTES FOR UP TO 3 DOSES NEEDED FOR CHEST PAIN. Rx Instructions: Pt states this is and he would need a new script, but still has his medication just in case he needs it. aspirin 81 mg Tablet,Delayed Release (Dr/Ec) 81 mg PO QAM Hold Instructions: Resume on 11/07/23. Resume Tuesday if no more blood per rectum. polyethylene glycol 3350 [Miralax] 17 gram powder in packet 17 g PO QAM acetaminophen 500 mg Tablet 1,000 mg PO Q6H PRN (Reason: Pain) ticagrelor [Brilinta] 90 mg Tablet 90 mg PO BID Patient Comments: "Brilinta is picked up at [facility] not [facility]" furosemide 20 mg tablet 20 mg PO DAILY PRN (Reason: leg swelling) Qty: 30 1RF clonidine 0.3 mg/24 hr patch weekly 0.3 mg transdermal WK Rx Instructions: CHANGES ON THURSDAYS, TOTAL DOSE 0.4 MG--USE WITH 0.1 MG PATCH Discharge Orders: Discharge Order (Routine); Ordered 04/21/25 Ordered By: Odilon Live Admission Data Admit Date/Time: 04/19/25 02:44 Attending Provider: Odilon Live Admit Provider: Declan Sutton Primary Care Provider: Umberto Bassett Other Providers: Declan Sutton; Blake Sanchez; Kevin Gonzalez; Sawyer Khan; Leon Smith; Gucci Lowery Jr; Rickey Henson; Jennifer Redmond; Viktoria Duque; Anup Leal; Anup Shah; Vilma Serrano; Eagle Rowley; Tawanna Bacon; Eagle Gonzalez; Lavon Paez; Josue Shabazz; Facundo Erickson; Jatinder Black; Alpesh Sadler; Tiff Garcia; [facility]; Vik Murphy Other Interventions: Discharge Summary Assessment (RN) Last Done: 04/21/25 08:45 Hospital Stay Data Consultations 04/19/25 02:00 ED Decision to Admit Stat 04/19/25 04:45 Consult Nephrology Routine 04/19/25 09:49 Consult Cardiology Routine Discharge Instructions Given to Patient (Per Discharging Provider) You were seen in the hospital for low blood levels and chest pain. You had 3 episodes of progressively worsening chest pain and 1 which occurred at rest, with elevated heart markers all consistent with acute coronary syndrome/NSTEMI. This is a type of heart attack. You were treated with a blood transfusion for your anemia, and were placed on heparin which is a blood thinner and a medical treatment for a heart attack. The next day your blood levels did drop, however you had no clinical signs of bleeding. Your heparin was discontinued he received another unit of blood with appropriate rise in your blood levels. You did not show any evidence of ongoing bleeding. You were seen by cardiology, and the risk/benefits of catheterization were discussed with you. On shared decision making you preferred to continue medical management for your underlying heart disease. Your blood pressure was above goal, but improved with addition of blood pressure agents. Please continue amlodipine and isosorbide as below for blood pressure control Please continue to take amlodipine 5 mg by mouth once daily for blood pressure. If you notice that your blood pressure is slightly low or you have any lightheadedness/dizziness, you may either hold or cut this medication in half to 2.5 mg. Please discuss this with your primary care doctor if this occurs. Please take isosorbide mononitrate 30 mg daily. You have a history of labile hypertension and are at risk of lightheadedness/dizziness and low blood pressure. If this occurs please discuss your blood pressure medicines with your outpatient physicians. Uncontrolled hypertension places you at increased risk of cardiac and renal disease progression. Your potassium levels were elevated during admission. These returned to normal at time of discharge; however it is recommended you have a repeat check of your kidney function and potassium within 48 hours. A basic metabolic panel and blood level recheck (H&H) has been ordered for you. Please follow-up on the re sults of these tests with your rn emergency room Dr. Murphy. If you develop any new or worsening symptoms including fever, chills, sweats, chest pain, chest pressure, difficulty breathing, uncontrolled nausea/vomiting, rash, wheezing, passing out or nearly passing out, bleeding, black/bloody bowel movements, or other new or concerning symptoms please call your primary care physician, or call 911 for re-evaluation in the emergency department if you are very concerned. Total Time Total Time Spent Total Time Spent (In Minutes): Time spend day of discharge 35 minutes including direct patient care, documentation, review of labs and images, and coordination of care. Coding Level of Care Code 85793 INP/OBS DISCH >30 MIN Diagnoses Chest pain R07.9 Hypertension I10 Iron deficiency E61.1 Stage 4 chronic kidney disease N18.4 Chronic kidney disease N18.9 Iron (Fe) deficiency anemia D50.9
--- NOTE | 2025-04-21 09:44 | Nephrology Progress Note ---
Date of Service April 21, 2025 Assessment & Plan (1) Acute kidney injury superimposed on CKD: (2) Stage 4 chronic kidney disease: (3) Anemia: (4) Hypertension: (5) Non-ST elevation (NSTEMI) myocardial infarction: (6) First degree AV block: Plan 89 yo gentleman with stage IV CKD secondary to diabetes, baseline creatinine slightly variable but around 3.0 mg/dl, admitted to the hospital with chest pain. Troponin was slightly elevated, started on heparin drip and evaluated by cardiology. Chest pain resolved and has been asymptomatic since. Kidney function was slightly variable but not too far from baseline, creatinine this morning was 3.3 mg/dl. Noted to have significant anemia, received 1 unit of blood transfusion yesterday but hemoglobin again dropped to 7.2 this morning and currently getting another unit. Clinically negative but getting workup for any evidence of GI bleeding, heparin dose was lowered. Lab this morning was notable for mild hyperkalemia and hyponatremia, received 1 dose of Lokelma this morning. Has been having decent urine output net negative. B lood pressure improving on Amlodipine, Imdur. Cr close to baseline, electrolyte acceptable. Net negative --Monitor intake and output, aim to keep net even. Do not see need for diuretics at this time. --Agree with continuing on amlodipine on discharge --Ok to be discharged with lab in 1/[address] Murphy. Admission and Anticipated Discharge Date Admission Date: April 19, [address] Gates was seen and evaluated this morning. Doing well, no further episode of chest pain, shortness of breath. Slept well overnight. Blood pressure started to improve. Hb 8.8 after 1 PRBC yesterday. Kidney function slightly variable, K improved. Decent U, net -2 L Review of Systems Review of Systems: Detailed review of system was done and pertinent positives and negatives are mentioned above. Physical Exam Constitutional: WD/WN, vitals as above no acute distress Eyes: + anicteric sclerae Neck: normal visual inspection Respiratory: no respiratory distress Auscultation: lungs clear to auscultation bilaterally Cardiovascular: Rate/Rhythm: regular rate and regular rhythm Heart Sounds: normal S1 and normal S2 Extremities: no edema Skin: no rashes, warm and dry Neurologic: no focal motor deficits and not confused Psychiatric: Orientation: alert and oriented x 3 Results & Data Vital Signs (Past 12 Hours) Vital Signs Temp Pulse Pulse Resp BP BP Pulse Ox 04/21/25 08:17 36.5 C 61 17 152/70 H 94 04/21/25 06:45 59 L 04/21/25 04:00 04/21/25 03:26 36.6 C 67 16 147/74 H 95 04/20/25 23:22 36.8 C 69 18 128/65 95 04/20/25 21:43 72 Pulse Ox O2 Del Method O2 Del Method 04/21/25 08:17 Room Air 04/21/25 06:45 04/21/25 04:00 95 Room Air 04/21/25 03:26 Room Air 04/20/25 23:22 Room Air 04/20/25 21:43 PG Care Time/CCT Total # of Minutes Spent Total Time Spent with Patient: Total time spent is greater than 50% in coordination of care (as documented) at patient's floor/unit and/or counseling patient: Coding Level of Care Code 49780 SUB INP/OBS CARE 2/35MIN Diagnoses Acute kidney injury superimposed on CKD N17.9; N18.9 Stage 4 chronic kidney disease N18.4 Anemia D64.9 Hypertension I10 Non-ST elevation (NSTEMI) myocardial infarction I21.4 First degree AV block I44.0
[2025-04-21 11:04] VITALS: BP 145/78; PULSE 85; RESP 18; O2SAT 96
[2025-04-25] MEDS ORDERED: REMOVE CLONIDINE PATCH SCH (08:59)
== END 2025-04-21 14:39 | disposition home health service (06) ==
LOC: 2N 00:38 → ED 00:38 → SUATTDRO 02:44 → 2N 06:10